=== PATIENT | male | born 1960 | race Caucasian/White ===

== ENCOUNTER 2016-09-02 17:34 | Inpatient (IN) | payer OTHER ==
[~2016-09-02] VITALS: Ht 177.8 cm; Wt 111.1 kg
[~2016-09-02 17:34] MED LIST: LEVO75TA5 PO; OLME20TA PO
[2016-09-02] MEDS ORDERED: DEXTROSE 50% 25 GM / 50ML DISP.SYRIN. IV PRN (19:45)
[2016-09-02] MEDS ORDERED: TRAM50TA PO (19:59)
[2016-09-02] MEDS ORDERED: LEVO75TA5 PO (19:59)
[2016-09-02] MEDS ORDERED: METH-37 PO (19:59)
[2016-09-02] MEDS ORDERED: LOSA100T6 PO (19:59)
[2016-09-02] MEDS ORDERED: ONDANSETRON PF 4 MG/2 ML VIAL. IV PRN (20:00)
[2016-09-02] MEDS ORDERED: KETOROLAC TROMETHAMINE 30 MG/ML SYRINGE. IV PRN (20:00)
[2016-09-02] MEDS ORDERED: MORPHINE SULFATE 4 MG/ML DISP.SYRIN. IV PRN (20:00)
[2016-09-02] MEDS ORDERED: METHOCARBAMOL 500 MG TABLET PO PRN (20:15)
[2016-09-02] MEDS ORDERED: TRAMADOL 50 MG TABLET. PO PRN (20:15)
[2016-09-02 20:24] VITALS: BP 124/79
[2016-09-02] MEDS ORDERED: INSULIN DETEMIR 300 UNITS/3 ML INSULN.PEN. SQ SCH (21:00)
[2016-09-02] MEDS: IV NORMAL SALINE 1000ML BAG 1,000 ML IV SCH (21:47)
[2016-09-02] MEDS ORDERED: NAPR500T8 PO (22:02)
[2016-09-02] MEDS ORDERED: ACET500T68 PO (22:02)
[2016-09-02 22:41] VITALS: BP 120/80
[2016-09-03 02:36] VITALS: BP 128/79
[2016-09-03 06:52] VITALS: BP 112/67
[2016-09-03] MEDS ORDERED: LEVOTHYROXINE 75 MCG TABLET PO SCH (07:00)
[2016-09-03] MEDS: IV NORMAL SALINE 1000ML BAG 1,000 ML IV SCH (07:43)
--- NOTE | 2016-09-03 08:34 | PDOC ---
Infectious Disease Note ROS ROS Vital Sign Vital Signs Vital Signs Date Time Temp Pulse Resp B/P Pulse Ox O2 Delivery O2 Flow Rate FiO2 09/03/16 06:52 97.5 64 18 112/67 97 Room Air 97.5 Labs Lab Laboratory Tests Test 09/02/16 19:51 09/03/16 06:52 Glucose (Fingerstick) 482mg/dL (70-99) 408mg/dL (70-99) Objective Assessment Polyarthritis ? gout despite nml Uric acid vs ID. RF roughly normal Leukocytosis - splenectomy/Steroids/reactive/? infection H/o Splenectomy Diabetes HTN Plan Plan of Care Continue IV Rocephin f/u cults Await Rheum eval Thank you # [id number] SUPRIYA LUJAN MD Sep 03, 2016 08:34
[2016-09-03] MEDS: INSULIN ASPART 300 UNITS/3 ML INSULN.PEN SQ SCH ×2 (08:43→12:21)
[2016-09-03] MEDS ORDERED: CEFTRIAXONE SODIUM 2 GM in IV NORMAL SALINE 100ML 100 ML IV SCH (09:00)
[2016-09-03] MEDS ORDERED: LOSARTAN POTASSIUM 50 MG TABLET. PO SCH (09:00)
[2016-09-03] MEDS ORDERED: methylPREDNISolone SOD SUCC PF 125 MG/2 ML VIAL. IV SCH (09:00)
[2016-09-03 11:00] VITALS: BP 121/76
[2016-09-03] MEDS ORDERED: INSULIN ASPART 300 UNITS/3 ML INSULN.PEN SQ ONE (12:00)
[2016-09-03] MEDS ORDERED: DEXTROSE 50% 25 GM / 50ML DISP.SYRIN. IV PRN (13:15)
--- NOTE | 2016-09-03 14:00 | HP ---
ADMIT DATE: 09/02/2016 HISTORY OF PRESENT ILLNESS: The patient is a 56-year-old male patient who was admitted to [facility] Emergency Room complaining of not feeling generally well, has had fever up to 101.6 on last Wednesday, developed severe pain in his right hand and his left ankle joint with difficulty using them. The patient has never had any similar complaints before. Denied any recent travel or ill contact. He never had any previous inflammatory rheumatological problems. He denied any recent trauma to the right wrist or left ankle, has had a history of splenectomy and apparently has had before surgery of [place] spotted fever. He was evaluated in the Emergency Room, was found to have marked leukocytosis, mild hyponatremia, probably dilutional. His inflammatory markers were extremely high with C-reactive protein of 272 mg and sedimentation rate was 83 mm per hour. He was continued on his home medications, was started on methyl prednisolone, IV antibiotic as well as Toradol and tramadol and given that he continued to have swelling this seemed to be some form of rheumatological disorder. I opted to transfer him to [facility] to consult Infectious Disease given that he had splenectomy and also the land inspector, Dr. Ambriz. He has already been started on methyl prednisolone. He received 125 mg in the Emergency Room day before yesterday and yesterday he received 60 mg and again today. PAST MEDICAL HISTORY: Significant for hypertension, hypothyroidism, hyperlipidemia, right frozen shoulder, and bilateral meniscal tear. PAST SURGICAL HISTORY: Significant for bilateral arthroscopic knee surgery, splenectomy at age 14 and appendectomy in 1981. He has nasal septal deviation repair surgery, surgery of his right frozen shoulder. He underwent liposuction, abdominal wound dehiscence repair about 10 years ago. He underwent also colonoscopy, has a strong family history of colon cancer. ALLERGIES: He is allergic to DHRUV INHIBITORS, STATIN and DEMEROL. MEDICATIONS: His home medications consist of levothyroxine sodium 75 mcg once a day, methocarbamol 500 twice a day, Benicar 20 mg once a day, and tramadol 50 mg every 6 hours. FAMILY HISTORY: He has 3 younger brothers, who are healthy. His father is alive at the age of 85 and has had 2 CVAs and diabetes. His mother is alive at the age of 80 and is known to have COPD and hypertension. SOCIAL HISTORY: He is , has no children of his own. He never smoked. He drinks 1-3 drinks per week. He does not use any drugs. Acute MD. He is currently semi-retired. REVIEW OF SYSTEMS: The patient denied any blurring of vision, but has bilateral cataract, did not require any surgery. He has hearing loss. He has also weight loss, intentional. He denied any nausea, vomiting, diarrhea, or constipation. Denied any hematemesis, melena or hematochezia. Denied any dysuria, frequency or hematuria. Did complain of postvoid dribbling. Denied any chest pain, shortness of breath, orthopnea, paroxysmal nocturnal dyspnea. Denied any cough, phlegm, or hemoptysis. Did complain of shaking chills and fever up to 101.6 about 5 days ago. PHYSICAL EXAMINATION: GENERAL: When I examined him today, he looked well and was clearly in no apparent respiratory distress, somewhat pale, but no jaundice, cyanosis, or thyromegaly. No jugular distention. No limb edema. VITAL SIGNS: His heart rate was 82, blood pressure was 121/76, temperature was 98.1, respiratory rate was 18 and oxygen saturation was 94% on room air. EXAMINATION OF THE HEAD, EYES, EARS, NOSE AND THROAT: Normocephalic, atraumatic. NECK: Supple. HEART: Showed normal first and second sounds. No gallop, rub or murmur. CHEST: Clear to auscultation. No crepitation or rhonchi. ABDOMEN: Distended, soft, nontender. No guarding or rigidity. No organomegaly. All hernial orifices intact. Bowel sounds normal. NEUROLOGIC: He was awake, alert, and responding appropriately. Cranial nerves intact. EXTREMITIES: She moves extremities without difficulty except his right wrist and right hand as well as his ankle joint, is swollen and painful. PLAN: My plan is to continue with all his current medications and consult the infectious disease specialist and the land inspector and will decide further management accordingly. COOPER RENEE MD DR: CONSTANTINO/emily JOB#: [id number] / [id number]
[2016-09-03 14:59] VITALS: BP 115/70
[2016-09-03] MEDS ORDERED: METF500T9 PO (16:09)
[2016-09-03] MEDS ORDERED: INSULIN ASPART 300 UNITS/3 ML INSULN.PEN SQ SCH (16:30)
[2016-09-03] MEDS ORDERED: INSULIN DETEMIR 300 UNITS/3 ML INSULN.PEN. SQ SCH (21:00)
--- NOTE | 2016-09-04 05:44 | CONS ---
DATE OF CONSULTATION: 09/03/2016 PATIENT'S ROOM: 562 REQUESTING PHYSICIAN: Dr. Degroot. REASON FOR CONSULTATION: Fevers and joint swelling. 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 Also, has a history of a splenectomy at age 14 secondary to a baseball injury. This past Wednesday, he was at home, about 11:00 in the morning, states he did not feel quite right, had some chills and took some Tylenol and about 2 hours later was found to have a temp of 101.6. Additionally, he developed some right hand pain and left foot pain. The foot pain progressed to the point where he had difficulty walking. He took some tramadol, Tylenol and some Naprosyn. On Wednesday, Wednesday, Wednesday, the swelling, fevers and pain continued. He then presented to [facility] on 09/01/2016. He had a white blood cell count of 16.3 on arrival, sed rate was 83, uric acid was 4.2, creatinine was normal. Urinalysis was not consistent with urinary tract infection. He underwent x-rays of the ankle that showed some soft tissue swelling. Blood cultures obtained. He was placed on Rocephin, started steroids and was transferred to [facility]. Currently, he is sitting upright on the side of the bed. He had just finished breakfast, states he is feeling much better. He is actually able to ambulate a little bit and has a little bit more range of motion in his right wrist. He appears to have improved. He has no gross headaches, sinus issues, sore throat or cough or chest pain, no nausea, vomiting, diarrhea, dysuria, frequency or urgency. PAST MEDICAL HISTORY: Positive for [place] spotted fever, diabetes, hypertension, gastroesophageal reflux disease, cataracts and history of jungle fever. He has had multiple surgeries including the nose reconstruction, splenectomy, appendectomy, liposuction, multiple joint surgeries including knees and shoulder. REVIEW OF SYSTEMS: Otherwise negative except as mentioned above. ALLERGIES: LISTED MEPERIDINE, DHRUV INHIBITORS ALSO. SOCIAL HISTORY: He is . 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 FAMILY HISTORY: Negative for any arthritis or gouty history. CURRENT MEDICATIONS: Include Rocephin, insulin, levothyroxine, Cozaar, Robaxin, Solu-Medrol 60 daily, Ultram. Other meds are available and have been reviewed in the chart. PHYSICAL EXAMINATION: VITAL SIGNS: He is afebrile, temperature 97.5, pulse 64, respirations 18, blood pressure 112/67, satting 97% on room air. CONSTITUTIONAL: He is very pleasant. He is cooperative. He is in no acute distress. He is sitting upright on the side of the bed. HEENT: Pupils are with some cataracts, with normal conjunctivae. Oral cavity, oropharynx is clear. NECK: Supple with good range of motion. No JVD. LUNGS: Clear to auscultation bilaterally. HEART: S1, S2, without murmur. ABDOMEN: Mildly obese, soft, nontender, positive bowel sounds. Well-healed scars. EXTREMITIES: No clubbing or cyanosis. His right hand has trace to 1+ edema. There is some limited range of motion. There is no gross warmth associated with his left ankle. He has 1-2+ edema. There is no gross warmth with it either. It is mildly tender. SKIN: Otherwise, warm to touch without signs of rash. NEUROLOGIC: He is nonfocal and appropriate. His affect is pleasant. LABORATORY DATA: Most recent fingerstick here is 408. Laboratory values from [facility] from 09/02/2016 show a creatinine of 1. He had normal liver function study tests. Glucose at that time was 444. INR was 1.1. Rheumatoid factor of 14.2. IVETH is pending. White blood cell count was 17, hemoglobin 13.5, platelets 169 with 88% neutrophils. Sedimentation rate reviewed in history of present illness. X-rays reviewed in history of present illness. IMPRESSION: 1. Polyarthritis, questionable gout despite normal uric acid versus infection. His rheumatoid factors are roughly normal. 2. Leukocytosis secondary to splenectomy, steroids, questionable reactive, questionable infection. 3. History of splenectomy. 4. Diabetes. 5. Hypertension. RECOMMENDATIONS: For now, we will continue Rocephin. We will follow up on cultures that have been obtained. Await Rheumatology evaluation. Thank you for allowing me to participate in this patient's care. Should you have any further questions, please do not hesitate to contact me. SUPRIYA LUJAN MD DR: Domingo JOB#: [id number] / [id number]
== END 2016-09-03 16:44 | disposition home or self-care (01) | DRG 554 ==
LOC: 5 SOUTH 19:39
PROVIDERS: ADMIT Internal Medicine; ATTEND Internal Medicine
DX: M13.0 Polyarthritis, unspecified (principal); E87.1 Hypo-osmolality and hyponatremia; I10 Essential (primary) hypertension; E78.5 Hyperlipidemia, unspecified; E03.9 Hypothyroidism, unspecified; M75.01 Adhesive capsulitis of right shoulder; E11.9 Type 2 diabetes mellitus without complications; H26.9 Unspecified cataract; D72.829 Elevated white blood cell count, unspecified; K21.9 Gastro-esophageal reflux disease without esophagitis; M10.9 Gout, unspecified; Z80.0 Family history of malignant neoplasm of digestive organs; Z82.5 Family history of asthma and other chronic lower respiratory diseases; Z82.49 Family history of ischemic heart disease and other diseases of the circulatory system; Z83.3 Family history of diabetes mellitus; Z82.3 Family history of stroke; Z90.81 Acquired absence of spleen; Z90.49 Acquired absence of other specified parts of digestive tract; Z88.8 Allergy status to other drugs, medicaments and biological substances; Z79.899 Other long term (current) drug therapy; Z79.82 Long term (current) use of aspirin
CPT/HCPCS: 36415; 82947; 87040; J0696; J1815; J1885; J2270; J2930; J7030

== ENCOUNTER → 2019-02-27 | Outpatient (CLI) | payer OTHER ==
[2018-12-08 12:56] VITALS: BP 112/77
[~2019-02-27] MED LIST changes: +ACET500T68 PO; +ASPI-612 PO; +CLOP75TA PO; +FISH1CAP PO; +FURO40TA4 PO; +INSU100I13 SQ; +INSU100I30 SQ; +LOSA100T14 PO; +METF10007 PO; +METF500T11 PO; +METH-37 PO; +METO25TA4 PO; +MILR1VIA PO; +NAPR500T8 PO; +NITR0.4T SL; -OLME20TA PO; +OLME20TA17 PO; +SACU1TAB PO; +SOTA80TA20 PO; +SPIR50TA4 PO; +TRAM50TA PO
--- NOTE | 2019-02-27 12:55 | CARD ---
MR#: [id number] Date of Study: 02/27/2019 Ordering Physician: TETE THOMAS, Referring Physician: TETE THOMAS, Tech: Bethany Vega APPROVED REPORT EXAM: Two-dimensional and M-mode echocardiogram with Doppler and color Doppler. Other Information Quality : AverageHR: 71bpm INDICATION Cardiomyopathy RISK FACTORS Hypertension Hyperlipidemia Diabetes PA April 2018 2D DIMENSIONS RVDd3.2 (2.9-3.5cm)Left Atrium(2D)4.6 (1.6-4.0cm) IVSd1.0 (0.7-1.1cm)Aortic Root(2D)3.0 (2.0-3.7cm) LVDd6.0 (3.9-5.9cm)LVOT Diameter2.1 (1.8-2.4cm) PWd1.2 (0.7-1.1cm)LVDs4.1 (2.5-4.0cm) FS (%) 31.5 %SV105.5 ml Aortic Valve AoV Peak Herminio.112.1cm/sAoV VTI20.8cm AO Peak GR.5.0mmHgLVOT Peak Herminio.83.3cm/s LVOT VTI 15.21cmAO Mean GR.3mmHg WYATT (VMAX)1.47nt2QDT (VTI)2.46cm2 Mitral Valve MV E Nhqwcqpo524.3cm/sMV E Peak Gr.64mmHg MV DECEL [id number] E Mean Gr.3mmHg MV FJQ41jnKPV (PHT)5.06cm2 TDI E/Lateral E'15.2E/Medial E'17.2 Pulmonary Valve PV Peak Eubbrawr60.8cm/sPV Peak Grad.2mmHg Tricuspid Valve TR P. Mimtvvup273hk/sRAP PXYMDKXZ1baAo TR Peak Gr.62csOgPGMN22ueGc Pulmonary Vein S1 Oezmxomh38.5cm/sD2 Ysfjwbdl26.1cm/s PVa vpmjtshq248iyhc LEFT VENTRICLE The Left Ventricle is mildly dilated. There is mild concentric left ventricular hypertrophy. The syst olic function is moderately decreased. The Ejection Fraction is 35-40%. There is global hypokinesis o f the left ventricle. The left ventricular diastolic function and filling is normal for age. RIGHT VENTRICLE The right ventricle is borderline dilated. There is normal right ventricular wall thickness. The righ t ventricular systolic function is normal. ATRIA The left atrium is moderately dilated. The right atrium is mildly dilated. The interatrial septum is intact with no evidence for an atrial septal defect or patent foramen ovale as noted on 2-D or Dopple r imaging. AORTIC VALVE The aortic valve is normal in structure and function. Doppler and Color Flow revealed no significant aortic regurgitation. There is no significant aortic valvular stenosis. MITRAL VALVE The mitral valve is thickened but opens well. There is no evidence of mitral valve prolapse. There is no mitral valve stenosis. Doppler and Color-flow revealed moderately severe mitral regurgitation. TRICUSPID VALVE The tricuspid valve is normal in structure and function. Doppler and Color Flow revealed trace tricus pid regurgitation with an estimated 44 mmHg. There is no tricuspid valve stenosis. PULMONIC VALVE The pulmonary valve is normal in structure and function. Doppler and Color Flow revealed trace pulmon ic valvular regurgitation. GREAT VESSELS The aortic root is normal in size. The IVC is normal in size and collapses >50% with inspiration. PERICARDIAL EFFUSION There is no evidence of significant pericardial effusion. Critical Notification Critical Value: No <Conclusion> The Left Ventricle is mildly dilated. The systolic function is moderately decreased. The Ejection Fraction is 35-40%. There is global hypokinesis of the left ventricle. There is mild concentric left ventricular hypertrophy. There is no significant aortic valvular stenosis. Doppler and Color Flow revealed no significant aortic regurgitation. Doppler and Color-flow revealed moderately severe mitral regurgitation. Doppler and Color Flow revealed trace tricuspid regurgitation with an estimated 44 mmHg. Signed by : Haim Carias MD Electronically Approved : 02/27/2019 12:54:56
== END | disposition home or self-care (01) ==
LOC: ECHO 08:02
PROVIDERS: ATTEND Internal Medicine Cardiovascular Disease
DX: I25.5 Ischemic cardiomyopathy (principal); I34.0 Nonrheumatic mitral (valve) insufficiency
CPT/HCPCS: 93306

== ENCOUNTER 2019-05-26 12:06 | Observation (INO) | payer OTHER ==
[~2019-05-26] VITALS: Ht 179.1 cm; Wt 117.9 kg
[~2019-05-26 12:06] MED LIST changes: +HYDROmorphone 2 MG/ML VIAL IV PRN; +IV RINGERS,LACTATED 1000ML 1,000 ML IV SCH; +LIDOCAINE 1% PF 2 ML VIAL. ID PRN; +MORPHINE SULFATE 2 MG/ML VIAL. IV PRN; -NITR0.4T SL; +NITR0.4T24 SL; +ONDANSETRON PF 4 MG/2 ML VIAL. IV PRN; +PROCHLORPERAZINE 10 MG/2 ML VIAL. IV PRN
--- NOTE | 2019-05-26 12:33 | EKG ---
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
[2019-05-26 12:41] LABS: HEMATOCRIT 39.7 % (39.0-53.0); HEMOGLOBIN 13.6 g/dL (13.0-17.5); RED BLOOD COUNT 3.95 x10^6/uL (4.30-5.70); RED CELL DISTRIBUTION WIDTH 14.1 % (11.5-14.5); WHITE BLOOD COUNT 5.7 x10^3/uL (4.0-11.0)
[2019-05-26] MEDS ORDERED: MULT-735 PO (12:47)
[2019-05-26] MEDS ORDERED: EZET10TA20 PO (12:47)
[2019-05-26] MEDS ORDERED: METO-239 PO (12:47)
[2019-05-26] MEDS ORDERED: APIX5TAB PO (12:47)
[2019-05-26] MEDS ORDERED: DOFE250C PO (12:47)
[2019-05-26 12:48] LABS: CALCIUM 8.6 mg/dL (8.5-10.1); CREATININE 0.9 mg/dL (0.7-1.3); GFR 86.1; POTASSIUM 4.1 mmol/L (3.5-5.1)
[2019-05-26 12:50] LABS: PROTHROMBIN TIME PATIENT 13.2 SEC (11.7-14.0)
[2019-05-26 12:51] VITALS: BP 97/65
[2019-05-26] MEDS ORDERED: BACITRACIN 50,000 UNIT in IV NORMAL SALINE 250ML 250 ML IRR ONE (13:00)
[2019-05-26] MEDS ORDERED: fentaNYL PF VIAL 250 MCG/5 ML VIAL ONE (14:15)
[2019-05-26] MEDS ORDERED: MIDAZOLAM HCL/PF 5 MG/5 ML VIAL. ONE (14:15)
[2019-05-26] MEDS ORDERED: LIDOCAINE 2%/EPI 1:100,000 20 ML VIAL. ONE (14:16)
--- NOTE | 2019-05-26 14:37 | PDOC ---
MODERATE SEDATION ASSESSMENT RISKS/ALTERNATIVES Risks/Alternatives Risks and alternatives of this type of sedation and procedure discussed with: RISK/ALTERNATIVES: Patient H & P ON CHART H & P H & P on chart and reviewed for co-morbid conditions and appropriate labs. H&P ON CHART: Yes STATUS PREG STATUS ASSESSED: N/A MEDS/ALLERGIES REVIEWED Meds/Allergies Reviewed Medications and Allergies including time and route of recently administered narcotics and sedatives. MEDS/ALLERGIES REVIEWED: Yes ASA RATING ASA RATING: III AIRWAY ASSESSMENT Airway Assessment Airway patency, oral function limitations, presence of caps, crowns, dentures, partials, and ability to extend neck assessed. AIRWAY ASSESSMENT: Yes MALLAMPATI SCORE MALLAMPATI SCORE: II PRE-SEDATION ASSESSMENT PRE-SEDATION ASSESSMENT: Yes ADELINE ELLSWORTH MD May 26, 2019 14:37
[2019-05-26] MEDS ORDERED: LIDOCAINE 2%/EPI 1:100,000 20 ML VIAL. IJ ONE (15:00)
[2019-05-26] MEDS ORDERED: IV NORMAL SALINE 500ML BAG 500 ML IV ONE (15:00)
[2019-05-26] MEDS ORDERED: fentaNYL PF VIAL 250 MCG/5 ML VIAL IV ONE (15:00)
[2019-05-26] MEDS ORDERED: MIDAZOLAM HCL/PF 5 MG/5 ML VIAL. IV ONE (15:00)
[2019-05-26 15:54] VITALS: BP 98/65
[2019-05-26] MEDS ORDERED: NO ANTICOAGULANT THERAPY. MC PRN (16:00)
[2019-05-26 16:18] VITALS: BP 105/61
--- NOTE | 2019-05-26 16:27 | CARD ---
MR#: [id number] Date of Study: 05/26/2019 Ordering Physician: ADELINE ELLSWORTH, Referring Physician: ADELINE ELLSWORTH, Tech: APPROVED REPORT EXAM fl time: 6.1 mins dose: 12 gy/cm2 moderate sedation: 80 mins HISTORY The Patient is a 59 year-old male with a history of ischemic CMP and afib with RVR and tachy-farzana syndrome INDICATIONS 35 mL of 2% lidocaine was infiltrated into the skin and subcutaneous tissues for local anesthesia. A n incision was made over the left infraclavicular fossa and using blunt dissection and cautery a pock et was created. Venous access was obtained in the left subclavian vein and 8 and 6Fr sheaths were in serted. Subsequently, a Biotronik bipolar active fixation right ventricular lead model [place], [id number] was advanced under fluoroscopic guidance and the tip was positioned in the right ventricular api mynor septum. Following this, a Biotronik bipolar active fixation right atrial lead model Solia S 53 S [id number] was placed in the right atrial appendage under fluoroscopy guidance. The leads were secur ed into place and were attached to a Biotronik dual-chamber ICD, model Ilivia 7 DR-T, SN [id number]. T his was placed in the pocket that was subsequently closed in 3 layers. Hemostasis was secured. At the end of procedure, the right ventricular lead showed sensing amplitude of 20 mV, impedance of 7 40 ohms and a threshold of 0.6 volts at 0.4 ms. The right atrial lead showed a sensing amplitude of 3.2 millivolts, impedance of 560 ohms and a threshold of 0.8 volts at 0.4 ms. Patient tolerated the p rocedure well. There were no immediate complications. Settings: DDD-CLS 50-130, Mode switch 180 DFT testing was not performed as the patient has a history of atrial fibrillation and anticoagulation was held for the ICD placement. Consider on an outpt basis versus when patient has possible AFIB abl ation. CONCLUSION Successful insertion of a Biotronik Dual Chamber ICD for primary prevention of SCD in the setting of ischemic cardiomyopathy with an EF of less than 35%. Signed by : Adeline Ellsworth, Electronically Approved : 05/26/2019 16:27:06
[2019-05-26] MEDS ORDERED: NITROGLYCERIN SUBLINGUAL 0.4 MG BOTTLE OF 25. SL PRN (17:00)
--- NOTE | 2019-05-26 17:14 | RAD ---
PORTABLE CHEST 1V Clinical indications: Post pacemaker placement COMPARISON: May 13, 2018. Findings: Since the previous study, a bipolar atrioventricular pacemaker has been placed via a left subclavian approach. No pneumothorax or pleural effusion is seen. The right IJ central line seen previously has been removed. No new lung infiltrate or pulmonary edema is seen. The heart size and mediastinum and pulmonary vasculature are unremarkable. Impression: Placement of pacemaker without pneumothorax or pleural effusion. Electronically signed by: Edmar Hardy MD (05/26/2019 5:11 PM) [facility]
[2019-05-26] MEDS: APIXABAN 5 MG TABLET. PO SCH (17:49)
[2019-05-26] MEDS: oxyCODONE/APAP 5/325 1 TAB TABLET PO PRN ×2 (18:27→22:32)
[2019-05-26 19:20] VITALS: BP 93/56
[2019-05-26] MEDS ORDERED: INSULIN GLARGINE SYRINGE. SQ SCH (21:00)
[2019-05-26] MEDS: SACUBITRIL/VALSARTAN 24/26MG TABLET. PO SCH (21:20)
[2019-05-26] MEDS: DOFETILIDE 125 MCG CAPSULE PO SCH (21:21)
[2019-05-26] MEDS ORDERED: METOPROLOL SUCC 24HR ER 25 MG TAB.ER.24H. PO SCH (22:00)
[2019-05-26 23:10] VITALS: BP 100/57
[2019-05-27] MEDS: oxyCODONE/APAP 5/325 1 TAB TABLET PO PRN ×2 (05:55→15:23)
[2019-05-27] MEDS ORDERED: LEVOTHYROXINE 150 MCG TABLET PO SCH (06:00)
[2019-05-27 07:00] VITALS: BP 154/67
[2019-05-27] MEDS ORDERED: metFORMIN 500 MG TABLET PO SCH (08:00)
[2019-05-27] MEDS ORDERED: INSULIN GLARGINE SYRINGE. SQ SCH (08:00)
--- NOTE | 2019-05-27 08:34 | RAD ---
Chest PA and lateral: Reason for examination: One day post pacemaker implantation. Comparison is made to previous study dated 05/26/2019. Pacemaker is present over the left hemithorax with leads to the right atrium and right ventricle. The heart size is normal. Mediastinum is unremarkable. Lung hernandez are clear. There is no pneumothorax. No acute bony abnormalities are seen. Impression: No acute cardiopulmonary disease. Electronically signed by: Rosalba Kolb MD (05/27/2019 8:31 AM) [facility]
[2019-05-27] MEDS: DOFETILIDE 125 MCG CAPSULE PO SCH (08:50)
[2019-05-27] MEDS: SACUBITRIL/VALSARTAN 24/26MG TABLET. PO SCH (08:51)
[2019-05-27] MEDS ORDERED: EZETIMIBE 10 MG TABLET. PO SCH (09:00)
[2019-05-27] MEDS ORDERED: SPIRONOLACTONE 25 MG TABLET PO SCH (09:00)
[2019-05-27] MEDS ORDERED: ANTI-COAG MONITOR BY PHARMACY. MC PRN (09:00)
[2019-05-27] MEDS ORDERED: OMEGA-3 FATTY ACIDS/FISH OIL 1,000 MG CAPSULE. PO SCH (09:00)
[2019-05-27] MEDS ORDERED: METOPROLOL SUCC 24HR ER 25 MG TAB.ER.24H. PO SCH (09:00)
[2019-05-27] MEDS ORDERED: CLOPIDOGREL BISULFATE 75 MG TABLET PO SCH (09:00)
[2019-05-27] MEDS ORDERED: FUROSEMIDE 20 MG TABLET PO SCH (09:00)
[2019-05-27] MEDS ORDERED: MULTIVITAMIN with MINERAL TABLET. PO SCH (09:00)
[2019-05-27 11:56] VITALS: BP 101/64
--- NOTE | 2019-05-27 13:47 | PDOC3 ---
Discharge Summary Visit Information Date of Admission: May 26, 2019 Date of Discharge: May 27, 2019 Admitting Diagnosis: ischemic cardiomyopathy Final Diagnosis Ischemic cardiomyopathy Chronic systolic heart failure Atrial fibrillation Hypertension Coronary artery disease Diabetes mellitus type 2 Mitral regurgitation Brief Hospital Course Allergies Allergies Coded Allergies Type Severity Reaction Last Updated Verified amiodarone Allergy Severe Shortness of Air 12/06/18 Yes meperidine Allergy Severe Shortness of Air 12/06/18 Yes Oeczrtw-Uck-Lqh Reductase Inhibitor Adverse Reaction Intermediate 12/06/18 Yes lisinopril Adverse Reaction Mild 12/06/18 Yes Vital Signs Vital Signs Date Time Temp Pulse Resp B/P (MAP) Pulse Ox O2 Delivery O2 Flow Rate FiO2 05/27/19 11:56 98.6 69 18 101/64 (76) 97 Room Air 98.6 05/26/19 16:30 2.0 Lab Results Laboratory Tests Test 05/26/19 12:30 05/26/19 16:20 05/26/19 20:51 05/27/19 07:25 White Blood Count 5.7 x10^3/uL (4.0-11.0) Red Blood Count 3.95 x10^6/uL (4.30-5.70) Hemoglobin 13.6 g/dL (13.0-17.5) Hematocrit 39.7 % (39.0-53.0) Mean Corpuscular Volume 101 fL (79-100) Mean Corpuscular Hemoglobin 34 pg (25-35) Mean Corpuscular Hemoglobin Concent 34 g/dL (31-37) Red Cell Distribution Width 14.1 % (11.5-14.5) Platelet Count 227 x10^3/uL (140-400) Prothrombin Time 13.2 SEC (11.7-14.0) Prothromb Time International Ratio 1.0 (0.8-1.1) Sodium Level 138 mmol/L (136-145) Potassium Level 4.1 mmol/L (3.5-5.1) Chloride Level 105 mmol/L (98-107) Carbon Dioxide Level 24 mmol/L (21-32) Anion Gap 9 (6-14) Blood Urea Nitrogen 25 mg/dL (8-26) Creatinine 0.9 mg/dL (0.7-1.3) Estimated GFR (Cockcroft-Gault) 86.1 Glucose Level 91 mg/dL (70-99) Calcium Level 8.6 mg/dL (8.5-10.1) Glucose (Fingerstick) 76 mg/dL (70-99) 146 mg/dL (70-99) Magnesium Level 1.9 mg/dL (1.8-2.4) Test 05/27/19 07:28 Glucose (Fingerstick) 100 mg/dL (70-99) Laboratory Tests Test 05/26/19 16:20 05/26/19 20:51 05/27/19 07:25 05/27/19 07:28 Glucose (Fingerstick) 76 mg/dL (70-99) 146 mg/dL (70-99) 100 mg/dL (70-99) Magnesium Level 1.9 mg/dL (1.8-2.4) Brief Hospital Course Mr. Garduno is a 59-year-old pleasant male with history of ischemic cardiomyo marquez/chronic systolic heart failure with LVEF 25% underwent successful Biotronik AICD implantation. He remained hemodynamically stable and well compensated during his hospital stay. His incision looked good, chest x-ray did not show any pneumothorax and device interrogation prior to discharge showed normal function. He will follow-up with our office for wound check next week. Discharge Information Condition at Discharge: Stable Follow Up: Weeks (1) Disposition/Orders: D/C to Home Scheduled Apixaban (Eliquis) 5 Mg Tablet, 5 MG PO BID for afib, (Reported) Entered as Reported by: EMMY ALEXIS on 05/26/191246 Last Taken: Unknown Dose on 05/24/19 0800 Last Action: Continued on 05/26/191703 by Blaise Winn Clopidogrel Bisulfate (Clopidogrel) 75 Mg Tablet, 1 TAB PO DAILY for stent, #90 Ref 3 Prescribed by: ELVIA ROBERTSON MD on 05/15/18 1219 Last Taken: Unknown Dose on 05/26/19 Last Action: Continued on 05/26/191703 by Blaise Winn Dofetilide (Tikosyn) 250 Mcg Capsule, 250 MCG PO BID for , (Reported) Entered as Reported by: EMMY ALEXIS on 05/26/19 1247 Last Taken: Unknown Dose on 05/26/19 Last Action: Continued on 05/26/191703 by Blaise Pa Ezetimibe (Zetia) 10 Mg Tablet, 10 MG PO DAILY for chol, (Reported) Entered as Reported by: EMMY ALEXIS on 05/26/191246 Last Action: [facility] on 05/26/191703 [facility] Fish Oil/Dha/Epa (Fish Oil 1,200 Mg Fish Oil) 1 Each Capsule, 1 EACH PO DAILY for SUPPLENMENT, (Reported) Entered as Reported by: BEHZAD HOLMAN on 12/05/181613 Last Action: Converted on 05/26/191703 by Blaise Pa Furosemide (Furosemide) 40 Mg Tablet, 1.5 TAB PO DAILY for DIURETIC, #30 Ref 5 (Reported) Entered as Reported by: BEHZAD HOLMAN on 12/05/181611 Last Action: Continued on 05/26/191703 by Blaise Pa Insulin Glargine,Hum.rec.anlog (Lantus Solostar) 100 Unit/1 Ml Insuln.pen, 48 UNIT SQ HS for DIABETES, #15 Ref 3 (Reported) Entered as Reported by: BEHZAD HOLMAN on 12/05/181614 Last Action: Edited on 05/26/191751 by Blaise Pa Levothyroxine Sodium (Levothyroxine Sodium) 75 Mcg Tablet, 150 MCG PO DAILY for HYPOTHYROID, (Reported) Entered as Reported by: CORNEL HALL on 10/05/131600 Last Action: Continued on 05/26/191703 [facility] Metformin Hcl (Metformin Hcl) 1,000 Mg Tablet, 1,000 MG PO BIDWMEALS for DIABETES, (Reported) Entered as Reported by: BEHZAD HOLMAN on 12/05/181600 Last Action: Converted on 05/26/191703 [facility] Metoprolol Succinate (Metoprolol Succinate ( Xl )) 25 Mg Tab.er.24h, 12.5 MG PO DAILY for FOR HYPERTENSION, #30 Ref 0 (Reported) Entered as Reported by: EMMY ALEXIS on 05/26/191246 Last Action: Continued on 05/26/191703 [facility] Multivitamin (One-Daily Multi-Vitamin) 1 Each Tablet, 1 TAB PO DAILY for for 30 Days, #30 Ref 0 (Reported) Entered as Reported by: EMMY ALEXIS on 12/6/19 1247 Last Action: Converted on 05/26/191703 by Blaise Winn Sacubitril/Valsartan (Entresto 24 mg-26 mg Tablet) 1 Each Tablet, 1 EACH PO BID for HYPERTENSION, (Reported) Entered as Reported by: BEHZAD HOLMAN on 12/05/18 160 Last Taken: Unknown Dose on 05/26/19 Last Action: Edited on 05/26/191712 by [place] [facility] Spironolactone (Spironolactone) 50 Mg Tablet, 0.5 TAB PO DAILY for DIURETIC, #30 Ref 5 (Reported) Entered as Reported by: BEHZAD HOLMAN on 12/05/18 161 Last Action: Converted on 05/26/191703 by Blaise Winn Scheduled PRN Nitroglycerin (Nitrostat) 0.4 Mg Tab.subl, 0.4 MG SL PRN Q5MIN PRN for CHEST PAIN for 30 Days, Ref 4 Prescribed by: ELVIA ROBERTSON MD on 05/15/18 1222 Last Action: Continued on 05/26/191703 by DEREK Hardin MD May 27, 2019 13:47
--- NOTE | 2019-05-27 18:11 | NUR ---
Discharge Note: REBECCA MONROE Discharge instructions and discharge home medications reviewed with Patient and a copy given. All questions have been answered and understanding verbalized. The following instructions and handouts were given: MEDICATION LIST, S/P AICD INSTRUCTIONS, POST SURGICAL EDUCATION, WRITTEN PRESCRIPTION Discontinued lines and drains: IV DISCONTINUED, DRESSING CLEAN, DRY AND intact. Patient discharged to HOME with SPOUSE via WHEELCHAIR
== END 2019-05-27 18:17 | disposition home or self-care (01) ==
LOC: SURG 12:06 → 2 NORTH 15:31
PROVIDERS: ADMIT Internal Medicine Cardiovascular Disease; ATTEND Internal Medicine Cardiovascular Disease
DX: I25.5 Ischemic cardiomyopathy (principal); I48.91 Unspecified atrial fibrillation; I49.5 Sick sinus syndrome
CPT/HCPCS: 33249; 36415; 71045; 71046; 80048; 82962; 83735; 85027; 85610; 93005; 96365; 96372; 96375; C1721; C1895; C1898; G0378; G0379; J1815; J2250; J3010; J3490; J7050; 99152; 99153; J7030

== ENCOUNTER → 2020-04-05 | Outpatient (CLI) | payer OTHER ==
[~2020-04-05] MED LIST changes: +APIX5TAB PO; -ASPI-612 PO; +ASPI-886 PO; +DOFE250C PO; +EZET10TA20 PO; -HYDROmorphone 2 MG/ML VIAL IV PRN; -IV RINGERS,LACTATED 1000ML 1,000 ML IV SCH; -LIDOCAINE 1% PF 2 ML VIAL. ID PRN; +METF-658 PO; -METF500T11 PO; +METO-239 PO; -MORPHINE SULFATE 2 MG/ML VIAL. IV PRN; +MULT-735 PO; -ONDANSETRON PF 4 MG/2 ML VIAL. IV PRN; -PROCHLORPERAZINE 10 MG/2 ML VIAL. IV PRN
--- NOTE | 2020-04-05 14:00 | NUR ---
Pt here for MRI lumbar spine. Pacemaker rep here to adjust settings. Pt monitored throughout, VSS. Pt tolerated procedure without c/o. YARITZA WEBSTER
--- NOTE | 2020-04-05 15:24 | RAD ---
MRI Lumbar Spine without contrast History: Back pain, leg weakness Technique: Multiplanar, multi sequential noncontrast MR imaging was performed of the lumbar spine. Comparison: None Findings: There are multifocal edematous marrow lesions throughout the visualized lumbar spine, also of visualized inferior thoracic levels and the sacrum and iliac bones. Largest lumbar lesion is of the L2 vertebral body. There is central compression deformity of L2, also superiorly of L4 with associated marrow edema although also underlying marrow replacing lesions. There is no significant osseous retropulsion, AP alignment within normal limits. There is mild L4-5 degenerative disc disease, also of visualized inferior thoracic levels. There is posterior annular tear L4-5. Conus terminates at L1. L1-L2: Spinal canal and neural foramina are adequate. L2-L3: There is mild to moderate facet degenerative change. There is prominence of posterior epidural fat centrally and mild buckling of the ligamentum flavum. There is mild narrowing of the right neural foramen, left neural foramen adequate. Spinal canal is adequate. L3-L4: There is mild buckling of the ligamentum flavum. There is mild facet degenerative change, some fluid in the right facet articulation. Neural foramina and spinal canal are adequate. L4-L5: There is mild buckling of the ligamentum flavum and facet degenerative change. Spinal canal is adequate. There is mild bilateral neural foramina compromise greater on the right. L5-S1: Spinal canal is adequate. There is mild to moderate left and mild right facet degenerative change. There is very mild posterior narrowing of the left neural foramen, right neural foramen adequate. Impression: 1. There are multiple edematous marrow lesions, evidence of metastatic disease or multiple myeloma. There is degree of pathologic compression deformity of L2 and to lesser degree of L4 which may be more recent as there is associated marrow edema, no osseous retropulsion. 2. There is no significant lumbar spinal stenosis. There is mild neural foramina compromise as stated. Findings discussed with Leydi Ng at 04/05/2020 3:21 PM. Electronically signed by: Simone Vilchis MD (04/05/2020 3:22 PM) [facility]
== END ==
LOC: MRI 13:11
PROVIDERS: ATTEND Family Medicine
DX: M47.817 Spondylosis without myelopathy or radiculopathy, lumbosacral region (principal); M48.07 Spinal stenosis, lumbosacral region; M51.36 Other intervertebral disc degeneration, lumbar region
CPT/HCPCS: 72148

== ENCOUNTER 2020-04-08 12:34 | Inpatient (IN) | payer OTHER ==
[~2020-04-08] VITALS: Ht 180.3 cm; Wt 116.0 kg
[2020-04-08] MEDS ORDERED: ONDANSETRON PF 4 MG/2 ML VIAL. IVP ONE (13:15)
[2020-04-08] MEDS ORDERED: diazePAM 5 MG TABLET PO ONE (13:15)
[2020-04-08] MEDS ORDERED: HYDROmorphone 2 MG/ML VIAL IVP ONE (13:15)
[2020-04-08] MEDS ORDERED: IV NORMAL SALINE 1000ML BAG 1,000 ML IV ONE (13:15)
[2020-04-08 13:54] LABS: BASO # 0.1 x10^3/uL (0.0-0.2); BASO % 1 % (0-3); EOS # 0.1 x10^3/uL (0.0-0.7); EOS % 2 % (0-3); HEMATOCRIT 33.4 % (39.0-53.0); HEMOGLOBIN 11.6 g/dL (13.0-17.5); LYMPH # 1.9 x10^3/uL (1.0-4.8); LYMPH % 26 % (24-48); MEAN CORPUSCULAR HEMOGLOBIN 34 pg (25-35); MEAN CORPUSCULAR HGB CONC 35 g/dL (31-37); MEAN CORPUSCULAR VOLUME 99 fL (79-100); MONO # 0.4 x10^3/uL (0.0-1.1); MONO % 6 % (0-9); NEUT # 4.7 x10^3/uL (1.8-7.7); NEUT % 65 % (31-73); PLATELET COUNT 185 x10^3/uL (140-400); RED BLOOD COUNT 3.37 x10^6/uL (4.30-5.70); RED CELL DISTRIBUTION WIDTH 13.4 % (11.5-14.5); WHITE BLOOD COUNT 7.2 x10^3/uL (4.0-11.0)
[2020-04-08 14:01] LABS: CALCIUM 8.5 mg/dL (8.5-10.1); CREATININE 1.3 mg/dL (0.7-1.3); GFR 56.1; POTASSIUM 4.9 mmol/L (3.5-5.1)
[2020-04-08 14:07] LABS: ALBUMIN 3.1 g/dL (3.4-5.0); ALBUMIN/GLOBULIN RATIO 0.4 (1.0-1.7); TOTAL BILIRUBIN 0.2 mg/dL (0.2-1.0)
--- NOTE | 2020-04-08 14:12 | PHYS DOC ---
Past Medical History Past Medical History: A-Fib, CAD, Diabetes-Type II, Hypertension Additional Past Medical Histor: annamarie mountain spotted fever Past Surgical History: Appendectomy, Pacemaker Additional Past Surgical Histo: spleenectomy, knee surgery Smoking Status: Never Smoker Alcohol Use: Occasionally Drug Use: None General Adult EDM: Chief Complaint: BACK PAIN - NO INJURY HPI: HPI: Patient is a 60 year old male with history of diabetes type 2, hypertension, A. fib, who presents the ED today to be evaluated for moderate low back pain that he states has been going on since January but has gotten worse in the last couple days with back spasms today, he reports the last time he had back spasms was 15 years ago. Patient states he did follow-up with his PCP as well as a chiropractor for the back pain. He had an MRI done at [place] [facility] 3 days ago but he does not know the results. Patient denies any loss of bowel/bladder function. Denies any injury. Denies any pain radiating to bilateral lower extremities. He states his pain is worse on movement. He states he tried taking his hydrocodone and Flexeril with no relief. Review of Systems: Review of Systems: Constitutional: Denies fever or chills. [] Eyes: Denies change in visual acuity. [] HENT: Denies nasal congestion or sore throat. [] Respiratory: Denies cough or shortness of breath. [] Cardiovascular: Denies chest pain or edema. [] GI: Denies abdominal pain, nausea, vomiting, bloody stools or diarrhea. [] : Denies dysuria. [] Musculoskeletal: Reports low back pain Integument: Denies rash. [] Neurologic: Denies headache, focal weakness or sensory changes. [] Psychiatric: Denies depression or anxiety. [] Heart Score: Risk Factors: Risk Factors: DM, Current or recent (<one month) smoker, HTN, HLP, family history of CAD, obesity. Risk Scores: Score 0 - 3: 2.5% MACE over next 6 weeks - Discharge Home Score 4 - 6: 20.3% MACE over next 6 weeks - Admit for Clinical Observation Score 7 - 10: 72.7% MACE over next 6 weeks - Early Invasive Strategies Current Medications: Current Medications Medications (Trade) Dose Ordered Sig/Elva Start Time Stop Time Status Last Admin Dose Admin Diazepam (Valium) 5 mg 1X ONCE 04/08/20 13:15 04/08/20 13:16 DC 04/08/20 13:44 5 MG Hydromorphone HCl (Dilaudid) 1 mg PRN Q3HRS PRN 04/08/20 14:15 Ondansetron HCl (Zofran) 4 mg PRN Q8HRS PRN 04/08/20 14:15 04/09/20 14:14 Sodium Chloride 1,000 ml @ 1,000 mls/hr 1X ONCE 04/08/20 13:15 04/08/20 14:14 04/08/20 13:39 1,000 MLS/HR Allergies: Allergies: Allergies Coded Allergies Type Severity Reaction Last Updated Verified amiodarone Allergy Severe Shortness of Air 12/06/18 Yes meperidine Allergy Severe Shortness of Air 12/06/18 Yes Mhijito-Gqj-Ryc Reductase Inhibitor Adverse Reaction Intermediate 12/06/18 Yes lisinopril Adverse Reaction Mild 12/06/18 Yes Physical Exam: PE: Constitutional: Well developed, well nourished, no acute distress, non-toxic appearance. [] HENT: Normocephalic, atraumatic, bilateral external ears normal, oropharynx moist, no oral exudates, nose normal. [] Eyes: PERRLA, EOMI, conjunctiva normal, no discharge. [] Neck: Normal range of motion, no tenderness, supple, no stridor. [] Cardiovascular:Heart rate regular rhythm, no murmur [] Lungs & Thorax: Bilateral breath sounds clear to auscultation [] Abdomen: Bowel sounds normal, soft, no tenderness, no masses, no pulsatile masses. [] Skin: Warm, dry, no erythema, no rash. [] Back: Tenderness on palpation of the left lumbar spine, slight midline lumbar spine tenderness, no CVA tenderness. [] Extremities: No tenderness, no cyanosis, no clubbing, ROM intact, no edema. [] Neurologic: Alert and oriented X 3, normal motor function, normal sensory function, no focal deficits noted. [] Psychologic: Patient appears to be in pain. Current Patient Data: Labs: Laboratory Tests Test 04/08/20 13:45 White Blood Count 7.2 x10^3/uL (4.0-11.0) Red Blood Count 3.37 x10^6/uL (4.30-5.70) L Hemoglobin 11.6 g/dL (13.0-17.5) L Hematocrit 33.4 % (39.0-53.0) L Mean Corpuscular Volume 99 fL (79-100) Mean Corpuscular Hemoglobin 34 pg (25-35) Mean Corpuscular Hemoglobin Concent 35 g/dL (31-37) Red Cell Distribution Width 13.4 % (11.5-14.5) Platelet Count 185 x10^3/uL (140-400) Neutrophils (%) (Auto) 65 % (31-73) Lymphocytes (%) (Auto) 26 % (24-48) Monocytes (%) (Auto) 6 % (0-9) Eosinophils (%) (Auto) 2 % (0-3) Basophils (%) (Auto) 1 % (0-3) Neutrophils # (Auto) 4.7 x10^3/uL (1.8-7.7) Lymphocytes # (Auto) 1.9 x10^3/uL (1.0-4.8) Monocytes # (Auto) 0.4 x10^3/uL (0.0-1.1) Eosinophils # (Auto) 0.1 x10^3/uL (0.0-0.7) Basophils # (Auto) 0.1 x10^3/uL (0.0-0.2) Sodium Level 133 mmol/L (136-145) L Potassium Level 4.9 mmol/L (3.5-5.1) Chloride Level 102 mmol/L (98-107) Carbon Dioxide Level 23 mmol/L (21-32) Anion Gap 8 (6-14) Blood Urea Nitrogen 24 mg/dL (8-26) Creatinine 1.3 mg/dL (0.7-1.3) Estimated GFR (Cockcroft-Gault) 56.1 BUN/Creatinine Ratio 18 (6-20) Glucose Level 174 mg/dL (70-99) H Calcium Level 8.5 mg/dL (8.5-10.1) Total Bilirubin 0.2 mg/dL (0.2-1.0) Aspartate Amino Transferase (AST) 19 U/L (15-37) Alanine Aminotransferase (ALT) 18 U/L (16-63) Alkaline Phosphatase 65 U/L (46-116) Total Protein 10.0 g/dL (6.4-8.2) H Albumin 3.1 g/dL (3.4-5.0) L Albumin/Globulin Ratio 0.4 (1.0-1.7) L Laboratory Tests 04/08/20 13:45 Laboratory Tests 04/08/20 13:45 Vital Signs: Vital Signs Date Time Temp Pulse Resp B/P (MAP) Pulse Ox O2 Delivery O2 Flow Rate FiO2 04/08/20 13:41 100 Room Air 04/08/20 13:01 97.8 87 20 125/78 (94) 97.8 EKG: EKG: [] Radiology/Procedures: Radiology/Procedures: []PROCEDURE: LUMBAR SPINE WO CONTRAST MRI Lumbar Spine without contrast History: Back pain, leg weakness Technique: Multiplanar, multi sequential noncontrast MR imaging was performed of the lumbar spine. Comparison: None Findings: There are multifocal edematous marrow lesions throughout the visualized lumbar spine, also of visualized inferior thoracic levels and the sacrum and iliac bones. Largest lumbar lesion is of the L2 vertebral body. There is central compression deformity of L2, also superiorly of L4 with associated marrow edema although also underlying marrow replacing lesions. There is no significant osseous retropulsion, AP alignment within normal limits. There is mild L4-5 degenerative disc disease, also of visualized inferior thoracic levels. There is posterior annular tear L4-5. Conus terminates at L1. L1-L2: Spinal canal and neural foramina are adequate. L2-L3: There is mild to moderate facet degenerative change. There is prominence of posterior epidural fat centrally and mild buckling of the ligamentum flavum. There is mild narrowing of the right neural foramen, left neural foramen adequate. Spinal canal is adequate. L3-L4: There is mild buckling of the ligamentum flavum. There is mild facet degenerative change, some fluid in the right facet articulation. Neural foramina and spinal canal are adequate. L4-L5: There is mild buckling of the ligamentum flavum and facet degenerative change. Spinal canal is adequate. There is mild bilateral neural foramina compromise greater on the right. L5-S1: Spinal canal is adequate. There is mild to moderate left and mild right facet degenerative change. There is very mild posterior narrowing of the left neural foramen, right neural foramen adequate. Impression: 1. There are multiple edematous marrow lesions, evidence of metastatic disease or multiple myeloma. There is degree of pathologic compression deformity of L2 and to lesser degree of L4 which may be more recent as there is associated marrow edema, no osseous retropulsion. 2. There is no significant lumbar spinal stenosis. There is mild neural foramina compromise as stated. Findings discussed with Leydi Ng at 04/05/2020 3:21 PM. Electronically signed by: Chandra Agosto MD (04/05/2020 3:22 PM) [facility] DICTATED and SIGNED BY: CHANDRA AGOSTO MD DATE: 04/05/20 1522 Course & Med Decision Making: Course & Med Decision Making Pertinent Labs and Imaging studies reviewed. (See chart for details) This is a 60-year-old male patient presenting to the ED today with low back pain that has been going on since January but has gotten worse in the last couple days. Patient did an MRI outpatient on Wednesday and the results shows he has multiple erythematous matter lesions evidence of metastatic disease or multiple myeloma. See MRI results for further information. He has no neurological deficits. I spoke to Columba PEREZ for neurosurgery, she requested we admit patient and consult oncology. Spoke with Dr. Aguirre who accepted patient for admission Routine consult placed for oncology Dragon Disclaimer: Madelin Disclaimer: This electronic medical record was generated, in whole or in part, using a voice recognition dictation system. Departure Departure Impression: Primary Impression: Intractable low back pain Additional Impressions: Lumbar disc lesion Multiple myeloma Qualified Codes: C90.00 - Multiple myeloma not having achieved remission Disposition: ADMITTED INPT THIS HOSP Condition: STABLE Referrals: YUAN GARCIA MD (PCP) LEXA COOK APRN Apr 08, 2020 14:12
[2020-04-08] MEDS ORDERED: ONDANSETRON PF 4 MG/2 ML VIAL. IV PRN (14:15)
--- NOTE | 2020-04-08 14:27 | PDOC1 ---
History and Physical Date of Service: DOS: DATE: 04/08/20 TIME: 14:21 Chief Complaint: Chief Complain: Back Pain History of Present Illness: HPI: 60 year old male with history of diabetes type 2, hypertension, A. fib, who presents the ED today to be evaluated for moderate low back pain that he states has been going on since January but has gotten worse in the last couple days with back spasms today, he reports the last time he had back spasms was 15 years ago. Patient states he did follow-up with his PCP as well as a chiropractor for the back pain towards the end of February. He had an MRI done at [facility] 3 days ago but he does not know the results. Patient denies any loss of bowel/bladder function. Denies any injury. Denies any pain radiating to bilateral lower extremities. He states his pain is worse on movement. He states he tried taking his hydrocodone and Flexeril with no relief. Of note, patient did experience 1 episode of fall which she fell to his right side and had a rib pain. Patient has had routine colonoscopy screening starting at age 44 and had it every 5 years without any positive findings. Patient is up-to-date with his Pneumovax Past Medical/Surgical History: PMH/PSH: Past Medical History: A-Fib, CAD, Diabetes-Type II, Hypertension, annamarie mountain spotted fever Past Surgical History: Appendectomy, Pacemaker, splenectomy, knee surgery Allergies: Allergies: Coded Allergies: amiodarone (Verified Allergy, Severe, Shortness of Air, 12/06/18) meperidine (Verified Allergy, Severe, Shortness of Air, 12/06/18) Iahtico-Epp-Oki Reductase Inhibitor (Verified Adverse Reaction, Intermediate, 12/06/18) pt states he has a severe liver reaction lisinopril (Verified Adverse Reaction, Mild, 12/06/18) Cough-pt refuses to take medication due to rxn Family History: Family History: Father with hairy cell leukemia Social History: Social History: Smoking Status: Never Smoker Alcohol Use: Occasionally Drug Use: None Current Medications: Current Medications Current Medications Hydromorphone HCl (Dilaudid) 1 mg 1X ONCE IVP Last administered on 04/08/20at 13:41; Start 04/08/20 at 13:15; Stop 04/08/20 at 13:16; Status DC Sodium Chloride 1,000 ml @ 1,000 mls/hr 1X ONCE IV Last administered on 04/08/20at 13:39; Start 04/08/20 at 13:15; Stop 04/08/20 at 14:14; Status DC Ondansetron HCl (Zofran) 4 mg 1X ONCE IVP Last administered on 04/08/20at 13:42; Start 04/08/20 at 13:15; Stop 04/08/20 at 13:16; Status DC Diazepam (Valium) 5 mg 1X ONCE PO Last administered on 04/08/20at 13:44; Start 04/08/20 at 13:15; Stop 04/08/20 at 13:16; Status DC Ondansetron HCl (Zofran) 4 mg PRN Q8HRS PRN IV NAUSEA/VOMITING; Start 04/08/20 at 14:15; Stop 04/09/20 at 14:14 Hydromorphone HCl (Dilaudid) 1 mg PRN Q3HRS PRN IVP PAIN; Start 04/08/20 at 14:15 Active Scripts Active Nitrostat (Nitroglycerin) 0.4 Mg Tab.subl 0.4 Mg SL PRN Q5MIN PRN 30 Days Clopidogrel (Clopidogrel Bisulfate) 75 Mg Tablet 1 Tab PO DAILY Reported Tikosyn (Dofetilide) 250 Mcg Capsule 250 Mcg PO BID Eliquis (Apixaban) 5 Mg Tablet 5 Mg PO BID Zetia (Ezetimibe) 10 Mg Tablet 10 Mg PO DAILY Metoprolol Succinate ( Xl ) (Metoprolol Succinate) 25 Mg Tab.er.24h 12.5 Mg PO DAILY One-Daily Multi-Vitamin (Multivitamin) 1 Each Tablet 1 Tab PO DAILY 30 Days Lantus Solostar (Insulin Glargine,Hum.rec.anlog) 100 Unit/1 Ml Insuln.pen 48 Unit SQ HS Fish Oil 1,200 Mg Fish Oil (Fish Oil/Dha/Epa) 1 Each Capsule 1 Each PO DAILY Spironolactone 50 Mg Tablet 0.5 Tab PO DAILY Furosemide 40 Mg Tablet 1.5 Tab PO DAILY Entresto 24 mg-26 mg Tablet (Sacubitril/Valsartan) 1 Each Tablet 1 Each PO BID Metformin Hcl 1,000 Mg Tablet 1,000 Mg PO BIDWMEALS Levothyroxine Sodium 75 Mcg Tablet 150 Mcg PO DAILY ROS: Review of Systems Review of System REVIEW OF SYSTEMS: GENERAL: Denies weakness SKIN: No bruising, hair changes or rashes. EYES: No blurred, double or loss of vision. NOSE AND THROAT: No history of nosebleeds, hoarseness or sore throat. HEART: No history of palpitations, chest pain or shortness of breath on exertion. LUNGS: Denies cough, hemoptysis, wheezing or shortness of breath. GASTROINTESTINAL: Denies changes in appetite, nausea, vomiting, diarrhea or constipation. GENITOURINARY: No history of frequency, urgency, hesitancy or nocturia. NEUROLOGIC: Denies history of numbness, tingling, or tremor. PSYCHIATRIC: No history of panic, anxiety or depression. ENDOCRINE: No history of heat or cold intolerance, polyuria or polydipsia. EXTREMITIES: Denies joint pain, pain on walking or stiffness. Physical Exam: Vital Signs: Vital Signs Date Time Temp Pulse Resp B/P (MAP) Pulse Ox O2 Delivery O2 Flow Rate FiO2 04/08/20 13:41 100 Room Air 04/08/20 13:01 97.8 87 20 125/78 (94) 97.8 Physcial Exam: GEN: No apparent distress. Alert and oriented HEENT: Normal cephalic, atraumatic, external auditory canals are patent EYES: Extraocular muscles are intact, pupil are equally round and reactive to light and accommodation MUSCULOSKELETAL: Well developed , well nourished, good range of motion ENDOCRINE: No thyromegaly was palpated LYMPHATICS: No cervical chain or axillary nodes were noted HEMATOPOIETIC: No bruising NECK: Supple, no JVD, no thyromegaly was noted LUNGS: Clear to auscultation in all lung hernandez without rhonchi or wheezing HEART: RRR, S!, S2 present. Peripheral pulses intact, no obvious murmurs noted ABDOMEN: Soft, nontender. Positive bowel sounds, no organomegaly, normal bowel sounds EXTREMITIES: Without clubbing, cyanosis, or edema. Pedal pulses intact. N egative Homans sign NEUROLOGIC: Normal speech and tone. A&O x 3, moves all extremities, no obvious focal deficits PSYCHIATRIC: Normal affect, normal mood. Stable SKIN: No ulcerations or rashes, good skin turgor, no jaundice VASCULAR: Good capillary refill, neurovascular bundle appears to be intact Labs: Labs: Laboratory Tests Test 04/08/20 13:45 White Blood Count 7.2 x10^3/uL (4.0-11.0) Red Blood Count 3.37 x10^6/uL (4.30-5.70) Hemoglobin 11.6 g/dL (13.0-17.5) Hematocrit 33.4 % (39.0-53.0) Mean Corpuscular Volume 99 fL (79-100) Mean Corpuscular Hemoglobin 34 pg (25-35) Mean Corpuscular Hemoglobin Concent 35 g/dL (31-37) Red Cell Distribution Width 13.4 % (11.5-14.5) Platelet Count 185 x10^3/uL (140-400) Neutrophils (%) (Auto) 65 % (31-73) Lymphocytes (%) (Auto) 26 % (24-48) Monocytes (%) (Auto) 6 % (0-9) Eosinophils (%) (Auto) 2 % (0-3) Basophils (%) (Auto) 1 % (0-3) Neutrophils # (Auto) 4.7 x10^3/uL (1.8-7.7) Lymphocytes # (Auto) 1.9 x10^3/uL (1.0-4.8) Monocytes # (Auto) 0.4 x10^3/uL (0.0-1.1) Eosinophils # (Auto) 0.1 x10^3/uL (0.0-0.7) Basophils # (Auto) 0.1 x10^3/uL (0.0-0.2) Sodium Level 133 mmol/L (136-145) Potassium Level 4.9 mmol/L (3.5-5.1) Chloride Level 102 mmol/L (98-107) Carbon Dioxide Level 23 mmol/L (21-32) Anion Gap 8 (6-14) Blood Urea Nitrogen 24 mg/dL (8-26) Creatinine 1.3 mg/dL (0.7-1.3) Estimated GFR (Cockcroft-Gault) 56.1 BUN/Creatinine Ratio 18 (6-20) Glucose Level 174 mg/dL (70-99) Calcium Level 8.5 mg/dL (8.5-10.1) Total Bilirubin 0.2 mg/dL (0.2-1.0) Aspartate Amino Transf (AST/SGOT) 19 U/L (15-37) Alanine Aminotransferase (ALT/SGPT) 18 U/L (16-63) Alkaline Phosphatase 65 U/L (46-116) Total Protein 10.0 g/dL (6.4-8.2) Albumin 3.1 g/dL (3.4-5.0) Albumin/Globulin Ratio 0.4 (1.0-1.7) Laboratory Tests Test 04/08/20 13:45 White Blood Count 7.2 x10^3/uL (4.0-11.0) Red Blood Count 3.37 x10^6/uL (4.30-5.70) Hemoglobin 11.6 g/dL (13.0-17.5) Hematocrit 33.4 % (39.0-53.0) Mean Corpuscular Volume 99 fL (79-100) Mean Corpuscular Hemoglobin 34 pg (25-35) Mean Corpuscular Hemoglobin Concent 35 g/dL (31-37) Red Cell Distribution Width 13.4 % (11.5-14.5) Platelet Count 185 x10^3/uL (140-400) Neutrophils (%) (Auto) 65 % (31-73) Lymphocytes (%) (Auto) 26 % (24-48) Monocytes (%) (Auto) 6 % (0-9) Eosinophils (%) (Auto) 2 % (0-3) Basophils (%) (Auto) 1 % (0-3) Neutrophils # (Auto) 4.7 x10^3/uL (1.8-7.7) Lymphocytes # (Auto) 1.9 x10^3/uL (1.0-4.8) Monocytes # (Auto) 0.4 x10^3/uL (0.0-1.1) Eosinophils # (Auto) 0.1 x10^3/uL (0.0-0.7) Basophils # (Auto) 0.1 x10^3/uL (0.0-0.2) Sodium Level 133 mmol/L (136-145) Potassium Level 4.9 mmol/L (3.5-5.1) Chloride Level 102 mmol/L (98-107) Carbon Dioxide Level 23 mmol/L (21-32) Anion Gap 8 (6-14) Blood Urea Nitrogen 24 mg/dL (8-26) Creatinine 1.3 mg/dL (0.7-1.3) Estimated GFR (Cockcroft-Gault) 56.1 BUN/Creatinine Ratio 18 (6-20) Glucose Level 174 mg/dL (70-99) Calcium Level 8.5 mg/dL (8.5-10.1) Total Bilirubin 0.2 mg/dL (0.2-1.0) Aspartate Amino Transf (AST/SGOT) 19 U/L (15-37) Alanine Aminotransferase (ALT/SGPT) 18 U/L (16-63) Alkaline Phosphatase 65 U/L (46-116) Total Protein 10.0 g/dL (6.4-8.2) Albumin 3.1 g/dL (3.4-5.0) Albumin/Globulin Ratio 0.4 (1.0-1.7) Images: Images Spine MRI Impression: 1. There are multiple edematous marrow lesions, evidence of metastatic disease or multiple myeloma. There is degree of pathologic compression deformity of L2 and to lesser degree of L4 which may be more recent as there is associated marrow edema, no osseous retropulsion. 2. There is no significant lumbar spinal stenosis. There is mild neural foramina compromise as stated. Assessment/Plan Assessment/Plan Intractable back pain due to multiple edematous marrow lesions, evidence of metastatic disease or multiple myeloma Pathologic compression fracture of L2 and L4 Anemia of unclear etiology Elevated gamma gap Hyponatremia Admit to medicine for further management Neurology consult Oncology consult IV pain control as needed Serial neuro checks Lovenox for DVT prophylaxis ADA diet Full code Discussed with RN and SW Disposition inpatient care as above Surrogate decision maker is the Justifications for Admission Other Justification HELENA CABALLERO MD Apr 08, 2020 14:27
[2020-04-08 15:06] LABS: BILIRUBIN,URINE NEGATIVE (NEG); CLARITY,URINE CLEAR; COLOR,URINE YELLOW; NITRITE,URINE NEGATIVE (NEG); PROTEIN,URINE NEGATIVE (NEG-TRACE); UROBILINOGEN,URINE 0.2 mg/dL (0.2 mg/dL)
[2020-04-08 15:24] LABS: BACTERIA,URINE FEW /HPF (0-FEW); GRANULAR CASTS,URINE FEW /HPF; HYALINE CASTS, URINE MANY /HPF
[2020-04-08] MEDS: HYDROmorphone 2 MG/ML VIAL IVP PRN ×3 (15:35→21:39)
[2020-04-08] MEDS ORDERED: POTASSIUM CHLORIDE 20 MEQ TABLET.ER. PO PRN (17:15)
[2020-04-08] MEDS ORDERED: SENNOSIDES 8.6 MG TABLET PO PRN (17:15)
[2020-04-08] MEDS ORDERED: POTASSIUM CHLORIDE 10MEQ 100 ML IV PRN (17:15)
[2020-04-08] MEDS ORDERED: DEXTROSE 50% 25 GM / 50ML DISP.SYRIN. IV PRN (17:15)
[2020-04-08] MEDS ORDERED: ONDANSETRON PF 4 MG/2 ML VIAL. IVP PRN (17:15)
[2020-04-08] MEDS ORDERED: DOCUSATE SODIUM 100 MG CAPSULE. PO PRN (17:15)
[2020-04-08] MEDS ORDERED: MAGNESIUM SULFATE 2GM 50 ML IV SCH (17:15)
[2020-04-08] MEDS ORDERED: ACETAMINOPHEN 325 MG TABLET. PO PRN (17:15)
[2020-04-08] MEDS ORDERED: POTASSIUM CHLORIDE 10MEQ 100 ML IV SCH (17:15)
[2020-04-08] MEDS ORDERED: ELECTROLYTE (NON-ICU) PROTOCOL. MC PRN (17:30)
[2020-04-08 17:45] VITALS: BP 96/53
[2020-04-08] MEDS: ENOXAPARIN 40 MG/0.4 ML SYRINGE. SQ SCH (18:31)
[2020-04-08 18:45] LABS: URIC ACID 8.6 mg/dL (3.5-7.2)
[2020-04-08 19:00] VITALS: BP 97/62
[2020-04-08] MEDS ORDERED: FLU VACC QS 2020-21(6MOS+)/PF 0.5 ML SYRINGE. VAX IM ONE (20:00)
[2020-04-08] MEDS ORDERED: MAGNESIUM OXIDE 400 MG TABLET PO SCH (21:00)
[2020-04-08 23:00] VITALS: BP 128/80
[2020-04-09] MEDS: HYDROmorphone 2 MG/ML VIAL IVP PRN ×5 (00:43→20:58)
[2020-04-09 03:00] VITALS: BP 97/61
[2020-04-09 05:39] LABS: BASO % 0 % (0-3); EOS # 0.2 x10^3/uL (0.0-0.7); EOS % 4 % (0-3); HEMATOCRIT 31.5 % (39.0-53.0); HEMOGLOBIN 10.9 g/dL (13.0-17.5); LYMPH # 2.2 x10^3/uL (1.0-4.8); LYMPH % 36 % (24-48); MEAN CORPUSCULAR HEMOGLOBIN 35 pg (25-35); MEAN CORPUSCULAR HGB CONC 35 g/dL (31-37); MEAN CORPUSCULAR VOLUME 100 fL (79-100); MONO # 0.4 x10^3/uL (0.0-1.1); MONO % 7 % (0-9); NEUT # 3.2 x10^3/uL (1.8-7.7); NEUT % 53 % (31-73); PLATELET COUNT 183 x10^3/uL (140-400); RED BLOOD COUNT 3.14 x10^6/uL (4.30-5.70); RED CELL DISTRIBUTION WIDTH 13.9 % (11.5-14.5)
[2020-04-09 06:06] LABS: ALBUMIN 2.7 g/dL (3.4-5.0); ALBUMIN/GLOBULIN RATIO 0.4 (1.0-1.7); CALCIUM 8.5 mg/dL (8.5-10.1); MAGNESIUM 1.9 mg/dL (1.8-2.4); PHOSPHORUS 4.8 mg/dL (2.6-4.7); POTASSIUM 3.8 mmol/L (3.5-5.1); TOTAL BILIRUBIN 0.3 mg/dL (0.2-1.0)
[2020-04-09 07:00] VITALS: BP 92/47
[2020-04-09] MEDS: INSULIN LISPRO 300 UNITS/3 ML VIAL. SQ SCH ×2 (08:00→12:00)
[2020-04-09] MEDS ORDERED: FURO40TA4 PO (09:24)
[2020-04-09] MEDS ORDERED: ANTI-COAG MONITOR BY PHARMACY. MC PRN (09:30)
[2020-04-09] MEDS ORDERED: APIXABAN 5 MG TABLET. PO SCH (09:30)
[2020-04-09] MEDS ORDERED: DOFETILIDE 250 MCG CAPSULE PO SCH (09:30)
[2020-04-09] MEDS ORDERED: FUROSEMIDE 40 MG TABLET. PO SCH (10:00)
[2020-04-09] MEDS ORDERED: metFORMIN 500 MG TABLET PO SCH (10:00)
[2020-04-09] MEDS ORDERED: METOPROLOL SUCC 24HR ER 25 MG TAB.ER.24H. PO SCH (10:00)
[2020-04-09] MEDS ORDERED: SPIRONOLACTONE 25 MG TABLET PO SCH (10:00)
[2020-04-09] MEDS: EZETIMIBE 10 MG TABLET. PO SCH (10:04)
[2020-04-09] MEDS: DOFETILIDE 125 MCG CAPSULE PO SCH ×2 (10:05→20:59)
[2020-04-09] MEDS: SACUBITRIL/VALSARTAN 24/26MG TABLET. PO SCH ×2 (10:07→20:59)
[2020-04-09] MEDS: MULTIVITAMIN with MINERAL TABLET. PO SCH (10:08)
[2020-04-09] MEDS: LEVOTHYROXINE 75 MCG TABLET PO SCH (10:23)
--- NOTE | 2020-04-09 10:42 | PDOC ---
PROGRESS NOTES Date of Service: DATE: 04/09/20 TIME: 10:42 Chief Complaint Chief Complaint Images: Images Spine MRI Impression: 1. There are multiple edematous marrow lesions, evidence of metastatic disease or multiple myeloma. There is degree of pathologic compression deformity of L2 and to lesser degree of L4 which may be more recent as there is associated marrow edema, no osseous retropulsion. 2. There is no significant lumbar spinal stenosis. There is mild neural foramina compromise as stated. Assessment/Plan Assessment/Plan Intractable back pain due to multiple edematous marrow lesions, evidence of metastatic disease or multiple myeloma Pathologic compression fracture of L2 and L4 pathologic compression deformity of L2 and to lesser degree of L4 which may be more recent as there is associated marrow edema, no osseous retropulsion. Anemia of unclear etiology Elevated gamma gap Hyponatremia hx Ischemic cardiomyopathy 2018 echo Ejection Fraction is 35-40%.global hypokinesis of the left ve ntricle.moderately severe mitral regurgitation. Ischemic CMP with EF of 20-25% 12/07 cardiac cath Chronic systolic heart failure Atrial fibrillation Hypertension Coronary artery disease Diabetes mellitus type 2 plan Admit to medicine for further management Neurology consult Oncology consult cardiology consult IV pain control as needed Serial neuro checks Lovenox for DVT prophylaxis ADA diet Full code Discussed with RN and SW Disposition inpatient care as above Surrogate decision maker is the inc dilaudid to 2 mg iv q 3 hrs prn severe pain, consult cardiology, to tele bed 38 min pt exam, chart review, > 50% of time spent with exam, chart review, pt care coordination Justifications for Admission Justifications for Admission Other Justification History of Present Illness History of Present Illness Chief Complaint: Chief Complain: Back Pain History of Present Illness: HPI: 60 year old male with history of diabetes type 2, hypertension, A. fib, who presents the ED today to be evaluated for moderate low back pain that he states has been going on since January but has gotten worse in the last couple days with back spasms today, he reports the last time he had back spasms was 15 years ago. Patient states he did follow-up with his PCP as well as a chiropractor for the back pain towards the end of February. He had an MRI done at [facility] 3 days ago but he does not know the results. Patient denies any loss of bowel/bladder function. Denies any injury. Denies any pain radiating to bilateral lower extremities. He states his pain is worse on movement. He states he tried taking his hydrocodone and Flexeril with no relief. Of note, patient did experience 1 episode of fall which she fell to his right s davion and had a rib pain. Patient has had routine colonoscopy screening starting at age 44 and had it every 5 years without any positive findings. Patient is up-to-date with his Pneumovax Past Medical/Surgical History: PMH/PSH: Past Medical History: A-Fib, CAD, Diabetes-Type II, Hypertension, annamarie mountain spotted fever Past Surgical History: Appendectomy, Pacemaker, splenectomy, knee surgery Allergies: Allergies: Coded Allergies: amiodarone (Verified Allergy, Severe, Shortness of Air, 12/06/18) meperidine (Verified Allergy, Severe, Shortness of Air, 12/06/18) Invzwne-Xij-Hfs Reductase Inhibitor (Verified Adverse Reaction, Interm ediate, 12/06/18) pt states he has a severe liver reaction lisinopril (Verified Adverse Reaction, Mild, 12/06/18) Cough-pt refuses to take medication due to rxn Family History: Family History: Father with hairy cell leukemia Social History: Social History: Smoking Status: Never Smoker Alcohol Use: Occasionally Drug Use: None Current Medications: Vitals Vitals Vital Signs Date Time Temp Pulse Resp B/P (MAP) Pulse Ox O2 Delivery O2 Flow Rate FiO2 04/09/20 10:07 76 92/47 04/09/20 10:03 Room Air 04/09/20 07:00 98.1 16 96 98.1 Physical Exam Physical Exam Physcial Exam: GEN: mod-severe apparent distress. Alert and oriented HEENT: Normal cephalic, atraumatic, external auditory canals are patent EYES: Extraocular muscles are intact, pupil are equally round and reactive to light and accommodation MUSCULOSKELETAL: Well developed , well nourished, good range of motion ENDOCRINE: No thyromegaly was palpated LYMPHATICS: No cervical chain or axillary nodes were noted HEMATOPOIETIC: No bruising NECK: Supple, no JVD, no thyromegaly was noted LUNGS: Clear to auscultation in all lung hernandez without rhonchi or wheezing HEART: RRR, S!, S2 present. Peripheral pulses intact, no obvious murmurs noted ABDOMEN: Soft, nontender. Positive bowel sounds, no organomegaly, normal bowel sounds EXTREMITIES: Without clubbing, cyanosis, or edema. Pedal pulses intact. Negative Homans sign NEUROLOGIC: Normal speech and tone. A&O x 3, moves all extremities, no obvious focal deficits any movement causes severe pain PSYCHIATRIC: Normal affect, normal mood. Stable SKIN: No ulcerations or rashes, good skin turgor, no jaundice VASCULAR: Good capillary refill, neurovascular bundle appears to be intact General: Alert, Oriented X3, Cooperative, moderate distress, severe distress Heart: Regular rate Lungs: Clear Abdomen: Soft Extremities: No cyanosis Labs LABS EXAM fl time: 6.1 mins dose: 12 gy/cm2 moderate sedation: 80 mins HISTORY The Patient is a 59 year-old male with a history of ischemic CMP and afib with RVR and tachy-farzana syndrome INDICATIONS 35 mL of 2% lidocaine was infiltrated into the skin and subcutaneous tissues for local anesthesia. An incision was made over the left infraclavicular fossa and using blunt dissection and cautery a pocket was created. Venous access was obtained in the left subclavian vein and 8 and 6Fr sheaths were inserted. Subsequently, a Biotronik bipolar active fixation right ventricular lead model Plexa Pro MRI, SN [id number] was advanced under fluoroscopic guidance and the tip was positioned in the right ventricular apical septum. Following this, a Biotronik bipolar active fixation right atrial lead model Solia S 53 SN [id number] was placed in the right atrial appendage under fluoroscopy guidance. The leads were secured into place and were attached to a Biotronik dual-chamber ICD, model Ilivia 7 DR-T, SN [id number]. This was placed in the pocket that was subsequently closed in 3 layers. Hemostasis was secured. At the end of procedure, the right ventricular lead showed sensing amplitude of 20 mV, impedance of 740 ohms and a threshold of 0.6 volts at 0.4 ms. The right atrial lead showed a sensing amplitude of 3.2 millivolts, impedance of 560 ohms and a threshold of 0.8 volts at 0.4 ms. Patient tolerated the procedure well. There were no immediate complications. Settings: DDD-CLS 50-130, Mode switch 180 DFT testing was not performed as the patient has a history of atrial fibrillation and anticoagulation was held for the ICD placement. Consider on an outpt basis versus when patient has possible AFIB ablation. CONCLUSION Successful insertion of a Biotronik Dual Chamber ICD for primary prevention of SCD in the setting of ischemic cardiomyopathy with an EF of less than 35%. Signed by : Adeline Acevedo, Electronically Approved : 05/26/2019 16:27:06 DICTATED and SIGNED BY: ADELINE ACEVEDO MD DATE: 05/26/19 1558 HISTORY The patient is a 58 year-old male with a history of : coronary artery disease. INDICATION The indication(s) include : dyspnea, JASWINDER. 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 He is had heart failure since then and was admitted to [facility] several weeks ago with decompensated heart failure. He was adeq uately diuresed and started on appropriate goal-directed medical therapy but unfortunately has had progressive dyspnea and presented for a outpatient planned KIRT for further evaluation of his severe mitral regurgitation. Upon presentation, he was hypotensive and hypokalemic. Due to this he was admitted to the hospital for further evaluation and treatment. He had a history of paroxy smal atrial fibrillation around the time of his initial STEMI but this recurred when he was admitted to the hospital. PROCEDURE DETAILS: After appropriate informed consent the patient was brought to the catheterization laboratory. The right neck was prepped and draped in usual sterile fashion. Under ultrasound guidance and 2% lidocaine local anesthesia a 8 [place] introducer sheath was placed in the right internal jugular vein without any difficulty. Subsequently, a 7.5 [place] PA catheter was advanced through the right heart chambers and pressures and saturations were obtained. Once the pressures and saturations and outputs were determined to be appropriate (transducer re-zeroed) the PA catheter was removed and the sheath was subsequently removed and hemostasis was obtained with manual compression. Findings: RA: 21 mm Hg RV: 61/10/23 PA: 63/37/45 PCWP: 29 mm Hg. PA Sat: 45% TD CO: 1.7 L/min [place] CO: 2.1 L/min Conclusion 1. Severe biventricular failure 2. Cardiogenic shock 3. Afib with RVR 4. Severe mitral regurgitation 5. 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 Recommendations Case discussed with Dr. Espinosa at [facility] for advanced heart failure management. Patient has not been able to tolerate diuressis due to hypotension and has had arrhythmias with initiation of Milrinone. Will plan for transfer to [facility] for advanced heart failure therapy evaluation. Start heparin gtt for afib with RVR May need evaluation after optimization for CARDIO MEMS and possible Inge-Clip. Signed by : Adeline Acevedo, Electronically Approved : 12/08/2018 11:25:45 Mitral Valve MV E Velocity 137.3cm/s MV E Peak Gr. 64mmHg MV DECEL TIME 150ms MV E Mean Gr. 3mmHg MV PHT 43ms MVA (PHT) 5.06cm2 TDI E/Lateral E' 15.2 E/Medial E' 17.2 Pulmonary Valve PV Peak Velocity 75.8cm/s PV Peak Grad. 2mmHg Tricuspid Valve TR P. Velocity 284cm/s RAP ESTIMATE 3mmHg TR Peak Gr. 41mmHg RVSP 44mmHg Pulmonary Vein S1 Velocity 34.5cm/s D2 Velocity 68.1cm/s PVa duration 116msec LEFT VENTRICLE The Left Ventricle is mildly dilated. There is mild concentric left ventricular hypertrophy. The systolic function is moderately decreased. The Ejection Fraction is 35-40%. There is global hypokinesis of the left ventricle. The left ventricular diastolic function and filling is normal for age. RIGHT VENTRICLE The right ventricle is borderline dilated. There is normal right ventricular wall thickness. The right ventricular systolic function is normal. ATRIA The left atrium is moderately dilated. The right atrium is mildly dilated. The interatrial septum is intact with no evidence for an atrial septal defect or patent foramen ovale as noted on 2-D or Doppler imaging. AORTIC VALVE The aortic valve is normal in structure and function. Doppler and Color Flow revealed no significant aortic regurgitation. There is no significant aortic valvular stenosis. MITRAL VALVE The mitral valve is thickened but opens well. There is no evidence of mitral valve prolapse. There is no mitral valve stenosis. Doppler and Color-flow revealed moderately severe mitral regurgitation. TRICUSPID VALVE The tricuspid valve is normal in structure and function. Doppler and Color Flow revealed trace tricuspid regurgitation with an estimated 44 mmHg. There is no tricuspid valve stenosis. PULMONIC VALVE The pulmonary valve is normal in structure and function. Doppler and Color Flow revealed trace pulmonic valvular regurgitation. GREAT VESSELS The aortic root is normal in size. The IVC is normal in size and collapses >50% with inspiration. PERICARDIAL EFFUSION There is no evidence of significant pericardial effusion. Critical Notification Critical Value: No <Conclusion> The Left Ventricle is mildly dilated. The systolic function is moderately decreased. The Ejection Fraction is 35-40%. There is global hypokinesis of the left ventricle. There is mild concentric left ventricular hypertrophy. There is no significant aortic valvular stenosis. Doppler and Color Flow revealed no significant aortic regurgitation. Doppler and Color-flow revealed moderately severe mitral regurgitation. Doppler and Color Flow revealed trace tricuspid regurgitation with an estimated 44 mmHg. Signed by : Chrissy Carias MD Electronically Approved : 02/27/2019 12:54:56 DICTATED and SIGNED BY: CHRISSY CARIAS MD DATE: 02/27/19 1036 MRI Lumbar Spine without contrast History: Back pain, leg weakness Technique: Multiplanar, multi sequential noncontrast MR imaging was performed of the lumbar spine. Comparison: None Findings: There are multifocal edematous marrow lesions throughout the visualized lumbar spine, also of visualized inferior thoracic levels and the sacrum and iliac bones. Largest lumbar lesion is of the L2 vertebral body. There is central compression deformity of L2, also superiorly of L4 with associated marrow edema although also underlying marrow replacing lesions. There is no significant osseous retropulsion, AP alignment within normal limits. There is mild L4-5 degenerative disc disease, also of visualized inferior thoracic levels. There is posterior annular tear L4-5. Conus terminates at L1. L1-L2: Spinal canal and neural foramina are adequate. L2-L3: There is mild to moderate facet degenerative change. There is prominence of posterior epidural fat centrally and mild buckling of the ligamentum flavum. There is mild narrowing of the right neural foramen, left neural foramen adequate. Spinal canal is adequate. L3-L4: There is mild buckling of the ligamentum flavum. There is mild facet degenerative change, some fluid in the right facet articulation. Neural foramina and spinal canal are adequate. L4-L5: There is mild buckling of the ligamentum flavum and facet degenerative change. Spinal canal is adequate. There is mild bilateral neural foramina compromise greater on the right. L5-S1: Spinal canal is adequate. There is mild to moderate left and mild right facet degenerative change. There is very mild posterior narrowing of the left neural foramen, right neural foramen adequate. Impression: 1. There are multiple edematous marrow lesions, evidence of metastatic disease or multiple myeloma. There is degree of pathologic compression deformity of L2 and to lesser degree of L4 which may be more recent as there is associated marrow edema, no osseous retropulsion. 2. There is no significant lumbar spinal stenosis. There is mild neural foramina compromise as stated. Findings discussed with Leydi Ng at 04/05/2020 3:21 PM. Electronically signed by: Simone Vilchis MD (04/05/2020 3:22 PM) [facility] Laboratory Tests Test 04/08/20 13:04 04/08/20 13:45 04/08/20 17:34 04/09/20 05:11 Urine Collection Type Unknown Urine Color Yellow Urine Clarity Clear Urine pH 5.0 (<5.0-8.0) Urine Specific [place] 1.010 (1.000-1.030) Urine Protein Negative mg/dL (NEG-TRACE) Urine Glucose (UA) Negative mg/dL (NEG) Urine Ketones (Stick) Negative mg/dL (NEG) Urine Blood Negative (NEG) Urine Nitrite Negative (NEG) Urine Bilirubin Negative (NEG) Urine Urobilinogen Dipstick 0.2 mg/dL (0.2 mg/dL) Urine Leukocyte Esterase Negative (NEG) Urine RBC 1-2 /HPF (0-2) Urine WBC 1-4 /HPF (0-4) Urine Squamous Epithelial Cells Few /LPF Urine Bacteria Few /HPF (0-FEW) Urine Hyaline Casts Many /HPF Urine Granular Casts Few /HPF Urine Mucus Marked /LPF White Blood Count 7.2 x10^3/uL (4.0-11.0) 6.0 x10^3/uL (4.0-11.0) Red Blood Count 3.37 x10^6/uL (4.30-5.70) 3.14 x10^6/uL (4.30-5.70) Hemoglobin 11.6 g/dL (13.0-17.5) 10.9 g/dL (13.0-17.5) Hematocrit 33.4 % (39.0-53.0) 31.5 % (39.0-53.0) Mean Corpuscular Volume 99 fL (79-100) 100 fL (79-100) Mean Corpuscular Hemoglobin 34 pg (25-35) 35 pg (25-35) Mean Corpuscular Hemoglobin Concent 35 g/dL (31-37) 35 g/dL (31-37) Red Cell Distribution Width 13.4 % (11.5-14.5) 13.9 % (11.5-14.5) Platelet Count 185 x10^3/uL (140-400) 183 x10^3/uL (140-400) Neutrophils (%) (Auto) 65 % (31-73) 53 % (31-73) Lymphocytes (%) (Auto) 26 % (24-48) 36 % (24-48) Monocytes (%) (Auto) 6 % (0-9) 7 % (0-9) Eosinophils (%) (Auto) 2 % (0-3) 4 % (0-3) Basophils (%) (Auto) 1 % (0-3) 0 % (0-3) Neutrophils # (Auto) 4.7 x10^3/uL (1.8-7.7) 3.2 x10^3/uL (1.8-7.7) Lymphocytes # (Auto) 1.9 x10^3/uL (1.0-4.8) 2.2 x10^3/uL (1.0-4.8) Monocytes # (Auto) 0.4 x10^3/uL (0.0-1.1) 0.4 x10^3/uL (0.0-1.1) Eosinophils # (Auto) 0.1 x10^3/uL (0.0-0.7) 0.2 x10^3/uL (0.0-0.7) Basophils # (Auto) 0.1 x10^3/uL (0.0-0.2) 0.0 x10^3/uL (0.0-0.2) Absolute Reticulocyte Count 0.037 x10^6/uL (0.020-0.120) Percent Reticulocyte Count 1.1 % (0.5-2.3) Immature Reticulocyte Fraction 0.43 (0.20-0.60) Sodium Level 133 mmol/L (136-145) 138 mmol/L (136-145) Potassium Level 4.9 mmol/L (3.5-5.1) 3.8 mmol/L (3.5-5.1) Chloride Level 102 mmol/L (98-107) 105 mmol/L (98-107) Carbon Dioxide Level 23 mmol/L (21-32) 27 mmol/L (21-32) Anion Gap 8 (6-14) 6 (6-14) Blood Urea Nitrogen 24 mg/dL (8-26) 22 mg/dL (8-26) Creatinine 1.3 mg/dL (0.7-1.3) 1.0 mg/dL (0.7-1.3) Estimated GFR (Cockcroft-Gault) 56.1 76.0 BUN/Creatinine Ratio 18 (6-20) 22 (6-20) Glucose Level 174 mg/dL (70-99) 78 mg/dL (70-99) Uric Acid 8.6 mg/dL (3.5-7.2) Calcium Level 8.5 mg/dL (8.5-10.1) 8.5 mg/dL (8.5-10.1) Ferritin 297 ng/mL (26-388) Total Bilirubin 0.2 mg/dL (0.2-1.0) 0.3 mg/dL (0.2-1.0) Aspartate Amino Transf (AST/SGOT) 19 U/L (15-37) 19 U/L (15-37) Alanine Aminotransferase (ALT/SGPT) 18 U/L (16-63) 17 U/L (16-63) Alkaline Phosphatase 65 U/L (46-116) 62 U/L (46-116) Lactate Dehydrogenase 320 U/L (85-227) Total Protein 10.0 g/dL (6.4-8.2) 9.0 g/dL (6.4-8.2) Albumin 3.1 g/dL (3.4-5.0) 2.7 g/dL (3.4-5.0) Albumin/Globulin Ratio 0.4 (1.0-1.7) 0.4 (1.0-1.7) Glucose (Fingerstick) 75 mg/dL (70-99) Phosphorus Level 4.8 mg/dL (2.6-4.7) Magnesium Level 1.9 mg/dL (1.8-2.4) Iron Level 107 ug/dL (65-175) Total Iron Binding Capacity 199 ug/dL (250-450) Iron Saturation 54 % (15-34) Vitamin B12 Level 301 pg/mL (247-911) Test 04/09/20 07:40 Glucose (Fingerstick) 88 mg/dL (70-99) Assessment and Plan Assessmemt and Plan Problems Medical Problems: (1) Intractable low back pain Status: Acute (2) Lumbar disc lesion Status: Acute (3) Multiple myeloma Status: Acute Comment Review of Relevant I have reviewed the following items caity (where applicable) has been applied. Labs Laboratory Tests Test 04/08/20 13:04 04/08/20 13:45 04/08/20 17:34 04/09/20 05:11 Urine Collection Type Unknown Urine Color Yellow Urine Clarity Clear Urine pH 5.0 (<5.0-8.0) Urine Specific [place] 1.010 (1.000-1.030) Urine Protein Negative mg/dL (NEG-TRACE) Urine Glucose (UA) Negative mg/dL (NEG) Urine Ketones (Stick) Negative mg/dL (NEG) Urine Blood Negative (NEG) Urine Nitrite Negative (NEG) Urine Bilirubin Negative (NEG) Urine Urobilinogen Dipstick 0.2 mg/dL (0.2 mg/dL) Urine Leukocyte Esterase Negative (NEG) Urine RBC 1-2 /HPF (0-2) Urine WBC 1-4 /HPF (0-4) Urine Squamous Epithelial Cells Few /LPF Urine Bacteria Few /HPF (0-FEW) Urine Hyaline Casts Many /HPF Urine Granular Casts Few /HPF Urine Mucus Marked /LPF White Blood Count 7.2 x10^3/uL (4.0-11.0) 6.0 x10^3/uL (4.0-11.0) Red Blood Count 3.37 x10^6/uL (4.30-5.70) 3.14 x10^6/uL (4.30-5.70) Hemoglobin 11.6 g/dL (13.0-17.5) 10.9 g/dL (13.0-17.5) Hematocrit 33.4 % (39.0-53.0) 31.5 % (39.0-53.0) Mean Corpuscular Volume 99 fL (79-100) 100 fL (79-100) Mean Corpuscular Hemoglobin 34 pg (25-35) 35 pg (25-35) Mean Corpuscular Hemoglobin Concent 35 g/dL (31-37) 35 g/dL (31-37) Red Cell Distribution Width 13.4 % (11.5-14.5) 13.9 % (11.5-14.5) Platelet Count 185 x10^3/uL (140-400) 183 x10^3/uL (140-400) Neutrophils (%) (Auto) 65 % (31-73) 53 % (31-73) Lymphocytes (%) (Auto) 26 % (24-48) 36 % (24-48) Monocytes (%) (Auto) 6 % (0-9) 7 % (0-9) Eosinophils (%) (Auto) 2 % (0-3) 4 % (0-3) Basophils (%) (Auto) 1 % (0-3) 0 % (0-3) Neutrophils # (Auto) 4.7 x10^3/uL (1.8-7.7) 3.2 x10^3/uL (1.8-7.7) Lymphocytes # (Auto) 1.9 x10^3/uL (1.0-4.8) 2.2 x10^3/uL (1.0-4.8) Monocytes # (Auto) 0.4 x10^3/uL (0.0-1.1) 0.4 x10^3/uL (0.0-1.1) Eosinophils # (Auto) 0.1 x10^3/uL (0.0-0.7) 0.2 x10^3/uL (0.0-0.7) Basophils # (Auto) 0.1 x10^3/uL (0.0-0.2) 0.0 x10^3/uL (0.0-0.2) Absolute Reticulocyte Count 0.037 x10^6/uL (0.020-0.120) Percent Reticulocyte Count 1.1 % (0.5-2.3) Immature Reticulocyte Fraction 0.43 (0.20-0.60) Sodium Level 133 mmol/L (136-145) 138 mmol/L (136-145) Potassium Level 4.9 mmol/L (3.5-5.1) 3.8 mmol/L (3.5-5.1) Chloride Level 102 mmol/L (98-107) 105 mmol/L (98-107) Carbon Dioxide Level 23 mmol/L (21-32) 27 mmol/L (21-32) Anion Gap 8 (6-14) 6 (6-14) Blood Urea Nitrogen 24 mg/dL (8-26) 22 mg/dL (8-26) Creatinine 1.3 mg/dL (0.7-1.3) 1.0 mg/dL (0.7-1.3) Estimated GFR (Cockcroft-Gault) 56.1 76.0 BUN/Creatinine Ratio 18 (6-20) 22 (6-20) Glucose Level 174 mg/dL (70-99) 78 mg/dL (70-99) Uric Acid 8.6 mg/dL (3.5-7.2) Calcium Level 8.5 mg/dL (8.5-10.1) 8.5 mg/dL (8.5-10.1) Ferritin 297 ng/mL (26-388) Total Bilirubin 0.2 mg/dL (0.2-1.0) 0.3 mg/dL (0.2-1.0) Aspartate Amino Transf (AST/SGOT) 19 U/L (15-37) 19 U/L (15-37) Alanine Aminotransferase (ALT/SGPT) 18 U/L (16-63) 17 U/L (16-63) Alkaline Phosphatase 65 U/L (46-116) 62 U/L (46-116) Lactate Dehydrogenase 320 U/L (85-227) Total Protein 10.0 g/dL (6.4-8.2) 9.0 g/dL (6.4-8.2) Albumin 3.1 g/dL (3.4-5.0) 2.7 g/dL (3.4-5.0) Albumin/Globulin Ratio 0.4 (1.0-1.7) 0.4 (1.0-1.7) Glucose (Fingerstick) 75 mg/dL (70-99) Phosphorus Level 4.8 mg/dL (2.6-4.7) Magnesium Level 1.9 mg/dL (1.8-2.4) Iron Level 107 ug/dL (65-175) Total Iron Binding Capacity 199 ug/dL (250-450) Iron Saturation 54 % (15-34) Vitamin B12 Level 301 pg/mL (247-911) Test 04/09/20 07:40 Glucose (Fingerstick) 88 mg/dL (70-99) Laboratory Tests Test 04/08/20 13:04 04/08/20 13:45 04/08/20 17:34 04/09/20 05:11 Urine Collection Type Unknown Urine Color Yellow Urine Clarity Clear Urine pH 5.0 (<5.0-8.0) Urine Specific [place] 1.010 (1.000-1.030) Urine Protein Negative mg/dL (NEG-TRACE) Urine Glucose (UA) Negative mg/dL (NEG) Urine Ketones (Stick) Negative mg/dL (NEG) Urine Blood Negative (NEG) Urine Nitrite Negative (NEG) Urine Bilirubin Negative (NEG) Urine Urobilinogen Dipstick 0.2 mg/dL (0.2 mg/dL) Urine Leukocyte Esterase Negative (NEG) Urine RBC 1-2 /HPF (0-2) Urine WBC 1-4 /HPF (0-4) Urine Squamous Epithelial Cells Few /LPF Urine Bacteria Few /HPF (0-FEW) Urine Hyaline Casts Many /HPF Urine Granular Casts Few /HPF Urine Mucus Marked /LPF White Blood Count 7.2 x10^3/uL (4.0-11.0) 6.0 x10^3/uL (4.0-11.0) Red Blood Count 3.37 x10^6/uL (4.30-5.70) 3.14 x10^6/uL (4.30-5.70) Hemoglobin 11.6 g/dL (13.0-17.5) 10.9 g/dL (13.0-17.5) Hematocrit 33.4 % (39.0-53.0) 31.5 % (39.0-53.0) Mean Corpuscular Volume 99 fL (79-100) 100 fL (79-100) Mean Corpuscular Hemoglobin 34 pg (25-35) 35 pg (25-35) Mean Corpuscular Hemoglobin Concent 35 g/dL (31-37) 35 g/dL (31-37) Red Cell Distribution Width 13.4 % (11.5-14.5) 13.9 % (11.5-14.5) Platelet Count 185 x10^3/uL (140-400) 183 x10^3/uL (140-400) Neutrophils (%) (Auto) 65 % (31-73) 53 % (31-73) Lymphocytes (%) (Auto) 26 % (24-48) 36 % (24-48) Monocytes (%) (Auto) 6 % (0-9) 7 % (0-9) Eosinophils (%) (Auto) 2 % (0-3) 4 % (0-3) Basophils (%) (Auto) 1 % (0-3) 0 % (0-3) Neutrophils # (Auto) 4.7 x10^3/uL (1.8-7.7) 3.2 x10^3/uL (1.8-7.7) Lymphocytes # (Auto) 1.9 x10^3/uL (1.0-4.8) 2.2 x10^3/uL (1.0-4.8) Monocytes # (Auto) 0.4 x10^3/uL (0.0-1.1) 0.4 x10^3/uL (0.0-1.1) Eosinophils # (Auto) 0.1 x10^3/uL (0.0-0.7) 0.2 x10^3/uL (0.0-0.7) Basophils # (Auto) 0.1 x10^3/uL (0.0-0.2) 0.0 x10^3/uL (0.0-0.2) Absolute Reticulocyte Count 0.037 x10^6/uL (0.020-0.120) Percent Reticulocyte Count 1.1 % (0.5-2.3) Immature Reticulocyte Fraction 0.43 (0.20-0.60) Sodium Level 133 mmol/L (136-145) 138 mmol/L (136-145) Potassium Level 4.9 mmol/L (3.5-5.1) 3.8 mmol/L (3.5-5.1) Chloride Level 102 mmol/L (98-107) 105 mmol/L (98-107) Carbon Dioxide Level 23 mmol/L (21-32) 27 mmol/L (21-32) Anion Gap 8 (6-14) 6 (6-14) Blood Urea Nitrogen 24 mg/dL (8-26) 22 mg/dL (8-26) Creatinine 1.3 mg/dL (0.7-1.3) 1.0 mg/dL (0.7-1.3) Estimated GFR (Cockcroft-Gault) 56.1 76.0 BUN/Creatinine Ratio 18 (6-20) 22 (6-20) Glucose Level 174 mg/dL (70-99) 78 mg/dL (70-99) Uric Acid 8.6 mg/dL (3.5-7.2) Calcium Level 8.5 mg/dL (8.5-10.1) 8.5 mg/dL (8.5-10.1) Ferritin 297 ng/mL (26-388) Total Bilirubin 0.2 mg/dL (0.2-1.0) 0.3 mg/dL (0.2-1.0) Aspartate Amino Transf (AST/SGOT) 19 U/L (15-37) 19 U/L (15-37) Alanine Aminotransferase (ALT/SGPT) 18 U/L (16-63) 17 U/L (16-63) Alkaline Phosphatase 65 U/L (46-116) 62 U/L (46-116) Lactate Dehydrogenase 320 U/L (85-227) Total Protein 10.0 g/dL (6.4-8.2) 9.0 g/dL (6.4-8.2) Albumin 3.1 g/dL (3.4-5.0) 2.7 g/dL (3.4-5.0) Albumin/Globulin Ratio 0.4 (1.0-1.7) 0.4 (1.0-1.7) Glucose (Fingerstick) 75 mg/dL (70-99) Phosphorus Level 4.8 mg/dL (2.6-4.7) Magnesium Level 1.9 mg/dL (1.8-2.4) Iron Level 107 ug/dL (65-175) Total Iron Binding Capacity 199 ug/dL (250-450) Iron Saturation 54 % (15-34) Vitamin B12 Level 301 pg/mL (247-911) Test 04/09/20 07:40 Glucose (Fingerstick) 88 mg/dL (70-99) Medications Current Medications Hydromorphone HCl (Dilaudid) 1 mg 1X ONCE IVP Last administered on 04/08/20at 13:41; Start 04/08/20 at 13:15; Stop 04/08/20 at 13:16; Status DC Sodium Chloride 1,000 ml @ 1,000 mls/hr 1X ONCE IV Last administered on 04/08at 13:39; Start 04/08/20 at 13:15; Stop 04/08/20 at 14:14; Status DC Ondansetron HCl (Zofran) 4 mg 1X ONCE IVP Last administered on 04/08/20at 13:42; Start 04/08/20 at 13:15; Stop 04/08/20 at 13:16; Status DC Diazepam (Valium) 5 mg 1X ONCE PO Last administered on 04/08/20at 13:44; Start 04/08/20 at 13:15; Stop 04/08/20 at 13:16; Status DC Ondansetron HCl (Zofran) 4 mg PRN Q8HRS PRN IV NAUSEA/VOMITING Last administered on 04/08/20at 15:35; Start 04/08/20 at 14:15; Stop 04/09/20 at 14:14 Hydromorphone HCl (Dilaudid) 1 mg PRN Q3HRS PRN IVP PAIN Last administered on 04/09/20at 10:03; Start 04/08/20 at 14:15 Sennosides (Senna) 17.2 mg PRN BID PRN PO CONSTIPATION; Start 04/08/20 at 17:15 Docusate Sodium (Colace) 100 mg PRN DAILY PRN PO HARD STOOLS; Start 04/08/20 at 17:15 Ondansetron HCl (Zofran) 4 mg PRN Q6HRS PRN IVP NAUSEA/VOMITING; Start 04/08/20 at 17:15 Potassium Chloride (Klor-Con) 40 meq 1X PRN PO PER PROTOCOL; Start 04/08/20 at 17:15; Stop 04/08/20 at 17:25; Status DC Magnesium Oxide (Magnesium Oxide) 400 mg BID PO ; Start 04/08/20 at 21:00; Stop 04/08/20 at 17:24; Status DC Potassium Chloride/Water 100 ml @ 100 mls/hr Q1H IV ; Start 04/08/20 at 17:15; Stop 04/08/20 at 17:25; Status DC Magnesium Sulfate 50 ml @ 25 mls/hr Q24H IV ; Start 04/08/20 at 17:15; Stop 04/08/20 at 17:24; Status DC Potassium Chloride/Water 100 ml @ 100 mls/hr Q1H PRN IV low k; Start 04/08/20 at 17:15; Stop 04/08/20 at 17:25; Status DC Insulin Human Lispro (HumaLOG) 0-7 UNITS TIDWMEALS SQ ; Start 04/09/20 at 08:00 Dextrose (Dextrose 50%-Water Syringe) 12.5 gm PRN Q15MIN PRN IV SEE COMMENTS; Start 04/08/20 at 17:15 Acetaminophen (Tylenol) 650 mg PRN Q4HRS PRN PO TEMP OVER 100.4F OR MILD PAIN; Start 04/08/20 at 17:15 Enoxaparin Sodium (Lovenox 40mg Syringe) 40 mg Q24H SQ Last administered on 04/08/20at 18:31; Start 04/08/20 at 18:00 Info (Non-Icu Electrolyte Protocol) 1 ea CONT PRN PRN MC SEE COMMENTS; Start 04/08/20 at 17:30 Influenza Virus Vaccine Quadrival (Fluzone Quad Syringe) 0.5 ml ONCE ONCE VAX IM Last administered on 04/08/20at 20:19; Start 04/08/20 at 20:00; Stop 04/08/20 at 20:01; Status DC Apixaban (Eliquis) 5 mg BID PO ; Start 04/09/20 at 09:30 Dofetilide (Tikosyn) 250 mcg BID PO ; Start 04/09/20 at 09:30; Stop 04/09/20 at 09:37; Status DC EZETIMIBE (Zetia) 10 mg DAILY PO Last administered on 04/09/20at 10:04; Start 04/09/20 at 09:30 Furosemide (Lasix) 40 mg DAILY PO Last administered on 04/09/20at 10:05; Start 04/09/20 at 10:00 Levothyroxine Sodium (Synthroid) 150 mcg DAILY06 PO Last administered on 04/09/20at 10:23; Start 04/09/20 at 10:30 Metoprolol Succinate (Toprol Xl) 12.5 mg DAILY PO ; Start 04/09/20 at 10:00; Stop 04/09/20 at 09:55; Status DC Sacubitril/ Valsartan (Entresto 24 Mg-26 Mg) 1 tab BID PO Last administered on 04/09/20at 10:07; Start 04/09/20 at 10:00 Insulin Glargine (Lantus Syringe) 48 unit QHS SQ ; Start 04/09/20 at 21:00 Metformin HCl (Glucophage) 1,000 mg BIDWMEALS PO Last administered on 04/09/20 10:09; Start 04/09/20 at 10:00 Multivitamins (Thera M Plus) 1 tab DAILY PO Last administered on 04/09/20at 10:08; Start 04/09/20 at 10:00 Spironolactone (Aldactone) 25 mg DAILY PO Last administered on 04/09/20at 10:09; Start 04/09/20 at 10:00 Info (Anti-Coagulation Monitoring By Pharmacy) 1 each PRN DAILY PRN MC SEE COMMENTS; Start 04/09/20 at 09:30 Dofetilide (Tikosyn) 250 mcg BID PO Last administered on 04/09/20at 10:05; Start 04/09/20 at 10:00 Metoprolol Succinate (Toprol Xl) 12.5 mg QHS PO ; Start 04/09/20 at 21:00 Active Scripts Active Reported Furosemide 40 Mg Tablet 1 Tab PO DAILY Tikosyn (Dofetilide) 250 Mcg Capsule 250 Mcg PO BID Eliquis (Apixaban) 5 Mg Tablet 5 Mg PO BID Zetia (Ezetimibe) 10 Mg Tablet 10 Mg PO DAILY Metoprolol Succinate ( Xl ) (Metoprolol Succinate) 25 Mg Tab.er.24h 12.5 Mg PO DAILY One-Daily Multi-Vitamin (Multivitamin) 1 Each Tablet 1 Tab PO DAILY 30 Days Lantus Solostar (Insulin Glargine,Hum.rec.anlog) 100 Unit/1 Ml Insuln.pen 48 Unit SQ HS Spironolactone 50 Mg Tablet 0.5 Tab PO DAILY Entresto 24 mg-26 mg Tablet (Sacubitril/Valsartan) 1 Each Tablet 1 Each PO BID Metformin Hcl 1,000 Mg Tablet 1,000 Mg PO BIDWMEALS Levothyroxine Sodium 75 Mcg Tablet 150 Mcg PO DAILY Vitals/I & O Vital Sign - Last 24 Hours 04/08/20 04/08/20 04/08/20 04/08/20 13:01 13:41 15:35 16:55 Temp 97.8 97.8 Pulse 87 80 Resp 20 16 B/P (MAP) 125/78 (94) 87/54 (65) Pulse Ox 97 100 95 97 O2 Delivery Room Air Room Air Room Air Room Air 04/08/20 04/08/20 04/08/20 04/08/20 17:45 18:12 18:30 19:00 Temp 97.5 97.9 97.5 97.9 Pulse 81 77 Resp 16 18 B/P (MAP) 96/53 (67) 97/62 (74) Pulse Ox 98 96 O2 Delivery Room Air Room Air Room Air Room Air 04/08/20 04/08/20 04/08/20 04/08/20 19:00 20:00 21:39 22:12 Resp 14 16 14 O2 Delivery Room Air Room Air Room Air Room Air 04/08/20 04/09/20 04/09/20 04/09/20 23:00 00:43 01:15 03:00 Temp 97.7 97.5 97.7 97.5 Pulse 85 77 Resp 18 16 14 18 B/P (MAP) 128/80 (96) 97/61 (73) Pulse Ox 95 93 O2 Delivery Room Air Room Air Room Air Room Air 04/09/20 04/09/20 04/09/20 07:00 10:03 10:07 Temp 98.1 98.1 Pulse 76 76 Resp 16 B/P (MAP) 92/47 (62) 92/47 Pulse Ox 96 O2 Delivery Room Air Room Air Intake and Output 04/08/20 04/08/20 04/09/20 15:00 23:00 07:00 Intake Total 1000 ml 400 ml Output Total 600 ml Balance 1000 ml -200 ml Justicifation of Admission Dx: Justifications for Admission: Justification of Admission Dx: Yes Chronic Renal Failure: Intravenous Infusions Fracture: Fracture Comments: intractable pain, pathologic fx GRACIA CASTANEDA MD Apr 09, 2020 10:42
[2020-04-09 11:00] VITALS: BP 99/52
[2020-04-09 15:00] VITALS: BP 102/54
--- NOTE | 2020-04-09 15:06 | RAD ---
Single view of the chest. 04/09/2020 2:17 PM Indication: Reason: cardiomyopathy / Spl. Instructions: / History: Comparison: One view chest May 26, 2019 Findings: Dual-lead pacemaking device from a left subclavian approach is unchanged. No pneumothorax. No definitive effusion. No overt central vascular congestion is seen. Heart size is normal given portable technique. IMPRESSION: No evidence of acute cardiopulmonary process or acute change from prior study. Electronically signed by: Carmelo Calderon MD (04/09/2020 3:03 PM) [id number]
--- NOTE | 2020-04-09 16:24 | PDOC2 ---
ANGEL MICHELLE SINGLE FOLD MACHINE OPERATOR 04/09/20 1624: CARDIAC CONSULT DATE OF CONSULT Date of Consult DATE: 04/09/20 TIME: 16:09 SOURCE Source: Chart review, Patient HISTORY OF PRESENT ILLNESS HISTORY OF PRESENT ILLNESS This is a 60 yo male admitted for complains of back pain which started Aug and just kept on getting worse. No chest pain or SOA. Complaint with his cardiac meds but not with his appointments. Cardiac cornejo he is stable. His device has not been set up for remote monitoring due to failed follow ups. I discussed his MRI with [facility] and they are aware of him and at this time the lesions he has and fracture is nonsurgical. He is clinically compensated cardiac cornejo and clinically stable. PAST MEDICAL HISTORY Cardiovascular: AFIB, CAD, CHF, HTN, Hyperlipidemia, Valve insufficiency (MR), Other (ICM) Pulmonary: Other (MARGARET noncompliant CPAP) CENTRAL NERVOUS SYSTEM: Other (No pertinent history) GI: GERD Heme/Onc: Anemia NOS Musculoskeletal: Osteoarthritis Renal/: Chronic renal insuff, UTI Endocrine: Diabetes (2), Hypothyroidism PAST SURGICAL HISTORY Past Surgical History: Pacemaker (AICD), Arthroscopy (shoulder), Other (PCI) FAMILY HISTORY Family History noncontributory SOCIAL HISTORY Smoke: No ALCOHOL: occassional Drugs: None CURRENT MEDICATIONS CURRENT MEDICATIONS Current Medications Medications (Trade) Dose Ordered Sig/Elva Route PRN Reason Start Time Stop Time Status Last Admin Dose Admin Enoxaparin Sodium (Lovenox 40mg Syringe) 40 mg Q24H SQ 04/08/20 18:00 04/08/20 18:31 Influenza Virus Vaccine Quadrival (Fluzone Quad Syringe) 0.5 ml ONCE ONCE VAX IM 04/08/20 20:00 04/08/20 20:01 DC 04/08/20 20:19 Apixaban (Eliquis) 5 mg BID PO 04/09/20 09:30 04/09/20 09:30 EZETIMIBE (Zetia) 10 mg DAILY PO 04/09/20 09:30 04/09/20 10:04 Furosemide (Lasix) 40 mg DAILY PO 04/09/20 10:00 04/09/20 10:05 Levothyroxine Sodium (Synthroid) 150 mcg DAILY06 PO 04/09/20 10:30 04/09/20 10:23 Sacubitril/ Valsartan (Entresto 24 Mg-26 Mg) 1 tab BID PO 04/09/20 10:00 04/09/20 10:07 Metformin HCl (Glucophage) 1,000 mg BIDWMEALS PO 04/09/20 10:00 04/09/20 10:09 Multivitamins (Thera M Plus) 1 tab DAILY PO 04/09/20 10:00 04/09/20 10:08 Spironolactone (Aldactone) 25 mg DAILY PO 04/09/20 10:00 04/09/20 10:09 Dofetilide (Tikosyn) 250 mcg BID PO 04/09/20 10:00 04/09/20 10:05 Hydromorphone HCl (Dilaudid) 2 mg PRN Q3HRS PRN IVP PAIN 04/09/20 13:45 04/09/20 13:52 ALLERGIES ALLERGIES: Coded Allergies: amiodarone (Verified Allergy, Severe, Shortness of Air, 12/06/18) meperidine (Verified Allergy, Severe, Shortness of Air, 12/06/18) Gwdlwwi-Wus-Tee Reductase Inhibitor (Verified Adverse Reaction, Intermediate, 12/06/18) pt states he has a severe liver reaction lisinopril (Verified Adverse Reaction, Mild, 12/06/18) Cough-pt refuses to take medication due to rxn ROS Review of System 10 point ROs evaluated with pertinent positives noted per HPI PHYSICAL EXAM General: Alert, Oriented X3, Cooperative, No acute distress HEENT: Atraumatic, Mucous membr. moist/pink Lungs: Clear to auscultation Heart: Regular rate Abdomen: Soft Extremities: No cyanosis Skin: No breakdown Neuro: Normal speech, Sensation intact Psych/Mental Status: Mental status NL, Mood NL MUSCULOSKELETAL: Osteoarthritic changes both hands VITALS/I&O VITALS/I&O: Vital Signs Date Time Temp Pulse Resp B/P (MAP) Pulse Ox O2 Delivery O2 Flow Rate FiO2 04/09/20 15:00 98.3 74 16 102/54 (70) 98 Room Air 98.3 I & O 04/08/20 04/08/20 04/09/20 15:00 23:00 07:00 Intake Total 1000 ml 400 ml Output Total 600 ml Balance 1000 ml -200 ml LABS Lab: Laboratory Tests Test 04/08/20 17:34 04/09/20 05:11 04/09/20 07:40 04/09/20 11:10 Glucose (Fingerstick) 75 mg/dL (70-99) 88 mg/dL (70-99) 99 mg/dL (70-99) White Blood Count 6.0 x10^3/uL (4.0-11.0) Red Blood Count 3.14 x10^6/uL (4.30-5.70) L Hemoglobin 10.9 g/dL (13.0-17.5) L Hematocrit 31.5 % (39.0-53.0) L Mean Corpuscular Volume 100 fL (79-100) Mean Corpuscular Hemoglobin 35 pg (25-35) Mean Corpuscular Hemoglobin Concent 35 g/dL (31-37) Red Cell Distribution Width 13.9 % (11.5-14.5) Platelet Count 183 x10^3/uL (140-400) Neutrophils (%) (Auto) 53 % (31-73) Lymphocytes (%) (Auto) 36 % (24-48) Monocytes (%) (Auto) 7 % (0-9) Eosinophils (%) (Auto) 4 % (0-3) H Basophils (%) (Auto) 0 % (0-3) Neutrophils # (Auto) 3.2 x10^3/uL (1.8-7.7) Lymphocytes # (Auto) 2.2 x10^3/uL (1.0-4.8) Monocytes # (Auto) 0.4 x10^3/uL (0.0-1.1) Eosinophils # (Auto) 0.2 x10^3/uL (0.0-0.7) Basophils # (Auto) 0.0 x10^3/uL (0.0-0.2) Sodium Level 138 mmol/L (136-145) Potassium Level 3.8 mmol/L (3.5-5.1) # Chloride Level 105 mmol/L (98-107) Carbon Dioxide Level 27 mmol/L (21-32) Anion Gap 6 (6-14) Blood Urea Nitrogen 22 mg/dL (8-26) Creatinine 1.0 mg/dL (0.7-1.3) Estimated GFR (Cockcroft-Gault) 76.0 BUN/Creatinine Ratio 22 (6-20) H Glucose Level 78 mg/dL (70-99) Calcium Level 8.5 mg/dL (8.5-10.1) Phosphorus Level 4.8 mg/dL (2.6-4.7) H Magnesium Level 1.9 mg/dL (1.8-2.4) Iron Level 107 ug/dL (65-175) Total Iron Binding Capacity 199 ug/dL (250-450) L Iron Saturation 54 % (15-34) H Total Bilirubin 0.3 mg/dL (0.2-1.0) Aspartate Amino Transferase (AST) 19 U/L (15-37) Alanine Aminotransferase (ALT) 17 U/L (16-63) Alkaline Phosphatase 62 U/L (46-116) C-Reactive Protein, Quantitative 5.0 mg/L (0-3.3) H Total Protein 9.0 g/dL (6.4-8.2) H Albumin 2.7 g/dL (3.4-5.0) L Albumin/Globulin Ratio 0.4 (1.0-1.7) L Vitamin B12 Level 301 pg/mL (247-911) Laboratory Tests 04/09/20 05:11 Laboratory Tests 04/09/20 05:11 ECHOCARDIOGRAM ECHOCARDIOGRAM <Conclusion> The Left Ventricle is mildly dilated. The systolic function is moderately decreased. The Ejection Fraction is 35-40%. There is global hypokinesis of the left ventricle. There is mild concentric left ventricular hypertrophy. There is no significant aortic valvular stenosis. Doppler and Color Flow revealed no significant aortic regurgitation. Doppler and Color-flow revealed moderately severe mitral regurgitation. Doppler and Color Flow revealed trace tricuspid regurgitation with an estimated 44 mmHg. DATE: 02/27/19 1036 HEART CATH HEART CATH Conclusion 1. Severe biventricular failure 2. Cardiogenic shock 3. Afib with RVR 4. Severe mitral regurgitation 5. 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 Recommendations Case discussed with Dr. Espinosa at [facility] for advanced heart failure management. Patient has not been able to tolerate diuressis due to hypotension and has had arrhythmias with initiation of Milrinone. Will plan for transfer to [facility] for advanced heart failure therapy evaluation. Start heparin gtt for afib with RVR May need evaluation after optimization for CARDIO MEMS and possible Inge-Clip. DATE: 12/08/18 1125 ASSESSMENT/PLAN ASSESSMENT/PLAN 1. Back pain with possible metastasis/MM: notable for lumbar compression fractures 2. PAFIB 3. ICM: last known EF at 25% compensated 4. AICD in situ: biotronik has not been interrogated in a while due to noncompliance for appointment 5. CAD: stent in the past 6. Severe MR 7. DM2 8. HLP 9. Hypothyroidism 10. HTN: marginal Recommendations 1. Dr. Larsen has been consulted. Neurosurgery has been contacted and at this time his lumbar fracture and lesions arre nonsurgical 2. Will hold eliquis for now for any possible biopsy or plasties Consult hemonc 3. Continue low dose toprol and lasix. Hold aldactone for now given his marginal BP but will continue entresto 4. TTE tomorrow and will obtain EKG and note QTc given his tikosyn therapy. 5. Secondary prevention measures. 2L FR 6. Interrogate device ADELINE ELLSWORTH MD 04/09/20 1750: CARDIAC CONSULT ASSESSMENT/PLAN ASSESSMENT/PLAN Pt. seen and examined. 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 Hold lasix rather than spironolactone. Await onc eval. Thanks ANGEL MICHELLE APRN Apr 09, 2020 16:24 ADELINE ELLSWORTH MD Apr 09, 2020 17:50
[2020-04-09] MEDS: ENOXAPARIN 40 MG/0.4 ML SYRINGE. SQ SCH (17:27)
[2020-04-09] MEDS ORDERED: INSULIN GLARGINE SQ SCH (17:30)
[2020-04-09] MEDS: INSULIN GLARGINE SQ SCH (17:34)
--- NOTE | 2020-04-09 18:25 | NUR ---
Pt states he does not wish to transfer to a tele unit. He states he spoke to Dr. Acevedo and he was ok with pt staying on 4.
--- NOTE | 2020-04-09 18:58 | EKG ---
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
[2020-04-09 19:32] VITALS: BP 104/67
[2020-04-09] MEDS: metFORMIN 500 MG TABLET PO SCH (21:00)
[2020-04-09] MEDS: METOPROLOL SUCC 24HR ER 25 MG TAB.ER.24H. PO SCH (21:00)
[2020-04-09 23:22] VITALS: BP 111/69
[2020-04-10] MEDS: HYDROmorphone 2 MG/ML VIAL IVP PRN ×7 (00:05→20:13)
[2020-04-10 00:11] LABS: HEMOGLOBIN A1C 6.2 % (4.8-5.6)
[2020-04-10 03:18] VITALS: BP 97/63
--- NOTE | 2020-04-10 05:54 | PDOC ---
PROGRESS NOTES Date of Service: DATE: 04/10/20 TIME: 05:54 Chief Complaint Chief Complaint Images: Images Spine MRI Impression: 1. There are multiple edematous marrow lesions, evidence of metastatic disease or multiple myeloma. There is degree of pathologic compression deformity of L2 and to lesser degree of L4 which may be more recent as there is associated marrow edema, no osseous retropulsion. 2. There is no significant lumbar spinal stenosis. There is mild neural foramina compromise as stated. Assessment/Plan Assessment/Plan Intractable back pain due to multiple edematous marrow lesions, evidence of metastatic disease or multiple myeloma Pathologic compression fracture of L2 and L4 pathologic compression deformity of L2 and to lesser degree of L4 which may be more recent as there is associated marrow edema, no osseous retropulsion. Anemia of unclear etiology Elevated gamma gap Hyponatremia hx Ischemic cardiomyopathy 2018 echo Ejection Fraction is 35-40%.global hypokinesis of the left ve ntricle.moderately severe mitral regurgitation. Ischemic CMP with EF of 20-25% 12/07 cardiac cath Chronic systolic heart failure Atrial fibrillation Hypertension Coronary artery disease Diabetes mellitus type 2 plan Admit to medicine for further management Neurology consult Oncology consult cardiology consult IV pain control as needed Serial neuro checks Lovenox for DVT prophylaxis ADA diet Full code Discussed with RN and SW Disposition inpatient care as above Surrogate decision maker is the inc dilaudid to 2 mg iv q 3 hrs prn severe pain, consult cardiology, to tele bed 39 min pt exam, chart review, > 50% of time spent with exam, chart review, pt care coordination Justifications for Admission Justifications for Admission Other Justification INTRACTABLE PAIN History of Present Illness History of Present Illness Chief Complaint: Chief Complain: Back Pain History of Present Illness: HPI: 60 year old male with history of diabetes type 2, hypertension, A. fib, who p resents the ED today to be evaluated for moderate low back pain that he states has been going on since January but has gotten worse in the last couple days with back spasms today, he reports the last time he had back spasms was 15 years ago. Patient states he did follow-up with his PCP as well as a chiropractor for the back pain towards the end of February. He had an MRI done at [place] [facility] 3 days ago but he does not know the results. Patient denies any loss of bowel/bladder function. Denies any injury. Denies any pain radiating to bilateral lower extremities. He states his pain is worse on movement. He states he tried taking his hydrocodone and Flexeril with no relief. Of note, patient did experience 1 episode of fall which she fell to his right side and had a rib pain. Patient has had routine colonoscopy screening starting at age 44 and had it every 5 years without any positive findings. Patient is up-to-date with his Pneumovax Past Medical/Surgical History: PMH/PSH: Past Medical History: A-Fib, CAD, Diabetes-Type II, Hypertension, annamarie mountain spotted fever Past Surgical History: Appendectomy, Pacemaker, splenectomy, knee surgery Allergies: Allergies: Coded Allergies: amiodarone (Verified Allergy, Severe, Shortness of Air, 12/06/18) meperidine (Verified Allergy, Severe, Shortness of Air, 12/06/18) [id number]-Gnu Reductase Inhibitor (Verified Adverse Reaction, Intermediate, 12/06/18) pt states he has a severe liver reaction lisinopril (Verified Adverse Reaction, Mild, 12/06/18) Cough-pt refuses to take medication due to rxn Family History: Family History: Father with hairy cell leukemia Social History: Social History: Smoking Status: Never Smoker Alcohol Use: Occasionally Drug Use: None Current Medications: Vitals Vitals Vital Signs Date Time Temp Pulse Resp B/P (MAP) Pulse Ox O2 Delivery O2 Flow Rate FiO2 04/10/20 03:48 14 Room Air 04/10/20 03:18 97.3 89 97/63 (74) 95 97.3 Physical Exam Physical Exam Physcial Exam: GEN: NO apparent distress. Alert and oriented HEENT: Normal cephalic, atraumatic, external auditory canals are patent EYES: Extraocular muscles are intact, pupil are equally round and reactive to light and accommodation MUSCULOSKELETAL: Well developed , well nourished, good range of motion ENDOCRINE: No thyromegaly was palpated LYMPHATICS: No cervical chain or axillary nodes were noted HEMATOPOIETIC: No bruising NECK: Supple, no JVD, no thyromegaly was noted LUNGS: Clear to auscultation in all lung hernandez without rhonchi or wheezing HEART: RRR, S!, S2 present. Peripheral pulses intact, no obvious murmurs noted ABDOMEN: Soft, nontender. Positive bowel sounds, no organomegaly, normal bowel sounds EXTREMITIES: Without clubbing, cyanosis, or edema. Pedal pulses intact. Negative Homans sign NEUROLOGIC: Normal speech and tone. A&O x 3, moves all extremities, no obvious focal deficits any movement causes severe pain PSYCHIATRIC: Normal affect, normal mood. Stable SKIN: No ulcerations or rashes, good skin turgor, no jaundice VASCULAR: Good capillary refill, neurovascular bundle appears to be intact General: Alert, Oriented X3, Cooperative, No acute distress, mild distress Heart: Regular rate, Normal S1 Lungs: Clear Abdomen: Normal bowel sounds, Soft, No tenderness Extremities: No clubbing, No cyanosis, No edema Skin: No breakdown Labs LABS Laboratory Tests Test 04/09/20 07:40 04/09/20 11:10 04/09/20 16:59 04/09/20 20:43 Glucose (Fingerstick) 88 mg/dL (70-99) 99 mg/dL (70-99) 148 mg/dL (70-99) 126 mg/dL (70-99) Assessment and Plan Assessmemt and Plan Problems Medical Problems: (1) Intractable low back pain Status: Acute (2) Lumbar disc lesion Status: Acute (3) Multiple myeloma Status: Acute Comment Review of Relevant I have reviewed the following items caity (where applicable) has been applied. Labs Laboratory Tests Test 04/08/20 13:04 04/08/20 13:45 04/08/20 17:34 04/09/20 05:11 Urine Collection Type Unknown Urine Color Yellow Urine Clarity Clear Urine pH 5.0 (<5.0-8.0) Urine Specific Rotan 1.010 (1.000-1.030) Urine Protein Negative mg/dL (NEG-TRACE) Urine Glucose (UA) Negative mg/dL (NEG) Urine Ketones (Stick) Negative mg/dL (NEG) Urine Blood Negative (NEG) Urine Nitrite Negative (NEG) Urine Bilirubin Negative (NEG) Urine Urobilinogen Dipstick 0.2 mg/dL (0.2 mg/dL) Urine Leukocyte Esterase Negative (NEG) Urine RBC 1-2 /HPF (0-2) Urine WBC 1-4 /HPF (0-4) Urine Squamous Epithelial Cells Few /LPF Urine Bacteria Few /HPF (0-FEW) Urine Hyaline Casts Many /HPF Urine Granular Casts Few /HPF Urine Mucus Marked /LPF White Blood Count 7.2 x10^3/uL (4.0-11.0) 6.0 x10^3/uL (4.0-11.0) Red Blood Count 3.37 x10^6/uL (4.30-5.70) 3.14 x10^6/uL (4.30-5.70) Hemoglobin 11.6 g/dL (13.0-17.5) 10.9 g/dL (13.0-17.5) Hematocrit 33.4 % (39.0-53.0) 31.5 % (39.0-53.0) Mean Corpuscular Volume 99 fL (79-100) 100 fL (79-100) Mean Corpuscular Hemoglobin 34 pg (25-35) 35 pg (25-35) Mean Corpuscular Hemoglobin Concent 35 g/dL (31-37) 35 g/dL (31-37) Red Cell Distribution Width 13.4 % (11.5-14.5) 13.9 % (11.5-14.5) Platelet Count 185 x10^3/uL (140-400) 183 x10^3/uL (140-400) Neutrophils (%) (Auto) 65 % (31-73) 53 % (31-73) Lymphocytes (%) (Auto) 26 % (24-48) 36 % (24-48) Monocytes (%) (Auto) 6 % (0-9) 7 % (0-9) Eosinophils (%) (Auto) 2 % (0-3) 4 % (0-3) Basophils (%) (Auto) 1 % (0-3) 0 % (0-3) Neutrophils # (Auto) 4.7 x10^3/uL (1.8-7.7) 3.2 x10^3/uL (1.8-7.7) Lymphocytes # (Auto) 1.9 x10^3/uL (1.0-4.8) 2.2 x10^3/uL (1.0-4.8) Monocytes # (Auto) 0.4 x10^3/uL (0.0-1.1) 0.4 x10^3/uL (0.0-1.1) Eosinophils # (Auto) 0.1 x10^3/uL (0.0-0.7) 0.2 x10^3/uL (0.0-0.7) Basophils # (Auto) 0.1 x10^3/uL (0.0-0.2) 0.0 x10^3/uL (0.0-0.2) Absolute Reticulocyte Count 0.037 x10^6/uL (0.020-0.120) Percent Reticulocyte Count 1.1 % (0.5-2.3) Immature Reticulocyte Fraction 0.43 (0.20-0.60) Sodium Level 133 mmol/L (136-145) 138 mmol/L (136-145) Potassium Level 4.9 mmol/L (3.5-5.1) 3.8 mmol/L (3.5-5.1) Chloride Level 102 mmol/L (98-107) 105 mmol/L (98-107) Carbon Dioxide Level 23 mmol/L (21-32) 27 mmol/L (21-32) Anion Gap 8 (6-14) 6 (6-14) Blood Urea Nitrogen 24 mg/dL (8-26) 22 mg/dL (8-26) Creatinine 1.3 mg/dL (0.7-1.3) 1.0 mg/dL (0.7-1.3) Estimated GFR (Cockcroft-Gault) 56.1 76.0 BUN/Creatinine Ratio 18 (6-20) 22 (6-20) Glucose Level 174 mg/dL (70-99) 78 mg/dL (70-99) Uric Acid 8.6 mg/dL (3.5-7.2) Calcium Level 8.5 mg/dL (8.5-10.1) 8.5 mg/dL (8.5-10.1) Ferritin 297 ng/mL (26-388) Total Bilirubin 0.2 mg/dL (0.2-1.0) 0.3 mg/dL (0.2-1.0) Aspartate Amino Transf (AST/SGOT) 19 U/L (15-37) 19 U/L (15-37) Alanine Aminotransferase (ALT/SGPT) 18 U/L (16-63) 17 U/L (16-63) Alkaline Phosphatase 65 U/L (46-116) 62 U/L (46-116) Lactate Dehydrogenase 320 U/L (85-227) Total Protein 10.0 g/dL (6.4-8.2) 9.0 g/dL (6.4-8.2) Albumin 3.1 g/dL (3.4-5.0) 2.7 g/dL (3.4-5.0) Albumin/Globulin Ratio 0.4 (1.0-1.7) 0.4 (1.0-1.7) Glucose (Fingerstick) 75 mg/dL (70-99) Hemoglobin A1c 6.2 % (4.8-5.6) Phosphorus Level 4.8 mg/dL (2.6-4.7) Magnesium Level 1.9 mg/dL (1.8-2.4) Iron Level 107 ug/dL (65-175) Total Iron Binding Capacity 199 ug/dL (250-450) Iron Saturation 54 % (15-34) C-Reactive Protein, Quantitative 5.0 mg/L (0-3.3) Vitamin B12 Level 301 pg/mL (247-911) Test 04/09/20 07:40 04/09/20 11:10 04/09/20 16:59 04/09/20 20:43 Glucose (Fingerstick) 88 mg/dL (70-99) 99 mg/dL (70-99) 148 mg/dL (70-99) 126 mg/dL (70-99) Laboratory Tests Test 04/09/20 07:40 04/09/20 11:10 04/09/20 16:59 04/09/20 20:43 Glucose (Fingerstick) 88 mg/dL (70-99) 99 mg/dL (70-99) 148 mg/dL (70-99) 126 mg/dL (70-99) Medications Current Medications Hydromorphone HCl (Dilaudid) 1 mg 1X ONCE IVP Last administered on 04/08/20at 13:41; Start 04/08/20 at 13:15; Stop 04/08/20 at 13:16; Status DC Sodium Chloride 1,000 ml @ 1,000 mls/hr 1X ONCE IV Last administered on 04/08/20at 13:39; Start 04/08/20 at 13:15; Stop 04/08/20 at 14:14; Status DC Ondansetron HCl (Zofran) 4 mg 1X ONCE IVP Last administered on 04/08/20at 13:42; Start 04/08/20 at 13:15; Stop 04/08/20 at 13:16; Status DC Diazepam (Valium) 5 mg 1X ONCE PO Last administered on 04/08/20at 13:44; Start 04/08/20 at 13:15; Stop 04/08/20 at 13:16; Status DC Ondansetron HCl (Zofran) 4 mg PRN Q8HRS PRN IV NAUSEA/VOMITING Last administered on 04/08/20at 15:35; Start 04/08/20 at 14:15; Stop 04/09/20 at 14:14; Status DC Hydromorphone HCl (Dilaudid) 1 mg PRN Q3HRS PRN IVP PAIN Last administered on 04/09/20at 10:03; Start 04/08/20 at 14:15; Stop 04/09/20 at 13:42; Status DC Sennosides (Senna) 17.2 mg PRN BID PRN PO CONSTIPATION; Start 04/08/20 at 17:15 Docusate Sodium (Colace) 100 mg PRN DAILY PRN PO HARD STOOLS; Start 04/08/20 at 17:15 Ondansetron HCl (Zofran) 4 mg PRN Q6HRS PRN IVP NAUSEA/VOMITING; Start 04/08/20 at 17:15 Potassium Chloride (Klor-Con) 40 meq 1X PRN PO PER PROTOCOL; Start 04/08/20 at 17:15; Stop 04/08/20 at 17:25; Status DC Magnesium Oxide (Magnesium Oxide) 400 mg BID PO ; Start 04/08/20 at 21:00; Stop 04/08/20 at 17:24; Status DC Potassium Chloride/Water 100 ml @ 100 mls/hr Q1H IV ; Start 04/08/20 at 17:15; Stop 04/08/20 at 17:25; Status DC Magnesium Sulfate 50 ml @ 25 mls/hr Q24H IV ; Start 04/08/20 at 17:15; Stop 04/08/20 at 17:24; Status DC Potassium Chloride/Water 100 ml @ 100 mls/hr Q1H PRN IV low k; Start 04/08/20 at 17:15; Stop 04/08/20 at 17:25; Status DC Insulin Human Lispro (HumaLOG) 0-7 UNITS TIDWMEALS SQ ; Start 04/09/20 at 08:00; Stop 04/09/20 at 12:05; Status DC Dextrose (Dextrose 50%-Water Syringe) 12.5 gm PRN Q15MIN PRN IV SEE COMMENTS; Start 04/08/20 at 17:15 Acetaminophen (Tylenol) 650 mg PRN Q4HRS PRN PO TEMP OVER 100.4F OR MILD PAIN; Start 04/08/20 at 17:15 Enoxaparin Sodium (Lovenox 40mg Syringe) 40 mg Q24H SQ Last administered on 04/08/20at 18:31; Start 04/08/20 at 18:00 Info (Non-Icu Electrolyte Protocol) 1 ea CONT PRN PRN MC SEE COMMENTS; Start 04/08/20 at 17:30 Influenza Virus Vaccine Quadrival (Fluzone Quad Syringe) 0.5 ml ONCE ONCE VAX IM Last administered on 04/08/20at 20:19; Start 04/08/20 at 20:00; Stop 04/08/20 at 20:01; Status DC Apixaban (Eliquis) 5 mg BID PO Last administered on 04/09/20at 09:30; Start 04/09/20 at 09:30; Stop 04/09/20 at 16:41; Status DC Dofetilide (Tikosyn) 250 mcg BID PO ; Start 04/09/20 at 09:30; Stop 04/09/20 at 09:37; Status DC EZETIMIBE (Zetia) 10 mg DAILY PO Last administered on 04/09/20at 10:04; Start 04/09/20 at 09:30 Furosemide (Lasix) 40 mg DAILY PO Last administered on 04/09/20at 10:05; Start 04/09/20 at 10:00; Stop 04/09/20 at 17:50; Status DC Levothyroxine Sodium (Synthroid) 150 mcg DAILY06 PO Last administered on 04/09/20at 10:23; Start 04/09/20 at 10:30 Metoprolol Succinate (Toprol Xl) 12.5 mg DAILY PO ; Start 04/09/20 at 10:00; Stop 04/09/20 at 09:55; Status DC Sacubitril/ Valsartan (Entresto 24 Mg-26 Mg) 1 tab BID PO Last administered on 04/09/20at 20:59; Start 04/09/20 at 10:00 Non-Formulary Medication 48 ea DAILY SQ ; Start 04/09/20 at 17:30; Stop 04/09/20 at 17:18; Status DC Metformin HCl (Glucophage) 1,000 mg BIDWMEALS PO Last administered on 04/09/20at 10:09; Start 04/09/20 at 10:00; Stop 04/09/20 at 18:25; Status DC Multivitamins (Thera M Plus) 1 tab DAILY PO Last administered on 04/09/20at 10:08; Start 04/09/20 at 10:00 Spironolactone (Aldactone) 25 mg DAILY PO Last administered on 04/09/20at 10:09; Start 04/09/20 at 10:00; Stop 04/09/20 at 16:41; Status DC Info (Anti-Coagulation Monitoring By Pharmacy) 1 each PRN DAILY PRN MC SEE COMMENTS; Start 04/09/20 at 09:30 Dofetilide (Tikosyn) 250 mcg BID PO Last administered on 04/09/20at 20:59; Start 04/09/20 at 10:00 Metoprolol Succinate (Toprol Xl) 12.5 mg QHS PO Last administered on 04/09/20at 21:00; Start 04/09/20 at 21:00 Hydromorphone HCl (Dilaudid) 2 mg PRN Q3HRS PRN IVP PAIN Last administered on 04/10/20at 03:08; Start 04/09/20 at 13:45 Non-Formulary Medication 48 ea DAILY SQ Last administered on 04/09/20at 17:34; Start 04/09/20 at 17:30 Spironolactone (Aldactone) 25 mg DAILY PO ; Start 04/10/20 at 09:00 Metformin HCl (Glucophage) 1,000 mg BID PO Last administered on 04/09/20at 21:00; Start 04/09/20 at 21:00 Active Scripts Active Reported Furosemide 40 Mg Tablet 1 Tab PO DAILY Tikosyn (Dofetilide) 250 Mcg Capsule 250 Mcg PO BID Eliquis (Apixaban) 5 Mg Tablet 5 Mg PO BID Zetia (Ezetimibe) 10 Mg Tablet 10 Mg PO DAILY Metoprolol Succinate ( Xl ) (Metoprolol Succinate) 25 Mg Tab.er.24h 12.5 Mg PO DAILY One-Daily Multi-Vitamin (Multivitamin) 1 Each Tablet 1 Tab PO DAILY 30 Days Lantus Solostar (Insulin Glargine,Hum.rec.anlog) 100 Unit/1 Ml Insuln.pen 48 Unit SQ HS Spironolactone 50 Mg Tablet 0.5 Tab PO DAILY Entresto 24 mg-26 mg Tablet (Sacubitril/Valsartan) 1 Each Tablet 1 Each PO BID Metformin Hcl 1,000 Mg Tablet 1,000 Mg PO BIDWMEALS Levothyroxine Sodium 75 Mcg Tablet 150 Mcg PO DAILY Vitals/I & O Vital Sign - Last 24 Hours 04/09/20 04/09/20 04/09/20 04/09/20 07:00 10:03 10:07 10:33 Temp 98.1 98.1 Pulse 76 76 Resp 16 B/P (MAP) 92/47 (62) 92/47 Pulse Ox 96 O2 Delivery Room Air Room Air Room Air 04/09/20 04/09/20 04/09/20 04/09/20 11:00 13:52 14:22 15:00 Temp 97.8 98.3 97.8 98.3 Pulse 80 74 Resp 16 16 B/P (MAP) 99/52 (68) 102/54 (70) Pulse Ox 95 98 O2 Delivery Room Air Room Air Room Air Room Air 04/09/20 04/09/20 04/09/20 04/09/20 17:39 18:09 19:32 20:00 Temp 97.4 97.4 Pulse 80 Resp 18 B/P (MAP) 104/67 (79) Pulse Ox 92 O2 Delivery Room Air Room Air Room Air Room Air 04/09/20 04/09/20 04/09/20 04/09/20 20:58 20:59 21:00 21:28 Resp 16 14 B/P (MAP) 104/67 104/67 O2 Delivery Room Air Room Air 04/09/20 04/10/20 04/10/20 04/10/20 23:22 00:05 00:35 03:08 Temp 97.3 97.3 Pulse 79 Resp 16 16 16 16 B/P (MAP) 111/69 (83) Pulse Ox 93 O2 Delivery Room Air Room Air Room Air Room Air 04/10/20 04/10/20 03:18 03:48 Temp 97.3 97.3 Pulse 89 Resp 18 14 B/P (MAP) 97/63 (74) Pulse Ox 95 O2 Delivery Room Air Room Air Intake and Output 04/09/20 04/09/20 04/10/20 15:00 23:00 07:00 Intake Total 550 ml 200 ml Output Total 650 ml Balance -100 ml 200 ml Justicifation of Admission Dx: Justifications for Admission: Justification of Admission Dx: Yes Chronic Renal Failure: Intravenous Infusions Fracture: Fracture GRACIA CASTANEDA MD Apr 10, 2020 05:54
[2020-04-10] MEDS: LEVOTHYROXINE 75 MCG TABLET PO SCH (06:12)
[2020-04-10 07:00] VITALS: BP 111/80
[2020-04-10] MEDS: INSULIN GLARGINE SQ SCH (07:51)
[2020-04-10] MEDS: metFORMIN 500 MG TABLET PO SCH ×2 (07:51→20:14)
[2020-04-10] MEDS: DOFETILIDE 125 MCG CAPSULE PO SCH ×2 (07:52→20:14)
[2020-04-10] MEDS: MULTIVITAMIN with MINERAL TABLET. PO SCH (07:52)
[2020-04-10] MEDS: SACUBITRIL/VALSARTAN 24/26MG TABLET. PO SCH ×2 (07:52→20:14)
[2020-04-10] MEDS: EZETIMIBE 10 MG TABLET. PO SCH (07:52)
[2020-04-10] MEDS: SPIRONOLACTONE 25 MG TABLET PO SCH (07:52)
[2020-04-10 09:39] LABS: BASO % 1 % (0-3); EOS # 0.2 x10^3/uL (0.0-0.7); EOS % 3 % (0-3); HEMATOCRIT 33.9 % (39.0-53.0); HEMOGLOBIN 11.6 g/dL (13.0-17.5); LYMPH # 1.8 x10^3/uL (1.0-4.8); LYMPH % 24 % (24-48); MEAN CORPUSCULAR HEMOGLOBIN 34 pg (25-35); MEAN CORPUSCULAR HGB CONC 34 g/dL (31-37); MEAN CORPUSCULAR VOLUME 101 fL (79-100); MONO # 0.6 x10^3/uL (0.0-1.1); MONO % 7 % (0-9); NEUT # 5.1 x10^3/uL (1.8-7.7); NEUT % 66 % (31-73); PLATELET COUNT 209 x10^3/uL (140-400); RED BLOOD COUNT 3.38 x10^6/uL (4.30-5.70); RED CELL DISTRIBUTION WIDTH 14.1 % (11.5-14.5); WHITE BLOOD COUNT 7.7 x10^3/uL (4.0-11.0)
[2020-04-10 10:01] LABS: ALBUMIN/GLOBULIN RATIO 0.4 (1.0-1.7); CALCIUM 9.1 mg/dL (8.5-10.1); CREATININE 1.2 mg/dL (0.7-1.3); GFR 61.6; POTASSIUM 3.8 mmol/L (3.5-5.1); TOTAL BILIRUBIN 0.4 mg/dL (0.2-1.0)
[2020-04-10 11:00] VITALS: BP 119/76
--- NOTE | 2020-04-10 13:05 | CONS ---
DATE OF CONSULTATION: 04/10/2020 ATTENDING PHYSICIAN: Kishor Gao MD. REASON FOR CONSULTATION: The patient was seen at the request of Dr. Gao for rehab evaluation. 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 He feels like it similar to the incident he had 15 years ago, got better with physical modalities and medications. He had been taking hydrocodone for pain, but not much help. He had seen his family physician and a chiropractor for his back pain towards the end of February, had an MRI scan done at [facility] 3 days ago which revealed multiple edematous marrow lesions, evidence of metastatic disease or multiple myeloma with pathological compression deformity of L2 and to a lesser degree of L4, which may be more recent as there is associated marrow edema without any osseous retropulsion and spinal stenosis, mild neural foraminal compromise is noted. The patient denies any radiation of pain to the extremities or any numbness, tingling sensation in the extremities or any trouble with his bowel or bladder control. The patient admits pain mainly while rolling from side to side. PHYSICAL EXAMINATION: Today revealed a middle-aged male. He is alert and oriented to time, place, person and circumstance and follows commands appropriately, moves all 4 extremities voluntarily where he had 4+/5 grade muscle strength and deep tendon reflexes are decreased overall. He had equal perception of touch and pinprick sensation bilaterally. He had tenderness to palpation over lumbar spine area. Straight leg raising test is negative bilaterally. His skin is intact. He is having significant pain with trying to roll from side to side. I have not tested his transfers or ambulation skills at this time. 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 The patient with known diabetes mellitus, hypertension, atrial fibrillation, coronary artery disease, anemia, history of ischemic cardiomyopathy with ejection fraction of 35%-40% with global hypokinesis of the left ventricle, moderately severe mitral regurgitation. RECOMMENDATION: To ask Interventional Radiology to think about biopsy and kyphoplasty of the compression fractures and to try him with a lumbar corset, to ask radiation-oncologist and neurosurgical consultation. Dr. Gao, I appreciate asking me to participate in the care of this interesting patient. I will be glad to follow him with you as needed by the rehabilitation. JOSE RAFAEL NORTON MD DR: ARYAN/emily JOB#: [id number] / [id number] VERO
[2020-04-10 13:19] LABS: PROTHROMBIN TIME PATIENT 14.3 SEC (11.7-14.0)
--- NOTE | 2020-04-10 13:19 | PDOC ---
JAMA YATES JOSE 04/10/20 1319: CARDIO Progress Notes Date and Time Date of Service 04/10/20 Time of Evaluation 1300 Subjective Subjective: No Chest Pain, No shortness of breath, Other (c/o low back pain "back locks up") Vitals Vitals Vital Signs Date Time Temp Pulse Resp B/P (MAP) Pulse Ox O2 Delivery O2 Flow Rate FiO2 04/10/20 11:00 98.1 84 18 119/76 (90) 97 Room Air 98.1 Weight Weight [ ] Input and Output Intake and Output Intake and Output 04/10/20 07:00 Intake Total 750 ml Output Total 650 ml Balance 100 ml Intake Oral 750 ml Output Urine Total 650 ml # Voids 4 Laboratory Labs Laboratory Tests Test 04/09/20 16:59 04/09/20 20:43 04/10/20 07:32 04/10/20 09:05 Glucose (Fingerstick) 148 mg/dL (70-99) 126 mg/dL (70-99) 77 mg/dL (70-99) White Blood Count 7.7 x10^3/uL (4.0-11.0) Red Blood Count 3.38 x10^6/uL (4.30-5.70) Hemoglobin 11.6 g/dL (13.0-17.5) Hematocrit 33.9 % (39.0-53.0) Mean Corpuscular Volume 101 fL (79-100) Mean Corpuscular Hemoglobin 34 pg (25-35) Mean Corpuscular Hemoglobin Concent 34 g/dL (31-37) Red Cell Distribution Width 14.1 % (11.5-14.5) Platelet Count 209 x10^3/uL (140-400) Neutrophils (%) (Auto) 66 % (31-73) Lymphocytes (%) (Auto) 24 % (24-48) Monocytes (%) (Auto) 7 % (0-9) Eosinophils (%) (Auto) 3 % (0-3) Basophils (%) (Auto) 1 % (0-3) Neutrophils # (Auto) 5.1 x10^3/uL (1.8-7.7) Lymphocytes # (Auto) 1.8 x10^3/uL (1.0-4.8) Monocytes # (Auto) 0.6 x10^3/uL (0.0-1.1) Eosinophils # (Auto) 0.2 x10^3/uL (0.0-0.7) Basophils # (Auto) 0.0 x10^3/uL (0.0-0.2) Sodium Level 136 mmol/L (136-145) Potassium Level 3.8 mmol/L (3.5-5.1) Chloride Level 101 mmol/L (98-107) Carbon Dioxide Level 30 mmol/L (21-32) Anion Gap 5 (6-14) Blood Urea Nitrogen 24 mg/dL (8-26) Creatinine 1.2 mg/dL (0.7-1.3) Estimated GFR (Cockcroft-Gault) 61.6 BUN/Creatinine Ratio 20 (6-20) Glucose Level 84 mg/dL (70-99) Calcium Level 9.1 mg/dL (8.5-10.1) Total Bilirubin 0.4 mg/dL (0.2-1.0) Aspartate Amino Transf (AST/SGOT) 21 U/L (15-37) Alanine Aminotransferase (ALT/SGPT) 24 U/L (16-63) Alkaline Phosphatase 67 U/L (46-116) Total Protein 10.0 g/dL (6.4-8.2) Albumin 3.0 g/dL (3.4-5.0) Albumin/Globulin Ratio 0.4 (1.0-1.7) Test 04/10/20 11:22 Glucose (Fingerstick) 87 mg/dL (70-99) Physical Exam HEENT: Neck Supple W Full Motion Chest: Symmetric LUNGS: Clear to Auscultation Heart: RRR Abdomen: Soft N/T Extremities: No Edema Neurology: alert, oriented, follow commands Assessment Assessment 1. Back pain with lumbar compression fractures. MRI with concerns for multiple myeloma or metastatic lesion. Bone marrow biopsy planned 2. PAFIB; QTc 435. Maintaining SR. Recent device check without AFIB. 3. ICM s/p AICD (Biotronik). Echo with LVEF 25%. Device check 04/05/20 with normal function 4. CAD; s/p PCI/stent placement. clinically stable 5. Severe MR 6. Diabetes, II 7. Hypertension; low end 8. Hypothyroidism Recommendations Continue Tikosyn for rhythm maintenance Will hold Eliquis for bone marrow biopsy Continue low dose Toprol and spironolactone. Low-dose Entresto as BP allows. Secondary prevention measures. Encouraged followup Justicifation of Admission Dx: Justifications for Admission: Justification of Admission Dx: Yes Chronic Renal Failure: Intravenous Infusions Fracture: Fracture ADELINE ELLSWORTH MD 04/11/20 1755: CARDIO Progress Notes Plan Plan Late entry for 04/10/20 Pt. seen and examined. Agree with above WINDOWS DESKTOP SUPPORT note. JAMA YATES APRN Apr 10, 2020 13:19 ADELINE ELLSWORTH MD Apr 11, 2020 17:55
--- NOTE | 2020-04-10 14:02 | PDOC2 ---
CONSULT Date of Consult Date of Consult DATE: 04/10/20 TIME: 13:29 Reason for Consult Reason for Consult: Low back pain. History of Present Illness Reason for Visit: 60-year-old man presented to the ED 04/08/20 to be evaluated for low back pain that he states has been going on since January but has gotten worse in the last couple days with back spasms that migrate first on the right and then left side. Patient states he did follow-up with his PCP as well as a chiropractor for the back pain towards the end of February. He had an MRI L-spine at [facility] 04/05/20 that showed multiple edematous marrow lesions throughout the visualized lumbar spine, inferior thoracic levels, sacrum and iliac bones, with pathologic compression fracture of L2 and to lesser degree of L4. Spinal canal was adequate. No tingling or numbness. No bowel or bladder incontinence. No leg weakness, although he has difficulty walking due to pain. He is scheduled for vertebroplasty and biopsy on 04/11/2020. Past Medical History Cardiovascular: AFIB, CAD, CHF, HTN, Hyperlipidemia, Valve insufficiency (MR), Other (ICM) Pulmonary: Other (MARGARET noncompliant CPAP) CENTRAL NERVOUS SYSTEM: Other (No pertinent history) GI: GERD Heme/Onc: Anemia NOS Musculoskeletal: Osteoarthritis Renal/: Chronic renal insuff, UTI Endocrine: Diabetes (2), Hypothyroidism Past Surgical History Past Surgical History Splenectomy from baseball accident. Ventral hernia repair. Past Surgical History: Pacemaker (AICD), Appendectomy, Arthroscopy (shoulder), Other (splenectomy from baseball accident) Family History Family History Father with hairy cell leukemia. Family History: High Cholestrol, Hypertension Social History Social History He lives in [place]. No (smoking) ALCOHOL: occassional Drugs: None Lives: with Family Current Problem List Problem List Problems Medical Problems: (1) Intractable low back pain Status: Acute (2) Lumbar disc lesion Status: Acute (3) Multiple myeloma Status: Acute Current Medications Current Medications Current Medications Hydromorphone HCl (Dilaudid) 1 mg 1X ONCE IVP Last administered on 04/08/20at 13:41; Start 04/08/20 at 13:15; Stop 04/08/20 at 13:16; Status DC Sodium Chloride 1,000 ml @ 1,000 mls/hr 1X ONCE IV Last administered on 04/08/20at 13:39; Start 04/08/20 at 13:15; Stop 04/08/20 at 14:14; Status DC Ondansetron HCl (Zofran) 4 mg 1X ONCE IVP Last administered on 04/08/20at 13:42; Start 04/08/20 at 13:15; Stop 04/08/20 at 13:16; Status DC Diazepam (Valium) 5 mg 1X ONCE PO Last administered on 04/08/20at 13:44; Start 04/08/20 at 13:15; Stop 04/08/20 at 13:16; Status DC Ondansetron HCl (Zofran) 4 mg PRN Q8HRS PRN IV NAUSEA/VOMITING Last administered on 04/08/20at 15:35; Start 04/08/20 at 14:15; Stop 04/09/20 at 14:14; Status DC Hydromorphone HCl (Dilaudid) 1 mg PRN Q3HRS PRN IVP PAIN Last administered on 04/09/20at 10:03; Start 04/08/20 at 14:15; Stop 04/09/20 at 13:42; Status DC Sennosides (Senna) 17.2 mg PRN BID PRN PO CONSTIPATION; Start 04/08/20 at 17:15 Docusate Sodium (Colace) 100 mg PRN DAILY PRN PO HARD STOOLS; Start 04/08/20 at 17:15 Ondansetron HCl (Zofran) 4 mg PRN Q6HRS PRN IVP NAUSEA/VOMITING; Start 04/08/20 at 17:15 Potassium Chloride (Klor-Con) 40 meq 1X PRN PO PER PROTOCOL; Start 04/08/20 at 17:15; Stop 04/08/20 at 17:25; Status DC Magnesium Oxide (Magnesium Oxide) 400 mg BID PO ; Start 04/08/20 at 21:00; Stop 04/08/20 at 17:24; Status DC Potassium Chloride/Water 100 ml @ 100 mls/hr Q1H IV ; Start 04/08/20 at 17:15; Stop 04/08/20 at 17:25; Status DC Magnesium Sulfate 50 ml @ 25 mls/hr Q24H IV ; Start 04/08/20 at 17:15; Stop 04/08/20 at 17:24; Status DC Potassium Chloride/Water 100 ml @ 100 mls/hr Q1H PRN IV low k; Start 04/08/20 at 17:15; Stop 04/08/20 at 17:25; Status DC Insulin Human Lispro (HumaLOG) 0-7 UNITS TIDWMEALS SQ ; Start 04/09/20 at 08:00; Stop 04/09/20 at 12:05; Status DC Dextrose (Dextrose 50%-Water Syringe) 12.5 gm PRN Q15MIN PRN IV SEE COMMENTS; Start 04/08/20 at 17:15 Acetaminophen (Tylenol) 650 mg PRN Q4HRS PRN PO TEMP OVER 100.4F OR MILD PAIN; Start 04/08/20 at 17:15 Enoxaparin Sodium (Lovenox 40mg Syringe) 40 mg Q24H SQ Last administered on 04/08/20at 18:31; Start 04/08/20 at 18:00 Info (Non-Icu Electrolyte Protocol) 1 ea CONT PRN PRN MC SEE COMMENTS; Start 04/08/20 at 17:30 Influenza Virus Vaccine Quadrival (Fluzone Quad Syringe) 0.5 ml ONCE ONCE VAX IM Last administered on 04/08/20at 20:19; Start 04/08/20 at 20:00; Stop 04/08/20 at 20:01; Status DC Apixaban (Eliquis) 5 mg BID PO Last administered on 04/09/20at 09:30; Start 04/09/20 at 09:30; Stop 04/09/20 at 16:41; Status DC Dofetilide (Tikosyn) 250 mcg BID PO ; Start 04/09/20 at 09:30; Stop 04/09/20 at 09:37; Status DC EZETIMIBE (Zetia) 10 mg DAILY PO Last administered on 04/10/20at 07:52; Start 04/09/20 at 09:30 Furosemide (Lasix) 40 mg DAILY PO Last administered on 04/09/20at 10:05; Start 04/09/20 at 10:00; Stop 04/09/20 at 17:50; Status DC Levothyroxine Sodium (Synthroid) 150 mcg DAILY06 PO Last administered on 04/10/20at 06:12; Start 10/20/20 at 10:30 Metoprolol Succinate (Toprol Xl) 12.5 mg DAILY PO ; Start 04/09/20 at 10:00; Stop 04/09/20 at 09:55; Status DC Sacubitril/ Valsartan (Entresto 24 Mg-26 Mg) 1 tab BID PO Last administered on 04/10/20at 07:52; Start 04/09/20 at 10:00 Non-Formulary Medication 48 ea DAILY SQ ; Start 04/09/20 at 17:30; Stop 04/09/20 at 17:18; Status DC Metformin HCl (Glucophage) 1,000 mg BIDWMEALS PO Last administered on 04/09/20at 10:09; Start 04/09/20 at 10:00; Stop 04/09/20 at 18:25; Status DC Multivitamins (Thera M Plus) 1 tab DAILY PO Last administered on 04/10/20at 07:52; Start 04/09/20 at 10:00 Spironolactone (Aldactone) 25 mg DAILY PO Last administered on 04/09/20at 10:09; Start 04/09/20 at 10:00; Stop 04/09/20 at 16:41; Status DC Info (Anti-Coagulation Monitoring By Pharmacy) 1 each PRN DAILY PRN MC SEE COMMENTS; Start 04/09/20 at 09:30 Dofetilide (Tikosyn) 250 mcg BID PO Last administered on 04/10/20at 07:52; Start 04/09/20 at 10:00 Metoprolol Succinate (Toprol Xl) 12.5 mg QHS PO Last administered on 04/09/20at 21:00; Start 04/09/20 at 21:00 Hydromorphone HCl (Dilaudid) 2 mg PRN Q3HRS PRN IVP PAIN Last administered on 04/10/20at 13:15; Start 04/09/20 at 13:45 Non-Formulary Medication 48 ea DAILY SQ Last administered on 04/10/20at 07:51; Start 04/09/20 at 17:30 Spironolactone (Aldactone) 25 mg DAILY PO Last administered on 04/10/20at 07:52; Start 04/10/20 at 09:00 Metformin HCl (Glucophage) 1,000 mg BID PO Last administered on 04/10/20at 07:51; Start 04/09/20 at 21:00 Active Scripts Active Reported Furosemide 40 Mg Tablet 1 Tab PO DAILY Tikosyn (Dofetilide) 250 Mcg Capsule 250 Mcg PO BID Eliquis (Apixaban) 5 Mg Tablet 5 Mg PO BID Zetia (Ezetimibe) 10 Mg Tablet 10 Mg PO DAILY Metoprolol Succinate ( Xl ) (Metoprolol Succinate) 25 Mg Tab.er.24h 12.5 Mg PO DAILY One-Daily Multi-Vitamin (Multivitamin) 1 Each Tablet 1 Tab PO DAILY 30 Days Lantus Solostar (Insulin Glargine,Hum.rec.anlog) 100 Unit/1 Ml Insuln.pen 48 Unit SQ HS Spironolactone 50 Mg Tablet 0.5 Tab PO DAILY Entresto 24 mg-26 mg Tablet (Sacubitril/Valsartan) 1 Each Tablet 1 Each PO BID Metformin Hcl 1,000 Mg Tablet 1,000 Mg PO BIDWMEALS Levothyroxine Sodium 75 Mcg Tablet 150 Mcg PO DAILY Allergies Allergies: Coded Allergies: amiodarone (Verified Allergy, Severe, Shortness of Air, 12/06/18) meperidine (Verified Allergy, Severe, Shortness of Air, 12/06/18) Kjztvzp-Cgc-Emu Reductase Inhibitor (Verified Adverse Reaction, Intermediate, 12/06/18) pt states he has a severe liver reaction lisinopril (Verified Adverse Reaction, Mild, 12/06/18) Cough-pt refuses to take medication due to rxn Physical Exam General: Alert, Oriented X3, Cooperative, No acute distress HEENT: Atraumatic, PERRLA, EOMI, Mucous membr. moist/pink, Other (No palpable neck lymphadenopathy) Lungs: Clear to auscultation Heart: Regular rate, Normal S1, Normal S2, Other (Pacemaker on left chest) Abdomen: Normal bowel sounds, No tenderness, No hepatosplenomegaly, Other (Midline surgical scar) Extremities: No edema, No tenderness/swelling Skin: No rashes, No significant lesion Neuro: Normal speech, Strength at 5/5 X4 ext, Normal tone, Cranial nerves 3-12 NL Psych/Mental Status: Mental status NL, Mood NL MUSCULOSKELETAL: Other (Point tenderness in sacroiliac area to the left of midline) Vitals VITALS Vital Signs Date Time Temp Pulse Resp B/P (MAP) Pulse Ox O2 Delivery O2 Flow Rate FiO2 04/10/20 13:15 Room Air 04/10/20 11:00 98.1 84 18 119/76 (90) 97 98.1 Labs Labs Laboratory Tests Test 04/08/20 13:45 04/08/20 17:34 04/09/20 05:11 04/09/20 07:40 White Blood Count 7.2 x10^3/uL (4.0-11.0) 6.0 x10^3/uL (4.0-11.0) Red Blood Count 3.37 x10^6/uL (4.30-5.70) 3.14 x10^6/uL (4.30-5.70) Hemoglobin 11.6 g/dL (13.0-17.5) 10.9 g/dL (13.0-17.5) Hematocrit 33.4 % (39.0-53.0) 31.5 % (39.0-53.0) Mean Corpuscular Volume 99 fL (79-100) 100 fL (79-100) Mean Corpuscular Hemoglobin 34 pg (25-35) 35 pg (25-35) Mean Corpuscular Hemoglobin Concent 35 g/dL (31-37) 35 g/dL (31-37) Red Cell Distribution Width 13.4 % (11.5-14.5) 13.9 % (11.5-14.5) Platelet Count 185 x10^3/uL (140-400) 183 x10^3/uL (140-400) Neutrophils (%) (Auto) 65 % (31-73) 53 % (31-73) Lymphocytes (%) (Auto) 26 % (24-48) 36 % (24-48) Monocytes (%) (Auto) 6 % (0-9) 7 % (0-9) Eosinophils (%) (Auto) 2 % (0-3) 4 % (0-3) Basophils (%) (Auto) 1 % (0-3) 0 % (0-3) Neutrophils # (Auto) 4.7 x10^3/uL (1.8-7.7) 3.2 x10^3/uL (1.8-7.7) Lymphocytes # (Auto) 1.9 x10^3/uL (1.0-4.8) 2.2 x10^3/uL (1.0-4.8) Monocytes # (Auto) 0.4 x10^3/uL (0.0-1.1) 0.4 x10^3/uL (0.0-1.1) Eosinophils # (Auto) 0.1 x10^3/uL (0.0-0.7) 0.2 x10^3/uL (0.0-0.7) Basophils # (Auto) 0.1 x10^3/uL (0.0-0.2) 0.0 x10^3/uL (0.0-0.2) Absolute Reticulocyte Count 0.037 x10^6/uL (0.020-0.120) Percent Reticulocyte Count 1.1 % (0.5-2.3) Immature Reticulocyte Fraction 0.43 (0.20-0.60) Sodium Level 133 mmol/L (136-145) 138 mmol/L (136-145) Potassium Level 4.9 mmol/L (3.5-5.1) 3.8 mmol/L (3.5-5.1) Chloride Level 102 mmol/L (98-107) 105 mmol/L (98-107) Carbon Dioxide Level 23 mmol/L (21-32) 27 mmol/L (21-32) Anion Gap 8 (6-14) 6 (6-14) Blood Urea Nitrogen 24 mg/dL (8-26) 22 mg/dL (8-26) Creatinine 1.3 mg/dL (0.7-1.3) 1.0 mg/dL (0.7-1.3) Estimated GFR (Cockcroft-Gault) 56.1 76.0 BUN/Creatinine Ratio 18 (6-20) 22 (6-20) Glucose Level 174 mg/dL (70-99) 78 mg/dL (70-99) Uric Acid 8.6 mg/dL (3.5-7.2) Calcium Level 8.5 mg/dL (8.5-10.1) 8.5 mg/dL (8.5-10.1) Ferritin 297 ng/mL (26-388) Total Bilirubin 0.2 mg/dL (0.2-1.0) 0.3 mg/dL (0.2-1.0) Aspartate Amino Transf (AST/SGOT) 19 U/L (15-37) 19 U/L (15-37) Alanine Aminotransferase (ALT/SGPT) 18 U/L (16-63) 17 U/L (16-63) Alkaline Phosphatase 65 U/L (46-116) 62 U/L (46-116) Lactate Dehydrogenase 320 U/L (85-227) Total Protein 10.0 g/dL (6.4-8.2) 9.0 g/dL (6.4-8.2) Albumin 3.1 g/dL (3.4-5.0) 2.7 g/dL (3.4-5.0) Albumin/Globulin Ratio 0.4 (1.0-1.7) 0.4 (1.0-1.7) Glucose (Fingerstick) 75 mg/dL (70-99) 88 mg/dL (70-99) Hemoglobin A1c 6.2 % (4.8-5.6) Phosphorus Level 4.8 mg/dL (2.6-4.7) Magnesium Level 1.9 mg/dL (1.8-2.4) Iron Level 107 ug/dL (65-175) Total Iron Binding Capacity 199 ug/dL (250-450) Iron Saturation 54 % (15-34) Erythropoietin 58.0 mIU/mL (2.6-18.5) C-Reactive Protein, Quantitative 5.0 mg/L (0-3.3) Vitamin B12 Level 301 pg/mL (247-911) Test 04/09/20 11:10 04/09/20 16:59 04/09/20 20:43 04/10/20 07:32 Glucose (Fingerstick) 99 mg/dL (70-99) 148 mg/dL (70-99) 126 mg/dL (70-99) 77 mg/dL (70-99) Test 04/10/20 09:05 04/10/20 11:22 White Blood Count 7.7 x10^3/uL (4.0-11.0) Red Blood Count 3.38 x10^6/uL (4.30-5.70) Hemoglobin 11.6 g/dL (13.0-17.5) Hematocrit 33.9 % (39.0-53.0) Mean Corpuscular Volume 101 fL (79-100) Mean Corpuscular Hemoglobin 34 pg (25-35) Mean Corpuscular Hemoglobin Concent 34 g/dL (31-37) Red Cell Distribution Width 14.1 % (11.5-14.5) Platelet Count 209 x10^3/uL (140-400) Neutrophils (%) (Auto) 66 % (31-73) Lymphocytes (%) (Auto) 24 % (24-48) Monocytes (%) (Auto) 7 % (0-9) Eosinophils (%) (Auto) 3 % (0-3) Basophils (%) (Auto) 1 % (0-3) Neutrophils # (Auto) 5.1 x10^3/uL (1.8-7.7) Lymphocytes # (Auto) 1.8 x10^3/uL (1.0-4.8) Monocytes # (Auto) 0.6 x10^3/uL (0.0-1.1) Eosinophils # (Auto) 0.2 x10^3/uL (0.0-0.7) Basophils # (Auto) 0.0 x10^3/uL (0.0-0.2) Sodium Level 136 mmol/L (136-145) Potassium Level 3.8 mmol/L (3.5-5.1) Chloride Level 101 mmol/L (98-107) Carbon Dioxide Level 30 mmol/L (21-32) Anion Gap 5 (6-14) Blood Urea Nitrogen 24 mg/dL (8-26) Creatinine 1.2 mg/dL (0.7-1.3) Estimated GFR (Cockcroft-Gault) 61.6 BUN/Creatinine Ratio 20 (6-20) Glucose Level 84 mg/dL (70-99) Calcium Level 9.1 mg/dL (8.5-10.1) Total Bilirubin 0.4 mg/dL (0.2-1.0) Aspartate Amino Transf (AST/SGOT) 21 U/L (15-37) Alanine Aminotransferase (ALT/SGPT) 24 U/L (16-63) Alkaline Phosphatase 67 U/L (46-116) Total Protein 10.0 g/dL (6.4-8.2) Albumin 3.0 g/dL (3.4-5.0) Albumin/Globulin Ratio 0.4 (1.0-1.7) Glucose (Fingerstick) 87 mg/dL (70-99) Laboratory Tests Test 04/09/20 16:59 04/09/20 20:43 04/10/20 07:32 04/10/20 09:05 Glucose (Fingerstick) 148 mg/dL (70-99) 126 mg/dL (70-99) 77 mg/dL (70-99) White Blood Count 7.7 x10^3/uL (4.0-11.0) Red Blood Count 3.38 x10^6/uL (4.30-5.70) Hemoglobin 11.6 g/dL (13.0-17.5) Hematocrit 33.9 % (39.0-53.0) Mean Corpuscular Volume 101 fL (79-100) Mean Corpuscular Hemoglobin 34 pg (25-35) Mean Corpuscular Hemoglobin Concent 34 g/dL (31-37) Red Cell Distribution Width 14.1 % (11.5-14.5) Platelet Count 209 x10^3/uL (140-400) Neutrophils (%) (Auto) 66 % (31-73) Lymphocytes (%) (Auto) 24 % (24-48) Monocytes (%) (Auto) 7 % (0-9) Eosinophils (%) (Auto) 3 % (0-3) Basophils (%) (Auto) 1 % (0-3) Neutrophils # (Auto) 5.1 x10^3/uL (1.8-7.7) Lymphocytes # (Auto) 1.8 x10^3/uL (1.0-4.8) Monocytes # (Auto) 0.6 x10^3/uL (0.0-1.1) Eosinophils # (Auto) 0.2 x10^3/uL (0.0-0.7) Basophils # (Auto) 0.0 x10^3/uL (0.0-0.2) Sodium Level 136 mmol/L (136-145) Potassium Level 3.8 mmol/L (3.5-5.1) Chloride Level 101 mmol/L (98-107) Carbon Dioxide Level 30 mmol/L (21-32) Anion Gap 5 (6-14) Blood Urea Nitrogen 24 mg/dL (8-26) Creatinine 1.2 mg/dL (0.7-1.3) Estimated GFR (Cockcroft-Gault) 61.6 BUN/Creatinine Ratio 20 (6-20) Glucose Level 84 mg/dL (70-99) Calcium Level 9.1 mg/dL (8.5-10.1) Total Bilirubin 0.4 mg/dL (0.2-1.0) Aspartate Amino Transf (AST/SGOT) 21 U/L (15-37) Alanine Aminotransferase (ALT/SGPT) 24 U/L (16-63) Alkaline Phosphatase 67 U/L (46-116) Total Protein 10.0 g/dL (6.4-8.2) Albumin 3.0 g/dL (3.4-5.0) Albumin/Globulin Ratio 0.4 (1.0-1.7) Test 04/10/20 11:22 Glucose (Fingerstick) 87 mg/dL (70-99) Assessment/Plan Assessment/Plan 60-year-old male with new onset low back pain and multiple abnormal bony lesions on MRI L-spine concerning for a malignant process such as multiple myeloma, metastatic prostate cancer, among others. Plan: Agree with pain management and plan to obtain tissue diagnosis at the time of vertebroplasty. Consider blood work to include serum and urine protein electrophoresis, LDH, and PSA. We will see him as outpatient after biopsy for results. Thank you for allowing us to participate in his care. DAVONTE CHAVES MD Apr 10, 2020 14:02
[2020-04-10 15:00] VITALS: BP 133/72
[2020-04-10 15:15] LABS: KAPPA FREE 1010.2 mg/L (3.3-19.4); KAPPA LAMBDA RATIO 180.39 (0.26-1.65); LAMBDA FREE 5.6 mg/L (5.7-26.3)
--- NOTE | 2020-04-10 16:11 | PDOC2 ---
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 He feels like it similar to the incident he had 15 years ago, got better with physical modalities and medications. He had been taking hydrocodone for pain, but not much help. He had seen his family physician and a chiropractor for his back pain towards the end of February, had an MRI scan done at [facility] 3 days ago which revealed multiple edematous marrow lesions, evidence of metastatic disease or multiple myeloma with pathological compression deformity of L2 and to a lesser degree of L4, which may be more recent as there is associated marrow edema without any osseous retropulsion and spinal stenosis, mild neural foraminal compromise is noted. The patient denies any radiation of pain to the extremities or any numbness, tingling sensation in the extremities or any trouble with his bowel or bladder control. The patient admits pain mainly while rolling from side to side. Globulins were elevated on admission lab. Past Medical History Cardiovascular: AFIB, CAD, CHF, HTN, Hyperlipidemia, Valve insufficiency (MR), Other (ICM) Pulmonary: Other (MARGARET noncompliant CPAP) CENTRAL NERVOUS SYSTEM: Other (No pertinent history) GI: GERD Heme/Onc: Anemia NOS Musculoskeletal: Osteoarthritis Renal/: Chronic renal insuff, UTI Endocrine: Diabetes (2), Hypothyroidism Past Surgical History Past Surgical History: Pacemaker (AICD), Appendectomy, Arthroscopy (shoulder), Other (splenectomy from baseball accident at age 14. Up to date on immunization s) Family History Family History: High Cholestrol, Hypertension Social History No (smoking) ALCOHOL: occassional Drugs: None Lives: with Family Current Problem List Problem List Problems Medical Problems: (1) Intractable low back pain Status: Acute (2) Lumbar disc lesion Status: Acute (3) Multiple myeloma Status: Acute Current Medications Current Medications Current Medications Hydromorphone HCl (Dilaudid) 1 mg 1X ONCE IVP Last administered on 04/08/20at 13:41; Start 04/08/20 at 13:15; Stop 04/08/20 at 13:16; Status DC Sodium Chloride 1,000 ml @ 1,000 mls/hr 1X ONCE IV Last administered on 04/08/20at 13:39; Start 04/08/20 at 13:15; Stop 04/08/20 at 14:14; Status DC Ondansetron HCl (Zofran) 4 mg 1X ONCE IVP Last administered on 04/08/20at 13:42; Start 04/08/20 at 13:15; Stop 04/08/20 at 13:16; Status DC Diazepam (Valium) 5 mg 1X ONCE PO Last administered on 04/08/20at 13:44; Start 04/08/20 at 13:15; Stop 04/08/20 at 13:16; Status DC Ondansetron HCl (Zofran) 4 mg PRN Q8HRS PRN IV NAUSEA/VOMITING Last administered on 04/08/20at 15:35; Start 04/08/20 at 14:15; Stop 04/09/20 at 14:14; Status DC Hydromorphone HCl (Dilaudid) 1 mg PRN Q3HRS PRN IVP PAIN Last administered on 04/09/20at 10:03; Start 04/08/20 at 14:15; Stop 04/09/20 at 13:42; Status DC Sennosides (Senna) 17.2 mg PRN BID PRN PO CONSTIPATION; Start 04/08/20 at 17:15 Docusate Sodium (Colace) 100 mg PRN DAILY PRN PO HARD STOOLS; Start 04/08/20 at 17:15 Ondansetron HCl (Zofran) 4 mg PRN Q6HRS PRN IVP NAUSEA/VOMITING; Start 04/08/20 at 17:15 Potassium Chloride (Klor-Con) 40 meq 1X PRN PO PER PROTOCOL; Start 04/08/20 at 17:15; Stop 04/08/20 at 17:25; Status DC Magnesium Oxide (Magnesium Oxide) 400 mg BID PO ; Start 04/08/20 at 21:00; Stop 04/08/20 at 17:24; Status DC Potassium Chloride/Water 100 ml @ 100 mls/hr Q1H IV ; Start 04/08/20 at 17:15; Stop 04/08/20 at 17:25; Status DC Magnesium Sulfate 50 ml @ 25 mls/hr Q24H IV ; Start 04/08/20 at 17:15; Stop 04/08/20 at 17:24; Status DC Potassium Chloride/Water 100 ml @ 100 mls/hr Q1H PRN IV low k; Start 04/08/20 at 17:15; Stop 04/08/20 at 17:25; Status DC Insulin Human Lispro (HumaLOG) 0-7 UNITS TIDWMEALS SQ ; Start 04/09/20 at 08:00; Stop 04/09/20 at 12:05; Status DC Dextrose (Dextrose 50%-Water Syringe) 12.5 gm PRN Q15MIN PRN IV SEE COMMENTS; Start 04/08/20 at 17:15 Acetaminophen (Tylenol) 650 mg PRN Q4HRS PRN PO TEMP OVER 100.4F OR MILD PAIN; Start 04/08/20 at 17:15 Enoxaparin Sodium (Lovenox 40mg Syringe) 40 mg Q24H SQ Last administered on 04/08/20at 18:31; Start 04/08/20 at 18:00 Info (Non-Icu Electrolyte Protocol) 1 ea CONT PRN PRN MC SEE COMMENTS; Start 04/08/20 at 17:30 Influenza Virus Vaccine Quadrival (Fluzone Quad Syringe) 0.5 ml ONCE ONCE VAX IM Last administered on 04/08/20at 20:19; Start 04/08/20 at 20:00; Stop 04/08/20 at 20:01; Status DC Apixaban (Eliquis) 5 mg BID PO Last administered on 04/09/20at 09:30; Start 04/09/20 at 09:30; Stop 04/09/20 at 16:41; Status DC Dofetilide (Tikosyn) 250 mcg BID PO ; Start 04/09/20 at 09:30; Stop 04/09/20 at 09:37; Status DC EZETIMIBE (Zetia) 10 mg DAILY PO Last administered on 04/10/20at 07:52; Start 04/09/20 at 09:30 Furosemide (Lasix) 40 mg DAILY PO Last administered on 04/09/20at 10:05; Start 04/09/20 at 10:00; Stop 04/09/20 at 17:50; Status DC Levothyroxine Sodium (Synthroid) 150 mcg DAILY06 PO Last administered on 04/10/20at 06:12; Start 04/09/20 at 10:30 Metoprolol Succinate (Toprol Xl) 12.5 mg DAILY PO ; Start 04/09/20 at 10:00; Stop 04/09/20 at 09:55; Status DC Sacubitril/ Valsartan (Entresto 24 Mg-26 Mg) 1 tab BID PO Last administered on 04/10/20at 07:52; Start 04/09/20 at 10:00 Non-Formulary Medication 48 ea DAILY SQ ; Start 04/09/20 at 17:30; Stop 04/09/20 at 17:18; Status DC Metformin HCl (Glucophage) 1,000 mg BIDWMEALS PO Last administered on 04/09/20at 10:09; Start 04/09/20 at 10:00; Stop 04/09/20 at 18:25; Status DC Multivitamins (Thera M Plus) 1 tab DAILY PO Last administered on 04/10/20at 07:52; Start 04/09/20 at 10:00 Spironolactone (Aldactone) 25 mg DAILY PO Last administered on 04/09/20at 10:09; Start 04/09/20 at 10:00; Stop 04/09/20 at 16:41; Status DC Info (Anti-Coagulation Monitoring By Pharmacy) 1 each PRN DAILY PRN MC SEE COMMENTS; Start 04/09/20 at 09:30 Dofetilide (Tikosyn) 250 mcg BID PO Last administered on 04/10/20at 07:52; Start 04/09/20 at 10:00 Metoprolol Succinate (Toprol Xl) 12.5 mg QHS PO Last administered on 04/09/20at 21:00; Start 04/09/20 at 21:00 Hydromorphone HCl (Dilaudid) 2 mg PRN Q3HRS PRN IVP PAIN Last administered on 04/10/20at 13:15; Start 04/09/20 at 13:45 Non-Formulary Medication 48 ea DAILY SQ Last administered on 04/10/20at 07:51; Start 04/09/20 at 17:30 Spironolactone (Aldactone) 25 mg DAILY PO Last administered on 04/10/20at 07:52; Start 04/10/20 at 09:00 Metformin HCl (Glucophage) 1,000 mg BID PO Last administered on 04/10/20at 07:51; Start 04/09/20 at 21:00 Ringer's Solution 1,000 ml @ 50 mls/hr Q20H IV ; Start 04/11/20 at 07:00; Stop 04/11/20 at 18:59; Status UNV Active Scripts Active Reported Furosemide 40 Mg Tablet 1 Tab PO DAILY Tikosyn (Dofetilide) 250 Mcg Capsule 250 Mcg PO BID Eliquis (Apixaban) 5 Mg Tablet 5 Mg PO BID Zetia (Ezetimibe) 10 Mg Tablet 10 Mg PO DAILY Metoprolol Succinate ( Xl ) (Metoprolol Succinate) 25 Mg Tab.er.24h 12.5 Mg PO DAILY One-Daily Multi-Vitamin (Multivitamin) 1 Each Tablet 1 Tab PO DAILY 30 Days Lantus Solostar (Insulin Glargine,Hum.rec.anlog) 100 Unit/1 Ml Insuln.pen 48 Unit SQ HS Spironolactone 50 Mg Tablet 0.5 Tab PO DAILY Entresto 24 mg-26 mg Tablet (Sacubitril/Valsartan) 1 Each Tablet 1 Each PO BID Metformin Hcl 1,000 Mg Tablet 1,000 Mg PO BIDWMEALS Levothyroxine Sodium 75 Mcg Tablet 150 Mcg PO DAILY Allergies Allergies: Coded Allergies: amiodarone (Verified Allergy, Severe, Shortness of Air, 12/06/18) meperidine (Verified Allergy, Severe, Shortness of Air, 12/06/18) Vrgtted-Mgt-Tfy Reductase Inhibitor (Verified Adverse Reaction, Intermediate, 12/06/18) pt states he has a severe liver reaction lisinopril (Verified Adverse Reaction, Mild, 12/06/18) Cough-pt refuses to take medication due to rxn ROS Eyes: Yes Other (Early cataracts) HEENT: YES: Other (dry mouth); No: Oral lesions, Sinus pain Respiratory: No: Cough, Hemoptysis Cardiovascular: No Chest Pain, No Palpitations, No Edema Gastrointestinal: Yes Constipation; No Nausea, No Vomiting Genitourinary: YES Other (nocturia one per night) Musculoskeletal: Yes Pain In: (Back) Neurological: No Bowel/Bladder ControlChng, No Confusion, No Weakness Skin: No Dry Skin, No Eczema Physical Exam General: Alert, Cooperative HEENT: PERRLA, EOMI, Mucous membr. moist/pink Lungs: Clear to auscultation, Normal air movement Heart: Regular rate, Normal S1, Normal S2, Other (AIDC left upper chest) Abdomen: Soft, No tenderness, No hepatosplenomegaly Extremities: No cyanosis, No edema Skin: No significant lesion Neuro: Cranial nerves 3-12 NL, Other (Strength 4 to 5 + in ankles and leg lifts. ) Psych/Mental Status: Mental status NL, Mood NL Vitals VITALS Vital Signs Date Time Temp Pulse Resp B/P (MAP) Pulse Ox O2 Delivery O2 Flow Rate FiO2 04/10/20 15:00 97.9 80 18 133/72 (92) 95 Room Air 97.9 Labs Labs Laboratory Tests Test 04/08/20 17:34 04/09/20 05:11 04/09/20 07:40 04/09/20 11:10 Glucose (Fingerstick) 75 mg/dL (70-99) 88 mg/dL (70-99) 99 mg/dL (70-99) White Blood Count 6.0 x10^3/uL (4.0-11.0) Red Blood Count 3.14 x10^6/uL (4.30-5.70) Hemoglobin 10.9 g/dL (13.0-17.5) Hematocrit 31.5 % (39.0-53.0) Mean Corpuscular Volume 100 fL (79-100) Mean Corpuscular Hemoglobin 35 pg (25-35) Mean Corpuscular Hemoglobin Concent 35 g/dL (31-37) Red Cell Distribution Width 13.9 % (11.5-14.5) Platelet Count 183 x10^3/uL (140-400) Neutrophils (%) (Auto) 53 % (31-73) Lymphocytes (%) (Auto) 36 % (24-48) Monocytes (%) (Auto) 7 % (0-9) Eosinophils (%) (Auto) 4 % (0-3) Basophils (%) (Auto) 0 % (0-3) Neutrophils # (Auto) 3.2 x10^3/uL (1.8-7.7) Lymphocytes # (Auto) 2.2 x10^3/uL (1.0-4.8) Monocytes # (Auto) 0.4 x10^3/uL (0.0-1.1) Eosinophils # (Auto) 0.2 x10^3/uL (0.0-0.7) Basophils # (Auto) 0.0 x10^3/uL (0.0-0.2) Sodium Level 138 mmol/L (136-145) Potassium Level 3.8 mmol/L (3.5-5.1) Chloride Level 105 mmol/L (98-107) Carbon Dioxide Level 27 mmol/L (21-32) Anion Gap 6 (6-14) Blood Urea Nitrogen 22 mg/dL (8-26) Creatinine 1.0 mg/dL (0.7-1.3) Estimated GFR (Cockcroft-Gault) 76.0 BUN/Creatinine Ratio 22 (6-20) Glucose Level 78 mg/dL (70-99) Hemoglobin A1c 6.2 % (4.8-5.6) Calcium Level 8.5 mg/dL (8.5-10.1) Phosphorus Level 4.8 mg/dL (2.6-4.7) Magnesium Level 1.9 mg/dL (1.8-2.4) Iron Level 107 ug/dL (65-175) Total Iron Binding Capacity 199 ug/dL (250-450) Iron Saturation 54 % (15-34) Erythropoietin 58.0 mIU/mL (2.6-18.5) Total Bilirubin 0.3 mg/dL (0.2-1.0) Aspartate Amino Transf (AST/SGOT) 19 U/L (15-37) Alanine Aminotransferase (ALT/SGPT) 17 U/L (16-63) Alkaline Phosphatase 62 U/L (46-116) C-Reactive Protein, Quantitative 5.0 mg/L (0-3.3) Total Protein 9.0 g/dL (6.4-8.2) Albumin 2.7 g/dL (3.4-5.0) Albumin/Globulin Ratio 0.4 (1.0-1.7) Vitamin B12 Level 301 pg/mL (247-911) Immunoglobulin [place]/Lambda Ratio 180.39 (0.26-1.65) Free [place] Light Chains 1010.2 mg/L (3.3-19.4) Free Lambda Light Chains 5.6 mg/L (5.7-26.3) Test 04/09/20 16:59 04/09/20 20:43 04/10/20 07:32 04/10/20 09:05 Glucose (Fingerstick) 148 mg/dL (70-99) 126 mg/dL (70-99) 77 mg/dL (70-99) White Blood Count 7.7 x10^3/uL (4.0-11.0) Red Blood Count 3.38 x10^6/uL (4.30-5.70) Hemoglobin 11.6 g/dL (13.0-17.5) Hematocrit 33.9 % (39.0-53.0) Mean Corpuscular Volume 101 fL (79-100) Mean Corpuscular Hemoglobin 34 pg (25-35) Mean Corpuscular Hemoglobin Concent 34 g/dL (31-37) Red Cell Distribution Width 14.1 % (11.5-14.5) Platelet Count 209 x10^3/uL (140-400) Neutrophils (%) (Auto) 66 % (31-73) Lymphocytes (%) (Auto) 24 % (24-48) Monocytes (%) (Auto) 7 % (0-9) Eosinophils (%) (Auto) 3 % (0-3) Basophils (%) (Auto) 1 % (0-3) Neutrophils # (Auto) 5.1 x10^3/uL (1.8-7.7) Lymphocytes # (Auto) 1.8 x10^3/uL (1.0-4.8) Monocytes # (Auto) 0.6 x10^3/uL (0.0-1.1) Eosinophils # (Auto) 0.2 x10^3/uL (0.0-0.7) Basophils # (Auto) 0.0 x10^3/uL (0.0-0.2) Prothrombin Time 14.3 SEC (11.7-14.0) Prothromb Time International Ratio 1.2 (0.8-1.1) Sodium Level 136 mmol/L (136-145) Potassium Level 3.8 mmol/L (3.5-5.1) Chloride Level 101 mmol/L (98-107) Carbon Dioxide Level 30 mmol/L (21-32) Anion Gap 5 (6-14) Blood Urea Nitrogen 24 mg/dL (8-26) Creatinine 1.2 mg/dL (0.7-1.3) Estimated GFR (Cockcroft-Gault) 61.6 BUN/Creatinine Ratio 20 (6-20) Glucose Level 84 mg/dL (70-99) Calcium Level 9.1 mg/dL (8.5-10.1) Total Bilirubin 0.4 mg/dL (0.2-1.0) Aspartate Amino Transf (AST/SGOT) 21 U/L (15-37) Alanine Aminotransferase (ALT/SGPT) 24 U/L (16-63) Alkaline Phosphatase 67 U/L (46-116) Total Protein 10.0 g/dL (6.4-8.2) Albumin 3.0 g/dL (3.4-5.0) Albumin/Globulin Ratio 0.4 (1.0-1.7) Test 04/10/20 11:22 Glucose (Fingerstick) 87 mg/dL (70-99) Laboratory Tests Test 04/09/20 16:59 04/09/20 20:43 04/10/20 07:32 04/10/20 09:05 Glucose (Fingerstick) 148 mg/dL (70-99) 126 mg/dL (70-99) 77 mg/dL (70-99) White Blood Count 7.7 x10^3/uL (4.0-11.0) Red Blood Count 3.38 x10^6/uL (4.30-5.70) Hemoglobin 11.6 g/dL (13.0-17.5) Hematocrit 33.9 % (39.0-53.0) Mean Corpuscular Volume 101 fL (79-100) Mean Corpuscular Hemoglobin 34 pg (25-35) Mean Corpuscular Hemoglobin Concent 34 g/dL (31-37) Red Cell Distribution Width 14.1 % (11.5-14.5) Platelet Count 209 x10^3/uL (140-400) Neutrophils (%) (Auto) 66 % (31-73) Lymphocytes (%) (Auto) 24 % (24-48) Monocytes (%) (Auto) 7 % (0-9) Eosinophils (%) (Auto) 3 % (0-3) Basophils (%) (Auto) 1 % (0-3) Neutrophils # (Auto) 5.1 x10^3/uL (1.8-7.7) Lymphocytes # (Auto) 1.8 x10^3/uL (1.0-4.8) Monocytes # (Auto) 0.6 x10^3/uL (0.0-1.1) Eosinophils # (Auto) 0.2 x10^3/uL (0.0-0.7) Basophils # (Auto) 0.0 x10^3/uL (0.0-0.2) Prothrombin Time 14.3 SEC (11.7-14.0) Prothromb Time International Ratio 1.2 (0.8-1.1) Sodium Level 136 mmol/L (136-145) Potassium Level 3.8 mmol/L (3.5-5.1) Chloride Level 101 mmol/L (98-107) Carbon Dioxide Level 30 mmol/L (21-32) Anion Gap 5 (6-14) Blood Urea Nitrogen 24 mg/dL (8-26) Creatinine 1.2 mg/dL (0.7-1.3) Estimated GFR (Cockcroft-Gault) 61.6 BUN/Creatinine Ratio 20 (6-20) Glucose Level 84 mg/dL (70-99) Calcium Level 9.1 mg/dL (8.5-10.1) Total Bilirubin 0.4 mg/dL (0.2-1.0) Aspartate Amino Transf (AST/SGOT) 21 U/L (15-37) Alanine Aminotransferase (ALT/SGPT) 24 U/L (16-63) Alkaline Phosphatase 67 U/L (46-116) Total Protein 10.0 g/dL (6.4-8.2) Albumin 3.0 g/dL (3.4-5.0) Albumin/Globulin Ratio 0.4 (1.0-1.7) Test 04/10/20 11:22 Glucose (Fingerstick) 87 mg/dL (70-99) Images Images 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 He feels like it similar to the incident he had 15 years ago, got better with physical modalities and medications. He had been taking hydrocodone for pain, but not much help. He had seen his family physician and a chiropractor for his back pain towards the end of February, had an MRI scan done at [facility] 3 days ago which revealed multiple edematous marrow lesions, evidence of metastatic disease or multiple myeloma with pathological compression deformity of L2 and to a lesser degree of L4, which may be more recent as there is associated marrow edema without any osseous retropulsion and spinal stenosis, mild neural foraminal compromise is noted. The patient denies any radiation of pain to the extremities or any numbness, tingling sensation in the extremities or any trouble with his bowel or bladder control. The patient admits pain mainly while rolling from side to side. Assessment/Plan Assessment/Plan Bone lesions with compression fracture L spine with marked elevated globulins. This is most compatible with multiple myeloma but need tissue and bone marrow to confirm diagnosis. Serum studies ordered will order 24 hour urine and skelatal survey. Will contact radiology for bone marrow biopsy at time of Vertebraplasty tomorrow. Further recommendations pending results. 2. Type 2 diabetes 3. Status post IN with decreased ejection fraction of 35%. 4. Status post AIDC 5. Atrial Fib Plan Bone marrow biopsy 24 hour urine for TV, Protein, Creatinine, Protein electrophoresis, Protein immunoelectrophoresis, [place] and Lambda light chains. Skelatal survey. HYUN BRADFORD MD Apr 10, 2020 16:11
[2020-04-10] MEDS: ENOXAPARIN 40 MG/0.4 ML SYRINGE. SQ SCH (16:29)
--- NOTE | 2020-04-10 17:23 | CARD ---
MR#: [id number] Date of Study: 04/10/2020 Ordering Physician: ANGEL MICHELLE, Referring Physician: ANGEL MICHELLE, Tech: Bethany Vega APPROVED REPORT EXAM: Two-dimensional and M-mode echocardiogram with Doppler and color Doppler. Other Information Quality : AverageHR: 83bpm Technically limited study due to body habitus. INDICATION Cardiac Disease: CAD Cardiomyopathy Surgery/Intervention ICD/Pacemaker: Date: 2018 RISK FACTORS Hypertension Hyperlipidemia Diabetes 2D DIMENSIONS Left Atrium(2D)3.6 (1.6-4.0cm)IVSd0.9 (0.7-1.1cm) Aortic Root(2D)3.5 (2.0-3.7cm)LVDd6.5 (3.9-5.9cm) LVOT Diameter2.0 (1.8-2.4cm)PWd1.0 (0.7-1.1cm) LVDs4.7 (2.5-4.0cm)FS (%) 28.5 % SV116.4 mlLVEF(%)53.8 (>50%) Aortic Valve AoV Peak Herminio.137.3cm/sAoV VTI25.5cm AO Peak GR.7.5mmHgLVOT VTI 15.01cm AO Mean GR.5mmHg Mitral Valve MV E Civozxim20.4cm/sMV E Peak Gr.6mmHg MV DECEL [id number] A Ecskveul51.0cm/s MV E Mean Gr.3mmHgE/A Ratio0.5 TDI Lateral E' P. V6.31cm/sMedial E' P. V5.86cm/s E/Lateral E'7.8E/Medial E'8.4 Tricuspid Valve TR P. [id number]/sRAP [id number] TR Peak Gr.[id number] Pulmonary Vein S1 Ntqrtlxj56.1cm/sS2 Srlbysdr61.17cm/s D2 Exahlsoo94.2cm/sPVa [id number] LEFT VENTRICLE The Left Ventricle is mildly dilated. There is normal left ventricular wall thickness. The left ventr icular systolic function is severely decreased. EF 25% There is global hypokinesis of the left ventri jesse with severe anterior wall hypokinesis. Tissue Doppler imaging reveals severe left ventricular devin stolic dysfunction. RIGHT VENTRICLE The right ventricle is not well visualized. The right ventricular systolic function is normal. There is a pacemaker lead in the right ventricle. ATRIA The left atrium is mildly dilated. The right atrium size is normal. The interatrial septum is intact with no evidence for an atrial septal defect or patent foramen ovale as noted on 2-D or Doppler imagi ng. AORTIC VALVE The aortic valve is thickened but opens well. Doppler and Color Flow revealed trace aortic regurgitat ion. There is no significant aortic valvular stenosis. Calculated aortic valve area is 1.94 cm2 with maximum pressure gradient of 8 mmHg and mean pressure gradient of 5 mmHg. MITRAL VALVE The mitral valve is thickened but opens well. There is no evidence of mitral valve prolapse. There is no mitral valve stenosis. Doppler and Color-flow revealed trace mitral regurgitation. TRICUSPID VALVE The tricuspid valve is not well visualized. Doppler and Color Flow revealed trace tricuspid regurgita tion with an estimated PAP of 37 mmHg. There is no tricuspid valve stenosis. PULMONIC VALVE The pulmonic valve is not well visualized. Doppler and Color Flow revealed no pulmonic valvular regur gitation. There is no pulmonic valvular stenosis. GREAT VESSELS The aortic root is normal in size. The IVC is normal in size and collapses >50% with inspiration. PERICARDIAL EFFUSION There is no evidence of significant pericardial effusion. Critical Notification Critical Value: No <Conclusion> The left ventricular systolic function is severely decreased. EF 25% There is global hypokinesis of the left ventricle with severe anterior wall hypokinesis. There is a pacemaker lead in the right ventricle. Technically difficult study Signed by : Alli Acevedo, Electronically Approved : 04/10/2020 17:22:59
[2020-04-10 19:00] VITALS: BP 130/80
[2020-04-10] MEDS: METOPROLOL SUCC 24HR ER 25 MG TAB.ER.24H. PO SCH (20:15)
[2020-04-10 23:00] VITALS: BP 100/58
[2020-04-11] VITALS (15 sets, daily range): BP systolic 93–144; BP diastolic 49–80
[2020-04-11] MEDS: HYDROmorphone 2 MG/ML VIAL IVP PRN ×6 (00:04→22:31)
[2020-04-11] MEDS: LEVOTHYROXINE 75 MCG TABLET PO SCH (06:00)
[2020-04-11] MEDS ORDERED: IV RINGERS,LACTATED 1000ML 1,000 ML IV SCH (07:00)
--- NOTE | 2020-04-11 08:49 | PDOC ---
PROGRESS NOTES Date of Service: DATE: 04/11/20 TIME: 08:49 Chief Complaint Chief Complaint Images: Images Spine MRI Impression: 1. There are multiple edematous marrow lesions, evidence of metastatic disease or multiple myeloma. There is degree of pathologic compression deformity of L2 and to lesser degree of L4 which may be more recent as there is associated marrow edema, no osseous retropulsion. 2. There is no significant lumbar spinal stenosis. There is mild neural foramina compromise as stated. Assessment/Plan Assessment/Plan Intractable back pain due to multiple edematous marrow lesions, evidence of metastatic disease or multiple myeloma Pathologic compression fracture of L2 and L4 pathologic compression deformity of L2 and to lesser degree of L4 which may be more recent as there is associated marrow edema, no osseous retropulsion. Anemia of unclear etiology Elevated gamma gap Hyponatremia hx Ischemic cardiomyopathy 2018 echo Ejection Fraction is 35-40%.global hypokinesis of the left ve ntricle.moderately severe mitral regurgitation. Ischemic CMP with EF of 20-25% 12/07 cardiac cath Chronic systolic heart failure Atrial fibrillation Hypertension Coronary artery disease Diabetes mellitus type 2 plan Admit to medicine for further management Neurology consult Oncology consult cardiology consult , pt refusing tele monitor ama IV pain control as needed Serial neuro checks Lovenox for DVT prophylaxis ADA diet Full code Bone marrow biopsy 24 hour urine for TV, Protein, Creatinine, Protein electrophoresis, Protein immunoelectrophoresis, [place] and Lambda light chains. Skeletal survey. Discussed with RN and SW Disposition inpatient care Surrogate decision maker is the inc dilaudid to 2 mg iv q 3 hrs prn severe pain, consult cardiology, to tele bed 37 min pt exam, chart review, > 50% of time spent with exam, chart review, pt care coordination Justifications for Admission Justifications for Admission Other Justification INTRACTABLE PAIN History of Present Illness History of Present Illness Chief Complaint: Chief Complain: Back Pain History of Present Illness: HPI: 60 year old male with history of diabetes type 2, hypertension, A. fib, who presents the ED today to be evaluated for moderate low back pain that he states has been going on since January but has gotten worse in the last couple days with back spasms today, he reports the last time he had back spasms was 15 years ago. Patient states he did follow-up with his PCP as well as a chiropractor for the back pain towards the end of February. He had an MRI done at [place] [facility] 3 days ago but he does not know the results. Patient denies any loss of bowel/bladder function. Denies any injury. Denies any pain radiating to bilateral lower extremities. He states his pain is worse on movement. He states he tried taking his hydrocodone and Flexeril with no relief. Of note, patient did experience 1 episode of fall which she fell to his right side and had a rib pain. Patient has had routine colonoscopy screening starting at age 44 and had it every 5 years without any positive findings. Patient is up-to-date with his Pneumovax Past Medical/Surgical History: PMH/PSH: Past Medical History: A-Fib, CAD, Diabetes-Type II, Hypertension, annamarie mountain spotted fever Past Surgical History: Appendectomy, Pacemaker, splenectomy, knee surgery Allergies: Allergies: Coded Allergies: amiodarone (Verified Allergy, Severe, Shortness of Air, 12/06/18) meperidine (Verified Allergy, Severe, Shortness of Air, 12/06/18) Etmatps-Xzk-Qkf Reductase Inhibitor (Verified Adverse Reaction, Intermediate, 12/06/18) pt states he has a severe liver reaction lisinopril (Verified Adverse Reaction, Mild, 12/06/18) Cough-pt refuses to take medication due to rxn Family History: Family History: Father with hairy cell leukemia Social History: Social History: Smoking Status: Never Smoker Alcohol Use: Occasionally Drug Use: None Current Medications: Vitals Vitals Vital Signs Date Time Temp Pulse Resp B/P (MAP) Pulse Ox O2 Delivery O2 Flow Rate FiO2 04/11/20 06:35 14 Room Air 04/11/20 03:00 97.9 84 93/56 (68) 93 97.9 Physical Exam Physical Exam Physcial Exam: GEN: NO apparent distress. Alert and oriented HEENT: Normal cephalic, atraumatic, external auditory canals are patent EYES: Extraocular muscles are intact, pupil are equally round and reactive to light and accommodation MUSCULOSKELETAL: Well developed , well nourished, good range of motion ENDOCRINE: No thyromegaly was palpated LYMPHATICS: No cervical chain or axillary nodes were noted HEMATOPOIETIC: No bruising NECK: Supple, no JVD, no thyromegaly was noted LUNGS: Clear to auscultation in all lung hernandez without rhonchi or wheezing HEART: RRR, S!, S2 present. Peripheral pulses intact, no obvious murmurs noted ABDOMEN: Soft, nontender. Positive bowel sounds, no organomegaly, normal bowel sounds EXTREMITIES: Without clubbing, cyanosis, or edema. Pedal pulses intact. Negative Homans sign NEUROLOGIC: Normal speech and tone. A&O x 3, moves all extremities, no obvious focal deficits any movement causes severe pain PSYCHIATRIC: Normal affect, normal mood. Stable SKIN: No ulcerations or rashes, good skin turgor, no jaundice VASCULAR: Good capillary refill, neurovascular bundle appears to be intact General: Alert, Oriented X3, Cooperative, mild distress Heart: Regular rate, Normal S1, Normal S2, Other (AIDC left upper chest) Lungs: Clear Abdomen: Normal bowel sounds, Soft, No tenderness, No hepatosplenomegaly Extremities: No clubbing, No cyanosis, No edema Skin: No significant lesion Labs LABS Laboratory Tests Test 04/10/20 09:05 04/10/20 11:22 04/10/20 15:55 04/10/20 16:27 White Blood Count 7.7 x10^3/uL (4.0-11.0) Red Blood Count 3.38 x10^6/uL (4.30-5.70) Hemoglobin 11.6 g/dL (13.0-17.5) Hematocrit 33.9 % (39.0-53.0) Mean Corpuscular Volume 101 fL (79-100) Mean Corpuscular Hemoglobin 34 pg (25-35) Mean Corpuscular Hemoglobin Concent 34 g/dL (31-37) Red Cell Distribution Width 14.1 % (11.5-14.5) Platelet Count 209 x10^3/uL (140-400) Neutrophils (%) (Auto) 66 % (31-73) Lymphocytes (%) (Auto) 24 % (24-48) Monocytes (%) (Auto) 7 % (0-9) Eosinophils (%) (Auto) 3 % (0-3) Basophils (%) (Auto) 1 % (0-3) Neutrophils # (Auto) 5.1 x10^3/uL (1.8-7.7) Lymphocytes # (Auto) 1.8 x10^3/uL (1.0-4.8) Monocytes # (Auto) 0.6 x10^3/uL (0.0-1.1) Eosinophils # (Auto) 0.2 x10^3/uL (0.0-0.7) Basophils # (Auto) 0.0 x10^3/uL (0.0-0.2) Prothrombin Time 14.3 SEC (11.7-14.0) Prothromb Time International Ratio 1.2 (0.8-1.1) Sodium Level 136 mmol/L (136-145) Potassium Level 3.8 mmol/L (3.5-5.1) Chloride Level 101 mmol/L (98-107) Carbon Dioxide Level 30 mmol/L (21-32) Anion Gap 5 (6-14) Blood Urea Nitrogen 24 mg/dL (8-26) Creatinine 1.2 mg/dL (0.7-1.3) Estimated GFR (Cockcroft-Gault) 61.6 BUN/Creatinine Ratio 20 (6-20) Glucose Level 84 mg/dL (70-99) Calcium Level 9.1 mg/dL (8.5-10.1) Total Bilirubin 0.4 mg/dL (0.2-1.0) Aspartate Amino Transf (AST/SGOT) 21 U/L (15-37) Alanine Aminotransferase (ALT/SGPT) 24 U/L (16-63) Alkaline Phosphatase 67 U/L (46-116) Total Protein 10.0 g/dL (6.4-8.2) Albumin 3.0 g/dL (3.4-5.0) Albumin/Globulin Ratio 0.4 (1.0-1.7) Glucose (Fingerstick) 87 mg/dL (70-99) 136 mg/dL (70-99) SARS-CoV-2 Antigen (Rapid) Negative (NEGATIVE) Test 04/11/20 08:23 Glucose (Fingerstick) 92 mg/dL (70-99) Assessment and Plan Assessmemt and Plan Problems Medical Problems: (1) Intractable low back pain Status: Acute (2) Lumbar disc lesion Status: Acute (3) Multiple myeloma Status: Acute Comment Review of Relevant I have reviewed the following items caity (where applicable) has been applied. Labs Laboratory Tests Test 04/09/20 11:10 04/09/20 16:59 04/09/20 20:43 04/10/20 07:32 Glucose (Fingerstick) 99 mg/dL (70-99) 148 mg/dL (70-99) 126 mg/dL (70-99) 77 mg/dL (70-99) Test 04/10/20 09:05 04/10/20 11:22 04/10/20 15:55 04/10/20 16:27 White Blood Count 7.7 x10^3/uL (4.0-11.0) Red Blood Count 3.38 x10^6/uL (4.30-5.70) Hemoglobin 11.6 g/dL (13.0-17.5) Hematocrit 33.9 % (39.0-53.0) Mean Corpuscular Volume 101 fL (79-100) Mean Corpuscular Hemoglobin 34 pg (25-35) Mean Corpuscular Hemoglobin Concent 34 g/dL (31-37) Red Cell Distribution Width 14.1 % (11.5-14.5) Platelet Count 209 x10^3/uL (140-400) Neutrophils (%) (Auto) 66 % (31-73) Lymphocytes (%) (Auto) 24 % (24-48) Monocytes (%) (Auto) 7 % (0-9) Eosinophils (%) (Auto) 3 % (0-3) Basophils (%) (Auto) 1 % (0-3) Neutrophils # (Auto) 5.1 x10^3/uL (1.8-7.7) Lymphocytes # (Auto) 1.8 x10^3/uL (1.0-4.8) Monocytes # (Auto) 0.6 x10^3/uL (0.0-1.1) Eosinophils # (Auto) 0.2 x10^3/uL (0.0-0.7) Basophils # (Auto) 0.0 x10^3/uL (0.0-0.2) Prothrombin Time 14.3 SEC (11.7-14.0) Prothromb Time International Ratio 1.2 (0.8-1.1) Sodium Level 136 mmol/L (136-145) Potassium Level 3.8 mmol/L (3.5-5.1) Chloride Level 101 mmol/L (98-107) Carbon Dioxide Level 30 mmol/L (21-32) Anion Gap 5 (6-14) Blood Urea Nitrogen 24 mg/dL (8-26) Creatinine 1.2 mg/dL (0.7-1.3) Estimated GFR (Cockcroft-Gault) 61.6 BUN/Creatinine Ratio 20 (6-20) Glucose Level 84 mg/dL (70-99) Calcium Level 9.1 mg/dL (8.5-10.1) Total Bilirubin 0.4 mg/dL (0.2-1.0) Aspartate Amino Transf (AST/SGOT) 21 U/L (15-37) Alanine Aminotransferase (ALT/SGPT) 24 U/L (16-63) Alkaline Phosphatase 67 U/L (46-116) Total Protein 10.0 g/dL (6.4-8.2) Albumin 3.0 g/dL (3.4-5.0) Albumin/Globulin Ratio 0.4 (1.0-1.7) Glucose (Fingerstick) 87 mg/dL (70-99) 136 mg/dL (70-99) SARS-CoV-2 Antigen (Rapid) Negative (NEGATIVE) Test 04/11/20 08:23 Glucose (Fingerstick) 92 mg/dL (70-99) Laboratory Tests Test 04/10/20 09:05 04/10/20 11:22 04/10/20 15:55 04/10/20 16:27 White Blood Count 7.7 x10^3/uL (4.0-11.0) Red Blood Count 3.38 x10^6/uL (4.30-5.70) Hemoglobin 11.6 g/dL (13.0-17.5) Hematocrit 33.9 % (39.0-53.0) Mean Corpuscular Volume 101 fL (79-100) Mean Corpuscular Hemoglobin 34 pg (25-35) Mean Corpuscular Hemoglobin Concent 34 g/dL (31-37) Red Cell Distribution Width 14.1 % (11.5-14.5) Platelet Count 209 x10^3/uL (140-400) Neutrophils (%) (Auto) 66 % (31-73) Lymphocytes (%) (Auto) 24 % (24-48) Monocytes (%) (Auto) 7 % (0-9) Eosinophils (%) (Auto) 3 % (0-3) Basophils (%) (Auto) 1 % (0-3) Neutrophils # (Auto) 5.1 x10^3/uL (1.8-7.7) Lymphocytes # (Auto) 1.8 x10^3/uL (1.0-4.8) Monocytes # (Auto) 0.6 x10^3/uL (0.0-1.1) Eosinophils # (Auto) 0.2 x10^3/uL (0.0-0.7) Basophils # (Auto) 0.0 x10^3/uL (0.0-0.2) Prothrombin Time 14.3 SEC (11.7-14.0) Prothromb Time International Ratio 1.2 (0.8-1.1) Sodium Level 136 mmol/L (136-145) Potassium Level 3.8 mmol/L (3.5-5.1) Chloride Level 101 mmol/L (98-107) Carbon Dioxide Level 30 mmol/L (21-32) Anion Gap 5 (6-14) Blood Urea Nitrogen 24 mg/dL (8-26) Creatinine 1.2 mg/dL (0.7-1.3) Estimated GFR (Cockcroft-Gault) 61.6 BUN/Creatinine Ratio 20 (6-20) Glucose Level 84 mg/dL (70-99) Calcium Level 9.1 mg/dL (8.5-10.1) Total Bilirubin 0.4 mg/dL (0.2-1.0) Aspartate Amino Transf (AST/SGOT) 21 U/L (15-37) Alanine Aminotransferase (ALT/SGPT) 24 U/L (16-63) Alkaline Phosphatase 67 U/L (46-116) Total Protein 10.0 g/dL (6.4-8.2) Albumin 3.0 g/dL (3.4-5.0) Albumin/Globulin Ratio 0.4 (1.0-1.7) Glucose (Fingerstick) 87 mg/dL (70-99) 136 mg/dL (70-99) SARS-CoV-2 Antigen (Rapid) Negative (NEGATIVE) Test 04/11/20 08:23 Glucose (Fingerstick) 92 mg/dL (70-99) Medications Current Medications Hydromorphone HCl (Dilaudid) 1 mg 1X ONCE IVP Last administered on 04/08/20at 13:41; Start 04/08/20 at 13:15; Stop 04/08/20 at 13:16; Status DC Sodium Chloride 1,000 ml @ 1,000 mls/hr 1X ONCE IV Last administered on 04/08/20at 13:39; Start 04/08/20 at 13:15; Stop 04/08/20 at 14:14; Status DC Ondansetron HCl (Zofran) 4 mg 1X ONCE IVP Last administered on 04/08/20at 13:42; Start 04/08/20 at 13:15; Stop 04/08/20 at 13:16; Status DC Diazepam (Valium) 5 mg 1X ONCE PO Last administered on 04/08/20at 13:44; Start 04/08/20 at 13:15; Stop 04/08/20 at 13:16; Status DC Ondansetron HCl (Zofran) 4 mg PRN Q8HRS PRN IV NAUSEA/VOMITING Last administered on 04/08/20at 15:35; Start 04/08/20 at 14:15; Stop 04/09/20 at 14:14; Status DC Hydromorphone HCl (Dilaudid) 1 mg PRN Q3HRS PRN IVP PAIN Last administered on 04/09/20at 10:03; Start 04/08/20 at 14:15; Stop 04/09/20 at 13:42; Status DC Sennosides (Senna) 17.2 mg PRN BID PRN PO CONSTIPATION; Start 04/08/20 at 17:15 Docusate Sodium (Colace) 100 mg PRN DAILY PRN PO HARD STOOLS; Start 04/08/20 at 17:15 Ondansetron HCl (Zofran) 4 mg PRN Q6HRS PRN IVP NAUSEA/VOMITING; Start 04/08/20 at 17:15 Potassium Chloride (Klor-Con) 40 meq 1X PRN PO PER PROTOCOL; Start 04/08/20 at 17:15; Stop 04/08/20 at 17:25; Status DC Magnesium Oxide (Magnesium Oxide) 400 mg BID PO ; Start 04/08/20 at 21:00; Stop 04/08/20 at 17:24; Status DC Potassium Chloride/Water 100 ml @ 100 mls/hr Q1H IV ; Start 04/08/20 at 17:15; Stop 04/08/20 at 17:25; Status DC Magnesium Sulfate 50 ml @ 25 mls/hr Q24H IV ; Start 04/08/20 at 17:15; Stop 04/08/20 at 17:24; Status DC Potassium Chloride/Water 100 ml @ 100 mls/hr Q1H PRN IV low k; Start 04/08/20 at 17:15; Stop 04/08/20 at 17:25; Status DC Insulin Human Lispro (HumaLOG) 0-7 UNITS TIDWMEALS SQ ; Start 04/09/20 at 08:00; Stop 04/09/20 at 12:05; Status DC Dextrose (Dextrose 50%-Water Syringe) 12.5 gm PRN Q15MIN PRN IV SEE COMMENTS; Start 04/08/20 at 17:15 Acetaminophen (Tylenol) 650 mg PRN Q4HRS PRN PO TEMP OVER 100.4F OR MILD PAIN; Start 04/08/20 at 17:15 Enoxaparin Sodium (Lovenox 40mg Syringe) 40 mg Q24H SQ Last administered on 04/08/20at 18:31; Start 04/08/20 at 18:00 Info (Non-Icu Electrolyte Protocol) 1 ea CONT PRN PRN MC SEE COMMENTS; Start 04/08/20 at 17:30 Influenza Virus Vaccine Quadrival (Fluzone Quad Syringe) 0.5 ml ONCE ONCE VAX IM Last administered on 04/08/20at 20:19; Start 04/08/20 at 20:00; Stop 04/08/20 at 20:01; Status DC Apixaban (Eliquis) 5 mg BID PO Last administered on 04/09/20at 09:30; Start 04/09/20 at 09:30; Stop 04/09/20 at 16:41; Status DC Dofetilide (Tikosyn) 250 mcg BID PO ; Start 04/09/20 at 09:30; Stop 04/09/20 at 09:37; Status DC EZETIMIBE (Zetia) 10 mg DAILY PO Last administered on 04/10/20at 07:52; Start 04/09/20 at 09:30 Furosemide (Lasix) 40 mg DAILY PO Last administered on 04/09/20at 10:05; Start 04/09/20 at 10:00; Stop 04/09/20 at 17:50; Status DC Levothyroxine Sodium (Synthroid) 150 mcg DAILY06 PO Last administered on 04/10/20at 06:12; Start 04/09/20 at 10:30 Metoprolol Succinate (Toprol Xl) 12.5 mg DAILY PO ; Start 04/09/20 at 10:00; Stop 04/09/20 at 09:55; Status DC Sacubitril/ Valsartan (Entresto 24 Mg-26 Mg) 1 tab BID PO Last administered on 04/10/20at 20:14; Start 04/09/20 at 10:00 Non-Formulary Medication 48 ea DAILY SQ ; Start 04/09/20 at 17:30; Stop 04/09/20 at 17:18; Status DC Metformin HCl (Glucophage) 1,000 mg BIDWMEALS PO Last administered on 04/09/20at 10:09; Start 04/09/20 at 10:00; Stop 04/09/20 at 18:25; Status DC Multivitamins (Thera M Plus) 1 tab DAILY PO Last administered on 04/10/20at 07:52; Start 04/09/20 at 10:00 Spironolactone (Aldactone) 25 mg DAILY PO Last administered on 04/09/20at 10:09; Start 04/09/20 at 10:00; Stop 04/09/20 at 16:41; Status DC Info (Anti-Coagulation Monitoring By Pharmacy) 1 each PRN DAILY PRN MC SEE COMMENTS; Start 04/09/20 at 09:30 Dofetilide (Tikosyn) 250 mcg BID PO Last administered on 04/10/20at 20:14; Start 04/09/20 at 10:00 Metoprolol Succinate (Toprol Xl) 12.5 mg QHS PO Last administered on 04/10/20at 20:15; Start 04/09/20 at 21:00 Hydromorphone HCl (Dilaudid) 2 mg PRN Q3HRS PRN IVP PAIN Last administered on 04/11/20at 06:05; Start 04/09/20 at 13:45 Non-Formulary Medication 48 ea DAILY SQ Last administered on 04/10/20at 07:51; Start 04/09/20 at 17:30 Spironolactone (Aldactone) 25 mg DAILY PO Last administered on 04/10/20at 07:52; Start 04/10/20 at 09:00 Metformin HCl (Glucophage) 1,000 mg BID PO Last administered on 04/10/20at 20:14; Start 04/09/20 at 21:00 Ringer's Solution 1,000 ml @ 50 mls/hr Q20H IV ; Start 04/11/20 at 07:00; Stop 04/11/20 at 18:59 Active Scripts Active Reported Furosemide 40 Mg Tablet 1 Tab PO DAILY Tikosyn (Dofetilide) 250 Mcg Capsule 250 Mcg PO BID Eliquis (Apixaban) 5 Mg Tablet 5 Mg PO BID Zetia (Ezetimibe) 10 Mg Tablet 10 Mg PO DAILY Metoprolol Succinate ( Xl ) (Metoprolol Succinate) 25 Mg Tab.er.24h 12.5 Mg PO DAILY One-Daily Multi-Vitamin (Multivitamin) 1 Each Tablet 1 Tab PO DAILY 30 Days Lantus Solostar (Insulin Glargine,Hum.rec.anlog) 100 Unit/1 Ml Insuln.pen 48 Unit SQ HS Spironolactone 50 Mg Tablet 0.5 Tab PO DAILY Entresto 24 mg-26 mg Tablet (Sacubitril/Valsartan) 1 Each Tablet 1 Each PO BID Metformin Hcl 1,000 Mg Tablet 1,000 Mg PO BIDWMEALS Levothyroxine Sodium 75 Mcg Tablet 150 Mcg PO DAILY Vitals/I & O Vital Sign - Last 24 Hours 04/10/20 04/10/20 04/10/20 04/10/20 09:59 10:33 11:00 13:15 Temp 98.1 98.1 Pulse 84 Resp 18 B/P (MAP) 119/76 (90) Pulse Ox 97 O2 Delivery Room Air Room Air Room Air Room Air 04/10/20 04/10/20 04/10/20 04/10/20 13:45 15:00 16:36 17:05 Temp 97.9 97.9 Pulse 80 Resp 18 B/P (MAP) 133/72 (92) Pulse Ox 95 O2 Delivery Room Air Room Air Room Air Room Air 04/10/20 04/10/20 04/10/20 04/10/20 19:00 20:00 20:13 20:14 Temp 98.0 98.0 Pulse 92 86 Resp 18 16 B/P (MAP) 130/80 (97) 116/76 Pulse Ox 96 O2 Delivery Room Air Room Air Room Air 04/10/20 04/10/20 04/10/20 04/11/20 20:15 20:43 23:00 00:04 Temp 97.9 97.9 Pulse 86 91 Resp 16 18 16 B/P (MAP) 116/76 100/58 (72) Pulse Ox 96 96 O2 Delivery Room Air Room Air Room Air 04/11/20 04/11/20 04/11/20 04/11/20 00:34 03:00 03:05 03:35 Temp 97.9 97.9 Pulse 84 Resp 14 18 16 14 B/P (MAP) 93/56 (68) Pulse Ox 93 O2 Delivery Room Air Room Air Room Air Room Air 04/11/20 04/11/20 06:05 06:35 Resp 16 14 O2 Delivery Room Air Room Air Intake and Output 04/10/20 04/10/20 04/11/20 15:00 23:00 07:00 Intake Total 300 ml 100 ml Balance 300 ml 100 ml Justicifation of Admission Dx: Justifications for Admission: Justification of Admission Dx: Yes Chronic Renal Failure: Intravenous Infusions Fracture: Fracture GRACIA CASTANEDA MD Apr 11, 2020 08:49
[2020-04-11] MEDS: EZETIMIBE 10 MG TABLET. PO SCH (09:00)
[2020-04-11] MEDS: metFORMIN 500 MG TABLET PO SCH ×2 (09:00→20:21)
[2020-04-11] MEDS: SACUBITRIL/VALSARTAN 24/26MG TABLET. PO SCH ×2 (09:00→20:22)
[2020-04-11] MEDS: SPIRONOLACTONE 25 MG TABLET PO SCH (09:00)
[2020-04-11] MEDS: MULTIVITAMIN with MINERAL TABLET. PO SCH (09:00)
[2020-04-11] MEDS: DOFETILIDE 125 MCG CAPSULE PO SCH ×2 (09:00→20:23)
--- NOTE | 2020-04-11 09:28 | PDOC ---
MILAN,EMILY JOSE 04/11/20 0928: CARDIO Progress Notes Date and Time Date of Service 04/11/20 Time of Evaluation 1315 Subjective Subjective: Other (patinet off unit for kyphoplasty ) Vitals Vitals Vital Signs Date Time Temp Pulse Resp B/P (MAP) Pulse Ox O2 Delivery O2 Flow Rate FiO2 04/11/20 07:00 98.0 78 18 118/59 (78) 97 Room Air 98.0 Weight Weight [ ] Input and Output Intake and Output Intake and Output 04/11/20 07:00 Intake Total 400 ml Balance 400 ml Intake Oral 400 ml # Voids 3 Laboratory Labs Laboratory Tests Test 04/10/20 11:22 04/10/20 15:55 04/10/20 16:27 04/11/20 08:23 Glucose (Fingerstick) 87 mg/dL (70-99) 136 mg/dL (70-99) 92 mg/dL (70-99) SARS-CoV-2 Antigen (Rapid) Negative (NEGATIVE) Assessment Assessment 1. Back pain with lumbar compression fractures. MRI with concerns for multiple myeloma or metastatic lesion. Bone marrow biopsy, kyphoplasty today 2. PAFIB; QTc 435. Maintaining SR. Recent device check without AFIB. 3. ICM s/p AICD (Biotronik). Echo with LVEF 25%. Device check 04/05/20 with normal function 4. CAD; s/p PCI/stent placement. clinically stable. CP free 5. Severe MR 6. Diabetes, II 7. Hypertension; low end 8. Hypothyroidism Recommendations Off unit for surgery Continue Tikosyn for rhythm maintenance Eliquis on hold for bone marrow biopsy Continue low dose Toprol, Entresto, and spironolactone as BP allows. Secondary prevention measures. Justicifation of Admission Dx: Justifications for Admission: Justification of Admission Dx: Yes Chronic Renal Failure: Intravenous Infusions Fracture: Fracture ADELINE ELLSWORTH MD 04/11/20 1820: CARDIO Progress Notes Plan Plan Pt. seen. Not examined as he was sleep post-procedure. Discussed with at bedside. Prognosis depends on biopsy results. He previously expressed wishes to not pursue advanced therapies at [facility] for his HF, so therefore, focus on possible malignancy and chemo therapy needed for it. Supportive care. MILANCHRISTOPHERJAMA JOSE Apr 11, 2020 09:28 ADELINE ELLSWORTH MD Apr 11, 2020 18:20
--- NOTE | 2020-04-11 09:51 | NUR ---
SW following. Discussed with RN, pt from home with , room air, ada diet, COVID-19 negative. Pt possibly having a bone marrow biopsy today, as well as a possible kyphoplasty. PT/OT ordered. SW will continue to follow.
--- NOTE | 2020-04-11 10:21 | PDOC ---
PROGRESS NOTES Date of Service DATE: 04/11/20 TIME: 10:18 Subjective Subjective He admits continued left flank area pain. Objective Objective Vital Signs Date Time Temp Pulse Resp B/P (MAP) Pulse Ox O2 Delivery O2 Flow Rate FiO2 04/11/20 10:01 16 Room Air 04/11/20 07:00 98.0 78 118/59 (78) 97 98.0 Intake and Output 04/11/20 06:59 Intake Total 400 ml Balance 400 ml Intake Oral 400 ml # Voids 3 Physical Exam Physical Exam He is lying on his right side and he had tenderness to palpation over left lumbar paraspinal muscles. He continues with painfully limited lumbar spine ROM. Assessment Assessment Problems Medical Problems: (1) Intractable low back pain Status: Acute (2) Lumbar disc lesion Status: Acute (3) Multiple myeloma Status: Acute Plan Plan of Care Waiting for biopsy. Comment Review of Relevant I have reviewed the following items caity (where applicable) has been applied. Labs Laboratory Tests Test 04/09/20 11:10 04/09/20 16:59 04/09/20 20:43 04/10/20 07:32 Glucose (Fingerstick) 99 mg/dL (70-99) 148 mg/dL (70-99) 126 mg/dL (70-99) 77 mg/dL (70-99) Test 04/10/20 09:05 04/10/20 11:22 04/10/20 15:55 04/10/20 16:27 White Blood Count 7.7 x10^3/uL (4.0-11.0) Red Blood Count 3.38 x10^6/uL (4.30-5.70) Hemoglobin 11.6 g/dL (13.0-17.5) Hematocrit 33.9 % (39.0-53.0) Mean Corpuscular Volume 101 fL (79-100) Mean Corpuscular Hemoglobin 34 pg (25-35) Mean Corpuscular Hemoglobin Concent 34 g/dL (31-37) Red Cell Distribution Width 14.1 % (11.5-14.5) Platelet Count 209 x10^3/uL (140-400) Neutrophils (%) (Auto) 66 % (31-73) Lymphocytes (%) (Auto) 24 % (24-48) Monocytes (%) (Auto) 7 % (0-9) Eosinophils (%) (Auto) 3 % (0-3) Basophils (%) (Auto) 1 % (0-3) Neutrophils # (Auto) 5.1 x10^3/uL (1.8-7.7) Lymphocytes # (Auto) 1.8 x10^3/uL (1.0-4.8) Monocytes # (Auto) 0.6 x10^3/uL (0.0-1.1) Eosinophils # (Auto) 0.2 x10^3/uL (0.0-0.7) Basophils # (Auto) 0.0 x10^3/uL (0.0-0.2) Prothrombin Time 14.3 SEC (11.7-14.0) Prothromb Time International Ratio 1.2 (0.8-1.1) Sodium Level 136 mmol/L (136-145) Potassium Level 3.8 mmol/L (3.5-5.1) Chloride Level 101 mmol/L (98-107) Carbon Dioxide Level 30 mmol/L (21-32) Anion Gap 5 (6-14) Blood Urea Nitrogen 24 mg/dL (8-26) Creatinine 1.2 mg/dL (0.7-1.3) Estimated GFR (Cockcroft-Gault) 61.6 BUN/Creatinine Ratio 20 (6-20) Glucose Level 84 mg/dL (70-99) Calcium Level 9.1 mg/dL (8.5-10.1) Total Bilirubin 0.4 mg/dL (0.2-1.0) Aspartate Amino Transf (AST/SGOT) 21 U/L (15-37) Alanine Aminotransferase (ALT/SGPT) 24 U/L (16-63) Alkaline Phosphatase 67 U/L (46-116) Total Protein 10.0 g/dL (6.4-8.2) Albumin 3.0 g/dL (3.4-5.0) Albumin/Globulin Ratio 0.4 (1.0-1.7) Glucose (Fingerstick) 87 mg/dL (70-99) 136 mg/dL (70-99) SARS-CoV-2 Antigen (Rapid) Negative (NEGATIVE) Test 04/11/20 08:23 Glucose (Fingerstick) 92 mg/dL (70-99) Laboratory Tests Test 04/10/20 11:22 04/10/20 15:55 04/10/20 16:27 04/11/20 08:23 Glucose (Fingerstick) 87 mg/dL (70-99) 136 mg/dL (70-99) 92 mg/dL (70-99) SARS-CoV-2 Antigen (Rapid) Negative (NEGATIVE) Medications Current Medications Hydromorphone HCl (Dilaudid) 1 mg 1X ONCE IVP Last administered on 04/08/20at 13:41; Start 04/08/20 at 13:15; Stop 04/08/20 at 13:16; Status DC Sodium Chloride 1,000 ml @ 1,000 mls/hr 1X ONCE IV Last administered on 04/08/20at 13:39; Start 04/08/20 at 13:15; Stop 04/08/20 at 14:14; Status DC Ondansetron HCl (Zofran) 4 mg 1X ONCE IVP Last administered on 04/08/20at 13:42; Start 04/08/20 at 13:15; Stop 04/08/20 at 13:16; Status DC Diazepam (Valium) 5 mg 1X ONCE PO Last administered on 04/08/20at 13:44; Start 04/08/20 at 13:15; Stop 04/08/20 at 13:16; Status DC Ondansetron HCl (Zofran) 4 mg PRN Q8HRS PRN IV NAUSEA/VOMITING Last adm inistered on 04/08/20at 15:35; Start 04/08/20 at 14:15; Stop 04/09/20 at 14:14; Status DC Hydromorphone HCl (Dilaudid) 1 mg PRN Q3HRS PRN IVP PAIN Last administered on 04/09/20at 10:03; Start 04/08/20 at 14:15; Stop 04/09/20 at 13:42; Status DC Sennosides (Senna) 17.2 mg PRN BID PRN PO CONSTIPATION; Start 04/08/20 at 17:15 Docusate Sodium (Colace) 100 mg PRN DAILY PRN PO HARD STOOLS; Start 04/08/20 at 17:15 Ondansetron HCl (Zofran) 4 mg PRN Q6HRS PRN IVP NAUSEA/VOMITING; Start 04/08/20 at 17:15 Potassium Chloride (Klor-Con) 40 meq 1X PRN PO PER PROTOCOL; Start 04/08/20 at 17:15; Stop 04/08/20 at 17:25; Status DC Magnesium Oxide (Magnesium Oxide) 400 mg BID PO ; Start 04/08/20 at 21:00; Stop 04/08/20 at 17:24; Status DC Potassium Chloride/Water 100 ml @ 100 mls/hr Q1H IV ; Start 04/08/20 at 17:15; Stop 04/08/20 at 17:25; Status DC Magnesium Sulfate 50 ml @ 25 mls/hr Q24H IV ; Start 04/08/20 at 17:15; Stop 04/08/20 at 17:24; Status DC Potassium Chloride/Water 100 ml @ 100 mls/hr Q1H PRN IV low k; Start 04/08/20 at 17:15; Stop 04/08/20 at 17:25; Status DC Insulin Human Lispro (HumaLOG) 0-7 UNITS TIDWMEALS SQ ; Start 04/09/20 at 08:00; Stop 04/09/20 at 12:05; Status DC Dextrose (Dextrose 50%-Water Syringe) 12.5 gm PRN Q15MIN PRN IV SEE COMMENTS; Start 04/08/20 at 17:15 Acetaminophen (Tylenol) 650 mg PRN Q4HRS PRN PO TEMP OVER 100.4F OR MILD PAIN; Start 04/08/20 at 17:15 Enoxaparin Sodium (Lovenox 40mg Syringe) 40 mg Q24H SQ Last administered on 04/08/20at 18:31; Start 04/08/20 at 18:00 Info (Non-Icu Electrolyte Protocol) 1 ea CONT PRN PRN MC SEE COMMENTS; Start 04/08/20 at 17:30 Influenza Virus Vaccine Quadrival (Fluzone Quad Syringe) 0.5 ml ONCE ONCE VAX IM Last administered on 04/08/20at 20:19; Start 04/08/20 at 20:00; Stop 04/08/20 at 20:01; Status DC Apixaban (Eliquis) 5 mg BID PO Last administered on 04/09/20at 09:30; Start 04/09/20 at 09:30; Stop 04/09/20 at 16:41; Status DC Dofetilide (Tikosyn) 250 mcg BID PO ; Start 04/09/20 at 09:30; Stop 04/09/20 at 09:37; Status DC EZETIMIBE (Zetia) 10 mg DAILY PO Last administered on 04/10/20at 07:52; Start 04/09/20 at 09:30 Furosemide (Lasix) 40 mg DAILY PO Last administered on 04/09/20at 10:05; Start 04/09/20 at 10:00; Stop 04/09/20 at 17:50; Status DC Levothyroxine Sodium (Synthroid) 150 mcg DAILY06 PO Last administered on 04/10/20at 06:12; Start 04/09/20 at 10:30 Metoprolol Succinate (Toprol Xl) 12.5 mg DAILY PO ; Start 04/09/20 at 10:00; Stop 04/09/20 at 09:55; Status DC Sacubitril/ Valsartan (Entresto 24 Mg-26 Mg) 1 tab BID PO Last administered on 04/10/20at 20:14; Start 04/09/20 at 10:00 Non-Formulary Medication 48 ea DAILY SQ ; Start 04/09/20 at 17:30; Stop 04/09/20 at 17:18; Status DC Metformin HCl (Glucophage) 1,000 mg BIDWMEALS PO Last administered on 04/09/20at 10:09; Start 04/09/20 at 10:00; Stop 04/09/20 at 18:25; Status DC Multivitamins (Thera M Plus) 1 tab DAILY PO Last administered on 04/10/20at 07:52; Start 04/09/20 at 10:00 Spironolactone (Aldactone) 25 mg DAILY PO Last administered on 04/09/20at 10:09; Start 04/09/20 at 10:00; Stop 04/09/20 at 16:41; Status DC Info (Anti-Coagulation Monitoring By Pharmacy) 1 each PRN DAILY PRN MC SEE COMMENTS; Start 04/09/20 at 09:30 Dofetilide (Tikosyn) 250 mcg BID PO Last administered on 04/10/20at 20:14; Start 04/09/20 at 10:00 Metoprolol Succinate (Toprol Xl) 12.5 mg QHS PO Last administered on 04/10/20at 20:15; Start 04/09/20 at 21:00 Hydromorphone HCl (Dilaudid) 2 mg PRN Q3HRS PRN IVP PAIN Last administered on 04/11/20at 10:01; Start 04/09/20 at 13:45 Non-Formulary Medication 48 ea DAILY SQ Last administered on 04/10/20at 07:51; Start 04/09/20 at 17:30 Spironolactone (Aldactone) 25 mg DAILY PO Last administered on 04/10/20at 07:52; Start 04/10/20 at 09:00 Metformin HCl (Glucophage) 1,000 mg BID PO Last administered on 04/10/20at 20:14; Start 04/09/20 at 21:00 Ringer's Solution 1,000 ml @ 50 mls/hr Q20H IV ; Start 04/11/20 at 07:00; Stop 04/11/20 at 18:59 Active Scripts Active Reported Furosemide 40 Mg Tablet 1 Tab PO DAILY Tikosyn (Dofetilide) 250 Mcg Capsule 250 Mcg PO BID Eliquis (Apixaban) 5 Mg Tablet 5 Mg PO BID Zetia (Ezetimibe) 10 Mg Tablet 10 Mg PO DAILY Metoprolol Succinate ( Xl ) (Metoprolol Succinate) 25 Mg Tab.er.24h 12.5 Mg PO DAILY One-Daily Multi-Vitamin (Multivitamin) 1 Each Tablet 1 Tab PO DAILY 30 Days Lantus Solostar (Insulin Glargine,Hum.rec.anlog) 100 Unit/1 Ml Insuln.pen 48 Unit SQ HS Spironolactone 50 Mg Tablet 0.5 Tab PO DAILY Entresto 24 mg-26 mg Tablet (Sacubitril/Valsartan) 1 Each Tablet 1 Each PO BID Metformin Hcl 1,000 Mg Tablet 1,000 Mg PO BIDWMEALS Levothyroxine Sodium 75 Mcg Tablet 150 Mcg PO DAILY Vitals/I & O Vital Sign - Last 24 Hours 04/10/20 04/10/20 04/10/20 04/10/20 10:33 11:00 13:15 13:45 Temp 98.1 98.1 Pulse 84 Resp 18 B/P (MAP) 119/76 (90) Pulse Ox 97 O2 Delivery Room Air Room Air Room Air Room Air 04/10/20 04/10/20 04/10/20 10/21/20 15:00 16:36 17:05 19:00 Temp 97.9 98.0 97.9 98.0 Pulse 80 92 Resp 18 18 B/P (MAP) 133/72 (92) 130/80 (97) Pulse Ox 95 96 O2 Delivery Room Air Room Air Room Air Room Air 04/10/20 04/10/20 04/10/20 04/10/20 20:00 20:13 20:14 20:15 Pulse 86 86 Resp 16 B/P (MAP) 116/76 116/76 O2 Delivery Room Air Room Air 04/10/20 04/10/20 04/11/20 04/11/20 20:43 23:00 00:04 00:34 Temp 97.9 97.9 Pulse 91 Resp 16 18 16 14 B/P (MAP) 100/58 (72) Pulse Ox 96 96 O2 Delivery Room Air Room Air Room Air Room Air 04/11/20 04/11/20 04/11/20 04/11/20 03:00 03:05 03:35 06:05 Temp 97.9 97.9 Pulse 84 Resp 18 16 14 16 B/P (MAP) 93/56 (68) Pulse Ox 93 O2 Delivery Room Air Room Air Room Air Room Air 04/11/20 04/11/20 04/11/20 06:35 07:00 10:01 Temp 98.0 98.0 Pulse 78 Resp 14 18 16 B/P (MAP) 118/59 (78) Pulse Ox 97 O2 Delivery Room Air Room Air Room Air Intake and Output 04/10/20 04/10/20 04/11/20 14:59 22:59 06:59 Intake Total 300 ml 100 ml Balance 300 ml 100 ml Justifications for Admission Other Justification intractable back pain JOSE RAFAEL NORTON MD Apr 11, 2020 10:21
[2020-04-11] MEDS ORDERED: LIDOCAINE WITH 8.4% SOD BICARB 3 ML DISP.SYRIN. ONE ×2 (12:58→13:13)
[2020-04-11] MEDS ORDERED: IOHEXOL 240 MG/ML 50ML VIAL. ONE (13:14)
[2020-04-11 13:18] LABS: ALBUM 3.5 g/dL (2.9-4.4); ALPHA 1 0.2 g/dL (0.0-0.4); ALPHA 2 0.8 g/dL (0.4-1.0); BETA 0.8 g/dL (0.7-1.3); COMMENT IMMUNOFIX SERUM Note: (.); GAMMA 3.3 g/dL (0.4-1.8); IMMUNOGLOBULIN A 30 mg/dL (61-437); IMMUNOGLOBULIN G 4142 mg/dL (603-1613); IMMUNOGLOBULIN M 13 mg/dL (20-172); PROTEIN TOTAL 8.6 g/dL (6.0-8.5); SPEP AG RATIO 0.7 (0.7-1.7)
[2020-04-11] MEDS ORDERED: MIDAZOLAM HCL/PF 2 MG/2 ML VIAL. ONE ×2 (13:26→13:32)
[2020-04-11] MEDS ORDERED: fentaNYL PF VIAL 250 MCG/5 ML VIAL ONE (13:26)
[2020-04-11] MEDS ORDERED: PROPOFOL 10 MG/ML (20ML) VIAL. IV ONE (13:31)
[2020-04-11] MEDS ORDERED: PROPOFOL 50 ML IV ONE (13:31)
[2020-04-11] MEDS ORDERED: fentaNYL PF VIAL 250 MCG/5 ML VIAL IV ONE (13:45)
[2020-04-11] MEDS ORDERED: MIDAZOLAM HCL/PF 2 MG/2 ML VIAL. IV ONE (13:45)
[2020-04-11] MEDS ORDERED: KETAMINE HCL IN NACL, ISO-OSM 50 MG/5 ML SYRINGE ONE (13:48)
[2020-04-11 14:01] LABS: BASO % 1 % (0-3); EOS # 0.2 x10^3/uL (0.0-0.7); EOS % 3 % (0-3); HEMATOCRIT 33.5 % (39.0-53.0); HEMOGLOBIN 11.4 g/dL (13.0-17.5); LYMPH # 2.1 x10^3/uL (1.0-4.8); LYMPH % 30 % (24-48); MEAN CORPUSCULAR HEMOGLOBIN 34 pg (25-35); MEAN CORPUSCULAR HGB CONC 34 g/dL (31-37); MEAN CORPUSCULAR VOLUME 101 fL (79-100); MONO # 0.5 x10^3/uL (0.0-1.1); MONO % 7 % (0-9); NEUT # 4.1 x10^3/uL (1.8-7.7); NEUT % 60 % (31-73); PLATELET COUNT 209 x10^3/uL (140-400); RED BLOOD COUNT 3.31 x10^6/uL (4.30-5.70); RED CELL DISTRIBUTION WIDTH 13.9 % (11.5-14.5); WHITE BLOOD COUNT 6.9 x10^3/uL (4.0-11.0)
[2020-04-11] MEDS ORDERED: LIDOCAINE WITH 8.4% SOD BICARB 3 ML DISP.SYRIN. IJ ONE (14:15)
[2020-04-11] MEDS ORDERED: IOHEXOL 240 MG/ML 50ML VIAL. IJ ONE (14:15)
--- NOTE | 2020-04-11 15:03 | NUR ---
Pt to IR for bone marrow biopsy and L2-3 kyphoplasty, moderate sedation for bone marrow administered by this RN and then anesthesia staff sedated for kyphoplasty. Pt to PACU to complete recovery then will return to inpt room. Pt tolerated well, NIGEL. YARITZA RN
--- NOTE | 2020-04-11 15:13 | RAD ---
CT-guided bone marrow biopsy. 04/11/2020 1:09 PM Indication: Suspect multiple myeloma Discussion: The risks and benefits of the procedure, including but not limited to, bleeding and infection were discussed patient. Informed consent was obtained. The patient was brought to the CT scanner and placed in the prone position. A timeout procedure was performed. CT imaging of the pelvis demonstrates a left ilium amenable to bone marrow biopsy. Lytic lesions are also seen in the pelvis consistent with working diagnosis of multiple myeloma. The overlying soft tissues were prepped and draped using maximum sterile barrier technique. 1% lidocaine without epinephrine was administered for local anesthesia. Under intermittent CT guidance, an OncControl needle was advanced into the bone marrow of the left iliac crest. 2 Aspirates and 1 core biopsy samples were obtained. Samples were delivered to pathology was present at the time of procedure. The needle was removed and manual pressure held to achieve hemostasis. No immediate complications were identified. The procedure was performed under conscious sedation including continuous cardiopulmonary monitoring via dedicated sedation nurse. Sedation time: 16 minutes Impression: 1.Successful CT-guided bone marrow biopsy of the left iliac crest . 2. Lytic lesions noted in the pelvis consistent with presumed diagnosis of multiple myeloma PQRS Compliance Statement: One or more of the following individualized dose reduction techniques were utilized for this examination: 1. Automated exposure control 2. Adjustment of the mA and/or kV according to patient size 3. Use of iterative reconstruction technique
--- NOTE | 2020-04-11 15:28 | RAD ---
04/11/2020 1.Vertebral body biopsy, L2, and L4, fluoroscopically guided 2.Fluoroscopically guided kyphoplasty L2 and L4 Indication: Pathologic compression fractures most likely secondary to multiple myeloma with severe pain which is refractory to conservative treatment measures, and limit activities of daily living Total fluoroscopy time: 10.2 minutes Dose area product: 201.74 Gycm2 Sedation was provided via the anesthesia department Consent: The risks and benefits of the procedure were discussed with the patient. Informed consent was obtained. The patient was brought to the fluoroscopy suite and placed in the prone position. A timeout procedure was performed. Preprocedural antibiotics were administered. Procedure: The overlying skin was prepped and draped in the usual sterile fashion. All elements of maximal sterile barrier technique including the use of a cap, mask, sterile gown, sterile gloves, large sterile sheet, appropriate hand hygiene, and 2% chlorhexidine for cutaneous antisepsis (or acceptable alternative antiseptic per current guidelines) were followed for this procedure. Using a left transpedicular approach, and direct fluoroscopic guidance, a trocar needle was advanced to the posterior third of the targeted L2 and L4 vertebral bodies. Biopsy samples were obtained from each vertebral body separately. Vertebral augmentation balloon was then coaxially introduced through the needles into each of the central vertebral bodies and were deployed. A curved cement delivery needle was advanced into the contralateral vertebral bodies. Contrast opacified polymethylmethacrylate was then very slowly and carefully introduced through the vertebral augmentation needles, using strict fluoroscopic control. Once adequate filling had been achieved the needles were removed and manual pressure was held. No significant extravasation or complication was identified. Sterile dressing was applied. Patient tolerated the procedure well, without apparent complication. Impression: 1. Fluoroscopically guided biopsy, L2 and L4 vertebral bodies 2. Fluoroscopically guided balloon kyphoplasty, L2 and L4
--- NOTE | 2020-04-11 16:03 | RAD ---
EXAM: BONE SURVEY METASTATIC COMPL 04/11/2020 1:00 PM CLINICAL INDICATION:Suspected multiple myeloma COMPARISON:Chest radiograph 04/17/2020 and MRI chest 04/05/2020 TECHNIQUE:Complete bone survey. FINDINGS: Skull: No definite lytic lesion Chest: No lytic lesions. The heart is mildly enlarged. There is a pacemaker/AICD. Lungs are clear. Cervical spine: No definite lytic lesion. Mild degenerative disc disease. Thoracic spine: No definite lytic lesion. Moderate degenerative disc disease in the midthoracic spine. Lumbar spine: There is a compression fracture of L2 with mild/moderate height loss and a compression fracture of L4 with mild height loss. These are unchanged from prior MRI. No definite lytic lesions seen by radiograph to correlate with T2 hyperintense lesions on MRI. Mild degenerative disc disease. Pelvis: No definite lytic lesion. Mild degenerative joint disease of the hips. Right femur, tibia and fibula: No definite lytic lesion. Left femur, tibia and fibula: No definite lytic lesion. Right humerus, radius and ulna: No definite lytic lesion. Degenerative joint disease of the glenohumeral and acromioclavicular joints. Left humerus, radius and ulna: No definite lytic lesion. Mild degenerative joint disease of glenohumeral acromioclavicular joints. IMPRESSION: 1. No lytic lesions identified by radiograph. 2. Unchanged L2 and L4 compression fractures. Lesions in the lumbar spine on prior MRI are not well visualized by radiograph. Electronically signed by: Celena Bee MD (04/11/2020 4:00 PM) [id number]
--- NOTE | 2020-04-11 17:21 | PDOC ---
PROGRESS NOTES Date of Service DATE: 04/11/20 TIME: 17:17 Subjective Subjective Sleeping after procedure Objective Objective Vital Signs Date Time Temp Pulse Resp B/P (MAP) Pulse Ox O2 Delivery O2 Flow Rate FiO2 04/11/20 16:15 100 125/77 (93) 94 Room Air 04/11/20 15:45 98.6 18 98.6 04/11/20 15:43 2.0 Intake and Output 04/11/20 07:00 Intake Total 400 ml Balance 400 ml Intake Oral 400 ml # Voids 3 Physical Exam Physical Exam Resting comfortably in bed after procedure Assessment Assessment Problems Medical Problems: (1) Intractable low back pain Status: Acute (2) Lumbar disc lesion Status: Acute (3) Multiple myeloma Status: Acute Item Value Date Time White Blood Count 7.7 x10^3/uL 04/10/20 0905 Hemoglobin 11.6 g/dL L 04/10/20 0905 Hemoglobin 10.9 g/dL L 04/09/20 0511 Creatinine 1.2 mg/dL 04/10/20 0905 Estimated GFR (Cockcroft-Gault) 61.6 04/10/20 0905 Calcium Level 9.1 mg/dL 04/10/20 0905 Total Protein 10.0 g/dL H 04/10/20 0905 Albumin 3.0 g/dL L 04/10/20 0905 Immunoglobulin G 4142 mg/dL H 04/09/20 0511 Immunoglobulin A 30 mg/dL L 04/09/20 0511 Immunoglobulin M 13 mg/dL L 04/09/20 0511 Immunoglobulin [place]/Lambda Ratio 180.39 H 04/09/20 0511 Free [place] Light Chains 1010.2 mg/L H 04/09/20 0511 Free Lambda Light Chains 5.6 mg/L L 04/09/20 0511 Gamma Globulins 3.3 g/dL H 04/09/20 0511 IgG kappa Multiple myeloma with 3.2 gm M spike and Marked elevated Free K light chains and K/L ratio. Await bone marrow biopsy. S/P Kyphoplasty. Skelatal survey did not reveal other lesions. Will follow up tomorrow and discuss with patient. Discussed with olu. Comment Review of Relevant I have reviewed the following items caity (where applicable) has been applied. Labs Laboratory Tests Test 04/09/20 20:43 04/10/20 07:32 04/10/20 09:05 04/10/20 11:22 Glucose (Fingerstick) 126 mg/dL (70-99) 77 mg/dL (70-99) 87 mg/dL (70-99) White Blood Count 7.7 x10^3/uL (4.0-11.0) Red Blood Count 3.38 x10^6/uL (4.30-5.70) Hemoglobin 11.6 g/dL (13.0-17.5) Hematocrit 33.9 % (39.0-53.0) Mean Corpuscular Volume 101 fL (79-100) Mean Corpuscular Hemoglobin 34 pg (25-35) Mean Corpuscular Hemoglobin Concent 34 g/dL (31-37) Red Cell Distribution Width 14.1 % (11.5-14.5) Platelet Count 209 x10^3/uL (140-400) Neutrophils (%) (Auto) 66 % (31-73) Lymphocytes (%) (Auto) 24 % (24-48) Monocytes (%) (Auto) 7 % (0-9) Eosinophils (%) (Auto) 3 % (0-3) Basophils (%) (Auto) 1 % (0-3) Neutrophils # (Auto) 5.1 x10^3/uL (1.8-7.7) Lymphocytes # (Auto) 1.8 x10^3/uL (1.0-4.8) Monocytes # (Auto) 0.6 x10^3/uL (0.0-1.1) Eosinophils # (Auto) 0.2 x10^3/uL (0.0-0.7) Basophils # (Auto) 0.0 x10^3/uL (0.0-0.2) Prothrombin Time 14.3 SEC (11.7-14.0) Prothromb Time International Ratio 1.2 (0.8-1.1) Sodium Level 136 mmol/L (136-145) Potassium Level 3.8 mmol/L (3.5-5.1) Chloride Level 101 mmol/L (98-107) Carbon Dioxide Level 30 mmol/L (21-32) Anion Gap 5 (6-14) Blood Urea Nitrogen 24 mg/dL (8-26) Creatinine 1.2 mg/dL (0.7-1.3) Estimated GFR (Cockcroft-Gault) 61.6 BUN/Creatinine Ratio 20 (6-20) Glucose Level 84 mg/dL (70-99) Calcium Level 9.1 mg/dL (8.5-10.1) Total Bilirubin 0.4 mg/dL (0.2-1.0) Aspartate Amino Transf (AST/SGOT) 21 U/L (15-37) Alanine Aminotransferase (ALT/SGPT) 24 U/L (16-63) Alkaline Phosphatase 67 U/L (46-116) Total Protein 10.0 g/dL (6.4-8.2) Albumin 3.0 g/dL (3.4-5.0) Albumin/Globulin Ratio 0.4 (1.0-1.7) Test 04/10/20 15:55 04/10/20 16:27 04/11/20 08:23 04/11/20 10:56 Coronavirus (PCR) Not detected (Not Detected) SARS-CoV-2 Antigen (Rapid) Negative (NEGATIVE) Glucose (Fingerstick) 136 mg/dL (70-99) 92 mg/dL (70-99) White Blood Count 6.9 x10^3/uL (4.0-11.0) Red Blood Count 3.31 x10^6/uL (4.30-5.70) Hemoglobin 11.4 g/dL (13.0-17.5) Hematocrit 33.5 % (39.0-53.0) Mean Corpuscular Volume 101 fL (79-100) Mean Corpuscular Hemoglobin 34 pg (25-35) Mean Corpuscular Hemoglobin Concent 34 g/dL (31-37) Red Cell Distribution Width 13.9 % (11.5-14.5) Platelet Count 209 x10^3/uL (140-400) Neutrophils (%) (Auto) 60 % (31-73) Lymphocytes (%) (Auto) 30 % (24-48) Monocytes (%) (Auto) 7 % (0-9) Eosinophils (%) (Auto) 3 % (0-3) Basophils (%) (Auto) 1 % (0-3) Neutrophils # (Auto) 4.1 x10^3/uL (1.8-7.7) Lymphocytes # (Auto) 2.1 x10^3/uL (1.0-4.8) Monocytes # (Auto) 0.5 x10^3/uL (0.0-1.1) Eosinophils # (Auto) 0.2 x10^3/uL (0.0-0.7) Basophils # (Auto) 0.0 x10^3/uL (0.0-0.2) Lactate Dehydrogenase 249 U/L (85-227) Prostate Specific Antigen 0.24 ng/mL (0.00-4.00) Thyroid Stimulating Hormone (TSH) 4.306 uIU/mL (0.358-3.74) Test 04/11/20 15:06 04/11/20 16:45 Glucose (Fingerstick) 87 mg/dL (70-99) 76 mg/dL (70-99) Laboratory Tests Test 04/11/20 08:23 04/11/20 10:56 04/11/20 15:06 04/11/20 16:45 Glucose (Fingerstick) 92 mg/dL (70-99) 87 mg/dL (70-99) 76 mg/dL (70-99) White Blood Count 6.9 x10^3/uL (4.0-11.0) Red Blood Count 3.31 x10^6/uL (4.30-5.70) Hemoglobin 11.4 g/dL (13.0-17.5) Hematocrit 33.5 % (39.0-53.0) Mean Corpuscular Volume 101 fL (79-100) Mean Corpuscular Hemoglobin 34 pg (25-35) Mean Corpuscular Hemoglobin Concent 34 g/dL (31-37) Red Cell Distribution Width 13.9 % (11.5-14.5) Platelet Count 209 x10^3/uL (140-400) Neutrophils (%) (Auto) 60 % (31-73) Lymphocytes (%) (Auto) 30 % (24-48) Monocytes (%) (Auto) 7 % (0-9) Eosinophils (%) (Auto) 3 % (0-3) Basophils (%) (Auto) 1 % (0-3) Neutrophils # (Auto) 4.1 x10^3/uL (1.8-7.7) Lymphocytes # (Auto) 2.1 x10^3/uL (1.0-4.8) Monocytes # (Auto) 0.5 x10^3/uL (0.0-1.1) Eosinophils # (Auto) 0.2 x10^3/uL (0.0-0.7) Basophils # (Auto) 0.0 x10^3/uL (0.0-0.2) Lactate Dehydrogenase 249 U/L (85-227) Prostate Specific Antigen 0.24 ng/mL (0.00-4.00) Thyroid Stimulating Hormone (TSH) 4.306 uIU/mL (0.358-3.74) Medications Current Medications Hydromorphone HCl (Dilaudid) 1 mg 1X ONCE IVP Last administered on 04/08/20at 13:41; Start 04/08/20 at 13:15; Stop 04/08/20 at 13:16; Status DC Sodium Chloride 1,000 ml @ 1,000 mls/hr 1X ONCE IV Last administered on 04/08/20at 13:39; Start 04/08/20 at 13:15; Stop 04/08/20 at 14:14; Status DC Ondansetron HCl (Zofran) 4 mg 1X ONCE IVP Last administered on 04/08/20at 13:42; Start 04/08/20 at 13:15; Stop 04/08/20 at 13:16; Status DC Diazepam (Valium) 5 mg 1X ONCE PO Last administered on 04/08/20at 13:44; Start 04/08/20 at 13:15; Stop 04/08/20 at 13:16; Status DC Ondansetron HCl (Zofran) 4 mg PRN Q8HRS PRN IV NAUSEA/VOMITING Last administered on 04/08/20at 15:35; Start 04/08/20 at 14:15; Stop 04/09/20 at 14:14; Status DC Hydromorphone HCl (Dilaudid) 1 mg PRN Q3HRS PRN IVP PAIN Last administered on 04/09/20at 10:03; Start 04/08/20 at 14:15; Stop 04/09/20 at 13:42; Status DC Sennosides (Senna) 17.2 mg PRN BID PRN PO CONSTIPATION; Start 04/08/20 at 17:15 Docusate Sodium (Colace) 100 mg PRN DAILY PRN PO HARD STOOLS; Start 04/08/20 at 17:15 Ondansetron HCl (Zofran) 4 mg PRN Q6HRS PRN IVP NAUSEA/VOMITING; Start 04/08 at 17:15 Potassium Chloride (Klor-Con) 40 meq 1X PRN PO PER PROTOCOL; Start 04/08/20 at 17:15; Stop 04/08/20 at 17:25; Status DC Magnesium Oxide (Magnesium Oxide) 400 mg BID PO ; Start 04/08/20 at 21:00; Stop 04/08/20 at 17:24; Status DC Potassium Chloride/Water 100 ml @ 100 mls/hr Q1H IV ; Start 04/08/20 at 17:15; Stop 04/08/20 at 17:25; Status DC Magnesium Sulfate 50 ml @ 25 mls/hr Q24H IV ; Start 04/08/20 at 17:15; Stop 04/08/20 at 17:24; Status DC Potassium Chloride/Water 100 ml @ 100 mls/hr Q1H PRN IV low k; Start 04/08/20 at 17:15; Stop 04/08/20 at 17:25; Status DC Insulin Human Lispro (HumaLOG) 0-7 UNITS TIDWMEALS SQ ; Start 04/09/20 at 08:00; Stop 04/09/20 at 12:05; Status DC Dextrose (Dextrose 50%-Water Syringe) 12.5 gm PRN Q15MIN PRN IV SEE COMMENTS; Start 04/08/20 at 17:15 Acetaminophen (Tylenol) 650 mg PRN Q4HRS PRN PO TEMP OVER 100.4F OR MILD PAIN; Start 04/08/20 at 17:15 Enoxaparin Sodium (Lovenox 40mg Syringe) 40 mg Q24H SQ Last administered on 04/08/20at 18:31; Start 04/08/20 at 18:00 Info (Non-Icu Electrolyte Protocol) 1 ea CONT PRN PRN MC SEE COMMENTS; Start 04/08/20 at 17:30 Influenza Virus Vaccine Quadrival (Fluzone Quad Syringe) 0.5 ml ONCE ONCE VAX IM Last administered on 04/08/20at 20:19; Start 04/08/20 at 20:00; Stop 04/08/20 at 20:01; Status DC Apixaban (Eliquis) 5 mg BID PO Last administered on 04/09/20at 09:30; Start 04/09/20 at 09:30; Stop 04/09/20 at 16:41; Status DC Dofetilide (Tikosyn) 250 mcg BID PO ; Start 04/09/20 at 09:30; Stop 04/09/20 at 09:37; Status DC EZETIMIBE (Zetia) 10 mg DAILY PO Last administered on 04/10/20at 07:52; Start 04/09/20 at 09:30 Furosemide (Lasix) 40 mg DAILY PO Last administered on 04/09/20at 10:05; Start 04/09/20 at 10:00; Stop 04/09/20 at 17:50; Status DC Levothyroxine Sodium (Synthroid) 150 mcg DAILY06 PO Last administered on 04/10/20at 06:12; Start 04/09/20 at 10:30 Metoprolol Succinate (Toprol Xl) 12.5 mg DAILY PO ; Start 04/09/20 at 10:00; Stop 04/09/20 at 09:55; Status DC Sacubitril/ Valsartan (Entresto 24 Mg-26 Mg) 1 tab BID PO Last administered on 04/10/20at 20:14; Start 04/09/20 at 10:00 Non-Formulary Medication 48 ea DAILY SQ ; Start 04/09/20 at 17:30; Stop 04/09/20 at 17:18; Status DC Metformin HCl (Glucophage) 1,000 mg BIDWMEALS PO Last administered on 04/09/20at 10:09; Start 04/09/20 at 10:00; Stop 04/09/20 at 18:25; Status DC Multivitamins (Thera M Plus) 1 tab DAILY PO Last administered on 04/10/20at 07:52; Start 04/09/20 at 10:00 Spironolactone (Aldactone) 25 mg DAILY PO Last administered on 04/09/20at 10:09; Start 04/09/20 at 10:00; Stop 04/09/20 at 16:41; Status DC Info (Anti-Coagulation Monitoring By Pharmacy) 1 each PRN DAILY PRN MC SEE COMMENTS; Start 04/09/20 at 09:30 Dofetilide (Tikosyn) 250 mcg BID PO Last administered on 04/10/20at 20:14; Start 04/09/20 at 10:00 Metoprolol Succinate (Toprol Xl) 12.5 mg QHS PO Last administered on 04/10/20at 20:15; Start 04/09/20 at 21:00 Hydromorphone HCl (Dilaudid) 2 mg PRN Q3HRS PRN IVP PAIN Last administered on 1 at 10:01; Start 04/09/20 at 13:45 Non-Formulary Medication 48 ea DAILY SQ Last administered on 04/10/20at 07:51; Start 04/09/20 at 17:30 Spironolactone (Aldactone) 25 mg DAILY PO Last administered on 04/10/20at 07:52; Start 04/10/20 at 09:00 Metformin HCl (Glucophage) 1,000 mg BID PO Last administered on 04/10/20at 20:14; Start 04/09/20 at 21:00 Ringer's Solution 1,000 ml @ 50 mls/hr Q20H IV ; Start 04/11/20 at 07:00; Stop 04/11/20 at 18:59 Lidocaine HCl (Buffered Lidocaine 1%) 3 ml STK-MED ONCE .ROUTE ; Start 04/11/20 at 12:58; Stop 04/11/20 at 12:58; Status DC Lidocaine HCl (Buffered Lidocaine 1%) 3 ml STK-MED ONCE .ROUTE ; Start 04/11/20 at 13:13; Stop 04/11/20 at 13:14; Status DC Iohexol (Omnipaque 240 Mg/ml) 50 ml STK-MED ONCE .ROUTE ; Start 04/11/20 at 13:14; Stop 04/11/20 at 13:14; Status DC Midazolam HCl (Versed) 2 mg STK-MED ONCE .ROUTE ; Start 04/11/20 at 13:26; Stop 04/11/20 at 13:27; Status DC Fentanyl Citrate (Fentanyl 5ml Vial) 250 mcg STK-MED ONCE .ROUTE ; Start at 13:26; Stop 04/11/20 at 13:27; Status DC Propofol (Diprivan) 200 mg STK-MED ONCE IV ; Start 04/11/20 at 13:31; Stop 04/11/20 at 13:32; Status DC Propofol 50 ml @ As Directed STK-MED ONCE IV ; Start 04/11/20 at 13:31; Stop 04/11/20 at 13:32; Status DC Midazolam HCl (Versed) 2 mg STK-MED ONCE .ROUTE ; Start 04/11/20 at 13:32; Stop 04/11/20 at 13:32; Status DC Midazolam HCl (Versed) 2 mg 1X ONCE IV Last administered on 04/11/20at 13:33; Start 04/11/20 at 13:45; Stop 04/11/20 at 13:50; Status DC Fentanyl Citrate (Fentanyl 5ml Vial) 100 mcg 1X ONCE IV Last administered on 04/11/20at 13:33; Start 04/11/20 at 13:45; Stop 04/11/20 at 13:50; Status DC Ketamine HCl (Ketamine) 50 mg STK-MED ONCE .ROUTE ; Start 04/11/20 at 13:48; Stop 04/11/20 at 13:48; Status DC Cefazolin Sodium/ Dextrose 50 ml @ As Directed STK-MED ONCE IV ; Start 04/11/20 at 14:03; Stop 04/11/20 at 14:04; Status DC Lidocaine HCl (Buffered Lidocaine 1%) 3 ml 1X ONCE IJ Last administered on 04/11/20at 13:40; Start 04/11/20 at 14:15; Stop 04/11/20 at 14:19; Status DC Iohexol (Omnipaque 240 Mg/ml) 50 ml 1X ONCE IJ Last administered on 04/11/20at 14:15; Start 04/11/20 at 14:15; Stop 04/11/20 at 14:19; Status DC Cefazolin Sodium/ Dextrose 50 ml @ 100 mls/hr 1X ONCE IV Last administered on 04/11/20at 14:12; Start 04/11/20 at 14:15; Stop 04/11/20 at 14:44; Status DC Active Scripts Active Reported Furosemide 40 Mg Tablet 1 Tab PO DAILY Tikosyn (Dofetilide) 250 Mcg Capsule 250 Mcg PO BID Eliquis (Apixaban) 5 Mg Tablet 5 Mg PO BID Zetia (Ezetimibe) 10 Mg Tablet 10 Mg PO DAILY Metoprolol Succinate ( Xl ) (Metoprolol Succinate) 25 Mg Tab.er.24h 12.5 Mg PO DAILY One-Daily Multi-Vitamin (Multivitamin) 1 Each Tablet 1 Tab PO DAILY 30 Days Lantus Solostar (Insulin Glargine,Hum.rec.anlog) 100 Unit/1 Ml Insuln.pen 48 Unit SQ HS Spironolactone 50 Mg Tablet 0.5 Tab PO DAILY Entresto 24 mg-26 mg Tablet (Sacubitril/Valsartan) 1 Each Tablet 1 Each PO BID Metformin Hcl 1,000 Mg Tablet 1,000 Mg PO BIDWMEALS Levothyroxine Sodium 75 Mcg Tablet 150 Mcg PO DAILY Vitals/I & O Vital Sign - Last 24 Hours 04/10/20 04/10/20 04/10/20 04/10/20 19:00 20:00 20:13 20:14 Temp 98.0 98.0 Pulse 92 86 Resp 18 16 B/P (MAP) 130/80 (97) 116/76 Pulse Ox 96 O2 Delivery Room Air Room Air Room Air 04/10/20 04/10/20 04/10/20 04/11/20 20:15 20:43 23:00 00:04 Temp 97.9 97.9 Pulse 86 91 Resp 16 18 16 B/P (MAP) 116/76 100/58 (72) Pulse Ox 96 96 O2 Delivery Room Air Room Air Room Air 04/11/20 04/11/20 04/11/20 04/11/20 00:34 03:00 03:05 03:35 Temp 97.9 97.9 Pulse 84 Resp 14 18 16 14 B/P (MAP) 93/56 (68) Pulse Ox 93 O2 Delivery Room Air Room Air Room Air Room Air 04/11/20 04/11/20 04/11/20 04/11/20 06:05 06:35 07:00 07:55 Temp 98.0 98.0 Pulse 78 Resp 16 14 18 B/P (MAP) 118/59 (78) Pulse Ox 97 O2 Delivery Room Air Room Air Room Air Room Air 04/11/20 04/11/20 04/11/20 04/11/20 10:01 11:00 13:33 13:41 Temp 98.0 98.0 Pulse 72 88 Resp 16 18 23 11 B/P (MAP) 122/60 (80) Pulse Ox 99 94 98 O2 Delivery Room Air Room Air Nasal Cannula Nasal Cannula O2 Flow Rate 2.0 2.0 04/11/20 04/11/20 04/11/20 04/11/20 13:47 14:55 14:55 15:10 Temp 98.0 98.0 Pulse 97 99 97 Resp 10 18 18 B/P (MAP) 110/72 108/73 Pulse Ox 98 98 97 O2 Delivery Nasal Cannula Nasal Cannula Room Air Nasal Cannula O2 Flow Rate 2.0 2.0 2.0 2.0 04/11/20 04/11/20 04/11/20 04/11/20 15:25 15:40 15:43 15:45 Temp 98 98.6 98.0 98.6 Pulse 95 91 77 Resp 18 18 18 B/P (MAP) 109/67 119/76 124/76 (92) Pulse Ox 95 94 96 O2 Delivery Nasal Cannula Nasal Cannula Nasal Cannula Room Air O2 Flow Rate 2.0 2.0 2.0 04/11/20 04/11/20 16:00 16:15 Pulse 99 100 B/P (MAP) 105/72 (83) 125/77 (93) Pulse Ox 93 94 O2 Delivery Room Air l Intake and Output 04/10/20 04/10/20 04/11/20 15:00 23:00 07:00 Intake Total 300 ml 100 ml Balance 300 ml 100 ml Justifications for Admission Other Justification intractable back pain HYUN BRADFORD MD Apr 11, 2020 17:21
[2020-04-11] MEDS: ENOXAPARIN 40 MG/0.4 ML SYRINGE. SQ SCH (18:00)
[2020-04-11] MEDS: SODIUM CHLORIDE 0.65% NASAL SPRAY 45ML BOTTLE. NS PRN (19:24)
[2020-04-11] MEDS: INSULIN GLARGINE SQ SCH (19:25)
[2020-04-11] MEDS: METOPROLOL SUCC 24HR ER 25 MG TAB.ER.24H. PO SCH (20:22)
[2020-04-12] MEDS: HYDROmorphone 2 MG/ML VIAL IVP PRN ×5 (02:02→16:24)
[2020-04-12 03:12] VITALS: BP 93/50
[2020-04-12] MEDS: LEVOTHYROXINE 75 MCG TABLET PO SCH (06:36)
[2020-04-12 07:00] VITALS: BP 110/64
[2020-04-12] MEDS: EZETIMIBE 10 MG TABLET. PO SCH (08:53)
[2020-04-12] MEDS: metFORMIN 500 MG TABLET PO SCH ×2 (08:54→20:26)
[2020-04-12] MEDS: MULTIVITAMIN with MINERAL TABLET. PO SCH (08:54)
[2020-04-12] MEDS: SACUBITRIL/VALSARTAN 24/26MG TABLET. PO SCH ×2 (08:54→20:27)
[2020-04-12] MEDS: SPIRONOLACTONE 25 MG TABLET PO SCH (08:54)
[2020-04-12] MEDS: DOFETILIDE 125 MCG CAPSULE PO SCH ×2 (08:55→20:26)
[2020-04-12] MEDS: INSULIN GLARGINE SQ SCH (09:07)
[2020-04-12] MEDS ORDERED: MAGNESIUM CITRATE 296 ML SOLUTION. PO ONE (10:00)
[2020-04-12] MEDS ORDERED: BISACODYL 5 MG TABLET.DR. PO PRN (10:00)
--- NOTE | 2020-04-12 10:03 | PDOC ---
PROGRESS NOTES Date of Service DATE: 04/12/20 TIME: 09:56 Subjective Subjective He admits constipation and continues with back pain after kyphoplasty. Objective Objective Vital Signs Date Time Temp Pulse Resp B/P (MAP) Pulse Ox O2 Delivery O2 Flow Rate FiO2 04/12/20 08:55 22 Room Air 04/12/20 08:54 90 110/64 04/12/20 07:00 97.3 98 97.3 04/11/20 15:43 2.0 Intake and Output 04/12/20 07:00 Intake Total 1030 ml Output Total 550 ml Balance 480 ml Intake Oral 780 ml IV Total 250 ml Output Urine Total 550 ml # Voids 1 Physical Exam Physical Exam He is up walking in his room without assistance and feels like going home and follow up with oncology on out patient basis. He has not received his lumbar corset yet. His serum PSA is 0.24,elevated immunoglobulin leve. Assessment Assessment Problems Medical Problems: (1) Intractable low back pain Status: Acute (2) Lumbar disc lesion Status: Acute (3) Multiple myeloma Status: Acute Plan Plan of [facility] when medically stable with out patient follow up. Comment Review of Relevant I have reviewed the following items caity (where applicable) has been applied. Labs Laboratory Tests Test 04/10/20 11:22 04/10/20 15:55 04/10/20 16:27 04/11/20 08:23 Glucose (Fingerstick) 87 mg/dL (70-99) 136 mg/dL (70-99) 92 mg/dL (70-99) Coronavirus (PCR) Not detected (Not Detected) SARS-CoV-2 Antigen (Rapid) Negative (NEGATIVE) Test 04/11/20 10:56 04/11/20 15:06 04/11/20 16:45 04/11/20 20:56 White Blood Count 6.9 x10^3/uL (4.0-11.0) Red Blood Count 3.31 x10^6/uL (4.30-5.70) Hemoglobin 11.4 g/dL (13.0-17.5) Hematocrit 33.5 % (39.0-53.0) Mean Corpuscular Volume 101 fL (79-100) Mean Corpuscular Hemoglobin 34 pg (25-35) Mean Corpuscular Hemoglobin Concent 34 g/dL (31-37) Red Cell Distribution Width 13.9 % (11.5-14.5) Platelet Count 209 x10^3/uL (140-400) Neutrophils (%) (Auto) 60 % (31-73) Lymphocytes (%) (Auto) 30 % (24-48) Monocytes (%) (Auto) 7 % (0-9) Eosinophils (%) (Auto) 3 % (0-3) Basophils (%) (Auto) 1 % (0-3) Neutrophils # (Auto) 4.1 x10^3/uL (1.8-7.7) Lymphocytes # (Auto) 2.1 x10^3/uL (1.0-4.8) Monocytes # (Auto) 0.5 x10^3/uL (0.0-1.1) Eosinophils # (Auto) 0.2 x10^3/uL (0.0-0.7) Basophils # (Auto) 0.0 x10^3/uL (0.0-0.2) Lactate Dehydrogenase 249 U/L (85-227) Prostate Specific Antigen 0.24 ng/mL (0.00-4.00) Thyroid Stimulating Hormone (TSH) 4.306 uIU/mL (0.358-3.74) Glucose (Fingerstick) 87 mg/dL (70-99) 76 mg/dL (70-99) 112 mg/dL (70-99) Test 04/12/20 07:44 04/12/20 08:10 Glucose (Fingerstick) 63 mg/dL (70-99) 75 mg/dL (70-99) Laboratory Tests Test 04/11/20 10:56 04/11/20 15:06 04/11/20 16:45 04/11/20 20:56 White Blood Count 6.9 x10^3/uL (4.0-11.0) Red Blood Count 3.31 x10^6/uL (4.30-5.70) Hemoglobin 11.4 g/dL (13.0-17.5) Hematocrit 33.5 % (39.0-53.0) Mean Corpuscular Volume 101 fL (79-100) Mean Corpuscular Hemoglobin 34 pg (25-35) Mean Corpuscular Hemoglobin Concent 34 g/dL (31-37) Red Cell Distribution Width 13.9 % (11.5-14.5) Platelet Count 209 x10^3/uL (140-400) Neutrophils (%) (Auto) 60 % (31-73) Lymphocytes (%) (Auto) 30 % (24-48) Monocytes (%) (Auto) 7 % (0-9) Eosinophils (%) (Auto) 3 % (0-3) Basophils (%) (Auto) 1 % (0-3) Neutrophils # (Auto) 4.1 x10^3/uL (1.8-7.7) Lymphocytes # (Auto) 2.1 x10^3/uL (1.0-4.8) Monocytes # (Auto) 0.5 x10^3/uL (0.0-1.1) Eosinophils # (Auto) 0.2 x10^3/uL (0.0-0.7) Basophils # (Auto) 0.0 x10^3/uL (0.0-0.2) Lactate Dehydrogenase 249 U/L (85-227) Prostate Specific Antigen 0.24 ng/mL (0.00-4.00) Thyroid Stimulating Hormone (TSH) 4.306 uIU/mL (0.358-3.74) Glucose (Fingerstick) 87 mg/dL (70-99) 76 mg/dL (70-99) 112 mg/dL (70-99) Test 04/12/20 07:44 04/12/20 08:10 Glucose (Fingerstick) 63 mg/dL (70-99) 75 mg/dL (70-99) Medications Current Medications Hydromorphone HCl (Dilaudid) 1 mg 1X ONCE IVP Last administered on 04/08/20at 13:41; Start 04/08/20 at 13:15; Stop 04/08/20 at 13:16; Status DC Sodium Chloride 1,000 ml @ 1,000 mls/hr 1X ONCE IV Last administered on 04/08/20at 13:39; Start 04/08/20 at 13:15; Stop 04/08/20 at 14:14; Status DC Ondansetron HCl (Zofran) 4 mg 1X ONCE IVP Last administered on 04/08/20at 13:42; Start 04/08/20 at 13:15; Stop 04/08/20 at 13:16; Status DC Diazepam (Valium) 5 mg 1X ONCE PO Last administered on 04/08/20at 13:44; Start 04/08/20 at 13:15; Stop 04/08/20 at 13:16; Status DC Ondansetron HCl (Zofran) 4 mg PRN Q8HRS PRN IV NAUSEA/VOMITING Last administered on 04/08/20at 15:35; Start 04/08/20 at 14:15; Stop 04/09/20 at 14:14; Status DC Hydromorphone HCl (Dilaudid) 1 mg PRN Q3HRS PRN IVP PAIN Last administered on 04/09/20at 10:03; Start 04/08/20 at 14:15; Stop 04/09/20 at 13:42; Status DC Sennosides (Senna) 17.2 mg PRN BID PRN PO CONSTIPATION; Start 04/08/20 at 17:15 Docusate Sodium (Colace) 100 mg PRN DAILY PRN PO HARD STOOLS; Start 04/08/20 at 17:15 Ondansetron HCl (Zofran) 4 mg PRN Q6HRS PRN IVP NAUSEA/VOMITING; Start 04/08/20 at 17:15 Potassium Chloride (Klor-Con) 40 meq 1X PRN PO PER PROTOCOL; Start 04/08/20 at 17:15; Stop 04/08/20 at 17:25; Status DC Magnesium Oxide (Magnesium Oxide) 400 mg BID PO ; Start 04/08/20 at 21:00; Stop 04/08/20 at 17:24; Status DC Potassium Chloride/Water 100 ml @ 100 mls/hr Q1H IV ; Start 04/08/20 at 17:15; Stop 04/08/20 at 17:25; Status DC Magnesium Sulfate 50 ml @ 25 mls/hr Q24H IV ; Start 04/08/20 at 17:15; Stop 04/08/20 at 17:24; Status DC Potassium Chloride/Water 100 ml @ 100 mls/hr Q1H PRN IV low k; Start 04/08/20 at 17:15; Stop 04/08/20 at 17:25; Status DC Insulin Human Lispro (HumaLOG) 0-7 UNITS TIDWMEALS SQ ; Start 04/09/20 at 08:00; Stop 04/09/20 at 12:05; Status DC Dextrose (Dextrose 50%-Water Syringe) 12.5 gm PRN Q15MIN PRN IV SEE COMMENTS; Start 04/08/20 at 17:15 Acetaminophen (Tylenol) 650 mg PRN Q4HRS PRN PO TEMP OVER 100.4F OR MILD PAIN; Start 04/08/20 at 17:15 Enoxaparin Sodium (Lovenox 40mg Syringe) 40 mg Q24H SQ Last administered on 04/08/20at 18:31; Start 04/08/20 at 18:00 Info (Non-Icu Electrolyte Protocol) 1 ea CONT PRN PRN MC SEE COMMENTS; Start 04/08/20 at 17:30 Influenza Virus Vaccine Quadrival (Fluzone Quad Syringe) 0.5 ml ONCE ONCE VAX IM Last administered on 04/08/20at 20:19; Start 04/08/20 at 20:00; Stop 04/08/20 at 20:01; Status DC Apixaban (Eliquis) 5 mg BID PO Last administered on 04/09/20at 09:30; Start 04/09/20 at 09:30; Stop 04/09/20 at 16:41; Status DC Dofetilide (Tikosyn) 250 mcg BID PO ; Start 04/09/20 at 09:30; Stop 04/09/20 at 09:37; Status DC EZETIMIBE (Zetia) 10 mg DAILY PO Last administered on 04/12/20at 08:53; Start 04/09/20 at 09:30 Furosemide (Lasix) 40 mg DAILY PO Last administered on 04/09/20at 10:05; Start 04/09/20 at 10:00; Stop 04/09/20 at 17:50; Status DC Levothyroxine Sodium (Synthroid) 150 mcg DAILY06 PO Last administered on 04/12/20at 06:36; Start 04/09/20 at 10:30 Metoprolol Succinate (Toprol Xl) 12.5 mg DAILY PO ; Start 04/09/20 at 10:00; Stop 04/09/20 at 09:55; Status DC Sacubitril/ Valsartan (Entresto 24 Mg-26 Mg) 1 tab BID PO Last administered on 04/12/20at 08:54; Start 04/09/20 at 10:00 Non-Formulary Medication 48 ea DAILY SQ ; Start 04/09/20 at 17:30; Stop 04/09/20 at 17:18; Status DC Metformin HCl (Glucophage) 1,000 mg BIDWMEALS PO Last administered on 04/09/20at 10:09; Start 04/09/20 at 10:00; Stop 04/09/20 at 18:25; Status DC Multivitamins (Thera M Plus) 1 tab DAILY PO Last administered on 04/12/20at 08:54; Start 04/09/20 at 10:00 Spironolactone (Aldactone) 25 mg DAILY PO Last administered on 04/09/20at 10:09; Start 04/09/20 at 10:00; Stop 04/09/20 at 16:41; Status DC Info (Anti-Coagulation Monitoring By Pharmacy) 1 each PRN DAILY PRN MC SEE COMMENTS; Start 04/09/20 at 09:30 Dofetilide (Tikosyn) 250 mcg BID PO Last administered on 04/12/20at 08:55; Start 04/09/20 at 10:00 Metoprolol Succinate (Toprol Xl) 12.5 mg QHS PO Last administered on 04/11/20at 20:22; Start 04/09/20 at 21:00 Hydromorphone HCl (Dilaudid) 2 mg PRN Q3HRS PRN IVP PAIN Last administered on 04/12/20at 08:55; Start 04/09/20 at 13:45 Non-Formulary Medication 48 ea DAILY SQ Last administered on 04/12/20at 09:07; Start 04/09/20 at 17:30 Spironolactone (Aldactone) 25 mg DAILY PO Last administered on 04/12/20at 08:54; Start 04/10/20 at 09:00 Metformin HCl (Glucophage) 1,000 mg BID PO Last administered on 04/12/20at 08:54; Start 04/09/20 at 21:00 Ringer's Solution 1,000 ml @ 50 mls/hr Q20H IV ; Start 04/11/20 at 07:00; Stop 04/11/20 at 18:59; Status DC Lidocaine HCl (Buffered Lidocaine 1%) 3 ml STK-MED ONCE .ROUTE ; Start 04/11/20 at 12:58; Stop 04/11/20 at 12:58; Status DC Lidocaine HCl (Buffered Lidocaine 1%) 3 ml STK-MED ONCE .ROUTE ; Start 04/11/20 at 13:13; Stop 04/11/20 at 13:14; Status DC Iohexol (Omnipaque 240 Mg/ml) 50 ml STK-MED ONCE .ROUTE ; Start 04/11/20 at 13:14; Stop 04/11/20 at 13:14; Status DC Midazolam HCl (Versed) 2 mg STK-MED ONCE .ROUTE ; Start 04/11/20 at 13:26; Stop 04/11/20 at 13:27; Status DC Fentanyl Citrate (Fentanyl 5ml Vial) 250 mcg STK-MED ONCE .ROUTE ; Start 04/11/20 at 13:26; Stop 04/11/20 at 13:27; Status DC Propofol (Diprivan) 200 mg STK-MED ONCE IV ; Start 04/11/20 at 13:31; Stop 04/11/20 at 13:32; Status DC Propofol 50 ml @ As Directed STK-MED ONCE IV ; Start 04/11/20 at 13:31; Stop 04/11/20 at 13:32; Status DC Midazolam HCl (Versed) 2 mg STK-MED ONCE .ROUTE ; Start 04/11/20 at 13:32; Stop 04/11/20 at 13:32; Status DC Midazolam HCl (Versed) 2 mg 1X ONCE IV Last administered on 04/11/20at 13:33; Start 04/11/20 at 13:45; Stop 04/11/20 at 13:50; Status DC Fentanyl Citrate (Fentanyl 5ml Vial) 100 mcg 1X ONCE IV Last administered on 04/11/20at 13:33; Start 04/11/20 at 13:45; Stop 04/11/20 at 13:50; Status DC Ketamine HCl (Ketamine) 50 mg STK-MED ONCE .ROUTE ; Start 04/11/20 at 13:48; Stop 04/11/20 at 13:48; Status DC Cefazolin Sodium/ Dextrose 50 ml @ As Directed STK-MED ONCE IV ; Start 04/11/20 at 14:03; Stop 04/11/20 at 14:04; Status DC Lidocaine HCl (Buffered Lidocaine 1%) 3 ml 1X ONCE IJ Last administered on 04/11/20at 13:40; Start 04/11/20 at 14:15; Stop 04/11/20 at 14:19; Status DC Iohexol (Omnipaque 240 Mg/ml) 50 ml 1X ONCE IJ Last administered on 04/11/20at 14:15; Start 04/11/20 at 14:15; Stop 04/11/20 at 14:19; Status DC Cefazolin Sodium/ Dextrose 50 ml @ 100 mls/hr 1X ONCE IV Last administered on 04/11/20at 14:12; Start 04/11/20 at 14:15; Stop 04/11/20 at 14:44; Status DC Sodium Chloride (Saline Mist Nasal) 1 celestina PRN Q1HR PRN NS NASAL CONGESTION Last administered on 04/11/20at 19:24; Start 04/11/20 at 19:15 Active Scripts Active Reported Furosemide 40 Mg Tablet 1 Tab PO DAILY Tikosyn (Dofetilide) 250 Mcg Capsule 250 Mcg PO BID Eliquis (Apixaban) 5 Mg Tablet 5 Mg PO BID Zetia (Ezetimibe) 10 Mg Tablet 10 Mg PO DAILY Metoprolol Succinate ( Xl ) (Metoprolol Succinate) 25 Mg Tab.er.24h 12.5 Mg PO DAILY One-Daily Multi-Vitamin (Multivitamin) 1 Each Tablet 1 Tab PO DAILY 30 Days Lantus Solostar (Insulin Glargine,Hum.rec.anlog) 100 Unit/1 Ml Insuln.pen 48 Unit SQ HS Spironolactone 50 Mg Tablet 0.5 Tab PO DAILY Entresto 24 mg-26 mg Tablet (Sacubitril/Valsartan) 1 Each Tablet 1 Each PO BID Metformin Hcl 1,000 Mg Tablet 1,000 Mg PO BIDWMEALS Levothyroxine Sodium 75 Mcg Tablet 150 Mcg PO DAILY Vitals/I & O Vital Sign - Last 24 Hours 04/11/20 04/11/20 04/11/20 04/11/20 10:01 11:00 13:33 13:41 Temp 98.0 98.0 Pulse 72 88 Resp 16 18 23 11 B/P (MAP) 122/60 (80) Pulse Ox 99 94 98 O2 Delivery Room Air Room Air Nasal Cannula Nasal Cannula O2 Flow Rate 2.0 2.0 04/11/20 04/11/20 04/11/20 04/11/20 13:47 14:55 14:55 15:10 Temp 98.0 98.0 Pulse 97 99 97 Resp 10 18 18 B/P (MAP) 110/72 108/73 Pulse Ox 98 98 97 O2 Delivery Nasal Cannula Nasal Cannula Room Air Nasal Cannula O2 Flow Rate 2.0 2.0 2.0 2.0 04/11/20 04/11/20 04/11/20 04/11/20 15:25 15:40 15:43 15:45 Temp 98 98.6 98.0 98.6 Pulse 95 91 77 Resp 18 18 18 B/P (MAP) 109/67 119/76 124/76 (92) Pulse Ox 95 94 96 O2 Delivery Nasal Cannula Nasal Cannula Nasal Cannula Room Air O2 Flow Rate 2.0 2.0 2.0 04/11/20 04/11/20 04/11/20 04/11/20 16:00 16:15 16:30 16:45 Pulse 99 100 97 102 B/P (MAP) 105/72 (83) 125/77 (93) 127/79 (95) 125/72 (89) Pulse Ox 93 94 93 94 O2 Delivery Room Air Room Air Room Air 04/11/20 04/11/20 04/11/20 04/11/20 17:00 17:30 19:24 19:25 Temp 98.1 98.1 Pulse 81 96 100 Resp 18 B/P (MAP) 120/80 (93) 102/66 (78) 144/75 (98) Pulse Ox 91 95 97 O2 Delivery Room Air Nasal Cannula Room Air Room Air 04/11/20 04/11/20 04/11/20 04/11/20 19:30 20:22 20:22 20:23 Pulse 100 100 B/P (MAP) 144/75 144/75 O2 Delivery Room Air Room Air 04/11/20 04/11/20 04/11/20 04/12/20 22:31 23:00 23:20 02:02 Temp 97.6 97.6 Pulse 93 Resp 18 B/P (MAP) 99/49 (66) Pulse Ox 94 O2 Delivery Room Air Room Air Room Air Room Air 04/12/20 04/12/20 04/12/20 04/12/20 02:34 03:12 05:58 06:36 Temp 97.8 97.8 Pulse 80 Resp 18 B/P (MAP) 93/50 (64) Pulse Ox 96 O2 Delivery Room Air Room Air Room Air Room Air 04/12/20 04/12/20 04/12/20 07:00 08:54 08:55 Temp 97.3 97.3 Pulse 90 90 Resp 18 22 B/P (MAP) 110/64 (79) 110/64 Pulse Ox 98 O2 Delivery Room Air Room Air Intake and Output 04/11/20 04/11/20 04/12/20 15:00 23:00 07:00 Intake Total 550 ml 480 ml Output Total 550 ml Balance 550 ml -70 ml Justifications for Admission Other Justification intractable back pain JOSE RAFAEL NORTON MD Apr 12, 2020 10:03
--- NOTE | 2020-04-12 10:09 | NUR ---
SW following. Discussed with RN, pt from home with , room air ada diet. Pt had bone marrow biopsy and kyphoplasty 04/11/2020. Pt wanting to discharge home to[place]. RN advised pt is independent, no SW needs at discharge. Anticipate possible discharge home today. SW will continue to follow.
[2020-04-12 11:00] VITALS: BP 114/70
--- NOTE | 2020-04-12 12:38 | PDOC ---
PROGRESS NOTES Date of Service: DATE: 04/12/20 TIME: 12:38 Chief Complaint Chief Complaint Images: Images Spine MRI Impression: 1. There are multiple edematous marrow lesions, evidence of metastatic disease or multiple myeloma. There is degree of pathologic compression deformity of L2 and to lesser degree of L4 which may be more recent as there is associated marrow edema, no osseous retropulsion. 2. There is no significant lumbar spinal stenosis. There is mild neural foramina compromise as stated. Assessment/Plan Assessment/Plan Intractable back pain due to multiple edematous marrow lesions, evidence of metastatic disease or multiple myeloma Pathologic compression fracture of L2 and L4 pathologic compression deformity of L2 and to lesser degree of L4 which may be more recent as there is associated marrow edema, no osseous retropulsion. Anemia of unclear etiology Elevated gamma gap Hyponatremia hx Ischemic cardiomyopathy 2018 echo Ejection Fraction is 35-40%.global hypokinesis of the left ve ntricle.moderately severe mitral regurgitation. Ischemic CMP with EF of 20-25% 12/07 cardiac cath Chronic systolic heart failure Atrial fibrillation Hypertension Coronary artery disease Diabetes mellitus type 2 plan Admit to medicine for further management Neurology consult Oncology consult cardiology consult , pt refusing tele monitor ama IV pain control as needed Serial neuro checks Lovenox for DVT prophylaxis ADA diet Full code Bone marrow biopsy 24 hour urine for TV, Protein, Creatinine, Protein electrophoresis, Protein immunoelectrophoresis, [place] and Lambda light chains. Skeletal survey. Discussed with RN and SW Disposition inpatient care Surrogate decision maker is the inc dilaudid to 2 mg iv q 3 hrs prn severe pain, consult cardiology, to tele bed 37 min pt exam, chart review, > 50% of time spent with exam, chart review, pt care coordination Justifications for Admission Justifications for Admission Other Justification INTRACTABLE PAIN History of Present Illness History of Present Illness Chief Complaint: Chief Complain: Back Pain History of Present Illness: HPI: 60 year old male with history of diabetes type 2, hypertension, A. fib, who presents the ED today to be evaluated for moderate low back pain that he states has been going on since January but has gotten worse in the last couple days with back spasms today, he reports the last time he had back spasms was 15 years ago. Patient states he did follow-up with his PCP as well as a chiropractor for the back pain towards the end of February. He had an MRI done at [facility] 3 days ago but he does not know the results. Patient denies any loss of bowel/bladder function. Denies any injury. Denies any pain radiating to bilateral lower extremities. He states his pain is worse on movement. He states he tried taking his hydrocodone and Flexeril with no relief. Of note, patient did experience 1 episode of fall which she fell to his right side and had a rib pain. Patient has had routine colonoscopy screening starting at age 44 and had it every 5 years without any positive findings. Patient is up-to-date with his Pneumovax Past Medical/Surgical History: PMH/PSH: Past Medical History: A-Fib, CAD, Diabetes-Type II, Hypertension, annamarie mountain spotted fever Past Surgical History: Appendectomy, Pacemaker, splenectomy, knee surgery Allergies: Allergies: Coded Allergies: amiodarone (Verified Allergy, Severe, Shortness of Air, 12/06/18) meperidine (Verified Allergy, Severe, Shortness of Air, 12/06/18) Nvcaaya-Etw-Ihz Reductase Inhibitor (Verified Adverse Reaction, Intermediate, 12/06/18) pt states he has a severe liver reaction lisinopril (Verified Adverse Reaction, Mild, 12/06/18) Cough-pt refuses to take medication due to rxn Family History: Family History: Father with hairy cell leukemia Social History: Social History: Smoking Status: Never Smoker Alcohol Use: Occasionally Drug Use: None Current Medications: Vitals Vitals Vital Signs Date Time Temp Pulse Resp B/P (MAP) Pulse Ox O2 Delivery O2 Flow Rate FiO2 04/12/20 11:00 97.3 86 18 114/70 (85) 98 Room Air 97.3 04/11/20 15:43 2.0 Physical Exam Physical Exam Physcial Exam: GEN: NO apparent distress. Alert and oriented HEENT: Normal cephalic, atraumatic, external auditory canals are patent EYES: Extraocular muscles are intact, pupil are equally round and reactive to light and accommodation MUSCULOSKELETAL: Well developed , well nourished, good range of motion ENDOCRINE: No thyromegaly was palpated LYMPHATICS: No cervical chain or axillary nodes were noted HEMATOPOIETIC: No bruising NECK: Supple, no JVD, no thyromegaly was noted LUNGS: Clear to auscultation in all lung hernandez without rhonchi or wheezing HEART: RRR, S!, S2 present. Peripheral pulses intact, no obvious murmurs noted ABDOMEN: Soft, nontender. Positive bowel sounds, no organomegaly, normal bowel sounds EXTREMITIES: Without clubbing, cyanosis, or edema. Pedal pulses intact. Negative Homans sign NEUROLOGIC: Normal speech and tone. A&O x 3, moves all extremities, no obvious focal deficits any movement causes severe pain PSYCHIATRIC: Normal affect, normal mood. Stable SKIN: No ulcerations or rashes, good skin turgor, no jaundice VASCULAR: Good capillary refill, neurovascular bundle appears to be intact General: Alert, Oriented X3, Cooperative, mild distress Heart: Regular rate, Normal S1, Normal S2, Other (AIDC left upper chest) Lungs: Clear Abdomen: Normal bowel sounds, Soft, No tenderness, No hepatosplenomegaly Extremities: No clubbing, No cyanosis, No edema Skin: No significant lesion Labs LABS Laboratory Tests Test 04/11/20 15:06 04/11/20 16:45 04/11/20 20:56 04/12/20 07:44 Glucose (Fingerstick) 87 mg/dL (70-99) 76 mg/dL (70-99) 112 mg/dL (70-99) 63 mg/dL (70-99) Test 04/12/20 08:10 04/12/20 11:47 Glucose (Fingerstick) 75 mg/dL (70-99) 95 mg/dL (70-99) Assessment and Plan Assessmemt and Plan Problems Medical Problems: (1) Intractable low back pain Status: Acute (2) Lumbar disc lesion Status: Acute (3) Multiple myeloma Status: Acute Comment Review of Relevant I have reviewed the following items caity (where applicable) has been applied. Labs Laboratory Tests Test 04/10/20 15:55 04/10/20 16:27 04/11/20 08:23 04/11/20 10:56 Coronavirus (PCR) Not detected (Not Detected) SARS-CoV-2 Antigen (Rapid) Negative (NEGATIVE) Glucose (Fingerstick) 136 mg/dL (70-99) 92 mg/dL (70-99) White Blood Count 6.9 x10^3/uL (4.0-11.0) Red Blood Count 3.31 x10^6/uL (4.30-5.70) Hemoglobin 11.4 g/dL (13.0-17.5) Hematocrit 33.5 % (39.0-53.0) Mean Corpuscular Volume 101 fL (79-100) Mean Corpuscular Hemoglobin 34 pg (25-35) Mean Corpuscular Hemoglobin Concent 34 g/dL (31-37) Red Cell Distribution Width 13.9 % (11.5-14.5) Platelet Count 209 x10^3/uL (140-400) Neutrophils (%) (Auto) 60 % (31-73) Lymphocytes (%) (Auto) 30 % (24-48) Monocytes (%) (Auto) 7 % (0-9) Eosinophils (%) (Auto) 3 % (0-3) Basophils (%) (Auto) 1 % (0-3) Neutrophils # (Auto) 4.1 x10^3/uL (1.8-7.7) Lymphocytes # (Auto) 2.1 x10^3/uL (1.0-4.8) Monocytes # (Auto) 0.5 x10^3/uL (0.0-1.1) Eosinophils # (Auto) 0.2 x10^3/uL (0.0-0.7) Basophils # (Auto) 0.0 x10^3/uL (0.0-0.2) Lactate Dehydrogenase 249 U/L (85-227) Prostate Specific Antigen 0.24 ng/mL (0.00-4.00) Thyroid Stimulating Hormone (TSH) 4.306 uIU/mL (0.358-3.74) Test 04/11/20 15:06 04/11/20 16:45 04/11/20 20:56 04/12/20 07:44 Glucose (Fingerstick) 87 mg/dL (70-99) 76 mg/dL (70-99) 112 mg/dL (70-99) 63 mg/dL (70-99) Test 04/12/20 08:10 04/12/20 11:47 Glucose (Fingerstick) 75 mg/dL (70-99) 95 mg/dL (70-99) Laboratory Tests Test 04/11/20 15:06 04/11/20 16:45 04/11/20 20:56 04/12/20 07:44 Glucose (Fingerstick) 87 mg/dL (70-99) 76 mg/dL (70-99) 112 mg/dL (70-99) 63 mg/dL (70-99) Test 04/12/20 08:10 04/12/20 11:47 Glucose (Fingerstick) 75 mg/dL (70-99) 95 mg/dL (70-99) Medications Current Medications Hydromorphone HCl (Dilaudid) 1 mg 1X ONCE IVP Last administered on 04/08/20at 13:41; Start 04/08/20 at 13:15; Stop 04/08/20 at 13:16; Status DC Sodium Chloride 1,000 ml @ 1,000 mls/hr 1X ONCE IV Last administered on 04/08/20at 13:39; Start 04/08/20 at 13:15; Stop 04/08/20 at 14:14; Status DC Ondansetron HCl (Zofran) 4 mg 1X ONCE IVP Last administered on 04/08/20at 13:42; Start 04/08/20 at 13:15; Stop 04/08/20 at 13:16; Status DC Diazepam (Valium) 5 mg 1X ONCE PO Last administered on 04/08/20at 13:44; Start 04/08/20 at 13:15; Stop 04/08/20 at 13:16; Status DC Ondansetron HCl (Zofran) 4 mg PRN Q8HRS PRN IV NAUSEA/VOMITING Last administered on 04/08/20at 15:35; Start 04/08/20 at 14:15; Stop 04/09/20 at 1 4:14; Status DC Hydromorphone HCl (Dilaudid) 1 mg PRN Q3HRS PRN IVP PAIN Last administered on 04/09/20at 10:03; Start 04/08/20 at 14:15; Stop 04/09/20 at 13:42; Status DC Sennosides (Senna) 17.2 mg PRN BID PRN PO CONSTIPATION; Start 04/08/20 at 17:1 5 Docusate Sodium (Colace) 100 mg PRN DAILY PRN PO HARD STOOLS; Start 04/08/20 at 17:15 Ondansetron HCl (Zofran) 4 mg PRN Q6HRS PRN IVP NAUSEA/VOMITING; Start 04/08/20 at 17:15 Potassium Chloride (Klor-Con) 40 meq 1X PRN PO PER PROTOCOL; Start 04/08/20 at 17:15; Stop 04/08/20 at 17:25; Status DC Magnesium Oxide (Magnesium Oxide) 400 mg BID PO ; Start 04/08/20 at 21:00; St op 04/08/20 at 17:24; Status DC Potassium Chloride/Water 100 ml @ 100 mls/hr Q1H IV ; Start 04/08/20 at 17:15; Stop 04/08/20 at 17:25; Status DC Magnesium Sulfate 50 ml @ 25 mls/hr Q24H IV ; Start 04/08/20 at 17:15; Stop 04/08/20 at 17:24; Status DC Potassium Chloride/Water 100 ml @ 100 mls/hr Q1H PRN IV low k; Start 04/08/20 at 17:15; Stop 04/08/20 at 17:25; Status DC Insulin Human Lispro (HumaLOG) 0-7 UNITS TIDWMEALS SQ ; Start 04/09/20 at 08:00; Stop 04/09/20 at 12:05; Status DC Dextrose (Dextrose 50%-Water Syringe) 12.5 gm PRN Q15MIN PRN IV SEE COMMENTS; Start 04/08/20 at 17:15 Acetaminophen (Tylenol) 650 mg PRN Q4HRS PRN PO TEMP OVER 100.4F OR MILD PAIN; Start 04/08/20 at 17:15 Enoxaparin Sodium (Lovenox 40mg Syringe) 40 mg Q24H SQ Last administered on 04/08/20at 18:31; Start 04/08/20 at 18:00 Info (Non-Icu Electrolyte Protocol) 1 ea CONT PRN PRN MC SEE COMMENTS; Start 04/08/20 at 17:30 Influenza Virus Vaccine Quadrival (Fluzone Quad Syringe) 0.5 ml ONCE ONCE VAX IM Last administered on 04/08/20at 20:19; Start 04/08/20 at 20:00; Stop 04/08/20 at 20:01; Status DC Apixaban (Eliquis) 5 mg BID PO Last administered on 04/09/20at 09:30; Start 04/09/20 at 09:30; Stop 04/09/20 at 16:41; Status DC Dofetilide (Tikosyn) 250 mcg BID PO ; Start 04/09/20 at 09:30; Stop 04/09/20 at 09:37; Status DC EZETIMIBE (Zetia) 10 mg DAILY PO Last administered on 04/12/20 08:53; Start 04/09/20 at 09:30 Furosemide (Lasix) 40 mg DAILY PO Last administered on 04/09/20at 10:05; Start 04/09/20 at 10:00; Stop 04/09/20 at 17:50; Status DC Levothyroxine Sodium (Synthroid) 150 mcg DAILY06 PO Last administered on at 06:36; Start 04/09/20 at 10:30 Metoprolol Succinate (Toprol Xl) 12.5 mg DAILY PO ; Start 04/09/20 at 10:00; Stop 04/09/20 at 09:55; Status DC Sacubitril/ Valsartan (Entresto 24 Mg-26 Mg) 1 tab BID PO Last administered on 04/12/20at 08:54; Start 04/09/20 at 10:00 Non-Formulary Medication 48 ea DAILY SQ ; Start 04/09/20 at 17:30; Stop 04/09/20 at 17:18; Status DC Metformin HCl (Glucophage) 1,000 mg BIDWMEALS PO Last administered on 04/09/20 10:09; Start 04/09/20 at 10:00; Stop 04/09/20 at 18:25; Status DC Multivitamins (Thera M Plus) 1 tab DAILY PO Last administered on 04/12/20at 08:54; Start 04/09/20 at 10:00 Spironolactone (Aldactone) 25 mg DAILY PO Last administered on 04/09/20 10:09; Start 04/09/20 at 10:00; Stop 04/09/20 at 16:41; Status DC Info (Anti-Coagulation Monitoring By Pharmacy) 1 each PRN DAILY PRN MC SEE COMMENTS; Start 04/09/20 at 09:30 Dofetilide (Tikosyn) 250 mcg BID PO Last administered on 04/12/20at 08:55; Start 04/09/20 at 10:00 Metoprolol Succinate (Toprol Xl) 12.5 mg QHS PO Last administered on 04/11/20at 20:22; Start 04/09/20 at 21:00 Hydromorphone HCl (Dilaudid) 2 mg PRN Q3HRS PRN IVP PAIN Last administered on 04/12/20at 08:55; Start 04/09/20 at 13:45 Non-Formulary Medication 48 ea DAILY SQ Last administered on 04/12/20at 09:07; Start 04/09/20 at 17:30 Spironolactone (Aldactone) 25 mg DAILY PO Last administered on 04/12/20at 08:54; Start 04/10/20 at 09:00 Metformin HCl (Glucophage) 1,000 mg BID PO Last administered on 04/12/20at 08:54; Start 04/09/20 at 21:00 Ringer's Solution 1,000 ml @ 50 mls/hr Q20H IV ; Start 04/11/20 at 07:00; Stop 04/11/20 at 18:59; Status DC Lidocaine HCl (Buffered Lidocaine 1%) 3 ml STK-MED ONCE .ROUTE ; Start 04/11/20 at 12:58; Stop 04/11/20 at 12:58; Status DC Lidocaine HCl (Buffered Lidocaine 1%) 3 ml STK-MED ONCE .ROUTE ; Start 04/11/20 at 13:13; Stop 04/11/20 at 13:14; Status DC Iohexol (Omnipaque 240 Mg/ml) 50 ml STK-MED ONCE .ROUTE ; Start 04/11/20 at 13:14; Stop 04/11/20 at 13:14; Status DC Midazolam HCl (Versed) 2 mg STK-MED ONCE .ROUTE ; Start 04/11/20 at 13:26; Stop 04/11/20 at 13:27; Status DC Fentanyl Citrate (Fentanyl 5ml Vial) 250 mcg STK-MED ONCE .ROUTE ; Start 04/11/20 at 13:26; Stop 04/11/20 at 13:27; Status DC Propofol (Diprivan) 200 mg STK-MED ONCE IV ; Start 04/11/20 at 13:31; Stop 04/11/20 at 13:32; Status DC Propofol 50 ml @ As Directed STK-MED ONCE IV ; Start 04/11/20 at 13:31; Stop 04/11/20 at 13:32; Status DC Midazolam HCl (Versed) 2 mg STK-MED ONCE .ROUTE ; Start 04/11/20 at 13:32; Stop 04/11/20 at 13:32; Status DC Midazolam HCl (Versed) 2 mg 1X ONCE IV Last administered on 04/11/20at 13:33; Start 04/11/20 at 13:45; Stop 04/11/20 at 13:50; Status DC Fentanyl Citrate (Fentanyl 5ml Vial) 100 mcg 1X ONCE IV Last administered on 04/11/20at 13:33; Start 04/11/20 at 13:45; Stop 04/11/20 at 13:50; Status DC Ketamine HCl (Ketamine) 50 mg STK-MED ONCE .ROUTE ; Start 04/11/20 at 13:48; Stop 04/11/20 at 13:48; Status DC Cefazolin Sodium/ Dextrose 50 ml @ As Directed STK-MED ONCE IV ; Start 04/11/20 at 14:03; Stop 04/11/20 at 14:04; Status DC Lidocaine HCl (Buffered Lidocaine 1%) 3 ml 1X ONCE IJ Last administered on 04/11/20at 13:40; Start 04/11/20 at 14:15; Stop 04/11/20 at 14:19; Status DC Iohexol (Omnipaque 240 Mg/ml) 50 ml 1X ONCE IJ Last administered on 04/11/20at 14:15; Start 04/11/20 at 14:15; Stop 04/11/20 at 14:19; Status DC Cefazolin Sodium/ Dextrose 50 ml @ 100 mls/hr 1X ONCE IV Last administered on 04/11/20at 14:12; Start 04/11/20 at 14:15; Stop 04/11/20 at 14:44; Status DC Sodium Chloride (Saline Mist Nasal) 1 celestina PRN Q1HR PRN NS NASAL CONGESTION Last administered on 04/11/20at 19:24; Start 04/11/20 at 19:15 Bisacodyl (Dulcolax Tab) 10 mg PRN DAILY PRN PO CONSTIPATION Last administered on 04/12/20at 10:10; Start 04/12/20 at 10:00; Stop 04/12/20 at 10:30; Status DC Magnesium Citrate (Citroma) 296 ml 1X ONCE PO Last administered on 04/12/20at 10:00; Start 04/12/20 at 10:00; Stop 04/12/20 at 10:01; Status DC Diphenhydramine HCl (Benadryl) 25 mg PRN Q6HRS PRN PO ITCHING; Start 04/12/20 at 11:15 Active Scripts Active Reported Furosemide 40 Mg Tablet 1 Tab PO DAILY Tikosyn (Dofetilide) 250 Mcg Capsule 250 Mcg PO BID Eliquis (Apixaban) 5 Mg Tablet 5 Mg PO BID Zetia (Ezetimibe) 10 Mg Tablet 10 Mg PO DAILY Metoprolol Succinate ( Xl ) (Metoprolol Succinate) 25 Mg Tab.er.24h 12.5 Mg PO DAILY One-Daily Multi-Vitamin (Multivitamin) 1 Each Tablet 1 Tab PO DAILY 30 Days Lantus Solostar (Insulin Glargine,Hum.rec.anlog) 100 Unit/1 Ml Insuln.pen 48 Unit SQ HS Spironolactone 50 Mg Tablet 0.5 Tab PO DAILY Entresto 24 mg-26 mg Tablet (Sacubitril/Valsartan) 1 Each Tablet 1 Each PO BID Metformin Hcl 1,000 Mg Tablet 1,000 Mg PO BIDWMEALS Levothyroxine Sodium 75 Mcg Tablet 150 Mcg PO DAILY Vitals/I & O Vital Sign - Last 24 Hours 04/11/20 04/11/20 04/11/20 04/11/20 13:33 13:41 13:47 14:55 Temp 98.0 98.0 Pulse 88 97 99 Resp 23 11 10 18 B/P (MAP) 110/72 Pulse Ox 94 98 98 98 O2 Delivery Nasal Cannula Nasal Cannula Nasal Cannula Nasal Cannula O2 Flow Rate 2.0 2.0 2.0 2.0 04/11/20 04/11/20 04/11/20 04/11/20 14:55 15:10 15:25 15:40 Temp 98 98.0 Pulse 97 95 91 Resp 18 18 18 B/P (MAP) 108/73 109/67 119/76 Pulse Ox 97 95 94 O2 Delivery Room Air Nasal Cannula Nasal Cannula Nasal Cannula O2 Flow Rate 2.0 2.0 2.0 2.0 04/11/20 04/11/20 04/11/20 04/11/20 15:43 15:45 16:00 16:15 Temp 98.6 98.6 Pulse 77 99 100 Resp 18 B/P (MAP) 124/76 (92) 105/72 (83) 125/77 (93) Pulse Ox 96 93 94 O2 Delivery Nasal Cannula Room Air Room Air O2 Flow Rate 2.0 04/11/20 04/11/20 04/11/20 04/11/20 16:30 16:45 17:00 17:30 Pulse 97 102 81 96 B/P (MAP) 127/79 (95) 125/72 (89) 120/80 (93) 102/66 (78) Pulse Ox 93 94 91 95 O2 Delivery Room Air Room Air Room Air Nasal Cannula 04/11/20 04/11/20 04/11/20 04/11/20 19:24 19:25 19:30 20:22 Temp 98.1 98.1 Pulse 100 100 Resp 18 B/P (MAP) 144/75 (98) 144/75 Pulse Ox 97 O2 Delivery Room Air Room Air Room Air 04/11/20 04/11/20 04/11/20 04/11/20 20:22 20:23 22:31 23:00 Pulse 100 B/P (MAP) 144/75 O2 Delivery Room Air Room Air Room Air 04/11/20 04/12/20 04/12/20 04/12/20 23:20 02:02 02:34 03:12 Temp 97.6 97.8 97.6 97.8 Pulse 93 80 Resp 18 18 B/P (MAP) 99/49 (66) 93/50 (64) Pulse Ox 94 96 O2 Delivery Room Air Room Air Room Air Room Air 04/12/20 04/12/20 04/12/20 04/12/20 05:58 06:36 07:00 08:45 Temp 97.3 97.3 Pulse 90 Resp 18 B/P (MAP) 110/64 (79) Pulse Ox 98 O2 Delivery Room Air Room Air Room Air Room Air 04/12/20 04/12/20 04/12/20 04/12/20 08:54 08:55 09:30 11:00 Temp 97.3 97.3 Pulse 90 86 Resp 22 18 B/P (MAP) 110/64 114/70 (85) Pulse Ox 98 O2 Delivery Room Air Room Air Room Air Intake and Output 04/11/20 04/11/20 04/12/20 15:00 23:00 07:00 Intake Total 550 ml 480 ml Output Total 550 ml Balance 550 ml -70 ml Justicifation of Admission Dx: Justifications for Admission: Justification of Admission Dx: Yes Chronic Renal Failure: Intravenous Infusions Fracture: Fracture GRACIA CASTANEDA MD Apr 12, 2020 12:38
[2020-04-12 13:02] LABS: BASO % 1 % (0-3); EOS # 0.1 x10^3/uL (0.0-0.7); EOS % 2 % (0-3); HEMATOCRIT 34.9 % (39.0-53.0); HEMOGLOBIN 12.2 g/dL (13.0-17.5); LYMPH # 2.2 x10^3/uL (1.0-4.8); LYMPH % 31 % (24-48); MEAN CORPUSCULAR HEMOGLOBIN 35 pg (25-35); MEAN CORPUSCULAR HGB CONC 35 g/dL (31-37); MEAN CORPUSCULAR VOLUME 101 fL (79-100); MONO # 0.3 x10^3/uL (0.0-1.1); MONO % 5 % (0-9); NEUT # 4.3 x10^3/uL (1.8-7.7); NEUT % 62 % (31-73); PLATELET COUNT 210 x10^3/uL (140-400); RED BLOOD COUNT 3.47 x10^6/uL (4.30-5.70); WHITE BLOOD COUNT 6.9 x10^3/uL (4.0-11.0)
[2020-04-12 13:07] LABS: ALBUMIN 3.3 g/dL (3.4-5.0); ALBUMIN/GLOBULIN RATIO 0.4 (1.0-1.7); CALCIUM 9.9 mg/dL (8.5-10.1); CREATININE 1.4 mg/dL (0.7-1.3); GFR 51.5; POTASSIUM 4.1 mmol/L (3.5-5.1); TOTAL BILIRUBIN 0.6 mg/dL (0.2-1.0); TOTAL PROTEIN 10.9 g/dL (6.4-8.2); URIC ACID 9.4 mg/dL (3.5-7.2)
[2020-04-12] MEDS: diphenhydrAMINE HCL 25 MG CAPSULE PO PRN ×2 (14:17→20:31)
[2020-04-12 15:00] VITALS: BP 112/72
--- NOTE | 2020-04-12 16:05 | PDOC ---
PROGRESS NOTES Date of Service DATE: 04/12/20 TIME: 15:52 Subjective Subjective Did well with biopsies. Has spasms to side of vertebra but less pain in midline. Reviewed lab findings with patient. Creatinine higher today. ROS: Eyes: No changes in vision ENT Nosebleeds. Heart no pain or palpitations Resp No cough, shortness of air GI constipation. Had MagCitrate today No dysuria or urinary symptoms MS Back pain No leg weakness Neuro: No headache no numbness. Objective Objective Vital Signs Date Time Temp Pulse Resp B/P (MAP) Pulse Ox O2 Delivery O2 Flow Rate FiO2 04/12/20 15:00 97.5 84 16 112/72 (85) 99 Room Air 97.5 04/11/20 15:43 2.0 Intake and Output 04/12/20 07:00 Intake Total 1030 ml Output Total 550 ml Balance 480 ml Intake Oral 780 ml IV Total 250 ml Output Urine Total 550 ml # Voids 1 Physical Exam Abdomen: Soft, No tenderness, No hepatosplenomegaly Heart: Regular rate, Normal S1, Normal S2 Extremities: No cyanosis, No edema General: Alert, Cooperative HEENT: PERRLA, EOMI, Other (Mucous membranes dry) Lungs: Clear to auscultation MUSCULOSKELETAL: No deformity, No swelling Neck: Supple, No LAD Neuro: Normal speech, Cranial nerves 3-12 NL Skin: Other (Excoriation on arms) Assessment Assessment Problems Medical Problems: (1) Intractable low back pain Status: Acute (2) Lumbar disc lesion Status: Acute (3) Multiple myeloma Status: Acute IgG kappa Multiple myeloma with 3.2 gm M spike and Marked elevated Free K light chains and K/L ratio. Await bone marrow biopsy. S/P Kyphoplasty. Skelatal survey did not reveal other lesions. Creatinine higher today. Discussed with Dr. Gao. He will add fluids. LDH higher. Uric acid in creased at 9.4 from disease. Will start allopurinol and look at steroids tomorrow. 2. Renal insufficiency with MM. Creatinine up to 1.4. Will give IV fluids and follow. 3. 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 Uric acid 9.4 Start Allopurinol. Item Value Date Time White Blood Count 6.9 x10^3/uL 04/12/20 1228 Hemoglobin 12.2 g/dL L 04/12/20 1228 Platelet Count 210 x10^3/uL 04/12/20 1228 Uric Acid 9.4 mg/dL H 04/12/20 1228 Lactate Dehydrogenase 428 U/L H 04/12/20 1228 Creatinine 1.4 mg/dL H 04/12/20 1228 Total Protein 10.9 g/dL H 04/12/20 1228 Lactate Dehydrogenase 249 U/L H 04/11/20 1056 Will follow up tomorrow Rec: IV fluids to prevent dehydration and renal insult from MM Start allopurinol Discuss treatment options Velcade Rev Dex. CyborD or Darzalex Rev Dex. Will evaluate out of pocket expense for drugs. Because of disease burden, consider starting steroids 8 to 12 mg dexamethasone daily tomorrow. Comment Review of Relevant I have reviewed the following items caity (where applicable) has been applied. Labs Laboratory Tests Test 04/10/20 15:55 04/10/20 16:27 04/11/20 08:23 04/11/20 10:56 Coronavirus (PCR) Not detected (Not Detected) SARS-CoV-2 Antigen (Rapid) Negative (NEGATIVE) Glucose (Fingerstick) 136 mg/dL (70-99) 92 mg/dL (70-99) White Blood Count 6.9 x10^3/uL (4.0-11.0) Red Blood Count 3.31 x10^6/uL (4.30-5.70) Hemoglobin 11.4 g/dL (13.0-17.5) Hematocrit 33.5 % (39.0-53.0) Mean Corpuscular Volume 101 fL (79-100) Mean Corpuscular Hemoglobin 34 pg (25-35) Mean Corpuscular Hemoglobin Concent 34 g/dL (31-37) Red Cell Distribution Width 13.9 % (11.5-14.5) Platelet Count 209 x10^3/uL (140-400) Neutrophils (%) (Auto) 60 % (31-73) Lymphocytes (%) (Auto) 30 % (24-48) Monocytes (%) (Auto) 7 % (0-9) Eosinophils (%) (Auto) 3 % (0-3) Basophils (%) (Auto) 1 % (0-3) Neutrophils # (Auto) 4.1 x10^3/uL (1.8-7.7) Lymphocytes # (Auto) 2.1 x10^3/uL (1.0-4.8) Monocytes # (Auto) 0.5 x10^3/uL (0.0-1.1) Eosinophils # (Auto) 0.2 x10^3/uL (0.0-0.7) Basophils # (Auto) 0.0 x10^3/uL (0.0-0.2) Lactate Dehydrogenase 249 U/L (85-227) Prostate Specific Antigen 0.24 ng/mL (0.00-4.00) Thyroid Stimulating Hormone (TSH) 4.306 uIU/mL (0.358-3.74) Test 04/11/20 15:06 04/11/20 16:45 04/11/20 20:56 04/12/20 07:44 Glucose (Fingerstick) 87 mg/dL (70-99) 76 mg/dL (70-99) 112 mg/dL (70-99) 63 mg/dL (70-99) Test 04/12/20 08:10 04/12/20 11:47 04/12/20 12:28 Glucose (Fingerstick) 75 mg/dL (70-99) 95 mg/dL (70-99) White Blood Count 6.9 x10^3/uL (4.0-11.0) Red Blood Count 3.47 x10^6/uL (4.30-5.70) Hemoglobin 12.2 g/dL (13.0-17.5) Hematocrit 34.9 % (39.0-53.0) Mean Corpuscular Volume 101 fL (79-100) Mean Corpuscular Hemoglobin 35 pg (25-35) Mean Corpuscular Hemoglobin Concent 35 g/dL (31-37) Red Cell Distribution Width 14.0 % (11.5-14.5) Platelet Count 210 x10^3/uL (140-400) Neutrophils (%) (Auto) 62 % (31-73) Lymphocytes (%) (Auto) 31 % (24-48) Monocytes (%) (Auto) 5 % (0-9) Eosinophils (%) (Auto) 2 % (0-3) Basophils (%) (Auto) 1 % (0-3) Neutrophils # (Auto) 4.3 x10^3/uL (1.8-7.7) Lymphocytes # (Auto) 2.2 x10^3/uL (1.0-4.8) Monocytes # (Auto) 0.3 x10^3/uL (0.0-1.1) Eosinophils # (Auto) 0.1 x10^3/uL (0.0-0.7) Basophils # (Auto) 0.0 x10^3/uL (0.0-0.2) Sodium Level 131 mmol/L (136-145) Potassium Level 4.1 mmol/L (3.5-5.1) Chloride Level 99 mmol/L (98-107) Carbon Dioxide Level 26 mmol/L (21-32) Anion Gap 6 (6-14) Blood Urea Nitrogen 22 mg/dL (8-26) Creatinine 1.4 mg/dL (0.7-1.3) Estimated GFR (Cockcroft-Gault) 51.5 BUN/Creatinine Ratio 16 (6-20) Glucose Level 93 mg/dL (70-99) Uric Acid 9.4 mg/dL (3.5-7.2) Calcium Level 9.9 mg/dL (8.5-10.1) Total Bilirubin 0.6 mg/dL (0.2-1.0) Aspartate Amino Transf (AST/SGOT) 36 U/L (15-37) Alanine Aminotransferase (ALT/SGPT) 22 U/L (16-63) Alkaline Phosphatase 92 U/L (46-116) Lactate Dehydrogenase 428 U/L (85-227) Total Protein 10.9 g/dL (6.4-8.2) Albumin 3.3 g/dL (3.4-5.0) Albumin/Globulin Ratio 0.4 (1.0-1.7) Laboratory Tests Test 04/11/20 16:45 04/11/20 20:56 04/12/20 07:44 04/12/20 08:10 Glucose (Fingerstick) 76 mg/dL (70-99) 112 mg/dL (70-99) 63 mg/dL (70-99) 75 mg/dL (70-99) Test 04/12/20 11:47 04/12/20 12:28 Glucose (Fingerstick) 95 mg/dL (70-99) White Blood Count 6.9 x10^3/uL (4.0-11.0) Red Blood Count 3.47 x10^6/uL (4.30-5.70) Hemoglobin 12.2 g/dL (13.0-17.5) Hematocrit 34.9 % (39.0-53.0) Mean Corpuscular Volume 101 fL (79-100) Mean Corpuscular Hemoglobin 35 pg (25-35) Mean Corpuscular Hemoglobin Concent 35 g/dL (31-37) Red Cell Distribution Width 14.0 % (11.5-14.5) Platelet Count 210 x10^3/uL (140-400) Neutrophils (%) (Auto) 62 % (31-73) Lymphocytes (%) (Auto) 31 % (24-48) Monocytes (%) (Auto) 5 % (0-9) Eosinophils (%) (Auto) 2 % (0-3) Basophils (%) (Auto) 1 % (0-3) Neutrophils # (Auto) 4.3 x10^3/uL (1.8-7.7) Lymphocytes # (Auto) 2.2 x10^3/uL (1.0-4.8) Monocytes # (Auto) 0.3 x10^3/uL (0.0-1.1) Eosinophils # (Auto) 0.1 x10^3/uL (0.0-0.7) Basophils # (Auto) 0.0 x10^3/uL (0.0-0.2) Sodium Level 131 mmol/L (136-145) Potassium Level 4.1 mmol/L (3.5-5.1) Chloride Level 99 mmol/L (98-107) Carbon Dioxide Level 26 mmol/L (21-32) Anion Gap 6 (6-14) Blood Urea Nitrogen 22 mg/dL (8-26) Creatinine 1.4 mg/dL (0.7-1.3) Estimated GFR (Cockcroft-Gault) 51.5 BUN/Creatinine Ratio 16 (6-20) Glucose Level 93 mg/dL (70-99) Uric Acid 9.4 mg/dL (3.5-7.2) Calcium Level 9.9 mg/dL (8.5-10.1) Total Bilirubin 0.6 mg/dL (0.2-1.0) Aspartate Amino Transf (AST/SGOT) 36 U/L (15-37) Alanine Aminotransferase (ALT/SGPT) 22 U/L (16-63) Alkaline Phosphatase 92 U/L (46-116) Lactate Dehydrogenase 428 U/L (85-227) Total Protein 10.9 g/dL (6.4-8.2) Albumin 3.3 g/dL (3.4-5.0) Albumin/Globulin Ratio 0.4 (1.0-1.7) Medications Current Medications Hydromorphone HCl (Dilaudid) 1 mg 1X ONCE IVP Last administered on 04/08/20at 13:41; Start 04/08/20 at 13:15; Stop 04/08/20 at 13:16; Status DC Sodium Chloride 1,000 ml @ 1,000 mls/hr 1X ONCE IV Last administered on 04/08/20at 13:39; Start 04/08/20 at 13:15; Stop 04/08/20 at 14:14; Status DC Ondansetron HCl (Zofran) 4 mg 1X ONCE IVP Last administered on 04/08/20at 13:42; Start 04/08/20 at 13:15; Stop 04/08/20 at 13:16; Status DC Diazepam (Valium) 5 mg 1X ONCE PO Last administered on 04/08/20at 13:44; Start 04/08/20 at 13:15; Stop 04/08/20 at 13:16; Status DC Ondansetron HCl (Zofran) 4 mg PRN Q8HRS PRN IV NAUSEA/VOMITING Last admini stered on 04/08/20at 15:35; Start 04/08/20 at 14:15; Stop 04/09/20 at 14:14; Status DC Hydromorphone HCl (Dilaudid) 1 mg PRN Q3HRS PRN IVP PAIN Last administered on 04/09/20at 10:03; Start 04/08/20 at 14:15; Stop 04/09/20 at 13:42; Status DC Sennosides (Senna) 17.2 mg PRN BID PRN PO CONSTIPATION; Start 04/08/20 at 17:15 Docusate Sodium (Colace) 100 mg PRN DAILY PRN PO HARD STOOLS; Start 04/08/20 at 17:15 Ondansetron HCl (Zofran) 4 mg PRN Q6HRS PRN IVP NAUSEA/VOMITING; Start 04/08/20 at 17:15 Potassium Chloride (Klor-Con) 40 meq 1X PRN PO PER PROTOCOL; Start 04/08/20 at 17:15; Stop 04/08/20 at 17:25; Status DC Magnesium Oxide (Magnesium Oxide) 400 mg BID PO ; Start 04/08/20 at 21:00; Stop 04/08/20 at 17:24; Status DC Potassium Chloride/Water 100 ml @ 100 mls/hr Q1H IV ; Start 04/08/20 at 17:15; Stop 04/08/20 at 17:25; Status DC Magnesium Sulfate 50 ml @ 25 mls/hr Q24H IV ; Start 04/08/20 at 17:15; Stop 04/08/20 at 17:24; Status DC Potassium Chloride/Water 100 ml @ 100 mls/hr Q1H PRN IV low k; Start 04/08/20 at 17:15; Stop 04/08/20 at 17:25; Status DC Insulin Human Lispro (HumaLOG) 0-7 UNITS TIDWMEALS SQ ; Start 04/09/20 at 08:00; Stop 04/09/20 at 12:05; Status DC Dextrose (Dextrose 50%-Water Syringe) 12.5 gm PRN Q15MIN PRN IV SEE COMMENTS; Start 04/08/20 at 17:15 Acetaminophen (Tylenol) 650 mg PRN Q4HRS PRN PO TEMP OVER 100.4F OR MILD PAIN; Start 04/08/20 at 17:15 Enoxaparin Sodium (Lovenox 40mg Syringe) 40 mg Q24H SQ Last administered on 04/08/20at 18:31; Start 04/08/20 at 18:00 Info (Non-Icu Electrolyte Protocol) 1 ea CONT PRN PRN MC SEE COMMENTS; Start 04/08/20 at 17:30 Influenza Virus Vaccine Quadrival (Fluzone Quad Syringe) 0.5 ml ONCE ONCE VAX IM Last administered on 04/08/20at 20:19; Start 04/08/20 at 20:00; Stop 04/08/20 at 20:01; Status DC Apixaban (Eliquis) 5 mg BID PO Last administered on 04/09/20at 09:30; Start 04/09/20 at 09:30; Stop 04/09/20 at 16:41; Status DC Dofetilide (Tikosyn) 250 mcg BID PO ; Start 04/09/20 at 09:30; Stop 04/09/20 a t 09:37; Status DC EZETIMIBE (Zetia) 10 mg DAILY PO Last administered on 04/12/20at 08:53; Start 04/09/20 at 09:30 Furosemide (Lasix) 40 mg DAILY PO Last administered on 04/09/20at 10:05; Start 04/09/20 at 10:00; Stop 04/09/20 at 17:50; Status DC Levothyroxine Sodium (Synthroid) 150 mcg DAILY06 PO Last administered on 04/12/20at 06:36; Start 04/09/20 at 10:30 Metoprolol Succinate (Toprol Xl) 12.5 mg DAILY PO ; Start 04/09/20 at 10:00; Stop 04/09/20 at 09:55; Status DC Sacubitril/ Valsartan (Entresto 24 Mg-26 Mg) 1 tab BID PO Last administered on 04/12/20at 08:54; Start 04/09/20 at 10:00 Non-Formulary Medication 48 ea DAILY SQ ; Start 04/09/20 at 17:30; Stop 04/09/20 at 17:18; Status DC Metformin HCl (Glucophage) 1,000 mg BIDWMEALS PO Last administered on 04/09/20at 10:09; Start 04/09/20 at 10:00; Stop 04/09/20 at 18:25; Status DC Multivitamins (Thera M Plus) 1 tab DAILY PO Last administered on 04/12/20at 08:54; Start 04/09/20 at 10:00 Spironolactone (Aldactone) 25 mg DAILY PO Last administered on 04/09/20at 10:09; Start 04/09/20 at 10:00; Stop 04/09/20 at 16:41; Status DC Info (Anti-Coagulation Monitoring By Pharmacy) 1 each PRN DAILY PRN MC SEE COMMENTS; Start 04/09/20 at 09:30 Dofetilide (Tikosyn) 250 mcg BID PO Last administered on 04/12/20at 08:55; Start 04/09/20 at 10:00 Metoprolol Succinate (Toprol Xl) 12.5 mg QHS PO Last administered on 04/11/20at 20:22; Start 04/09/20 at 21:00 Hydromorphone HCl (Dilaudid) 2 mg PRN Q3HRS PRN IVP PAIN Last administered on 04/12/20at 12:39; Start 04/09/20 at 13:45 Non-Formulary Medication 48 ea DAILY SQ Last administered on 04/12/20at 09:07; Start 04/09/20 at 17:30 Spironolactone (Aldactone) 25 mg DAILY PO Last administered on 04/12/20at 08:54; Start 04/10/20 at 09:00 Metformin HCl (Glucophage) 1,000 mg BID PO Last administered on 04/12/20at 08:54; Start 04/09/20 at 21:00 Ringer's Solution 1,000 ml @ 50 mls/hr Q20H IV ; Start 04/11/20 at 07:00; Stop 04/11/20 at 18:59; Status DC Lidocaine HCl (Buffered Lidocaine 1%) 3 ml STK-MED ONCE .ROUTE ; Start 04/11/20 at 12:58; Stop 04/11/20 at 12:58; Status DC Lidocaine HCl (Buffered Lidocaine 1%) 3 ml STK-MED ONCE .ROUTE ; Start 04/11/20 at 13:13; Stop 04/11/20 at 13:14; Status DC Iohexol (Omnipaque 240 Mg/ml) 50 ml STK-MED ONCE .ROUTE ; Start 04/11/20 at 13:14; Stop 04/11/20 at 13:14; Status DC Midazolam HCl (Versed) 2 mg STK-MED ONCE .ROUTE ; Start 04/11/20 at 13:26; Stop 04/11/20 at 13:27; Status DC Fentanyl Citrate (Fentanyl 5ml Vial) 250 mcg STK-MED ONCE .ROUTE ; Start 04/11 at 13:26; Stop 04/11/20 at 13:27; Status DC Propofol (Diprivan) 200 mg STK-MED ONCE IV ; Start 04/11/20 at 13:31; Stop 1 at 13:32; Status DC Propofol 50 ml @ As Directed STK-MED ONCE IV ; Start 04/11/20 at 13:31; Stop 04/11/20 at 13:32; Status DC Midazolam HCl (Versed) 2 mg STK-MED ONCE .ROUTE ; Start 04/11/20 at 13:32; Stop 04/11/20 at 13:32; Status DC Midazolam HCl (Versed) 2 mg 1X ONCE IV Last administered on 04/11/20at 13:33; Start 04/11/20 at 13:45; Stop 04/11/20 at 13:50; Status DC Fentanyl Citrate (Fentanyl 5ml Vial) 100 mcg 1X ONCE IV Last administered on 04/11/20at 13:33; Start 04/11/20 at 13:45; Stop 04/11/20 at 13:50; Status DC Ketamine HCl (Ketamine) 50 mg STK-MED ONCE .ROUTE ; Start 04/11/20 at 13:48; Stop 04/11/20 at 13:48; Status DC Cefazolin Sodium/ Dextrose 50 ml @ As Directed STK-MED ONCE IV ; Start 04/11/20 at 14:03; Stop 04/11/20 at 14:04; Status DC Lidocaine HCl (Buffered Lidocaine 1%) 3 ml 1X ONCE IJ Last administered on 04/11/20at 13:40; Start 04/11/20 at 14:15; Stop 04/11/20 at 14:19; Status DC Iohexol (Omnipaque 240 Mg/ml) 50 ml 1X ONCE IJ Last administered on 04/11/20at 14:15; Start 04/11/20 at 14:15; Stop 04/11/20 at 14:19; Status DC Cefazolin Sodium/ Dextrose 50 ml @ 100 mls/hr 1X ONCE IV Last administered on 04/11/20at 14:12; Start 04/11/20 at 14:15; Stop 04/11/20 at 14:44; Status DC Sodium Chloride (Saline Mist Nasal) 1 celestina PRN Q1HR PRN NS NASAL CONGESTION Last administered on 04/11/20at 19:24; Start 04/11/20 at 19:15 Bisacodyl (Dulcolax Tab) 10 mg PRN DAILY PRN PO CONSTIPATION Last administered on 04/12/20at 10:10; Start 04/12/20 at 10:00; Stop 04/12/20 at 10:30; Status DC Magnesium Citrate (Citroma) 296 ml 1X ONCE PO Last administered on 04/12/20at 10:00; Start 04/12/20 at 10:00; Stop 04/12/20 at 10:01; Status DC Diphenhydramine HCl (Benadryl) 25 mg PRN Q6HRS PRN PO ITCHING Last administered on 04/12/20at 14:17; Start 04/12/20 at 11:15 Active Scripts Active Reported Furosemide 40 Mg Tablet 1 Tab PO DAILY Tikosyn (Dofetilide) 250 Mcg Capsule 250 Mcg PO BID Eliquis (Apixaban) 5 Mg Tablet 5 Mg PO BID Zetia (Ezetimibe) 10 Mg Tablet 10 Mg PO DAILY Metoprolol Succinate ( Xl ) (Metoprolol Succinate) 25 Mg Tab.er.24h 12.5 Mg PO DAILY One-Daily Multi-Vitamin (Multivitamin) 1 Each Tablet 1 Tab PO DAILY 30 Days Lantus Solostar (Insulin Glargine,Hum.rec.anlog) 100 Unit/1 Ml Insuln.pen 48 Unit SQ HS Spironolactone 50 Mg Tablet 0.5 Tab PO DAILY Entresto 24 mg-26 mg Tablet (Sacubitril/Valsartan) 1 Each Tablet 1 Each PO BID Metformin Hcl 1,000 Mg Tablet 1,000 Mg PO BIDWMEALS Levothyroxine Sodium 75 Mcg Tablet 150 Mcg PO DAILY Vitals/I & O Vital Sign - Last 24 Hours 04/11/20 04/11/20 04/11/20 04/11/20 16:00 16:15 16:30 16:45 Pulse 99 100 97 102 B/P (MAP) 105/72 (83) 125/77 (93) 127/79 (95) 125/72 (89) Pulse Ox 93 94 93 94 O2 Delivery Room Air Room Air Room Air 04/11/20 04/11/20 04/11/20 04/11/20 17:00 17:30 19:24 19:25 Temp 98.1 98.1 Pulse 81 96 100 Resp 18 B/P (MAP) 120/80 (93) 102/66 (78) 144/75 (98) Pulse Ox 91 95 97 O2 Delivery Room Air Nasal Cannula Room Air Room Air 04/11/20 04/11/20 04/11/20 04/11/20 19:30 20:22 20:22 20:23 Pulse 100 100 B/P (MAP) 144/75 144/75 O2 Delivery Room Air Room Air 04/11/20 04/11/20 04/11/20 04/12/20 22:31 23:00 23:20 02:02 Temp 97.6 97.6 Pulse 93 Resp 18 B/P (MAP) 99/49 (66) Pulse Ox 94 O2 Delivery Room Air Room Air Room Air Room Air 04/12/20 04/12/20 04/12/20 04/12/20 02:34 03:12 05:58 06:36 Temp 97.8 97.8 Pulse 80 Resp 18 B/P (MAP) 93/50 (64) Pulse Ox 96 O2 Delivery Room Air Room Air Room Air Room Air 04/12/20 04/12/20 04/12/20 04/12/20 07:00 08:45 08:54 08:55 Temp 97.3 97.3 Pulse 90 90 Resp 18 22 B/P (MAP) 110/64 (79) 110/64 Pulse Ox 98 O2 Delivery Room Air Room Air Room Air 04/12/20 04/12/20 04/12/20 04/12/20 09:30 11:00 12:39 13:10 Temp 97.3 97.3 Pulse 86 Resp 18 22 20 B/P (MAP) 114/70 (85) Pulse Ox 98 O2 Delivery Room Air Room Air Room Air Room Air 04/12/20 15:00 Temp 97.5 97.5 Pulse 84 Resp 16 B/P (MAP) 112/72 (85) Pulse Ox 99 O2 Delivery Room Air Intake and Output 04/11/20 04/11/20 04/12/20 15:00 23:00 07:00 Intake Total 550 ml 480 ml Output Total 550 ml Balance 550 ml -70 ml Justifications for Admission Other Justification intractable back pain HYUN BRADFORD MD Apr 12, 2020 16:04
[2020-04-12] MEDS: ALLOPURINOL 300 MG TABLET. PO SCH (16:24)
[2020-04-12] MEDS: IV NORMAL SALINE 1000ML BAG 1,000 ML IV SCH (16:26)
[2020-04-12 17:15] LABS: ALBUM 3.5 g/dL (2.9-4.4); ALPHA 1 0.3 g/dL (0.0-0.4); BETA 0.8 g/dL (0.7-1.3); GAMMA 3.5 g/dL (0.4-1.8); PROTEIN TOTAL 9.1 g/dL (6.0-8.5); SPEP AG RATIO 0.6 (0.7-1.7)
[2020-04-12] MEDS: ENOXAPARIN 40 MG/0.4 ML SYRINGE. SQ SCH (17:40)
[2020-04-12] MEDS: HYDROmorphone 2 MG TABLET PO PRN ×2 (17:47→23:32)
--- NOTE | 2020-04-12 17:51 | PDOC ---
CARDIOLOGY PROGRESS NOTE SUBJECTIVE: No new issues. No chest pain, or dyspnea. OBJECTIVE: Vital Signs/I&O: Vital Signs Date Time Temp Pulse Resp B/P (MAP) Pulse Ox O2 Delivery O2 Flow Rate FiO2 04/12/20 17:47 Room Air 04/12/20 15:00 97.5 84 16 112/72 (85) 99 97.5 04/11/20 15:43 2.0 I & O 04/11/20 04/11/20 04/12/20 15:00 23:00 07:00 Intake Total 550 ml 480 ml Output Total 550 ml Balance 550 ml -70 ml Objective: exam unchanged. cv rrr CURRENT MEDICATIONS: Current Medications Medications (Trade) Dose Ordered Sig/Elva Route PRN Reason Start Time Stop Time Status Last Admin Dose Admin Sodium Chloride (Saline Mist Nasal) 1 celestina PRN Q1HR PRN NS NASAL CONGESTION 04/11/20 19:15 04/11/20 19:24 Bisacodyl (Dulcolax Tab) 10 mg PRN DAILY PRN PO CONSTIPATION 04/12/20 10:00 04/12/20 10:30 DC 04/12/20 10:10 Magnesium Citrate (Citroma) 296 ml 1X ONCE PO 04/12/20 10:00 04/12/20 10:01 DC 04/12/20 10:00 Diphenhydramine HCl (Benadryl) 25 mg PRN Q6HRS PRN PO ITCHING 04/12/20 11:15 04/12/20 14:17 Sodium Chloride 1,000 ml @ 100 mls/hr Q10H IV 04/12/20 16:00 04/12/20 16:26 Allopurinol (Zyloprim) 300 mg DAILY PO 04/12/20 16:00 04/12/20 16:24 Hydromorphone HCl (Dilaudid) 3 mg PRN Q4HRS PRN PO PAIN 04/12/20 16:15 04/12/20 17:47 DIAGNOSTIC TESTING: labs reviewed Labs: Laboratory Tests 04/12/20 12:28 Laboratory Tests Test 04/11/20 20:56 04/12/20 07:44 04/12/20 08:10 04/12/20 11:47 Glucose (Fingerstick) 112 mg/dL (70-99) H 63 mg/dL (70-99) L 75 mg/dL (70-99) 95 mg/dL (70-99) Test 04/12/20 12:28 04/12/20 16:47 White Blood Count 6.9 x10^3/uL (4.0-11.0) Red Blood Count 3.47 x10^6/uL (4.30-5.70) L Hemoglobin 12.2 g/dL (13.0-17.5) L Hematocrit 34.9 % (39.0-53.0) L Mean Corpuscular Volume 101 fL (79-100) H Mean Corpuscular Hemoglobin 35 pg (25-35) Mean Corpuscular Hemoglobin Concent 35 g/dL (31-37) Red Cell Distribution Width 14.0 % (11.5-14.5) Platelet Count 210 x10^3/uL (140-400) Neutrophils (%) (Auto) 62 % (31-73) Lymphocytes (%) (Auto) 31 % (24-48) Monocytes (%) (Auto) 5 % (0-9) Eosinophils (%) (Auto) 2 % (0-3) Basophils (%) (Auto) 1 % (0-3) Neutrophils # (Auto) 4.3 x10^3/uL (1.8-7.7) Lymphocytes # (Auto) 2.2 x10^3/uL (1.0-4.8) Monocytes # (Auto) 0.3 x10^3/uL (0.0-1.1) Eosinophils # (Auto) 0.1 x10^3/uL (0.0-0.7) Basophils # (Auto) 0.0 x10^3/uL (0.0-0.2) Sodium Level 131 mmol/L (136-145) L Potassium Level 4.1 mmol/L (3.5-5.1) Chloride Level 99 mmol/L (98-107) Carbon Dioxide Level 26 mmol/L (21-32) Anion Gap 6 (6-14) Blood Urea Nitrogen 22 mg/dL (8-26) Creatinine 1.4 mg/dL (0.7-1.3) H Estimated GFR (Cockcroft-Gault) 51.5 BUN/Creatinine Ratio 16 (6-20) Glucose Level 93 mg/dL (70-99) Uric Acid 9.4 mg/dL (3.5-7.2) H Calcium Level 9.9 mg/dL (8.5-10.1) Total Bilirubin 0.6 mg/dL (0.2-1.0) Aspartate Amino Transf (AST/SGOT) 36 U/L (15-37) Alkaline Phosphatase 92 U/L (46-116) Lactate Dehydrogenase 428 U/L (85-227) H Total Protein 10.9 g/dL (6.4-8.2) H Albumin 3.3 g/dL (3.4-5.0) L Albumin/Globulin Ratio 0.4 (1.0-1.7) L Glucose (Fingerstick) 87 mg/dL (70-99) ASSESSMENT: 1. Ischemic CMP 2. Presumed MM 3. Mild JASWINDER PLAN: 1. Continue present meds. Supportive care. Will repeat echo after treatment for MM in 3 months. Monitor fluid intake with steroids, IVF being given. Thanks. Justicifation of Admission Dx: Justifications for Admission: Justification of Admission Dx: Yes Chronic Renal Failure: Intravenous Infusions Fracture: Fracture ADELINE ELLSWORTH MD Apr 12, 2020 17:51
[2020-04-12 19:25] VITALS: BP 122/75
[2020-04-12] MEDS: METOPROLOL SUCC 24HR ER 25 MG TAB.ER.24H. PO SCH (20:26)
[2020-04-12 23:29] VITALS: BP 108/68
[2020-04-13 01:12] LABS: UR PROTEIN 16.6 mg/dL (Not Estab.)
[2020-04-13] MEDS: IV NORMAL SALINE 1000ML BAG 1,000 ML IV SCH ×3 (01:58→22:00)
[2020-04-13 02:10] LABS: CREATININE 24 HR UR 1952 mg/24 hr (1000-2000); CREATININE, UR 59.6 mg/dL (Not Estab.)
[2020-04-13 03:15] VITALS: BP 113/71
[2020-04-13] MEDS: HYDROmorphone 2 MG TABLET PO PRN ×3 (03:27→21:36)
[2020-04-13] MEDS: LEVOTHYROXINE 75 MCG TABLET PO SCH (06:08)
[2020-04-13 07:00] VITALS: BP 89/45
[2020-04-13 08:05] LABS: BASO % 1 % (0-3); EOS # 0.1 x10^3/uL (0.0-0.7); EOS % 2 % (0-3); HEMOGLOBIN 11.2 g/dL (13.0-17.5); LYMPH # 1.6 x10^3/uL (1.0-4.8); LYMPH % 26 % (24-48); MEAN CORPUSCULAR HEMOGLOBIN 34 pg (25-35); MEAN CORPUSCULAR HGB CONC 34 g/dL (31-37); MEAN CORPUSCULAR VOLUME 101 fL (79-100); MONO # 0.4 x10^3/uL (0.0-1.1); MONO % 6 % (0-9); NEUT # 4.1 x10^3/uL (1.8-7.7); NEUT % 66 % (31-73); PLATELET COUNT 196 x10^3/uL (140-400); RED BLOOD COUNT 3.25 x10^6/uL (4.30-5.70); RED CELL DISTRIBUTION WIDTH 13.7 % (11.5-14.5); WHITE BLOOD COUNT 6.2 x10^3/uL (4.0-11.0)
[2020-04-13 08:28] LABS: ALBUMIN 2.8 g/dL (3.4-5.0); ALBUMIN/GLOBULIN RATIO 0.4 (1.0-1.7); CALCIUM 9.3 mg/dL (8.5-10.1); CREATININE 1.1 mg/dL (0.7-1.3); GFR 68.1; POTASSIUM 4.4 mmol/L (3.5-5.1); TOTAL BILIRUBIN 0.4 mg/dL (0.2-1.0); TOTAL PROTEIN 9.5 g/dL (6.4-8.2); URIC ACID 7.6 mg/dL (3.5-7.2)
[2020-04-13] MEDS: INSULIN GLARGINE SQ SCH (09:00)
[2020-04-13] MEDS: SACUBITRIL/VALSARTAN 24/26MG TABLET. PO SCH ×2 (09:00→21:35)
--- NOTE | 2020-04-13 09:02 | PDOC ---
PROGRESS NOTES Date of Service DATE: 04/13/20 TIME: 08:59 Subjective Subjective He admits continued back pain. His constipation is relieved. Objective Objective Vital Signs Date Time Temp Pulse Resp B/P (MAP) Pulse Ox O2 Delivery O2 Flow Rate FiO2 04/13/20 07:00 98.6 83 18 89/45 (60) 95 Room Air 98.6 04/11/20 15:43 2.0 Intake and Output 04/13/20 07:00 Intake Total 450 ml Balance 450 ml Intake Oral 450 ml # Voids 7 # Bowel Movements 2 Physical Exam Physical Exam He is comfortable lying on his right side. No change with neurological status. He continues to be independent with mobility and self care. He has not received lumbar corset yet. Assessment Assessment Problems Medical Problems: (1) Intractable low back pain Status: Acute (2) Lumbar disc lesion Status: Acute (3) Multiple myeloma Status: Acute Plan Plan of Care Agree with oncology plans. Comment Review of Relevant I have reviewed the following items caity (where applicable) has been applied. Labs Laboratory Tests Test 04/11/20 10:56 04/11/20 15:06 04/11/20 16:45 04/11/20 20:56 White Blood Count 6.9 x10^3/uL (4.0-11.0) Red Blood Count 3.31 x10^6/uL (4.30-5.70) Hemoglobin 11.4 g/dL (13.0-17.5) Hematocrit 33.5 % (39.0-53.0) Mean Corpuscular Volume 101 fL (79-100) Mean Corpuscular Hemoglobin 34 pg (25-35) Mean Corpuscular Hemoglobin Concent 34 g/dL (31-37) Red Cell Distribution Width 13.9 % (11.5-14.5) Platelet Count 209 x10^3/uL (140-400) Neutrophils (%) (Auto) 60 % (31-73) Lymphocytes (%) (Auto) 30 % (24-48) Monocytes (%) (Auto) 7 % (0-9) Eosinophils (%) (Auto) 3 % (0-3) Basophils (%) (Auto) 1 % (0-3) Neutrophils # (Auto) 4.1 x10^3/uL (1.8-7.7) Lymphocytes # (Auto) 2.1 x10^3/uL (1.0-4.8) Monocytes # (Auto) 0.5 x10^3/uL (0.0-1.1) Eosinophils # (Auto) 0.2 x10^3/uL (0.0-0.7) Basophils # (Auto) 0.0 x10^3/uL (0.0-0.2) Lactate Dehydrogenase 249 U/L (85-227) Prostate Specific Antigen 0.24 ng/mL (0.00-4.00) Thyroid Stimulating Hormone (TSH) 4.306 uIU/mL (0.358-3.74) Glucose (Fingerstick) 87 mg/dL (70-99) 76 mg/dL (70-99) 112 mg/dL (70-99) Test 04/11/20 22:10 04/12/20 07:44 04/12/20 08:10 04/12/20 11:47 Urine Protein 16.6 mg/dL (Not Estab.) Urine Creatinine 24 Hour 59.6 mg/dL (Not Estab.) Urine Creatinine mg/24 hr 1952 mg/24 hr ([id number]) Urine Protein 24 Hr Calculated 544 mg/24 hr (30-150) Glucose (Fingerstick) 63 mg/dL (70-99) 75 mg/dL (70-99) 95 mg/dL (70-99) Test 04/12/20 12:28 04/12/20 16:47 04/12/20 21:02 04/13/20 07:34 White Blood Count 6.9 x10^3/uL (4.0-11.0) 6.2 x10^3/uL (4.0-11.0) Red Blood Count 3.47 x10^6/uL (4.30-5.70) 3.25 x10^6/uL (4.30-5.70) Hemoglobin 12.2 g/dL (13.0-17.5) 11.2 g/dL (13.0-17.5) Hematocrit 34.9 % (39.0-53.0) 33.0 % (39.0-53.0) Mean Corpuscular Volume 101 fL (79-100) 101 fL (79-100) Mean Corpuscular Hemoglobin 35 pg (25-35) 34 pg (25-35) Mean Corpuscular Hemoglobin Concent 35 g/dL (31-37) 34 g/dL (31-37) Red Cell Distribution Width 14.0 % (11.5-14.5) 13.7 % (11.5-14.5) Platelet Count 210 x10^3/uL (140-400) 196 x10^3/uL (140-400) Neutrophils (%) (Auto) 62 % (31-73) 66 % (31-73) Lymphocytes (%) (Auto) 31 % (24-48) 26 % (24-48) Monocytes (%) (Auto) 5 % (0-9) 6 % (0-9) Eosinophils (%) (Auto) 2 % (0-3) 2 % (0-3) Basophils (%) (Auto) 1 % (0-3) 1 % (0-3) Neutrophils # (Auto) 4.3 x10^3/uL (1.8-7.7) 4.1 x10^3/uL (1.8-7.7) Lymphocytes # (Auto) 2.2 x10^3/uL (1.0-4.8) 1.6 x10^3/uL (1.0-4.8) Monocytes # (Auto) 0.3 x10^3/uL (0.0-1.1) 0.4 x10^3/uL (0.0-1.1) Eosinophils # (Auto) 0.1 x10^3/uL (0.0-0.7) 0.1 x10^3/uL (0.0-0.7) Basophils # (Auto) 0.0 x10^3/uL (0.0-0.2) 0.0 x10^3/uL (0.0-0.2) Sodium Level 131 mmol/L (136-145) 136 mmol/L (136-145) Potassium Level 4.1 mmol/L (3.5-5.1) 4.4 mmol/L (3.5-5.1) Chloride Level 99 mmol/L (98-107) 102 mmol/L (98-107) Carbon Dioxide Level 26 mmol/L (21-32) 27 mmol/L (21-32) Anion Gap 6 (6-14) 7 (6-14) Blood Urea Nitrogen 22 mg/dL (8-26) 17 mg/dL (8-26) Creatinine 1.4 mg/dL (0.7-1.3) 1.1 mg/dL (0.7-1.3) Estimated GFR (Cockcroft-Gault) 51.5 68.1 BUN/Creatinine Ratio 16 (6-20) 15 (6-20) Glucose Level 93 mg/dL (70-99) 80 mg/dL (70-99) Uric Acid 9.4 mg/dL (3.5-7.2) 7.6 mg/dL (3.5-7.2) Calcium Level 9.9 mg/dL (8.5-10.1) 9.3 mg/dL (8.5-10.1) Total Bilirubin 0.6 mg/dL (0.2-1.0) 0.4 mg/dL (0.2-1.0) Aspartate Amino Transf (AST/SGOT) 36 U/L (15-37) 30 U/L (15-37) Alanine Aminotransferase (ALT/SGPT) 22 U/L (16-63) 19 U/L (16-63) Alkaline Phosphatase 92 U/L (46-116) 84 U/L (46-116) Lactate Dehydrogenase 428 U/L (85-227) 336 U/L (85-227) Total Protein 10.9 g/dL (6.4-8.2) 9.5 g/dL (6.4-8.2) Albumin 3.3 g/dL (3.4-5.0) 2.8 g/dL (3.4-5.0) Albumin/Globulin Ratio 0.4 (1.0-1.7) 0.4 (1.0-1.7) Glucose (Fingerstick) 87 mg/dL (70-99) 99 mg/dL (70-99) Test 04/13/20 07:42 Glucose (Fingerstick) 81 mg/dL (70-99) Laboratory Tests Test 04/12/20 11:47 04/12/20 12:28 04/12/20 16:47 04/12/20 21:02 Glucose (Fingerstick) 95 mg/dL (70-99) 87 mg/dL (70-99) 99 mg/dL (70-99) White Blood Count 6.9 x10^3/uL (4.0-11.0) Red Blood Count 3.47 x10^6/uL (4.30-5.70) Hemoglobin 12.2 g/dL (13.0-17.5) Hematocrit 34.9 % (39.0-53.0) Mean Corpuscular Volume 101 fL (79-100) Mean Corpuscular Hemoglobin 35 pg (25-35) Mean Corpuscular Hemoglobin Concent 35 g/dL (31-37) Red Cell Distribution Width 14.0 % (11.5-14.5) Platelet Count 210 x10^3/uL (140-400) Neutrophils (%) (Auto) 62 % (31-73) Lymphocytes (%) (Auto) 31 % (24-48) Monocytes (%) (Auto) 5 % (0-9) Eosinophils (%) (Auto) 2 % (0-3) Basophils (%) (Auto) 1 % (0-3) Neutrophils # (Auto) 4.3 x10^3/uL (1.8-7.7) Lymphocytes # (Auto) 2.2 x10^3/uL (1.0-4.8) Monocytes # (Auto) 0.3 x10^3/uL (0.0-1.1) Eosinophils # (Auto) 0.1 x10^3/uL (0.0-0.7) Basophils # (Auto) 0.0 x10^3/uL (0.0-0.2) Sodium Level 131 mmol/L (136-145) Potassium Level 4.1 mmol/L (3.5-5.1) Chloride Level 99 mmol/L (98-107) Carbon Dioxide Level 26 mmol/L (21-32) Anion Gap 6 (6-14) Blood Urea Nitrogen 22 mg/dL (8-26) Creatinine 1.4 mg/dL (0.7-1.3) Estimated GFR (Cockcroft-Gault) 51.5 BUN/Creatinine Ratio 16 (6-20) Glucose Level 93 mg/dL (70-99) Uric Acid 9.4 mg/dL (3.5-7.2) Calcium Level 9.9 mg/dL (8.5-10.1) Total Bilirubin 0.6 mg/dL (0.2-1.0) Aspartate Amino Transf (AST/SGOT) 36 U/L (15-37) Alanine Aminotransferase (ALT/SGPT) 22 U/L (16-63) Alkaline Phosphatase 92 U/L (46-116) Lactate Dehydrogenase 428 U/L (85-227) Total Protein 10.9 g/dL (6.4-8.2) Albumin 3.3 g/dL (3.4-5.0) Albumin/Globulin Ratio 0.4 (1.0-1.7) Test 04/13/20 07:34 04/13/20 07:42 White Blood Count 6.2 x10^3/uL (4.0-11.0) Red Blood Count 3.25 x10^6/uL (4.30-5.70) Hemoglobin 11.2 g/dL (13.0-17.5) Hematocrit 33.0 % (39.0-53.0) Mean Corpuscular Volume 101 fL (79-100) Mean Corpuscular Hemoglobin 34 pg (25-35) Mean Corpuscular Hemoglobin Concent 34 g/dL (31-37) Red Cell Distribution Width 13.7 % (11.5-14.5) Platelet Count 196 x10^3/uL (140-400) Neutrophils (%) (Auto) 66 % (31-73) Lymphocytes (%) (Auto) 26 % (24-48) Monocytes (%) (Auto) 6 % (0-9) Eosinophils (%) (Auto) 2 % (0-3) Basophils (%) (Auto) 1 % (0-3) Neutrophils # (Auto) 4.1 x10^3/uL (1.8-7.7) Lymphocytes # (Auto) 1.6 x10^3/uL (1.0-4.8) Monocytes # (Auto) 0.4 x10^3/uL (0.0-1.1) Eosinophils # (Auto) 0.1 x10^3/uL (0.0-0.7) Basophils # (Auto) 0.0 x10^3/uL (0.0-0.2) Sodium Level 136 mmol/L (136-145) Potassium Level 4.4 mmol/L (3.5-5.1) Chloride Level 102 mmol/L (98-107) Carbon Dioxide Level 27 mmol/L (21-32) Anion Gap 7 (6-14) Blood Urea Nitrogen 17 mg/dL (8-26) Creatinine 1.1 mg/dL (0.7-1.3) Estimated GFR (Cockcroft-Gault) 68.1 BUN/Creatinine Ratio 15 (6-20) Glucose Level 80 mg/dL (70-99) Uric Acid 7.6 mg/dL (3.5-7.2) Calcium Level 9.3 mg/dL (8.5-10.1) Total Bilirubin 0.4 mg/dL (0.2-1.0) Aspartate Amino Transf (AST/SGOT) 30 U/L (15-37) Alanine Aminotransferase (ALT/SGPT) 19 U/L (16-63) Alkaline Phosphatase 84 U/L (46-116) Lactate Dehydrogenase 336 U/L (85-227) Total Protein 9.5 g/dL (6.4-8.2) Albumin 2.8 g/dL (3.4-5.0) Albumin/Globulin Ratio 0.4 (1.0-1.7) Glucose (Fingerstick) 81 mg/dL (70-99) Medications Current Medications Hydromorphone HCl (Dilaudid) 1 mg 1X ONCE IVP Last administered on 04/08/20at 13:41; Start 04/08/20 at 13:15; Stop 04/08/20 at 13:16; Status DC Sodium Chloride 1,000 ml @ 1,000 mls/hr 1X ONCE IV Last administered on 04/08/20at 13:39; Start 04/08/20 at 13:15; Stop 04/08/20 at 14:14; Status DC Ondansetron HCl (Zofran) 4 mg 1X ONCE IVP Last administered on 04/08/20at 13:42; Start 04/08/20 at 13:15; Stop 04/08/20 at 13:16; Status DC Diazepam (Valium) 5 mg 1X ONCE PO Last administered on 04/08/20at 13:44; Start 04/08/20 at 13:15; Stop 04/08/20 at 13:16; Status DC Ondansetron HCl (Zofran) 4 mg PRN Q8HRS PRN IV NAUSEA/VOMITING Last administered on 04/08/20at 15:35; Start 04/08/20 at 14:15; Stop 04/09/20 at 14:14; Status DC Hydromorphone HCl (Dilaudid) 1 mg PRN Q3HRS PRN IVP PAIN Last administered on 04/09/20at 10:03; Start 04/08/20 at 14:15; Stop 04/09/20 at 13:42; Status DC Sennosides (Senna) 17.2 mg PRN BID PRN PO CONSTIPATION Last administered on 04/12/20at 20:27; Start 04/08/20 at 17:15 Docusate Sodium (Colace) 100 mg PRN DAILY PRN PO HARD STOOLS Last administered on 04/12/20at 20:25; Start 04/08/20 at 17:15 Ondansetron HCl (Zofran) 4 mg PRN Q6HRS PRN IVP NAUSEA/VOMITING; Start 04/08/20 at 17:15 Potassium Chloride (Klor-Con) 40 meq 1X PRN PO PER PROTOCOL; Start 04/08/20 at 17:15; Stop 04/08/20 at 17:25; Status DC Magnesium Oxide (Magnesium Oxide) 400 mg BID PO ; Start 04/08/20 at 21:00; Stop 04/08/20 at 17:24; Status DC Potassium Chloride/Water 100 ml @ 100 mls/hr Q1H IV ; Start 04/08/20 at 17:15; Stop 04/08/20 at 17:25; Status DC Magnesium Sulfate 50 ml @ 25 mls/hr Q24H IV ; Start 04/08/20 at 17:15; Stop 04/08/20 at 17:24; Status DC Potassium Chloride/Water 100 ml @ 100 mls/hr Q1H PRN IV low k; Start 04/08/20 at 17:15; Stop 04/08/20 at 17:25; Status DC Insulin Human Lispro (HumaLOG) 0-7 UNITS TIDWMEALS SQ ; Start 04/09/20 at 08:00; Stop 04/09/20 at 12:05; Status DC Dextrose (Dextrose 50%-Water Syringe) 12.5 gm PRN Q15MIN PRN IV SEE COMMENTS; Start 04/08/20 at 17:15 Acetaminophen (Tylenol) 650 mg PRN Q4HRS PRN PO TEMP OVER 100.4F OR MILD PAIN; Start 04/08/20 at 17:15 Enoxaparin Sodium (Lovenox 40mg Syringe) 40 mg Q24H SQ Last administered on 04/12/20at 17:40; Start 04/08/20 at 18:00 Info (Non-Icu Electrolyte Protocol) 1 ea CONT PRN PRN MC SEE COMMENTS; Start 04/08/20 at 17:30 Influenza Virus Vaccine Quadrival (Fluzone Quad Syringe) 0.5 ml ONCE ONCE VAX IM Last administered on 04/08/20at 20:19; Start 04/08/20 at 20:00; Stop 04/08/20 at 20:01; Status DC Apixaban (Eliquis) 5 mg BID PO Last administered on 04/09/20at 09:30; Start 04/09/20 at 09:30; Stop 04/09/20 at 16:41; Status DC Dofetilide (Tikosyn) 250 mcg BID PO ; Start 04/09/20 at 09:30; Stop 04/09/20 at 09:37; Status DC EZETIMIBE (Zetia) 10 mg DAILY PO Last administered on 04/12/20at 08:53; Start 04/09/20 at 09:30 Furosemide (Lasix) 40 mg DAILY PO Last administered on 04/09/20at 10:05; Start 04/09/20 at 10:00; Stop 04/09/20 at 17:50; Status DC Levothyroxine Sodium (Synthroid) 150 mcg DAILY06 PO Last administered on 04/13/20at 06:08; Start 04/09/20 at 10:30 Metoprolol Succinate (Toprol Xl) 12.5 mg DAILY PO ; Start 04/09/20 at 10:00; Stop 04/09/20 at 09:55; Status DC Sacubitril/ Valsartan (Entresto 24 Mg-26 Mg) 1 tab BID PO Last administered on 04/12/20at 20:27; Start 04/09/20 at 10:00 Non-Formulary Medication 48 ea DAILY SQ ; Start 04/09/20 at 17:30; Stop 04/09/20 at 17:18; Status DC Metformin HCl (Glucophage) 1,000 mg BIDWMEALS PO Last administered on 04/09/20 10:09; Start 04/09/20 at 10:00; Stop 04/09/20 at 18:25; Status DC Multivitamins (Thera M Plus) 1 tab DAILY PO Last administered on 04/12/20 08:54; Start 04/09/20 at 10:00 Spironolactone (Aldactone) 25 mg DAILY PO Last administered on 04/09/20 10:09; Start 04/09/20 at 10:00; Stop 04/09/20 at 16:41; Status DC Info (Anti-Coagulation Monitoring By Pharmacy) 1 each PRN DAILY PRN MC SEE COMMENTS; Start 04/09/20 at 09:30 Dofetilide (Tikosyn) 250 mcg BID PO Last administered on 04/12/20 20:26; Start 04/09/20 at 10:00 Metoprolol Succinate (Toprol Xl) 12.5 mg QHS PO Last administered on 04/12/20 20:26; Start 04/09/20 at 21:00 Hydromorphone HCl (Dilaudid) 2 mg PRN Q3HRS PRN IVP PAIN Last administered on 04/12/20 16:24; Start 04/09/20 at 13:45 Non-Formulary Medication 48 ea DAILY SQ Last administered on 04/12/20 09:07; Start 04/09/20 at 17:30 Spironolactone (Aldactone) 25 mg DAILY PO Last administered on 04/12/20 08:54; Start 04/10/20 at 09:00 Metformin HCl (Glucophage) 1,000 mg BID PO Last administered on 04/12/20 20:26; Start 04/09/20 at 21:00 Ringer's Solution 1,000 ml @ 50 mls/hr Q20H IV ; Start 04/11/20 at 07:00; Stop 04/11/20 at 18:59; Status DC Lidocaine HCl (Buffered Lidocaine 1%) 3 ml STK-MED ONCE .ROUTE ; Start 04/11/20 at 12:58; Stop 04/11/20 at 12:58; Status DC Lidocaine HCl (Buffered Lidocaine 1%) 3 ml STK-MED ONCE .ROUTE ; Start 04/11/20 at 13:13; Stop 04/11/20 at 13:14; Status DC Iohexol (Omnipaque 240 Mg/ml) 50 ml STK-MED ONCE .ROUTE ; Start 04/11/20 at 13:14; Stop 04/11/20 at 13:14; Status DC Midazolam HCl (Versed) 2 mg STK-MED ONCE .ROUTE ; Start 04/11/20 at 13:26; Stop 04/11/20 at 13:27; Status DC Fentanyl Citrate (Fentanyl 5ml Vial) 250 mcg STK-MED ONCE .ROUTE ; Start 04/11/20 at 13:26; Stop 04/11/20 at 13:27; Status DC Propofol (Diprivan) 200 mg STK-MED ONCE IV ; Start 04/11/20 at 13:31; Stop 04/11/20 at 13:32; Status DC Propofol 50 ml @ As Directed STK-MED ONCE IV ; Start 04/11/20 at 13:31; Stop 04/11/20 at 13:32; Status DC Midazolam HCl (Versed) 2 mg STK-MED ONCE .ROUTE ; Start 04/11/20 at 13:32; Stop 04/11/20 at 13:32; Status DC Midazolam HCl (Versed) 2 mg 1X ONCE IV Last administered on 04/11/20at 13:33; Start 04/11/20 at 13:45; Stop 04/11/20 at 13:50; Status DC Fentanyl Citrate (Fentanyl 5ml Vial) 100 mcg 1X ONCE IV Last administered on 04/11/20at 13:33; Start 04/11/20 at 13:45; Stop 04/11/20 at 13:50; Status DC Ketamine HCl (Ketamine) 50 mg STK-MED ONCE .ROUTE ; Start 04/11/20 at 13:48; Stop 04/11/20 at 13:48; Status DC Cefazolin Sodium/ Dextrose 50 ml @ As Directed STK-MED ONCE IV ; Start 04/11/20 at 14:03; Stop 04/11/20 at 14:04; Status DC Lidocaine HCl (Buffered Lidocaine 1%) 3 ml 1X ONCE IJ Last administered on 04/11/20at 13:40; Start 04/11/20 at 14:15; Stop 04/11/20 at 14:19; Status DC Iohexol (Omnipaque 240 Mg/ml) 50 ml 1X ONCE IJ Last administered on 04/11/20at 14:15; Start 04/11/20 at 14:15; Stop 04/11/20 at 14:19; Status DC Cefazolin Sodium/ Dextrose 50 ml @ 100 mls/hr 1X ONCE IV Last administered on 04/11/20at 14:12; Start 04/11/20 at 14:15; Stop 04/11/20 at 14:44; Status DC Sodium Chloride (Saline Mist Nasal) 1 celestina PRN Q1HR PRN NS NASAL CONGESTION Last administered on 04/11/20at 19:24; Start 04/11/20 at 19:15 Bisacodyl (Dulcolax Tab) 10 mg PRN DAILY PRN PO CONSTIPATION Last administered on 04/12/20at 10:10; Start 04/12/20 at 10:00; Stop 04/12/20 at 10:30; Status DC Magnesium Citrate (Citroma) 296 ml 1X ONCE PO Last administered on 04/12/20at 10:00; Start 04/12/20 at 10:00; Stop 04/12/20 at 10:01; Status DC Diphenhydramine HCl (Benadryl) 25 mg PRN Q6HRS PRN PO ITCHING Last administered on 04/12/20at 20:31; Start 04/12/20 at 11:15 Sodium Chloride 1,000 ml @ 100 mls/hr Q10H IV Last administered on 04/13/20at 01:58; Start 04/12/20 at 16:00 Allopurinol (Zyloprim) 300 mg DAILY PO Last administered on 04/12/20at 16:24; Start 04/12/20 at 16:00 Hydromorphone HCl (Dilaudid) 3 mg PRN Q4HRS PRN PO PAIN Last administered on 04/13/20at 03:27; Start 04/12/20 at 16:15 Active Scripts Active Reported Furosemide 40 Mg Tablet 1 Tab PO DAILY Tikosyn (Dofetilide) 250 Mcg Capsule 250 Mcg PO BID Eliquis (Apixaban) 5 Mg Tablet 5 Mg PO BID Zetia (Ezetimibe) 10 Mg Tablet 10 Mg PO DAILY Metoprolol Succinate ( Xl ) (Metoprolol Succinate) 25 Mg Tab.er.24h 12.5 Mg PO DAILY One-Daily Multi-Vitamin (Multivitamin) 1 Each Tablet 1 Tab PO DAILY 30 Days Lantus Solostar (Insulin Glargine,Hum.rec.anlog) 100 Unit/1 Ml Insuln.pen 48 Unit SQ HS Spironolactone 50 Mg Tablet 0.5 Tab PO DAILY Entresto 24 mg-26 mg Tablet (Sacubitril/Valsartan) 1 Each Tablet 1 Each PO BID Metformin Hcl 1,000 Mg Tablet 1,000 Mg PO BIDWMEALS Levothyroxine Sodium 75 Mcg Tablet 150 Mcg PO DAILY Vitals/I & O Vital Sign - Last 24 Hours 04/12/20 04/12/20 04/12/20 04/12/20 09:30 11:00 12:39 13:10 Temp 97.3 97.3 Pulse 86 Resp 18 20 B/P (MAP) 114/70 (85) Pulse Ox 98 O2 Delivery Room Air Room Air Room Air Room Air 04/12/20 04/12/20 04/12/20 04/12/20 15:00 16:24 17:47 17:48 Temp 97.5 97.5 Pulse 84 Resp 16 B/P (MAP) 112/72 (85) Pulse Ox 99 O2 Delivery Room Air Room Air Room Air Room Air 04/12/20 04/12/20 04/12/20 04/12/20 19:00 19:25 20:00 20:26 Temp 98.5 98.5 Pulse 102 102 Resp 18 B/P (MAP) 122/75 (91) 122/75 O2 Delivery Room Air Room Air 04/12/20 04/12/20 04/12/20 04/13/20 20:27 23:29 23:32 03:15 Temp 98.3 98.2 98.3 98.2 Pulse 102 87 97 Resp 18 18 B/P (MAP) 122/75 108/68 (81) 113/71 (85) Pulse Ox 97 98 O2 Delivery Room Air Room Air Room Air 04/13/20 04/13/20 03:27 07:00 Temp 98.6 98.6 Pulse 83 Resp 18 B/P (MAP) 89/45 (60) Pulse Ox 95 O2 Delivery Room Air Room Air Intake and Output 04/12/20 04/12/20 04/13/20 15:00 23:00 07:00 Intake Total 90 ml 360 ml Balance 90 ml 360 ml Justifications for Admission Other Justification intractable back pain JOSE RAFAEL NORTON MD Apr 13, 2020 09:02
[2020-04-13] MEDS: MULTIVITAMIN with MINERAL TABLET. PO SCH (09:36)
[2020-04-13] MEDS: EZETIMIBE 10 MG TABLET. PO SCH (09:39)
[2020-04-13] MEDS: ALLOPURINOL 300 MG TABLET. PO SCH (09:39)
[2020-04-13] MEDS: SPIRONOLACTONE 25 MG TABLET PO SCH (09:39)
[2020-04-13] MEDS: DOFETILIDE 125 MCG CAPSULE PO SCH ×2 (09:40→21:34)
[2020-04-13] MEDS: metFORMIN 500 MG TABLET PO SCH ×2 (09:40→21:35)
[2020-04-13] MEDS ORDERED: DEXAMETHASONE SOD PHOS 4 MG/ML VIAL IVP ONE (10:30)
--- NOTE | 2020-04-13 10:37 | PDOC ---
PROGRESS NOTES Date of Service DATE: 04/13/20 TIME: 10:30 Subjective Subjective More pain today. IV improved urine output. Otherwise doing well ROS: Gen: No fever or chills Eyes No eye pain or changes in vision ENT: Dry mouth. No trouble swallowing Lungs: No cough. No shortness of breath Heart: No pain or palpitations Abd No N/V. Constipation better : No urgency or frequency Neuro: No headache or focal weakness M/S Back pain Heme: No easy bruising Objective Objective Vital Signs Date Time Temp Pulse Resp B/P (MAP) Pulse Ox O2 Delivery O2 Flow Rate FiO2 04/13/20 09:34 Room Air 04/13/20 07:00 98.6 83 18 89/45 (60) 95 98.6 04/11/20 15:43 2.0 Intake and Output 04/13/20 07:00 Intake Total 450 ml Balance 450 ml Intake Oral 450 ml # Voids 7 # Bowel Movements 2 Physical Exam Abdomen: Soft, No tenderness, No hepatosplenomegaly Heart: Regular rate, Normal S1, Normal S2 Extremities: No cyanosis, No edema General: Alert, mild distress (From pain) HEENT: PERRLA, EOMI, Other (dry mucous membranes) Neck: Supple, No LAD Neuro: Normal speech, Cranial nerves 3-12 NL Psych/Mental Status: Mood NL Skin: Other (Excoriation on arms. ) Assessment Assessment Problems Medical Problems: (1) Intractable low back pain Status: Acute (2) Lumbar disc lesion Status: Acute (3) Multiple myeloma Status: Acute IgG kappa Multiple myeloma with 3.2 gm M spike and Marked elevated Free K light chains and K/L ratio. Await bone marrow biopsy. S/P Kyphoplasty. Skelatal survey did not reveal any other lesions. Creatinine higher yesterday. Down to 1.1 today with fluids. Will start Dex 8 mg today. Pantoprozole for prevention of GI toxicity 2. Renal insufficiency with MM. Creatinine up to 1.4 on 04/12. Better at 1.1 on 04/13. Will follow. 3. 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 Uric acid 9.4 . Better at 7.6 with Allop urinol. 4. Pain secondary to vertebral fractures. Will follow. Rec: IV fluids to prevent dehydration and renal insult from MM Continue allopurinol Dex 8 mg IV today Start Pantoprozole. Discuss treatment options Velcade Rev Dex. CyborD or Darzalex Rev Dex. Will evaluate out of pocket expense for drugs. Comment Review of Relevant I have reviewed the following items caity (where applicable) has been applied. Labs Laboratory Tests Test 04/11/20 10:56 04/11/20 15:06 04/11/20 16:45 04/11/20 20:56 White Blood Count 6.9 x10^3/uL (4.0-11.0) Red Blood Count 3.31 x10^6/uL (4.30-5.70) Hemoglobin 11.4 g/dL (13.0-17.5) Hematocrit 33.5 % (39.0-53.0) Mean Corpuscular Volume 101 fL (79-100) Mean Corpuscular Hemoglobin 34 pg (25-35) Mean Corpuscular Hemoglobin Concent 34 g/dL (31-37) Red Cell Distribution Width 13.9 % (11.5-14.5) Platelet Count 209 x10^3/uL (140-400) Neutrophils (%) (Auto) 60 % (31-73) Lymphocytes (%) (Auto) 30 % (24-48) Monocytes (%) (Auto) 7 % (0-9) Eosinophils (%) (Auto) 3 % (0-3) Basophils (%) (Auto) 1 % (0-3) Neutrophils # (Auto) 4.1 x10^3/uL (1.8-7.7) Lymphocytes # (Auto) 2.1 x10^3/uL (1.0-4.8) Monocytes # (Auto) 0.5 x10^3/uL (0.0-1.1) Eosinophils # (Auto) 0.2 x10^3/uL (0.0-0.7) Basophils # (Auto) 0.0 x10^3/uL (0.0-0.2) Lactate Dehydrogenase 249 U/L (85-227) Prostate Specific Antigen 0.24 ng/mL (0.00-4.00) Thyroid Stimulating Hormone (TSH) 4.306 uIU/mL (0.358-3.74) Glucose (Fingerstick) 87 mg/dL (70-99) 76 mg/dL (70-99) 112 mg/dL (70-99) Test 04/11/20 22:10 04/12/20 07:44 04/12/20 08:10 04/12/20 11:47 Urine Protein 16.6 mg/dL (Not Estab.) Urine Creatinine 24 Hour 59.6 mg/dL (Not Estab.) Urine Creatinine mg/24 hr 1952 mg/24 hr ([id number]) Urine Protein 24 Hr Calculated 544 mg/24 hr (30-150) Glucose (Fingerstick) 63 mg/dL (70-99) 75 mg/dL (70-99) 95 mg/dL (70-99) Test 04/12/20 12:28 04/12/20 16:47 04/12/20 21:02 04/13/20 07:34 White Blood Count 6.9 x10^3/uL (4.0-11.0) 6.2 x10^3/uL (4.0-11.0) Red Blood Count 3.47 x10^6/uL (4.30-5.70) 3.25 x10^6/uL (4.30-5.70) Hemoglobin 12.2 g/dL (13.0-17.5) 11.2 g/dL (13.0-17.5) Hematocrit 34.9 % (39.0-53.0) 33.0 % (39.0-53.0) Mean Corpuscular Volume 101 fL (79-100) 101 fL (79-100) Mean Corpuscular Hemoglobin 35 pg (25-35) 34 pg (25-35) Mean Corpuscular Hemoglobin Concent 35 g/dL (31-37) 34 g/dL (31-37) Red Cell Distribution Width 14.0 % (11.5-14.5) 13.7 % (11.5-14.5) Platelet Count 210 x10^3/uL (140-400) 196 x10^3/uL (140-400) Neutrophils (%) (Auto) 62 % (31-73) 66 % (31-73) Lymphocytes (%) (Auto) 31 % (24-48) 26 % (24-48) Monocytes (%) (Auto) 5 % (0-9) 6 % (0-9) Eosinophils (%) (Auto) 2 % (0-3) 2 % (0-3) Basophils (%) (Auto) 1 % (0-3) 1 % (0-3) Neutrophils # (Auto) 4.3 x10^3/uL (1.8-7.7) 4.1 x10^3/uL (1.8-7.7) Lymphocytes # (Auto) 2.2 x10^3/uL (1.0-4.8) 1.6 x10^3/uL (1.0-4.8) Monocytes # (Auto) 0.3 x10^3/uL (0.0-1.1) 0.4 x10^3/uL (0.0-1.1) Eosinophils # (Auto) 0.1 x10^3/uL (0.0-0.7) 0.1 x10^3/uL (0.0-0.7) Basophils # (Auto) 0.0 x10^3/uL (0.0-0.2) 0.0 x10^3/uL (0.0-0.2) Sodium Level 131 mmol/L (136-145) 136 mmol/L (136-145) Potassium Level 4.1 mmol/L (3.5-5.1) 4.4 mmol/L (3.5-5.1) Chloride Level 99 mmol/L (98-107) 102 mmol/L (98-107) Carbon Dioxide Level 26 mmol/L (21-32) 27 mmol/L (21-32) Anion Gap 6 (6-14) 7 (6-14) Blood Urea Nitrogen 22 mg/dL (8-26) 17 mg/dL (8-26) Creatinine 1.4 mg/dL (0.7-1.3) 1.1 mg/dL (0.7-1.3) Estimated GFR (Cockcroft-Gault) 51.5 68.1 BUN/Creatinine Ratio 16 (6-20) 15 (6-20) Glucose Level 93 mg/dL (70-99) 80 mg/dL (70-99) Uric Acid 9.4 mg/dL (3.5-7.2) 7.6 mg/dL (3.5-7.2) Calcium Level 9.9 mg/dL (8.5-10.1) 9.3 mg/dL (8.5-10.1) Total Bilirubin 0.6 mg/dL (0.2-1.0) 0.4 mg/dL (0.2-1.0) Aspartate Amino Transf (AST/SGOT) 36 U/L (15-37) 30 U/L (15-37) Alanine Aminotransferase (ALT/SGPT) 22 U/L (16-63) 19 U/L (16-63) Alkaline Phosphatase 92 U/L (46-116) 84 U/L (46-116) Lactate Dehydrogenase 428 U/L (85-227) 336 U/L (85-227) Total Protein 10.9 g/dL (6.4-8.2) 9.5 g/dL (6.4-8.2) Albumin 3.3 g/dL (3.4-5.0) 2.8 g/dL (3.4-5.0) Albumin/Globulin Ratio 0.4 (1.0-1.7) 0.4 (1.0-1.7) Glucose (Fingerstick) 87 mg/dL (70-99) 99 mg/dL (70-99) Test 04/13/20 07:42 Glucose (Fingerstick) 81 mg/dL (70-99) Laboratory Tests Test 04/12/20 11:47 04/12/20 12:28 04/12/20 16:47 04/12/20 21:02 Glucose (Fingerstick) 95 mg/dL (70-99) 87 mg/dL (70-99) 99 mg/dL (70-99) White Blood Count 6.9 x10^3/uL (4.0-11.0) Red Blood Count 3.47 x10^6/uL (4.30-5.70) Hemoglobin 12.2 g/dL (13.0-17.5) Hematocrit 34.9 % (39.0-53.0) Mean Corpuscular Volume 101 fL (79-100) Mean Corpuscular Hemoglobin 35 pg (25-35) Mean Corpuscular Hemoglobin Concent 35 g/dL (31-37) Red Cell Distribution Width 14.0 % (11.5-14.5) Platelet Count 210 x10^3/uL (140-400) Neutrophils (%) (Auto) 62 % (31-73) Lymphocytes (%) (Auto) 31 % (24-48) Monocytes (%) (Auto) 5 % (0-9) Eosinophils (%) (Auto) 2 % (0-3) Basophils (%) (Auto) 1 % (0-3) Neutrophils # (Auto) 4.3 x10^3/uL (1.8-7.7) Lymphocytes # (Auto) 2.2 x10^3/uL (1.0-4.8) Monocytes # (Auto) 0.3 x10^3/uL (0.0-1.1) Eosinophils # (Auto) 0.1 x10^3/uL (0.0-0.7) Basophils # (Auto) 0.0 x10^3/uL (0.0-0.2) Sodium Level 131 mmol/L (136-145) Potassium Level 4.1 mmol/L (3.5-5.1) Chloride Level 99 mmol/L (98-107) Carbon Dioxide Level 26 mmol/L (21-32) Anion Gap 6 (6-14) Blood Urea Nitrogen 22 mg/dL (8-26) Creatinine 1.4 mg/dL (0.7-1.3) Estimated GFR (Cockcroft-Gault) 51.5 BUN/Creatinine Ratio 16 (6-20) Glucose Level 93 mg/dL (70-99) Uric Acid 9.4 mg/dL (3.5-7.2) Calcium Level 9.9 mg/dL (8.5-10.1) Total Bilirubin 0.6 mg/dL (0.2-1.0) Aspartate Amino Transf (AST/SGOT) 36 U/L (15-37) Alanine Aminotransferase (ALT/SGPT) 22 U/L (16-63) Alkaline Phosphatase 92 U/L (46-116) Lactate Dehydrogenase 428 U/L (85-227) Total Protein 10.9 g/dL (6.4-8.2) Albumin 3.3 g/dL (3.4-5.0) Albumin/Globulin Ratio 0.4 (1.0-1.7) Test 04/13/20 07:34 04/13/20 07:42 White Blood Count 6.2 x10^3/uL (4.0-11.0) Red Blood Count 3.25 x10^6/uL (4.30-5.70) Hemoglobin 11.2 g/dL (13.0-17.5) Hematocrit 33.0 % (39.0-53.0) Mean Corpuscular Volume 101 fL (79-100) Mean Corpuscular Hemoglobin 34 pg (25-35) Mean Corpuscular Hemoglobin Concent 34 g/dL (31-37) Red Cell Distribution Width 13.7 % (11.5-14.5) Platelet Count 196 x10^3/uL (140-400) Neutrophils (%) (Auto) 66 % (31-73) Lymphocytes (%) (Auto) 26 % (24-48) Monocytes (%) (Auto) 6 % (0-9) Eosinophils (%) (Auto) 2 % (0-3) Basophils (%) (Auto) 1 % (0-3) Neutrophils # (Auto) 4.1 x10^3/uL (1.8-7.7) Lymphocytes # (Auto) 1.6 x10^3/uL (1.0-4.8) Monocytes # (Auto) 0.4 x10^3/uL (0.0-1.1) Eosinophils # (Auto) 0.1 x10^3/uL (0.0-0.7) Basophils # (Auto) 0.0 x10^3/uL (0.0-0.2) Sodium Level 136 mmol/L (136-145) Potassium Level 4.4 mmol/L (3.5-5.1) Chloride Level 102 mmol/L (98-107) Carbon Dioxide Level 27 mmol/L (21-32) Anion Gap 7 (6-14) Blood Urea Nitrogen 17 mg/dL (8-26) Creatinine 1.1 mg/dL (0.7-1.3) Estimated GFR (Cockcroft-Gault) 68.1 BUN/Creatinine Ratio 15 (6-20) Glucose Level 80 mg/dL (70-99) Uric Acid 7.6 mg/dL (3.5-7.2) Calcium Level 9.3 mg/dL (8.5-10.1) Total Bilirubin 0.4 mg/dL (0.2-1.0) Aspartate Amino Transf (AST/SGOT) 30 U/L (15-37) Alanine Aminotransferase (ALT/SGPT) 19 U/L (16-63) Alkaline Phosphatase 84 U/L (46-116) Lactate Dehydrogenase 336 U/L (85-227) Total Protein 9.5 g/dL (6.4-8.2) Albumin 2.8 g/dL (3.4-5.0) Albumin/Globulin Ratio 0.4 (1.0-1.7) Glucose (Fingerstick) 81 mg/dL (70-99) Medications Current Medications Hydromorphone HCl (Dilaudid) 1 mg 1X ONCE IVP Last administered on 04/08/20at 13:41; Start 04/08/20 at 13:15; Stop 04/08/20 at 13:16; Status DC Sodium Chloride 1,000 ml @ 1,000 mls/hr 1X ONCE IV Last administered on 04/08/20at 13:39; Start 04/08/20 at 13:15; Stop 04/08/20 at 14:14; Status DC Ondansetron HCl (Zofran) 4 mg 1X ONCE IVP Last administered on 04/08/20at 13:42; Start 04/08/20 at 13:15; Stop 04/08/20 at 13:16; Status DC Diazepam (Valium) 5 mg 1X ONCE PO Last administered on 04/08/20at 13:44; Start 04/08/20 at 13:15; Stop 04/08/20 at 13:16; Status DC Ondansetron HCl (Zofran) 4 mg PRN Q8HRS PRN IV NAUSEA/VOMITING Last administered on 04/08/20at 15:35; Start 04/08/20 at 14:15; Stop 04/09/20 at 14:14; Status DC Hydromorphone HCl (Dilaudid) 1 mg PRN Q3HRS PRN IVP PAIN Last administered on 04/09/20at 10:03; Start 04/08/20 at 14:15; Stop 04/09/20 at 13:42; Status DC Sennosides (Senna) 17.2 mg PRN BID PRN PO CONSTIPATION Last administered on 04/12/20at 20:27; Start 04/08/20 at 17:15 Docusate Sodium (Colace) 100 mg PRN DAILY PRN PO HARD STOOLS Last administered on 04/12/20at 20:25; Start 04/08/20 at 17:15 Ondansetron HCl (Zofran) 4 mg PRN Q6HRS PRN IVP NAUSEA/VOMITING; Start 04/08/20 at 17:15 Potassium Chloride (Klor-Con) 40 meq 1X PRN PO PER PROTOCOL; Start 04/08/20 at 17:15; Stop 04/08/20 at 17:25; Status DC Magnesium Oxide (Magnesium Oxide) 400 mg BID PO ; Start 04/08/20 at 21:00; Stop 04/08/20 at 17:24; Status DC Potassium Chloride/Water 100 ml @ 100 mls/hr Q1H IV ; Start 04/08/20 at 17:15; Stop 04/08/20 at 17:25; Status DC Magnesium Sulfate 50 ml @ 25 mls/hr Q24H IV ; Start 04/08/20 at 17:15; Stop 04/08/20 at 17:24; Status DC Potassium Chloride/Water 100 ml @ 100 mls/hr Q1H PRN IV low k; Start 04/08/20 at 17:15; Stop 04/08/20 at 17:25; Status DC Insulin Human Lispro (HumaLOG) 0-7 UNITS TIDWMEALS SQ ; Start 04/09/20 at 08:00; Stop 04/09/20 at 12:05; Status DC Dextrose (Dextrose 50%-Water Syringe) 12.5 gm PRN Q15MIN PRN IV SEE COMMENTS; Start 04/08/20 at 17:15 Acetaminophen (Tylenol) 650 mg PRN Q4HRS PRN PO TEMP OVER 100.4F OR MILD PAIN; Start 04/08/20 at 17:15 Enoxaparin Sodium (Lovenox 40mg Syringe) 40 mg Q24H SQ Last administered on 04/12/20at 17:40; Start 04/08/20 at 18:00 Info (Non-Icu Electrolyte Protocol) 1 ea CONT PRN PRN MC SEE COMMENTS; Start 04/08/20 at 17:30 Influenza Virus Vaccine Quadrival (Fluzone Quad Syringe) 0.5 ml ONCE ONCE VAX IM Last administered on 04/08/20at 20:19; Start 04/08/20 at 20:00; S top 04/08/20 at 20:01; Status DC Apixaban (Eliquis) 5 mg BID PO Last administered on 04/09/20 09:30; Start 04/09/20 at 09:30; Stop 04/09/20 at 16:41; Status DC Dofetilide (Tikosyn) 250 mcg BID PO ; Start 04/09/20 at 09:30; Stop 04/09/20 at 09:37; Status DC EZETIMIBE (Zetia) 10 mg DAILY PO Last administered on 04/13/20 09:39; Start 04/09/20 at 09:30 Furosemide (Lasix) 40 mg DAILY PO Last administered on 04/09/20at 10:05; Start 04/09/20 at 10:00; Stop 04/09/20 at 17:50; Status DC Levothyroxine Sodium (Synthroid) 150 mcg DAILY06 PO Last administered on 04/13/20at 06:08; Start 04/09/20 at 10:30 Metoprolol Succinate (Toprol Xl) 12.5 mg DAILY PO ; Start 04/09/20 at 10:00; Stop 04/09/20 at 09:55; Status DC Sacubitril/ Valsartan (Entresto 24 Mg-26 Mg) 1 tab BID PO Last administered on 04/12/20at 20:27; Start 04/09/20 at 10:00 Non-Formulary Medication 48 ea DAILY SQ ; Start 04/09/20 at 17:30; Stop 04/09/20 at 17:18; Status DC Metformin HCl (Glucophage) 1,000 mg BIDWMEALS PO Last administered on 04/09/20at 10:09; Start 04/09/20 at 10:00; Stop 04/09/20 at 18:25; Status DC Multivitamins (Thera M Plus) 1 tab DAILY PO Last administered on 04/13/20 09:36; Start 04/09/20 at 10:00 Spironolactone (Aldactone) 25 mg DAILY PO Last administered on 04/09/20at 10:09; Start 04/09/20 at 10:00; Stop 04/09/20 at 16:41; Status DC Info (Anti-Coagulation Monitoring By Pharmacy) 1 each PRN DAILY PRN MC SEE COMMENTS; Start 04/09/20 at 09:30 Dofetilide (Tikosyn) 250 mcg BID PO Last administered on 04/13/20at 09:40; Start 04/09/20 at 10:00 Metoprolol Succinate (Toprol Xl) 12.5 mg QHS PO Last administered on 04/12/20at 20:26; Start 04/09/20 at 21:00 Hydromorphone HCl (Dilaudid) 2 mg PRN Q3HRS PRN IVP PAIN Last administered on 04/12/20at 16:24; Start 04/09/20 at 13:45 Non-Formulary Medication 48 ea DAILY SQ Last administered on 04/13/20at 09:00; Start 04/09/20 at 17:30 Spironolactone (Aldactone) 25 mg DAILY PO Last administered on 04/13/20at 09:39; Start 04/10/20 at 09:00 Metformin HCl (Glucophage) 1,000 mg BID PO Last administered on 04/13/20at 09:40; Start 04/09/20 at 21:00 Ringer's Solution 1,000 ml @ 50 mls/hr Q20H IV ; Start 04/11/20 at 07:00; Stop 04/11/20 at 18:59; Status DC Lidocaine HCl (Buffered Lidocaine 1%) 3 ml STK-MED ONCE .ROUTE ; Start 04/11/20 at 12:58; Stop 04/11/20 at 12:58; Status DC Lidocaine HCl (Buffered Lidocaine 1%) 3 ml STK-MED ONCE .ROUTE ; Start 04/11/20 at 13:13; Stop 04/11/20 at 13:14; Status DC Iohexol (Omnipaque 240 Mg/ml) 50 ml STK-MED ONCE .ROUTE ; Start 04/11/20 at 13:14; Stop 04/11/20 at 13:14; Status DC Midazolam HCl (Versed) 2 mg STK-MED ONCE .ROUTE ; Start 04/11/20 at 13:26; Stop 04/11/20 at 13:27; Status DC Fentanyl Citrate (Fentanyl 5ml Vial) 250 mcg STK-MED ONCE .ROUTE ; Start 04/11/20 at 13:26; Stop 04/11/20 at 13:27; Status DC Propofol (Diprivan) 200 mg STK-MED ONCE IV ; Start 04/11/20 at 13:31; Stop 04/11/20 at 13:32; Status DC Propofol 50 ml @ As Directed STK-MED ONCE IV ; Start 04/11/20 at 13:31; Stop 04/11/20 at 13:32; Status DC Midazolam HCl (Versed) 2 mg STK-MED ONCE .ROUTE ; Start 04/11/20 at 13:32; Stop 04/11/20 at 13:32; Status DC Midazolam HCl (Versed) 2 mg 1X ONCE IV Last administered on 04/11/20at 13:33; Start 04/11/20 at 13:45; Stop 04/11/20 at 13:50; Status DC Fentanyl Citrate (Fentanyl 5ml Vial) 100 mcg 1X ONCE IV Last administered on 04/11/20at 13:33; Start 04/11/20 at 13:45; Stop 04/11/20 at 13:50; Status DC Ketamine HCl (Ketamine) 50 mg STK-MED ONCE .ROUTE ; Start 04/11/20 at 13:48; Stop 04/11/20 at 13:48; Status DC Cefazolin Sodium/ Dextrose 50 ml @ As Directed STK-MED ONCE IV ; Start 04/11/20 at 14:03; Stop 04/11/20 at 14:04; Status DC Lidocaine HCl (Buffered Lidocaine 1%) 3 ml 1X ONCE IJ Last administered on 04/11/20at 13:40; Start 04/11/20 at 14:15; Stop 04/11/20 at 14:19; Status DC Iohexol (Omnipaque 240 Mg/ml) 50 ml 1X ONCE IJ Last administered on 04/11/20at 14:15; Start 04/11/20 at 14:15; Stop 04/11/20 at 14:19; Status DC Cefazolin Sodium/ Dextrose 50 ml @ 100 mls/hr 1X ONCE IV Last administered on 04/11/20at 14:12; Start 04/11/20 at 14:15; Stop 04/11/20 at 14:44; Status DC Sodium Chloride (Saline Mist Nasal) 1 celestina PRN Q1HR PRN NS NASAL CONGESTION Last administered on 04/11/20at 19:24; Start 04/11/20 at 19:15 Bisacodyl (Dulcolax Tab) 10 mg PRN DAILY PRN PO CONSTIPATION Last administered on 04/12/20at 10:10; Start 04/12/20 at 10:00; Stop 04/12/20 at 10:30; Status DC Magnesium Citrate (Citroma) 296 ml 1X ONCE PO Last administered on 04/12/20at 10:00; Start 04/12/20 at 10:00; Stop 04/12/20 at 10:01; Status DC Diphenhydramine HCl (Benadryl) 25 mg PRN Q6HRS PRN PO ITCHING Last administered on 04/12/20at 20:31; Start 04/12/20 at 11:15 Sodium Chloride 1,000 ml @ 100 mls/hr Q10H IV Last administered on 04/13/20at 01:58; Start 04/12/20 at 16:00 Allopurinol (Zyloprim) 300 mg DAILY PO Last administered on 04/13/20at 09:39; Start 04/12/20 at 16:00 Hydromorphone HCl (Dilaudid) 3 mg PRN Q4HRS PRN PO PAIN Last administered on 04/13/20at 09:34; Start 04/12/20 at 16:15 Active Scripts Active Reported Furosemide 40 Mg Tablet 1 Tab PO DAILY Tikosyn (Dofetilide) 250 Mcg Capsule 250 Mcg PO BID Eliquis (Apixaban) 5 Mg Tablet 5 Mg PO BID Zetia (Ezetimibe) 10 Mg Tablet 10 Mg PO DAILY Metoprolol Succinate ( Xl ) (Metoprolol Succinate) 25 Mg Tab.er.24h 12.5 Mg PO DAILY One-Daily Multi-Vitamin (Multivitamin) 1 Each Tablet 1 Tab PO DAILY 30 Days Lantus Solostar (Insulin Glargine,Hum.rec.anlog) 100 Unit/1 Ml Insuln.pen 48 Unit SQ HS Spironolactone 50 Mg Tablet 0.5 Tab PO DAILY Entresto 24 mg-26 mg Tablet (Sacubitril/Valsartan) 1 Each Tablet 1 Each PO BID Metformin Hcl 1,000 Mg Tablet 1,000 Mg PO BIDWMEALS Levothyroxine Sodium 75 Mcg Tablet 150 Mcg PO DAILY Vitals/I & O Vital Sign - Last 24 Hours 04/12/20 04/12/20 04/12/20 04/12/20 11:00 12:39 13:10 15:00 Temp 97.3 97.5 97.3 97.5 Pulse 86 84 Resp 18 22 20 16 B/P (MAP) 114/70 (85) 112/72 (85) Pulse Ox 98 99 O2 Delivery Room Air Room Air Room Air Room Air 04/12/20 04/12/20 04/12/20 04/12/20 16:24 17:47 17:48 19:00 O2 Delivery Room Air Room Air Room Air Room Air 04/12/20 04/12/20 04/12/20 04/12/20 19:25 20:00 20:26 20:27 Temp 98.5 98.5 Pulse 102 102 102 Resp 18 B/P (MAP) 122/75 (91) 122/75 122/75 O2 Delivery Room Air 04/12/20 04/12/20 04/13/20 04/13/20 23:29 23:32 03:15 03:27 Temp 98.3 98.2 98.3 98.2 Pulse 87 97 Resp 18 18 B/P (MAP) 108/68 (81) 113/71 (85) Pulse Ox 97 98 O2 Delivery Room Air Room Air Room Air Room Air 04/13/20 04/13/20 07:00 09:34 Temp 98.6 98.6 Pulse 83 Resp 18 B/P (MAP) 89/45 (60) Pulse Ox 95 O2 Delivery Room Air Room Air Intake and Output 04/12/20 04/12/20 04/13/20 15:00 23:00 07:00 Intake Total 90 ml 360 ml Balance 90 ml 360 ml Justifications for Admission Other Justification intractable back pain HYUN BRADFORD MD Apr 13, 2020 10:37
--- NOTE | 2020-04-13 10:46 | PDOC ---
PROGRESS NOTES Date of Service: DATE: 04/13/20 TIME: 10:46 Chief Complaint Chief Complaint Images: Images Spine MRI Impression: 1. There are multiple edematous marrow lesions, evidence of metastatic disease or multiple myeloma. There is degree of pathologic compression deformity of L2 and to lesser degree of L4 which may be more recent as there is associated marrow edema, no osseous retropulsion. 2. There is no significant lumbar spinal stenosis. There is mild neural foramina compromise as stated. Assessment/Plan Assessment/Plan Intractable back pain due to multiple edematous marrow lesions, evidence of metastatic disease or multiple myeloma Pathologic compression fracture of L2 and L4 pathologic compression deformity of L2 and to lesser degree of L4 which may be more recent as there is associated marrow edema, no osseous retropulsion. Anemia of unclear etiology Elevated gamma gap Hyponatremia hx Ischemic cardiomyopathy 2018 echo Ejection Fraction is 35-40%.global hypokinesis of the left ve ntricle.moderately severe mitral regurgitation. Ischemic CMP with EF of 20-25% 12/07 cardiac cath Chronic systolic heart failure Atrial fibrillation Hypertension Coronary artery disease Diabetes mellitus type 2 HYPERURECEMIA due to myeloma, uric acid down to 7.6 Immunofixation shows IgG monoclonal protein with kappa light chain specificity. No lytic lesions identified by radiograph. on skeletal survey plan Admit to medicine for further management Neurology consult Oncology consult reviewed cardiology consult , pt refusing tele monitor ama IV pain control as needed Serial neuro checks Lovenox for DVT prophylaxis ADA diet Full code Bone marrow biopsy noted 24 hour urine for TV, Protein, Creatinine, Protein electrophoresis, Protein immunoelectrophoresis, [place] and Lambda light chains. Skeletal survey. Discussed with RN and SW Disposition inpatient care trial po dilaudid Surrogate decision maker is the inc dilaudid to 3 mg iv q 3 hrs prn severe pain, consult cardiology, to tele bed but refused 27 min pt exam, chart review, > 50% of time spent with exam, chart review, pt care coordination Justifications for Admission Justifications for Admission Other Justification INTRACTABLE PAIN History of Present Illness History of Present Illness Chief Complaint: Chief Complain: Back Pain History of Present Illness: HPI: 60 year old male with history of diabetes type 2, hypertension, A. fib, who presents the ED today to be evaluated for moderate low back pain that he states has been going on since January but has gotten worse in the last couple days with back spasms today, he reports the last time he had back spasms was 15 years ago. Patient states he did follow-up with his PCP as well as a chiropractor for the back pain towards the end of February. He had an MRI done at [facility] 3 days ago but he does not know the results. Patient denies any loss of bowel/bladder function. Denies any injury. Denies any pain radiating to bilateral lower extremities. He states his pain is worse on movement. He states he tried taking his hydrocodone and Flexeril with no re lief. Of note, patient did experience 1 episode of fall which she fell to his right side and had a rib pain. Patient has had routine colonoscopy screening starting at age 44 and had it every 5 years without any positive findings. Patient is up-to-date with his Pneumovax Past Medical/Surgical History: PMH/PSH: Past Medical History: A-Fib, CAD, Diabetes-Type II, Hypertension, annamarie mountain spotted fever Past Surgical History: Appendectomy, Pacemaker, splenectomy, knee surgery Allergies: Allergies: Coded Allergies: amiodarone (Verified Allergy, Severe, Shortness of Air, 12/06/18) meperidine (Verified Allergy, Severe, Shortness of Air, 12/06/18) Tsislxk-Rvg-Dec Reductase Inhibitor (Verified Adverse Reaction, Intermediate, 12/06/18) pt states he has a severe liver reaction lisinopril (Verified Adverse Reaction, Mild, 12/06/18) Cough-pt refuses to take medication due to rxn Family History: Family History: Father with hairy cell leukemia Social History: Social History: Smoking Status: Never Smoker Alcohol Use: Occasionally Drug Use: None Current Medications: Vitals Vitals Vital Signs Date Time Temp Pulse Resp B/P (MAP) Pulse Ox O2 Delivery O2 Flow Rate FiO2 04/13/20 09:34 Room Air 04/13/20 07:00 98.6 83 18 89/45 (60) 95 98.6 Physical Exam Physical Exam Physcial Exam: GEN: NO apparent distress. Alert and oriented HEENT: Normal cephalic, atraumatic, external auditory canals are patent EYES: Extraocular muscles are intact, pupil are equally round and reactive to light and accommodation MUSCULOSKELETAL: Well developed , well nourished, good range of motion ENDOCRINE: No thyromegaly was palpated LYMPHATICS: No cervical chain or axillary nodes were noted HEMATOPOIETIC: No bruising NECK: Supple, no JVD, no thyromegaly was noted LUNGS: Clear to auscultation in all lung hernandez without rhonchi or wheezing HEART: RRR, S!, S2 present. Peripheral pulses intact, no obvious murmurs noted ABDOMEN: Soft, nontender. Positive bowel sounds, no organomegaly, normal bowel sounds EXTREMITIES: Without clubbing, cyanosis, or edema. Pedal pulses intact. Negative Homans sign NEUROLOGIC: Normal speech and tone. A&O x 3, moves all extremities, no obvio us focal deficits any movement causes severe pain PSYCHIATRIC: Normal affect, normal mood. Stable SKIN: No ulcerations or rashes, good skin turgor, no jaundice VASCULAR: Good capillary refill, neurovascular bundle appears to be intact General: Alert, Oriented X3, Cooperative Heart: Regular rate, Normal S1, Normal S2 Lungs: Clear Abdomen: Normal bowel sounds, Soft, No tenderness, No hepatosplenomegaly Extremities: No cyanosis, No edema Skin: Other (Excoriation on arms) Labs LABS CLINICAL INDICATION:Suspected multiple myeloma COMPARISON:Chest radiograph 04/17/2020 and MRI chest 04/05/2020 TECHNIQUE:Complete bone survey. FINDINGS: Skull: No definite lytic lesion Chest: No lytic lesions. The heart is mildly enlarged. There is a pacemaker/AICD. Lungs are clear. Cervical spine: No definite lytic lesion. Mild degenerative disc disease. Thoracic spine: No definite lytic lesion. Moderate degenerative disc disease in the midthoracic spine. Lumbar spine: There is a compression fracture of L2 with mild/moderate height loss and a compression fracture of L4 with mild height loss. These are unchanged from prior MRI. No definite lytic lesions seen by radiograph to correlate with T2 hyperintense lesions on MRI. Mild degenerative disc disease. Pelvis: No definite lytic lesion. Mild degenerative joint disease of the hips. Right femur, tibia and fibula: No definite lytic lesion. Left femur, tibia and fibula: No definite lytic lesion. Right humerus, radius and ulna: No definite lytic lesion. Degenerative joint disease of the glenohumeral and acromioclavicular joints. Left humerus, radius and ulna: No definite lytic lesion. Mild degenerative joint disease of glenohumeral acromioclavicular joints. IMPRESSION: 1. No lytic lesions identified by radiograph. 2. Unchanged L2 and L4 compression fractures. Lesions in the lumbar spine on prior MRI are not well visualized by radiograph. Electronically signed by: Celena Bee MD (04/11/2020 4:00 PM) [id number] DICTATED and SIGNED BY: CELENA BEE MD DATE: 04/11/20 1600 esult Comment: Immunofixation shows IgG monoclonal protein with kappa light chain specificity. Performed at: [address], [place], [place] [id number] District Fire Management Officer: ELIUD Giraldo MD, Phone: [phone] Specimen Comment: Has specimen been collected/obtained? Y Laboratory Tests Test 04/12/20 11:47 04/12/20 12:28 04/12/20 16:47 04/12/20 21:02 Glucose (Fingerstick) 95 mg/dL (70-99) 87 mg/dL (70-99) 99 mg/dL (70-99) White Blood Count 6.9 x10^3/uL (4.0-11.0) Red Blood Count 3.47 x10^6/uL (4.30-5.70) Hemoglobin 12.2 g/dL (13.0-17.5) Hematocrit 34.9 % (39.0-53.0) Mean Corpuscular Volume 101 fL (79-100) Mean Corpuscular Hemoglobin 35 pg (25-35) Mean Corpuscular Hemoglobin Concent 35 g/dL (31-37) Red Cell Distribution Width 14.0 % (11.5-14.5) Platelet Count 210 x10^3/uL (140-400) Neutrophils (%) (Auto) 62 % (31-73) Lymphocytes (%) (Auto) 31 % (24-48) Monocytes (%) (Auto) 5 % (0-9) Eosinophils (%) (Auto) 2 % (0-3) Basophils (%) (Auto) 1 % (0-3) Neutrophils # (Auto) 4.3 x10^3/uL (1.8-7.7) Lymphocytes # (Auto) 2.2 x10^3/uL (1.0-4.8) Monocytes # (Auto) 0.3 x10^3/uL (0.0-1.1) Eosinophils # (Auto) 0.1 x10^3/uL (0.0-0.7) Basophils # (Auto) 0.0 x10^3/uL (0.0-0.2) Sodium Level 131 mmol/L (136-145) Potassium Level 4.1 mmol/L (3.5-5.1) Chloride Level 99 mmol/L (98-107) Carbon Dioxide Level 26 mmol/L (21-32) Anion Gap 6 (6-14) Blood Urea Nitrogen 22 mg/dL (8-26) Creatinine 1.4 mg/dL (0.7-1.3) Estimated GFR (Cockcroft-Gault) 51.5 BUN/Creatinine Ratio 16 (6-20) Glucose Level 93 mg/dL (70-99) Uric Acid 9.4 mg/dL (3.5-7.2) Calcium Level 9.9 mg/dL (8.5-10.1) Total Bilirubin 0.6 mg/dL (0.2-1.0) Aspartate Amino Transf (AST/SGOT) 36 U/L (15-37) Alanine Aminotransferase (ALT/SGPT) 22 U/L (16-63) Alkaline Phosphatase 92 U/L (46-116) Lactate Dehydrogenase 428 U/L (85-227) Total Protein 10.9 g/dL (6.4-8.2) Albumin 3.3 g/dL (3.4-5.0) Albumin/Globulin Ratio 0.4 (1.0-1.7) Test 04/13/20 07:34 04/13/20 07:42 White Blood Count 6.2 x10^3/uL (4.0-11.0) Red Blood Count 3.25 x10^6/uL (4.30-5.70) Hemoglobin 11.2 g/dL (13.0-17.5) Hematocrit 33.0 % (39.0-53.0) Mean Corpuscular Volume 101 fL (79-100) Mean Corpuscular Hemoglobin 34 pg (25-35) Mean Corpuscular Hemoglobin Concent 34 g/dL (31-37) Red Cell Distribution Width 13.7 % (11.5-14.5) Platelet Count 196 x10^3/uL (140-400) Neutrophils (%) (Auto) 66 % (31-73) Lymphocytes (%) (Auto) 26 % (24-48) Monocytes (%) (Auto) 6 % (0-9) Eosinophils (%) (Auto) 2 % (0-3) Basophils (%) (Auto) 1 % (0-3) Neutrophils # (Auto) 4.1 x10^3/uL (1.8-7.7) Lymphocytes # (Auto) 1.6 x10^3/uL (1.0-4.8) Monocytes # (Auto) 0.4 x10^3/uL (0.0-1.1) Eosinophils # (Auto) 0.1 x10^3/uL (0.0-0.7) Basophils # (Auto) 0.0 x10^3/uL (0.0-0.2) Sodium Level 136 mmol/L (136-145) Potassium Level 4.4 mmol/L (3.5-5.1) Chloride Level 102 mmol/L (98-107) Carbon Dioxide Level 27 mmol/L (21-32) Anion Gap 7 (6-14) Blood Urea Nitrogen 17 mg/dL (8-26) Creatinine 1.1 mg/dL (0.7-1.3) Estimated GFR (Cockcroft-Gault) 68.1 BUN/Creatinine Ratio 15 (6-20) Glucose Level 80 mg/dL (70-99) Uric Acid 7.6 mg/dL (3.5-7.2) Calcium Level 9.3 mg/dL (8.5-10.1) Total Bilirubin 0.4 mg/dL (0.2-1.0) Aspartate Amino Transf (AST/SGOT) 30 U/L (15-37) Alanine Aminotransferase (ALT/SGPT) 19 U/L (16-63) Alkaline Phosphatase 84 U/L (46-116) Lactate Dehydrogenase 336 U/L (85-227) Total Protein 9.5 g/dL (6.4-8.2) Albumin 2.8 g/dL (3.4-5.0) Albumin/Globulin Ratio 0.4 (1.0-1.7) Glucose (Fingerstick) 81 mg/dL (70-99) Assessment and Plan Assessmemt and Plan Problems Medical Problems: (1) Intractable low back pain Status: Acute (2) Lumbar disc lesion Status: Acute (3) Multiple myeloma Status: Acute Comment Review of Relevant I have reviewed the following items caity (where applicable) has been applied. Labs Laboratory Tests Test 04/11/20 10:56 04/11/20 15:06 04/11/20 16:45 04/11/20 20:56 White Blood Count 6.9 x10^3/uL (4.0-11.0) Red Blood Count 3.31 x10^6/uL (4.30-5.70) Hemoglobin 11.4 g/dL (13.0-17.5) Hematocrit 33.5 % (39.0-53.0) Mean Corpuscular Volume 101 fL (79-100) Mean Corpuscular Hemoglobin 34 pg (25-35) Mean Corpuscular Hemoglobin Concent 34 g/dL (31-37) Red Cell Distribution Width 13.9 % (11.5-14.5) Platelet Count 209 x10^3/uL (140-400) Neutrophils (%) (Auto) 60 % (31-73) Lymphocytes (%) (Auto) 30 % (24-48) Monocytes (%) (Auto) 7 % (0-9) Eosinophils (%) (Auto) 3 % (0-3) Basophils (%) (Auto) 1 % (0-3) Neutrophils # (Auto) 4.1 x10^3/uL (1.8-7.7) Lymphocytes # (Auto) 2.1 x10^3/uL (1.0-4.8) Monocytes # (Auto) 0.5 x10^3/uL (0.0-1.1) Eosinophils # (Auto) 0.2 x10^3/uL (0.0-0.7) Basophils # (Auto) 0.0 x10^3/uL (0.0-0.2) Lactate Dehydrogenase 249 U/L (85-227) Prostate Specific Antigen 0.24 ng/mL (0.00-4.00) Thyroid Stimulating Hormone (TSH) 4.306 uIU/mL (0.358-3.74) Glucose (Fingerstick) 87 mg/dL (70-99) 76 mg/dL (70-99) 112 mg/dL (70-99) Test 04/11/20 22:10 04/12/20 07:44 04/12/20 08:10 04/12/20 11:47 Urine Protein 16.6 mg/dL (Not Estab.) Urine Creatinine 24 Hour 59.6 mg/dL (Not Estab.) Urine Creatinine mg/24 hr 1952 mg/24 hr (5286-7287) Urine Protein 24 Hr Calculated 544 mg/24 hr (30-150) Glucose (Fingerstick) 63 mg/dL (70-99) 75 mg/dL (70-99) 95 mg/dL (70-99) Test 04/12/20 12:28 04/12/20 16:47 04/12/20 21:02 04/13/20 07:34 White Blood Count 6.9 x10^3/uL (4.0-11.0) 6.2 x10^3/uL (4.0-11.0) Red Blood Count 3.47 x10^6/uL (4.30-5.70) 3.25 x10^6/uL (4.30-5.70) Hemoglobin 12.2 g/dL (13.0-17.5) 11.2 g/dL (13.0-17.5) Hematocrit 34.9 % (39.0-53.0) 33.0 % (39.0-53.0) Mean Corpuscular Volume 101 fL (79-100) 101 fL (79-100) Mean Corpuscular Hemoglobin 35 pg (25-35) 34 pg (25-35) Mean Corpuscular Hemoglobin Concent 35 g/dL (31-37) 34 g/dL (31-37) Red Cell Distribution Width 14.0 % (11.5-14.5) 13.7 % (11.5-14.5) Platelet Count 210 x10^3/uL (140-400) 196 x10^3/uL (140-400) Neutrophils (%) (Auto) 62 % (31-73) 66 % (31-73) Lymphocytes (%) (Auto) 31 % (24-48) 26 % (24-48) Monocytes (%) (Auto) 5 % (0-9) 6 % (0-9) Eosinophils (%) (Auto) 2 % (0-3) 2 % (0-3) Basophils (%) (Auto) 1 % (0-3) 1 % (0-3) Neutrophils # (Auto) 4.3 x10^3/uL (1.8-7.7) 4.1 x10^3/uL (1.8-7.7) Lymphocytes # (Auto) 2.2 x10^3/uL (1.0-4.8) 1.6 x10^3/uL (1.0-4.8) Monocytes # (Auto) 0.3 x10^3/uL (0.0-1.1) 0.4 x10^3/uL (0.0-1.1) Eosinophils # (Auto) 0.1 x10^3/uL (0.0-0.7) 0.1 x10^3/uL (0.0-0.7) Basophils # (Auto) 0.0 x10^3/uL (0.0-0.2) 0.0 x10^3/uL (0.0-0.2) Sodium Level 131 mmol/L (136-145) 136 mmol/L (136-145) Potassium Level 4.1 mmol/L (3.5-5.1) 4.4 mmol/L (3.5-5.1) Chloride Level 99 mmol/L (98-107) 102 mmol/L (98-107) Carbon Dioxide Level 26 mmol/L (21-32) 27 mmol/L (21-32) Anion Gap 6 (6-14) 7 (6-14) Blood Urea Nitrogen 22 mg/dL (8-26) 17 mg/dL (8-26) Creatinine 1.4 mg/dL (0.7-1.3) 1.1 mg/dL (0.7-1.3) Estimated GFR (Cockcroft-Gault) 51.5 68.1 BUN/Creatinine Ratio 16 (6-20) 15 (6-20) Glucose Level 93 mg/dL (70-99) 80 mg/dL (70-99) Uric Acid 9.4 mg/dL (3.5-7.2) 7.6 mg/dL (3.5-7.2) Calcium Level 9.9 mg/dL (8.5-10.1) 9.3 mg/dL (8.5-10.1) Total Bilirubin 0.6 mg/dL (0.2-1.0) 0.4 mg/dL (0.2-1.0) Aspartate Amino Transf (AST/SGOT) 36 U/L (15-37) 30 U/L (15-37) Alanine Aminotransferase (ALT/SGPT) 22 U/L (16-63) 19 U/L (16-63) Alkaline Phosphatase 92 U/L (46-116) 84 U/L (46-116) Lactate Dehydrogenase 428 U/L (85-227) 336 U/L (85-227) Total Protein 10.9 g/dL (6.4-8.2) 9.5 g/dL (6.4-8.2) Albumin 3.3 g/dL (3.4-5.0) 2.8 g/dL (3.4-5.0) Albumin/Globulin Ratio 0.4 (1.0-1.7) 0.4 (1.0-1.7) Glucose (Fingerstick) 87 mg/dL (70-99) 99 mg/dL (70-99) Test 04/13/20 07:42 Glucose (Fingerstick) 81 mg/dL (70-99) Laboratory Tests Test 04/12/20 11:47 04/12/20 12:28 04/12/20 16:47 04/12/20 21:02 Glucose (Fingerstick) 95 mg/dL (70-99) 87 mg/dL (70-99) 99 mg/dL (70-99) White Blood Count 6.9 x10^3/uL (4.0-11.0) Red Blood Count 3.47 x10^6/uL (4.30-5.70) Hemoglobin 12.2 g/dL (13.0-17.5) Hematocrit 34.9 % (39.0-53.0) Mean Corpuscular Volume 101 fL (79-100) Mean Corpuscular Hemoglobin 35 pg (25-35) Mean Corpuscular Hemoglobin Concent 35 g/dL (31-37) Red Cell Distribution Width 14.0 % (11.5-14.5) Platelet Count 210 x10^3/uL (140-400) Neutrophils (%) (Auto) 62 % (31-73) Lymphocytes (%) (Auto) 31 % (24-48) Monocytes (%) (Auto) 5 % (0-9) Eosinophils (%) (Auto) 2 % (0-3) Basophils (%) (Auto) 1 % (0-3) Neutrophils # (Auto) 4.3 x10^3/uL (1.8-7.7) Lymphocytes # (Auto) 2.2 x10^3/uL (1.0-4.8) Monocytes # (Auto) 0.3 x10^3/uL (0.0-1.1) Eosinophils # (Auto) 0.1 x10^3/uL (0.0-0.7) Basophils # (Auto) 0.0 x10^3/uL (0.0-0.2) Sodium Level 131 mmol/L (136-145) Potassium Level 4.1 mmol/L (3.5-5.1) Chloride Level 99 mmol/L (98-107) Carbon Dioxide Level 26 mmol/L (21-32) Anion Gap 6 (6-14) Blood Urea Nitrogen 22 mg/dL (8-26) Creatinine 1.4 mg/dL (0.7-1.3) Estimated GFR (Cockcroft-Gault) 51.5 BUN/Creatinine Ratio 16 (6-20) Glucose Level 93 mg/dL (70-99) Uric Acid 9.4 mg/dL (3.5-7.2) Calcium Level 9.9 mg/dL (8.5-10.1) Total Bilirubin 0.6 mg/dL (0.2-1.0) Aspartate Amino Transf (AST/SGOT) 36 U/L (15-37) Alanine Aminotransferase (ALT/SGPT) 22 U/L (16-63) Alkaline Phosphatase 92 U/L (46-116) Lactate Dehydrogenase 428 U/L (85-227) Total Protein 10.9 g/dL (6.4-8.2) Albumin 3.3 g/dL (3.4-5.0) Albumin/Globulin Ratio 0.4 (1.0-1.7) Test 04/13/20 07:34 04/13/20 07:42 White Blood Count 6.2 x10^3/uL (4.0-11.0) Red Blood Count 3.25 x10^6/uL (4.30-5.70) Hemoglobin 11.2 g/dL (13.0-17.5) Hematocrit 33.0 % (39.0-53.0) Mean Corpuscular Volume 101 fL (79-100) Mean Corpuscular Hemoglobin 34 pg (25-35) Mean Corpuscular Hemoglobin Concent 34 g/dL (31-37) Red Cell Distribution Width 13.7 % (11.5-14.5) Platelet Count 196 x10^3/uL (140-400) Neutrophils (%) (Auto) 66 % (31-73) Lymphocytes (%) (Auto) 26 % (24-48) Monocytes (%) (Auto) 6 % (0-9) Eosinophils (%) (Auto) 2 % (0-3) Basophils (%) (Auto) 1 % (0-3) Neutrophils # (Auto) 4.1 x10^3/uL (1.8-7.7) Lymphocytes # (Auto) 1.6 x10^3/uL (1.0-4.8) Monocytes # (Auto) 0.4 x10^3/uL (0.0-1.1) Eosinophils # (Auto) 0.1 x10^3/uL (0.0-0.7) Basophils # (Auto) 0.0 x10^3/uL (0.0-0.2) Sodium Level 136 mmol/L (136-145) Potassium Level 4.4 mmol/L (3.5-5.1) Chloride Level 102 mmol/L (98-107) Carbon Dioxide Level 27 mmol/L (21-32) Anion Gap 7 (6-14) Blood Urea Nitrogen 17 mg/dL (8-26) Creatinine 1.1 mg/dL (0.7-1.3) Estimated GFR (Cockcroft-Gault) 68.1 BUN/Creatinine Ratio 15 (6-20) Glucose Level 80 mg/dL (70-99) Uric Acid 7.6 mg/dL (3.5-7.2) Calcium Level 9.3 mg/dL (8.5-10.1) Total Bilirubin 0.4 mg/dL (0.2-1.0) Aspartate Amino Transf (AST/SGOT) 30 U/L (15-37) Alanine Aminotransferase (ALT/SGPT) 19 U/L (16-63) Alkaline Phosphatase 84 U/L (46-116) Lactate Dehydrogenase 336 U/L (85-227) Total Protein 9.5 g/dL (6.4-8.2) Albumin 2.8 g/dL (3.4-5.0) Albumin/Globulin Ratio 0.4 (1.0-1.7) Glucose (Fingerstick) 81 mg/dL (70-99) Medications Current Medications Hydromorphone HCl (Dilaudid) 1 mg 1X ONCE IVP Last administered on 04/08/20at 13:41; Start 04/08/20 at 13:15; Stop 04/08/20 at 13:16; Status DC Sodium Chloride 1,000 ml @ 1,000 mls/hr 1X ONCE IV Last administered on 04/08/20at 13:39; Start 04/08/20 at 13:15; Stop 04/08/20 at 14:14; Status DC Ondansetron HCl (Zofran) 4 mg 1X ONCE IVP Last administered on 04/08/20at 13:42; Start 04/08/20 at 13:15; Stop 04/08/20 at 13:16; Status DC Diazepam (Valium) 5 mg 1X ONCE PO Last administered on 04/08/20at 13:44; Start 04/08/20 at 13:15; Stop 04/08/20 at 13:16; Status DC Ondansetron HCl (Zofran) 4 mg PRN Q8HRS PRN IV NAUSEA/VOMITING Last administered on 04/08/20at 15:35; Start 04/08/20 at 14:15; Stop 04/09/20 at 14:14; Status DC Hydromorphone HCl (Dilaudid) 1 mg PRN Q3HRS PRN IVP PAIN Last administered on 04/09/20at 10:03; Start 04/08/20 at 14:15; Stop 04/09/20 at 13:42; Status DC Sennosides (Senna) 17.2 mg PRN BID PRN PO CONSTIPATION Last administered on 04/12/20at 20:27; Start 04/08/20 at 17:15 Docusate Sodium (Colace) 100 mg PRN DAILY PRN PO HARD STOOLS Last administered on 04/12/20at 20:25; Start 04/08/20 at 17:15 Ondansetron HCl (Zofran) 4 mg PRN Q6HRS PRN IVP NAUSEA/VOMITING; Start 04/08/20 at 17:15 Potassium Chloride (Klor-Con) 40 meq 1X PRN PO PER PROTOCOL; Start 04/08/20 at 17:15; Stop 04/08/20 at 17:25; Status DC Magnesium Oxide (Magnesium Oxide) 400 mg BID PO ; Start 04/08/20 at 21:00; S top 04/08/20 at 17:24; Status DC Potassium Chloride/Water 100 ml @ 100 mls/hr Q1H IV ; Start 04/08/20 at 17:15; Stop 04/08/20 at 17:25; Status DC Magnesium Sulfate 50 ml @ 25 mls/hr Q24H IV ; Start 04/08/20 at 17:15; Stop 04/08/20 at 17:24; Status DC Potassium Chloride/Water 100 ml @ 100 mls/hr Q1H PRN IV low k; Start 04/08/20 at 17:15; Stop 04/08/20 at 17:25; Status DC Insulin Human Lispro (HumaLOG) 0-7 UNITS TIDWMEALS SQ ; Start 04/09/20 at 08:00; Stop 04/09/20 at 12:05; Status DC Dextrose (Dextrose 50%-Water Syringe) 12.5 gm PRN Q15MIN PRN IV SEE COMMENTS; Start 04/08/20 at 17:15 Acetaminophen (Tylenol) 650 mg PRN Q4HRS PRN PO TEMP OVER 100.4F OR MILD PAIN; Start 04/08/20 at 17:15 Enoxaparin Sodium (Lovenox 40mg Syringe) 40 mg Q24H SQ Last administered on 04/12/20at 17:40; Start 04/08/20 at 18:00 Info (Non-Icu Electrolyte Protocol) 1 ea CONT PRN PRN MC SEE COMMENTS; Start 04/08/20 at 17:30 Influenza Virus Vaccine Quadrival (Fluzone Quad Syringe) 0.5 ml ONCE ONCE VAX IM Last administered on 04/08/20at 20:19; Start 04/08/20 at 20:00; Stop 04/08/20 at 20:01; Status DC Apixaban (Eliquis) 5 mg BID PO Last administered on 04/09/20at 09:30; Start 04/09/20 at 09:30; Stop 04/09/20 at 16:41; Status DC Dofetilide (Tikosyn) 250 mcg BID PO ; Start 04/09/20 at 09:30; Stop 04/09/20 at 09:37; Status DC EZETIMIBE (Zetia) 10 mg DAILY PO Last administered on 04/13/20 09:39; Start 04/09/20 at 09:30 Furosemide (Lasix) 40 mg DAILY PO Last administered on 04/09/20at 10:05; Start 04/09/20 at 10:00; Stop 04/09/20 at 17:50; Status DC Levothyroxine Sodium (Synthroid) 150 mcg DAILY06 PO Last administered on 04/13/20at 06:08; Start 04/09/20 at 10:30 Metoprolol Succinate (Toprol Xl) 12.5 mg DAILY PO ; Start 04/09/20 at 10:00; Stop 04/09/20 at 09:55; Status DC Sacubitril/ Valsartan (Entresto 24 Mg-26 Mg) 1 tab BID PO Last administered on 04/12/20at 20:27; Start 04/09/20 at 10:00 Non-Formulary Medication 48 ea DAILY SQ ; Start 04/09/20 at 17:30; Stop 04/09/20 at 17:18; Status DC Metformin HCl (Glucophage) 1,000 mg BIDWMEALS PO Last administered on 04/09/20at 10:09; Start 04/09/20 at 10:00; Stop 04/09/20 at 18:25; Status DC Multivitamins (Thera M Plus) 1 tab DAILY PO Last administered on 04/13/20 09:36; Start 04/09/20 at 10:00 Spironolactone (Aldactone) 25 mg DAILY PO Last administered on 04/09/20at 10:09; Start 04/09/20 at 10:00; Stop 04/09/20 at 16:41; Status DC Info (Anti-Coagulation Monitoring By Pharmacy) 1 each PRN DAILY PRN MC SEE COMMENTS; Start 04/09/20 at 09:30 Dofetilide (Tikosyn) 250 mcg BID PO Last administered on 04/13/20at 09:40; Start 04/09/20 at 10:00 Metoprolol Succinate (Toprol Xl) 12.5 mg QHS PO Last administered on 04/12/20at 20:26; Start 04/09/20 at 21:00 Hydromorphone HCl (Dilaudid) 2 mg PRN Q3HRS PRN IVP PAIN Last administered on 04/12/20at 16:24; Start 04/09/20 at 13:45 Non-Formulary Medication 48 ea DAILY SQ Last administered on 04/13/20at 09:00; Start 04/09/20 at 17:30 Spironolactone (Aldactone) 25 mg DAILY PO Last administered on 04/13/20at 09:39; Start 04/10/20 at 09:00 Metformin HCl (Glucophage) 1,000 mg BID PO Last administered on 04/13/20at 09:40; Start 04/09/20 at 21:00 Ringer's Solution 1,000 ml @ 50 mls/hr Q20H IV ; Start 04/11/20 at 07:00; Stop 04/11/20 at 18:59; Status DC Lidocaine HCl (Buffered Lidocaine 1%) 3 ml STK-MED ONCE .ROUTE ; Start 04/11/20 at 12:58; Stop 04/11/20 at 12:58; Status DC Lidocaine HCl (Buffered Lidocaine 1%) 3 ml STK-MED ONCE .ROUTE ; Start 04/11/20 at 13:13; Stop 04/11/20 at 13:14; Status DC Iohexol (Omnipaque 240 Mg/ml) 50 ml STK-MED ONCE .ROUTE ; Start 04/11/20 at 13:14; Stop 04/11/20 at 13:14; Status DC Midazolam HCl (Versed) 2 mg STK-MED ONCE .ROUTE ; Start 04/11/20 at 13:26; Stop 04/11/20 at 13:27; Status DC Fentanyl Citrate (Fentanyl 5ml Vial) 250 mcg STK-MED ONCE .ROUTE ; Start 04/11/20 at 13:26; Stop 04/11/20 at 13:27; Status DC Propofol (Diprivan) 200 mg STK-MED ONCE IV ; Start 04/11/20 at 13:31; Stop 04/11/20 at 13:32; Status DC Propofol 50 ml @ As Directed STK-MED ONCE IV ; Start 04/11/20 at 13:31; Stop 04/11/20 at 13:32; Status DC Midazolam HCl (Versed) 2 mg STK-MED ONCE .ROUTE ; Start 04/11/20 at 13:32; Stop 04/11/20 at 13:32; Status DC Midazolam HCl (Versed) 2 mg 1X ONCE IV Last administered on 04/11/20at 13:33; Start 04/11/20 at 13:45; Stop 04/11/20 at 13:50; Status DC Fentanyl Citrate (Fentanyl 5ml Vial) 100 mcg 1X ONCE IV Last administered on 04/11/20at 13:33; Start 04/11/20 at 13:45; Stop 04/11/20 at 13:50; Status DC Ketamine HCl (Ketamine) 50 mg STK-MED ONCE .ROUTE ; Start 04/11/20 at 13:48; Stop 04/11/20 at 13:48; Status DC Cefazolin Sodium/ Dextrose 50 ml @ As Directed STK-MED ONCE IV ; Start 04/11/20 at 14:03; Stop 04/11/20 at 14:04; Status DC Lidocaine HCl (Buffered Lidocaine 1%) 3 ml 1X ONCE IJ Last administered on 04/11/20at 13:40; Start 04/11/20 at 14:15; Stop 04/11/20 at 14:19; Status DC Iohexol (Omnipaque 240 Mg/ml) 50 ml 1X ONCE IJ Last administered on 04/11/20at 14:15; Start 04/11/20 at 14:15; Stop 04/11/20 at 14:19; Status DC Cefazolin Sodium/ Dextrose 50 ml @ 100 mls/hr 1X ONCE IV Last administered on 04/11/20at 14:12; Start 04/11/20 at 14:15; Stop 04/11/20 at 14:44; Status DC Sodium Chloride (Saline Mist Nasal) 1 celestina PRN Q1HR PRN NS NASAL CONGESTION Last administered on 04/11/20at 19:24; Start 04/11/20 at 19:15 Bisacodyl (Dulcolax Tab) 10 mg PRN DAILY PRN PO CONSTIPATION Last administered on 04/12/20at 10:10; Start 04/12/20 at 10:00; Stop 04/12/20 at 10:30; Status DC Magnesium Citrate (Citroma) 296 ml 1X ONCE PO Last administered on 04/12/20at 10:00; Start 04/12/20 at 10:00; Stop 04/12/20 at 10:01; Status DC Diphenhydramine HCl (Benadryl) 25 mg PRN Q6HRS PRN PO ITCHING Last administered on 04/12/20at 20:31; Start 04/12/20 at 11:15 Sodium Chloride 1,000 ml @ 100 mls/hr Q10H IV Last administered on 04/13/20at 01:58; Start 04/12/20 at 16:00 Allopurinol (Zyloprim) 300 mg DAILY PO Last administered on 04/13/20at 09:39; Start 04/12/20 at 16:00 Hydromorphone HCl (Dilaudid) 3 mg PRN Q4HRS PRN PO PAIN Last administered on 04/13/20at 09:34; Start 04/12/20 at 16:15 Pantoprazole Sodium (Protonix) 40 mg DAILYAC PO ; Start 04/13/20 at 10:30 Dexamethasone Sodium Phosphate (Decadron) 8 mg 1X ONCE IVP ; Start 04/13/20 at 10:30; Stop 04/13/20 at 10:35; Status DC Active Scripts Active Reported Furosemide 40 Mg Tablet 1 Tab PO DAILY Tikosyn (Dofetilide) 250 Mcg Capsule 250 Mcg PO BID Eliquis (Apixaban) 5 Mg Tablet 5 Mg PO BID Zetia (Ezetimibe) 10 Mg Tablet 10 Mg PO DAILY Metoprolol Succinate ( Xl ) (Metoprolol Succinate) 25 Mg Tab.er.24h 12.5 Mg PO DAILY One-Daily Multi-Vitamin (Multivitamin) 1 Each Tablet 1 Tab PO DAILY 30 Days Lantus Solostar (Insulin Glargine,Hum.rec.anlog) 100 Unit/1 Ml Insuln.pen 48 Unit SQ HS Spironolactone 50 Mg Tablet 0.5 Tab PO DAILY Entresto 24 mg-26 mg Tablet (Sacubitril/Valsartan) 1 Each Tablet 1 Each PO BID Metformin Hcl 1,000 Mg Tablet 1,000 Mg PO BIDWMEALS Levothyroxine Sodium 75 Mcg Tablet 150 Mcg PO DAILY Vitals/I & O Vital Sign - Last 24 Hours 04/12/20 04/12/20 04/12/20 04/12/20 11:00 12:39 13:10 15:00 Temp 97.3 97.5 97.3 97.5 Pulse 86 84 Resp 18 22 20 16 B/P (MAP) 114/70 (85) 112/72 (85) Pulse Ox 98 99 O2 Delivery Room Air Room Air Room Air Room Air 04/12/20 04/12/20 04/12/20 04/12/20 16:24 17:47 17:48 19:00 O2 Delivery Room Air Room Air Room Air Room Air 04/12/20 04/12/20 04/12/20 04/12/20 19:25 20:00 20:26 20:27 Temp 98.5 98.5 Pulse 102 102 102 Resp 18 B/P (MAP) 122/75 (91) 122/75 122/75 O2 Delivery Room Air 04/12/20 04/12/20 04/13/20 04/13/20 23:29 23:32 03:15 03:27 Temp 98.3 98.2 98.3 98.2 Pulse 87 97 Resp 18 18 B/P (MAP) 108/68 (81) 113/71 (85) Pulse Ox 97 98 O2 Delivery Room Air Room Air Room Air Room Air 04/13/20 04/13/20 07:00 09:34 Temp 98.6 98.6 Pulse 83 Resp 18 B/P (MAP) 89/45 (60) Pulse Ox 95 O2 Delivery Room Air Room Air Intake and Output 04/12/20 04/12/20 04/13/20 15:00 23:00 07:00 Intake Total 90 ml 360 ml Balance 90 ml 360 ml Justicifation of Admission Dx: Justifications for Admission: Justification of Admission Dx: Yes Chronic Renal Failure: Intravenous Infusions Fracture: Fracture GRACIA CASTANEDA MD Apr 13, 2020 10:46
[2020-04-13 11:00] VITALS: BP 113/81
[2020-04-13] MEDS: PANTOPRAZOLE 40 MG TABLET.DR. PO SCH (11:11)
[2020-04-13] MEDS: HYDROmorphone 2 MG/ML VIAL IVP PRN (12:22)
[2020-04-13 15:00] VITALS: BP 104/61
--- NOTE | 2020-04-13 16:54 | RAD ---
Renal ultrasound dated 04/13/2020. No comparison available. Clinical data indication: Acute kidney injury. FINDINGS: Right kidney measures 10.8 cm in length. Left kidney measures 11.4 cm in length. No hydronephrosis. No apparent mass or shadowing calculus. Urinary bladder is nondistended. Limited visualized portions of aorta and IVC are unremarkable. There is atrophic changes of the abdominal aorta without definite aneurysm. IMPRESSION: 1. No acute sonographic abnormality. No hydronephrosis. Electronically signed by: Chris Ochoa MD (04/13/2020 4:51 PM) [id number]
[2020-04-13] MEDS ORDERED: diazePAM 5 MG TABLET PO PRN (17:00)
[2020-04-13] MEDS: ENOXAPARIN 40 MG/0.4 ML SYRINGE. SQ SCH (17:33)
[2020-04-13 18:56] VITALS: BP 102/72
[2020-04-13] MEDS: METOPROLOL SUCC 24HR ER 25 MG TAB.ER.24H. PO SCH (21:35)
[2020-04-13 23:00] VITALS: BP 110/65
[2020-04-14] MEDS: HYDROmorphone 2 MG/ML VIAL IVP PRN ×3 (00:50→12:43)
[2020-04-14] MEDS: HYDROmorphone 2 MG TABLET PO PRN ×4 (02:23→20:50)
[2020-04-14 03:00] VITALS: BP 100/60
[2020-04-14] MEDS: LEVOTHYROXINE 75 MCG TABLET PO SCH (06:16)
[2020-04-14 06:46] VITALS: BP 101/67
[2020-04-14] MEDS: DOFETILIDE 125 MCG CAPSULE PO SCH ×2 (09:38→20:50)
[2020-04-14] MEDS: metFORMIN 500 MG TABLET PO SCH ×2 (09:38→20:51)
[2020-04-14] MEDS: MULTIVITAMIN with MINERAL TABLET. PO SCH (09:39)
[2020-04-14] MEDS: PANTOPRAZOLE 40 MG TABLET.DR. PO SCH (09:40)
[2020-04-14] MEDS: ALLOPURINOL 300 MG TABLET. PO SCH (09:41)
[2020-04-14] MEDS: SACUBITRIL/VALSARTAN 24/26MG TABLET. PO SCH ×2 (09:41→20:51)
[2020-04-14] MEDS: diazePAM 5 MG TABLET PO SCH ×2 (09:41→20:51)
[2020-04-14] MEDS: EZETIMIBE 10 MG TABLET. PO SCH (09:42)
[2020-04-14] MEDS: INSULIN GLARGINE SQ SCH (09:42)
[2020-04-14] MEDS: SPIRONOLACTONE 25 MG TABLET PO SCH (09:43)
[2020-04-14] MEDS: IV NORMAL SALINE 1000ML BAG 1,000 ML IV SCH ×2 (09:44→17:59)
[2020-04-14 09:46] LABS: BASO % 0 % (0-3); EOS % 0 % (0-3); HEMATOCRIT 30.7 % (39.0-53.0); HEMOGLOBIN 10.4 g/dL (13.0-17.5); LYMPH # 1.4 x10^3/uL (1.0-4.8); LYMPH % 18 % (24-48); MEAN CORPUSCULAR HEMOGLOBIN 34 pg (25-35); MEAN CORPUSCULAR HGB CONC 34 g/dL (31-37); MEAN CORPUSCULAR VOLUME 102 fL (79-100); MONO # 0.4 x10^3/uL (0.0-1.1); MONO % 6 % (0-9); NEUT # 5.8 x10^3/uL (1.8-7.7); NEUT % 77 % (31-73); PLATELET COUNT 213 x10^3/uL (140-400); RED BLOOD COUNT 3.01 x10^6/uL (4.30-5.70); RED CELL DISTRIBUTION WIDTH 14.1 % (11.5-14.5); WHITE BLOOD COUNT 7.6 x10^3/uL (4.0-11.0)
[2020-04-14 09:48] LABS: ALBUMIN 2.7 g/dL (3.4-5.0); ALBUMIN/GLOBULIN RATIO 0.4 (1.0-1.7); CALCIUM 9.1 mg/dL (8.5-10.1); CREATININE 1.1 mg/dL (0.7-1.3); GFR 68.1; POTASSIUM 5.3 mmol/L (3.5-5.1); TOTAL BILIRUBIN 0.3 mg/dL (0.2-1.0); TOTAL PROTEIN 9.7 g/dL (6.4-8.2)
[2020-04-14 11:00] VITALS: BP 116/69
--- NOTE | 2020-04-14 11:36 | PDOC ---
PROGRESS NOTES Date of Service: DATE: 04/14/20 TIME: 11:36 Chief Complaint Chief Complaint Images: Images Spine MRI Impression: 1. There are multiple edematous marrow lesions, evidence of metastatic disease or multiple myeloma. There is degree of pathologic compression deformity of L2 and to lesser degree of L4 which may be more recent as there is associated marrow edema, no osseous retropulsion. 2. There is no significant lumbar spinal stenosis. There is mild neural foramina compromise as stated. Assessment/Plan Assessment/Plan Intractable back pain due to multiple edematous marrow lesions, evidence of metastatic disease or multiple myeloma Pathologic MODERATE compression fracture of L2 and L4 pathologic compression deformity of L2 and to lesser degree of L4 which may be more recent as there is associated marrow edema, no osseous retropulsion. Anemia of unclear etiology Elevated gamma gap Hyponatremia hx Ischemic cardiomyopathy 2018 echo Ejection Fraction is 35-40%.global hypokinesis of the left ventricle.moderately severe mitral regurgitation. Ischemic CMP with EF of 20-25% 12/07 cardiac cath Chronic systolic heart failure Atrial fibrillation Hypertension Coronary artery disease Diabetes mellitus type 2 HYPERURECEMIA due to myeloma, uric acid down to 7.6 Immunofixation shows IgG monoclonal protein with kappa light chain specificity. No lytic lesions identified by radiograph. on skeletal survey plan Admit to medicine for further management Neurology consult Oncology consult reviewed cardiology consult , pt refusing tele monitor ama IV pain control as needed Serial neuro checks Lovenox for DVT prophylaxis ADA diet Full code Bone marrow biopsy noted 24 hour urine for TV, Protein, Creatinine, Protein electrophoresis, Protein immunoelectrophoresis, Boley and Lambda light chains. Skeletal survey. Discussed with RN and SW Disposition inpatient care trial po dilaudid Surrogate decision maker is the [facility] dilaudid to 3 mg iv q 3 hrs prn severe pain, consult cardiology, to tele bed but refused 27 min pt exam, chart review, > 50% of time spent with exam, chart review, pt care coordination Justifications for Admission Justifications for Admission Other Justification INTRACTABLE PAIN History of Present Illness History of Present Illness Chief Complaint: Chief Complain: Back Pain History of Present Illness: HPI: 60 year old male with history of diabetes type 2, hypertension, A. fib, who presents the ED today to be evaluated for moderate low back pain that he states has been going on since January but has gotten worse in the last couple days with back spasms today, he reports the last time he had back spasms was 15 years ago. Patient states he did follow-up with his PCP as well as a chiropractor for the back pain towards the end of February. He had an MRI done at [facility] 3 days ago but he does not know the results. Patient denies any loss of bowel/bladder function. Denies any injury. Denies any pain radiating to bilateral lower extremities. He states his pain is worse on movement. He states he tried taking his hydrocodone and Flexeril with no relief. Of note, patient did experience 1 episode of fall which she fell to his right side and had a rib pain. Patient has had routine colonoscopy screening starting at age 44 and had it every 5 years without any positive findings. Patient is up-to-date with his Pneumovax Past Medical/Surgical History: PMH/PSH: Past Medical History: A-Fib, CAD, Diabetes-Type II, Hypertension, annamarie mountain spotted fever Past Surgical History: Appendectomy, Pacemaker, splenectomy, knee surgery Allergies: Allergies: Coded Allergies: amiodarone (Verified Allergy, Severe, Shortness of Air, 12/06/18) meperidine (Verified Allergy, Severe, Shortness of Air, 12/06/18) Etccjjo-Qqc-Lpm Reductase Inhibitor (Verified Adverse Reaction, Intermediate, 12/06/18) pt states he has a severe liver reaction lisinopril (Verified Adverse Reaction, Mild, 12/06/18) Cough-pt refuses to take medication due to rxn Family History: Family History: Father with hairy cell leukemia Social History: Social History: Smoking Status: Never Smoker Alcohol Use: Occasionally Drug Use: None Current Medications: Vitals Vitals Vital Signs Date Time Temp Pulse Resp B/P (MAP) Pulse Ox O2 Delivery O2 Flow Rate FiO2 04/14/20 10:46 Room Air 04/14/20 09:41 101/69 04/14/20 06:46 98.9 82 18 95 98.9 04/14/20 03:23 2.0 Physical Exam Physical Exam Physcial Exam: GEN: NO apparent distress. Alert and oriented HEENT: Normal cephalic, atraumatic, external auditory canals are patent EYES: Extraocular muscles are intact, pupil are equally round and reactive to light and accommodation MUSCULOSKELETAL: Well developed , well nourished, good range of motion ENDOCRINE: No thyromegaly was palpated LYMPHATICS: No cervical chain or axillary nodes were noted HEMATOPOIETIC: No bruising NECK: Supple, no JVD, no thyromegaly was noted LUNGS: Clear to auscultation in all lung hernandez without rhonchi or wheezing HEART: RRR, S!, S2 present. Peripheral pulses intact, no obvious murmurs noted ABDOMEN: Soft, nontender. Positive bowel sounds, no organomegaly, normal bowel sounds EXTREMITIES: Without clubbing, cyanosis, or edema. Pedal pulses intact. Negative Homans sign NEUROLOGIC: Normal speech and tone. A&O x 3, moves all extremities, no obvious focal deficits any movement causes severe pain PSYCHIATRIC: Normal affect, normal mood. Stable SKIN: No ulcerations or rashes, good skin turgor, no jaundice VASCULAR: Good capillary refill, neurovascular bundle appears to be intact General: Alert, mild distress (From pain) Heart: Regular rate, Normal S1, Normal S2 Lungs: Clear Abdomen: Soft, No tenderness, No hepatosplenomegaly Extremities: No cyanosis, No edema Skin: Other (Excoriation on arms. ) Labs LABS Renal ultrasound dated 04/13/2020. No comparison available. Clinical data indication: Acute kidney injury. FINDINGS: Right kidney measures 10.8 cm in length. Left kidney measures 11.4 cm in length. No hydronephrosis. No apparent mass or shadowing calculus. Urinary bladder is nondistended. Limited visualized portions of aorta and IVC are unremarkable. There is atrophic changes of the abdominal aorta without definite aneurysm. IMPRESSION: 1. No acute sonographic abnormality. No hydronephrosis. Electronically signed by: Chris Ochoa MD (04/13/2020 4:51 PM) [id number] DICTATED and SIGNED BY: CHRIS OCHOA MD DATE: 04/13/20 1651 STATUS: ADM IN ORD. PHYSICIAN: HYUN BRADFORD MD REASON: Suspect multiple myeloma PROCEDURE: BONE SURVEY METASTATIC COMPL EXAM: BONE SURVEY METASTATIC COMPL 04/11/2020 1:00 PM CLINICAL INDICATION:Suspected multiple myeloma COMPARISON:Chest radiograph 04/17/2020 and MRI chest 04/05/2020 TECHNIQUE:Complete bone survey. FINDINGS: Skull: No definite lytic lesion Chest: No lytic lesions. The heart is mildly enlarged. There is a pacemaker/AICD. Lungs are clear. Cervical spine: No definite lytic lesion. Mild degenerative disc disease. Thoracic spine: No definite lytic lesion. Moderate degenerative disc disease in the midthoracic spine. Lumbar spine: There is a compression fracture of L2 with mild/moderate height loss and a compression fracture of L4 with mild height loss. These are unchanged from prior MRI. No definite lytic lesions seen by radiograph to correlate with T2 hyperintense lesions on MRI. Mild degenerative disc disease. Pelvis: No definite lytic lesion. Mild degenerative joint disease of the hips. Right femur, tibia and fibula: No definite lytic lesion. Left femur, tibia and fibula: No definite lytic lesion. Right humerus, radius and ulna: No definite lytic lesion. Degenerative joint disease of the glenohumeral and acromioclavicular joints. Left humerus, radius and ulna: No definite lytic lesion. Mild degenerative joint disease of glenohumeral acromioclavicular joints. IMPRESSION: 1. No lytic lesions identified by radiograph. 2. Unchanged L2 and L4 compression fractures. Lesions in the lumbar spine on prior MRI are not well visualized by radiograph. Electronically signed by: Meliza Bee MD (04/11/2020 4:00 PM) [id number] DICTATED and SIGNED BY: MELIZA BEE MD DATE: 04/11/20 1600 Laboratory Tests Test 04/13/20 11:40 04/13/20 16:46 04/13/20 21:07 04/14/20 07:40 Glucose (Fingerstick) 121 mg/dL (70-99) 140 mg/dL (70-99) 178 mg/dL (70-99) 157 mg/dL (70-99) Test 04/14/20 09:02 White Blood Count 7.6 x10^3/uL (4.0-11.0) Red Blood Count 3.01 x10^6/uL (4.30-5.70) Hemoglobin 10.4 g/dL (13.0-17.5) Hematocrit 30.7 % (39.0-53.0) Mean Corpuscular Volume 102 fL (79-100) Mean Corpuscular Hemoglobin 34 pg (25-35) Mean Corpuscular Hemoglobin Concent 34 g/dL (31-37) Red Cell Distribution Width 14.1 % (11.5-14.5) Platelet Count 213 x10^3/uL (140-400) Neutrophils (%) (Auto) 77 % (31-73) Lymphocytes (%) (Auto) 18 % (24-48) Monocytes (%) (Auto) 6 % (0-9) Eosinophils (%) (Auto) 0 % (0-3) Basophils (%) (Auto) 0 % (0-3) Neutrophils # (Auto) 5.8 x10^3/uL (1.8-7.7) Lymphocytes # (Auto) 1.4 x10^3/uL (1.0-4.8) Monocytes # (Auto) 0.4 x10^3/uL (0.0-1.1) Eosinophils # (Auto) 0.0 x10^3/uL (0.0-0.7) Basophils # (Auto) 0.0 x10^3/uL (0.0-0.2) Sodium Level 133 mmol/L (136-145) Potassium Level 5.3 mmol/L (3.5-5.1) Chloride Level 102 mmol/L (98-107) Carbon Dioxide Level 25 mmol/L (21-32) Anion Gap 6 (6-14) Blood Urea Nitrogen 21 mg/dL (8-26) Creatinine 1.1 mg/dL (0.7-1.3) Estimated GFR (Cockcroft-Gault) 68.1 BUN/Creatinine Ratio 19 (6-20) Glucose Level 165 mg/dL (70-99) Uric Acid 7.0 mg/dL (3.5-7.2) Calcium Level 9.1 mg/dL (8.5-10.1) Total Bilirubin 0.3 mg/dL (0.2-1.0) Aspartate Amino Transf (AST/SGOT) 24 U/L (15-37) Alanine Aminotransferase (ALT/SGPT) 18 U/L (16-63) Alkaline Phosphatase 78 U/L (46-116) Total Protein 9.7 g/dL (6.4-8.2) Albumin 2.7 g/dL (3.4-5.0) Albumin/Globulin Ratio 0.4 (1.0-1.7) Assessment and Plan Assessmemt and Plan Problems Medical Problems: (1) Intractable low back pain Status: Acute (2) Lumbar disc lesion Status: Acute (3) Multiple myeloma Status: Acute Comment Review of Relevant I have reviewed the following items caity (where applicable) has been applied. Labs Laboratory Tests Test 04/12/20 11:47 04/12/20 12:28 04/12/20 16:47 04/12/20 21:02 Glucose (Fingerstick) 95 mg/dL (70-99) 87 mg/dL (70-99) 99 mg/dL (70-99) White Blood Count 6.9 x10^3/uL (4.0-11.0) Red Blood Count 3.47 x10^6/uL (4.30-5.70) Hemoglobin 12.2 g/dL (13.0-17.5) Hematocrit 34.9 % (39.0-53.0) Mean Corpuscular Volume 101 fL (79-100) Mean Corpuscular Hemoglobin 35 pg (25-35) Mean Corpuscular Hemoglobin Concent 35 g/dL (31-37) Red Cell Distribution Width 14.0 % (11.5-14.5) Platelet Count 210 x10^3/uL (140-400) Neutrophils (%) (Auto) 62 % (31-73) Lymphocytes (%) (Auto) 31 % (24-48) Monocytes (%) (Auto) 5 % (0-9) Eosinophils (%) (Auto) 2 % (0-3) Basophils (%) (Auto) 1 % (0-3) Neutrophils # (Auto) 4.3 x10^3/uL (1.8-7.7) Lymphocytes # (Auto) 2.2 x10^3/uL (1.0-4.8) Monocytes # (Auto) 0.3 x10^3/uL (0.0-1.1) Eosinophils # (Auto) 0.1 x10^3/uL (0.0-0.7) Basophils # (Auto) 0.0 x10^3/uL (0.0-0.2) Sodium Level 131 mmol/L (136-145) Potassium Level 4.1 mmol/L (3.5-5.1) Chloride Level 99 mmol/L (98-107) Carbon Dioxide Level 26 mmol/L (21-32) Anion Gap 6 (6-14) Blood Urea Nitrogen 22 mg/dL (8-26) Creatinine 1.4 mg/dL (0.7-1.3) Estimated GFR (Cockcroft-Gault) 51.5 BUN/Creatinine Ratio 16 (6-20) Glucose Level 93 mg/dL (70-99) Uric Acid 9.4 mg/dL (3.5-7.2) Calcium Level 9.9 mg/dL (8.5-10.1) Total Bilirubin 0.6 mg/dL (0.2-1.0) Aspartate Amino Transf (AST/SGOT) 36 U/L (15-37) Alanine Aminotransferase (ALT/SGPT) 22 U/L (16-63) Alkaline Phosphatase 92 U/L (46-116) Lactate Dehydrogenase 428 U/L (85-227) Total Protein 10.9 g/dL (6.4-8.2) Albumin 3.3 g/dL (3.4-5.0) Albumin/Globulin Ratio 0.4 (1.0-1.7) Test 04/13/20 07:34 04/13/20 07:42 04/13/20 11:40 04/13/20 16:46 White Blood Count 6.2 x10^3/uL (4.0-11.0) Red Blood Count 3.25 x10^6/uL (4.30-5.70) Hemoglobin 11.2 g/dL (13.0-17.5) Hematocrit 33.0 % (39.0-53.0) Mean Corpuscular Volume 101 fL (79-100) Mean Corpuscular Hemoglobin 34 pg (25-35) Mean Corpuscular Hemoglobin Concent 34 g/dL (31-37) Red Cell Distribution Width 13.7 % (11.5-14.5) Platelet Count 196 x10^3/uL (140-400) Neutrophils (%) (Auto) 66 % (31-73) Lymphocytes (%) (Auto) 26 % (24-48) Monocytes (%) (Auto) 6 % (0-9) Eosinophils (%) (Auto) 2 % (0-3) Basophils (%) (Auto) 1 % (0-3) Neutrophils # (Auto) 4.1 x10^3/uL (1.8-7.7) Lymphocytes # (Auto) 1.6 x10^3/uL (1.0-4.8) Monocytes # (Auto) 0.4 x10^3/uL (0.0-1.1) Eosinophils # (Auto) 0.1 x10^3/uL (0.0-0.7) Basophils # (Auto) 0.0 x10^3/uL (0.0-0.2) Sodium Level 136 mmol/L (136-145) Potassium Level 4.4 mmol/L (3.5-5.1) Chloride Level 102 mmol/L (98-107) Carbon Dioxide Level 27 mmol/L (21-32) Anion Gap 7 (6-14) Blood Urea Nitrogen 17 mg/dL (8-26) Creatinine 1.1 mg/dL (0.7-1.3) Estimated GFR (Cockcroft-Gault) 68.1 BUN/Creatinine Ratio 15 (6-20) Glucose Level 80 mg/dL (70-99) Uric Acid 7.6 mg/dL (3.5-7.2) Calcium Level 9.3 mg/dL (8.5-10.1) Total Bilirubin 0.4 mg/dL (0.2-1.0) Aspartate Amino Transf (AST/SGOT) 30 U/L (15-37) Alanine Aminotransferase (ALT/SGPT) 19 U/L (16-63) Alkaline Phosphatase 84 U/L (46-116) Lactate Dehydrogenase 336 U/L (85-227) Total Protein 9.5 g/dL (6.4-8.2) Albumin 2.8 g/dL (3.4-5.0) Albumin/Globulin Ratio 0.4 (1.0-1.7) Glucose (Fingerstick) 81 mg/dL (70-99) 121 mg/dL (70-99) 140 mg/dL (70-99) Test 04/13/20 21:07 04/14/20 07:40 04/14/20 09:02 Glucose (Fingerstick) 178 mg/dL (70-99) 157 mg/dL (70-99) White Blood Count 7.6 x10^3/uL (4.0-11.0) Red Blood Count 3.01 x10^6/uL (4.30-5.70) Hemoglobin 10.4 g/dL (13.0-17.5) Hematocrit 30.7 % (39.0-53.0) Mean Corpuscular Volume 102 fL (79-100) Mean Corpuscular Hemoglobin 34 pg (25-35) Mean Corpuscular Hemoglobin Concent 34 g/dL (31-37) Red Cell Distribution Width 14.1 % (11.5-14.5) Platelet Count 213 x10^3/uL (140-400) Neutrophils (%) (Auto) 77 % (31-73) Lymphocytes (%) (Auto) 18 % (24-48) Monocytes (%) (Auto) 6 % (0-9) Eosinophils (%) (Auto) 0 % (0-3) Basophils (%) (Auto) 0 % (0-3) Neutrophils # (Auto) 5.8 x10^3/uL (1.8-7.7) Lymphocytes # (Auto) 1.4 x10^3/uL (1.0-4.8) Monocytes # (Auto) 0.4 x10^3/uL (0.0-1.1) Eosinophils # (Auto) 0.0 x10^3/uL (0.0-0.7) Basophils # (Auto) 0.0 x10^3/uL (0.0-0.2) Sodium Level 133 mmol/L (136-145) Potassium Level 5.3 mmol/L (3.5-5.1) Chloride Level 102 mmol/L (98-107) Carbon Dioxide Level 25 mmol/L (21-32) Anion Gap 6 (6-14) Blood Urea Nitrogen 21 mg/dL (8-26) Creatinine 1.1 mg/dL (0.7-1.3) Estimated GFR (Cockcroft-Gault) 68.1 BUN/Creatinine Ratio 19 (6-20) Glucose Level 165 mg/dL (70-99) Uric Acid 7.0 mg/dL (3.5-7.2) Calcium Level 9.1 mg/dL (8.5-10.1) Total Bilirubin 0.3 mg/dL (0.2-1.0) Aspartate Amino Transf (AST/SGOT) 24 U/L (15-37) Alanine Aminotransferase (ALT/SGPT) 18 U/L (16-63) Alkaline Phosphatase 78 U/L (46-116) Total Protein 9.7 g/dL (6.4-8.2) Albumin 2.7 g/dL (3.4-5.0) Albumin/Globulin Ratio 0.4 (1.0-1.7) Laboratory Tests Test 04/13/20 11:40 04/13/20 16:46 04/13/20 21:07 04/14/20 07:40 Glucose (Fingerstick) 121 mg/dL (70-99) 140 mg/dL (70-99) 178 mg/dL (70-99) 157 mg/dL (70-99) Test 04/14/20 09:02 White Blood Count 7.6 x10^3/uL (4.0-11.0) Red Blood Count 3.01 x10^6/uL (4.30-5.70) Hemoglobin 10.4 g/dL (13.0-17.5) Hematocrit 30.7 % (39.0-53.0) Mean Corpuscular Volume 102 fL (79-100) Mean Corpuscular Hemoglobin 34 pg (25-35) Mean Corpuscular Hemoglobin Concent 34 g/dL (31-37) Red Cell Distribution Width 14.1 % (11.5-14.5) Platelet Count 213 x10^3/uL (140-400) Neutrophils (%) (Auto) 77 % (31-73) Lymphocytes (%) (Auto) 18 % (24-48) Monocytes (%) (Auto) 6 % (0-9) Eosinophils (%) (Auto) 0 % (0-3) Basophils (%) (Auto) 0 % (0-3) Neutrophils # (Auto) 5.8 x10^3/uL (1.8-7.7) Lymphocytes # (Auto) 1.4 x10^3/uL (1.0-4.8) Monocytes # (Auto) 0.4 x10^3/uL (0.0-1.1) Eosinophils # (Auto) 0.0 x10^3/uL (0.0-0.7) Basophils # (Auto) 0.0 x10^3/uL (0.0-0.2) Sodium Level 133 mmol/L (136-145) Potassium Level 5.3 mmol/L (3.5-5.1) Chloride Level 102 mmol/L (98-107) Carbon Dioxide Level 25 mmol/L (21-32) Anion Gap 6 (6-14) Blood Urea Nitrogen 21 mg/dL (8-26) Creatinine 1.1 mg/dL (0.7-1.3) Estimated GFR (Cockcroft-Gault) 68.1 BUN/Creatinine Ratio 19 (6-20) Glucose Level 165 mg/dL (70-99) Uric Acid 7.0 mg/dL (3.5-7.2) Calcium Level 9.1 mg/dL (8.5-10.1) Total Bilirubin 0.3 mg/dL (0.2-1.0) Aspartate Amino Transf (AST/SGOT) 24 U/L (15-37) Alanine Aminotransferase (ALT/SGPT) 18 U/L (16-63) Alkaline Phosphatase 78 U/L (46-116) Total Protein 9.7 g/dL (6.4-8.2) Albumin 2.7 g/dL (3.4-5.0) Albumin/Globulin Ratio 0.4 (1.0-1.7) Medications Current Medications Hydromorphone HCl (Dilaudid) 1 mg 1X ONCE IVP Last administered on 04/08/20at 13:41; Start 04/08/20 at 13:15; Stop 04/08/20 at 13:16; Status DC Sodium Chloride 1,000 ml @ 1,000 mls/hr 1X ONCE IV Last administered on 04/08/20at 13:39; Start 04/08/20 at 13:15; Stop 04/08/20 at 14:14; Status DC Ondansetron HCl (Zofran) 4 mg 1X ONCE IVP Last administered on 04/08/20at 13:42; Start 04/08/20 at 13:15; Stop 04/08/20 at 13:16; Status DC Diazepam (Valium) 5 mg 1X ONCE PO Last administered on 04/08/20at 13:44; Start 04/08/20 at 13:15; Stop 04/08/20 at 13:16; Status DC Ondansetron HCl (Zofran) 4 mg PRN Q8HRS PRN IV NAUSEA/VOMITING Last administered on 04/08/20at 15:35; Start 04/08/20 at 14:15; Stop 04/09/20 at 14:14; Status DC Hydromorphone HCl (Dilaudid) 1 mg PRN Q3HRS PRN IVP PAIN Last administered on 04/09/20at 10:03; Start 04/08/20 at 14:15; Stop 04/09/20 at 13:42; Status DC Sennosides (Senna) 17.2 mg PRN BID PRN PO CONSTIPATION Last administered on 04/12/20at 20:27; Start 04/08/20 at 17:15 Docusate Sodium (Colace) 100 mg PRN DAILY PRN PO HARD STOOLS Last administered on 04/12/20at 20:25; Start 04/08/20 at 17:15 Ondansetron HCl (Zofran) 4 mg PRN Q6HRS PRN IVP NAUSEA/VOMITING; Start 04/08/20 at 17:15 Potassium Chloride (Klor-Con) 40 meq 1X PRN PO PER PROTOCOL; Start 04/08/20 at 17:15; Stop 04/08/20 at 17:25; Status DC Magnesium Oxide (Magnesium Oxide) 400 mg BID PO ; Start 04/08/20 at 21:00; Stop 04/08/20 at 17:24; Status DC Potassium Chloride/Water 100 ml @ 100 mls/hr Q1H IV ; Start 04/08/20 at 17:15; Stop 04/08/20 at 17:25; Status DC Magnesium Sulfate 50 ml @ 25 mls/hr Q24H IV ; Start 04/08/20 at 17:15; Stop 04/08/20 at 17:24; Status DC Potassium Chloride/Water 100 ml @ 100 mls/hr Q1H PRN IV low k; Start 04/08/20 at 17:15; Stop 04/08/20 at 17:25; Status DC Insulin Human Lispro (HumaLOG) 0-7 UNITS TIDWMEALS SQ ; Start 04/09/20 at 08:00; Stop 04/09/20 at 12:05; Status DC Dextrose (Dextrose 50%-Water Syringe) 12.5 gm PRN Q15MIN PRN IV SEE COMMENTS; Start 04/08/20 at 17:15 Acetaminophen (Tylenol) 650 mg PRN Q4HRS PRN PO TEMP OVER 100.4F OR MILD PAIN; Start 04/08/20 at 17:15 Enoxaparin Sodium (Lovenox 40mg Syringe) 40 mg Q24H SQ Last administered on 04/13/20at 17:33; Start 04/08/20 at 18:00 Info (Non-Icu Electrolyte Protocol) 1 ea CONT PRN PRN MC SEE COMMENTS; Start 04/08/20 at 17:30 Influenza Virus Vaccine Quadrival (Fluzone Quad [id number] Syringe) 0.5 ml ONCE ONCE VAX IM Last administered on 04/08/20at 20:19; Start 04/08/20 at 20:00; Stop 04/08/20 at 20:01; Status DC Apixaban (Eliquis) 5 mg BID PO Last administered on 04/09/20at 09:30; Start 04/09/20 at 09:30; Stop 04/09/20 at 16:41; Status DC Dofetilide (Tikosyn) 250 mcg BID PO ; Start 04/09/20 at 09:30; Stop 04/09/20 at 09:37; Status DC EZETIMIBE (Zetia) 10 mg DAILY PO Last administered on 04/14/20at 09:42; Start 04/09/20 at 09:30 Furosemide (Lasix) 40 mg DAILY PO Last administered on 04/09/20at 10:05; Start 04/09/20 at 10:00; Stop 04/09/20 at 17:50; Status DC Levothyroxine Sodium (Synthroid) 150 mcg DAILY06 PO Last administered on 04/14/20at 06:16; Start 04/09/20 at 10:30 Metoprolol Succinate (Toprol Xl) 12.5 mg DAILY PO ; Start 04/09/20 at 10:00; Stop 04/09/20 at 09:55; Status DC Sacubitril/ Valsartan (Entresto 24 Mg-26 Mg) 1 tab BID PO Last administered on 04/14/20at 09:41; Start 04/09/20 at 10:00 Non-Formulary Medication 48 ea DAILY SQ ; Start 04/09/20 at 17:30; Stop 04/09/20 at 17:18; Status DC Metformin HCl (Glucophage) 1,000 mg BIDWMEALS PO Last administered on 04/09/20at 10:09; Start 04/09/20 at 10:00; Stop 04/09/20 at 18:25; Status DC Multivitamins (Thera M Plus) 1 tab DAILY PO Last administered on 04/14/20at 09:39; Start 04/09/20 at 10:00 Spironolactone (Aldactone) 25 mg DAILY PO Last administered on 04/09/20at 10:09; Start 04/09/20 at 10:00; Stop 04/09/20 at 16:41; Status DC Info (Anti-Coagulation Monitoring By Pharmacy) 1 each PRN DAILY PRN MC SEE COMMENTS; Start 04/09/20 at 09:30 Dofetilide (Tikosyn) 250 mcg BID PO Last administered on 04/14/20 09:38; Start 04/09/20 at 10:00 Metoprolol Succinate (Toprol Xl) 12.5 mg QHS PO Last administered on 04/13/20at 21:35; Start 04/09/20 at 21:00 Hydromorphone HCl (Dilaudid) 2 mg PRN Q3HRS PRN IVP PAIN Last administered on 04/13/20at 12:22; Start 04/09/20 at 13:45; Stop 04/13/20 at 14:54; Status DC Non-Formulary Medication 48 ea DAILY SQ Last administered on 04/14/20 09:42; Start 04/09/20 at 17:30 Spironolactone (Aldactone) 25 mg DAILY PO Last administered on 04/14/20 09:43; Start 04/10/20 at 09:00 Metformin HCl (Glucophage) 1,000 mg BID PO Last administered on 04/14/20 09:38; Start 04/09/20 at 21:00 Ringer's Solution 1,000 ml @ 50 mls/hr Q20H IV ; Start 04/11/20 at 07:00; Stop 04/11/20 at 18:59; Status DC Lidocaine HCl (Buffered Lidocaine 1%) 3 ml STK-MED ONCE .ROUTE ; Start 04/11/20 at 12:58; Stop 04/11/20 at 12:58; Status DC Lidocaine HCl (Buffered Lidocaine 1%) 3 ml STK-MED ONCE .ROUTE ; Start 04/11/20 at 13:13; Stop 04/11/20 at 13:14; Status DC Iohexol (Omnipaque 240 Mg/ml) 50 ml STK-MED ONCE .ROUTE ; Start 04/11/20 at 13 :14; Stop 04/11/20 at 13:14; Status DC Midazolam HCl (Versed) 2 mg STK-MED ONCE .ROUTE ; Start 04/11/20 at 13:26; Stop 04/11/20 at 13:27; Status DC Fentanyl Citrate (Fentanyl 5ml Vial) 250 mcg STK-MED ONCE .ROUTE ; Start 04/11/20 at 13:26; Stop 04/11/20 at 13:27; Status DC Propofol (Diprivan) 200 mg STK-MED ONCE IV ; Start 04/11/20 at 13:31; Stop 04/11/20 at 13:32; Status DC Propofol 50 ml @ As Directed STK-MED ONCE IV ; Start 04/11/20 at 13:31; Stop 04/11/20 at 13:32; Status DC Midazolam HCl (Versed) 2 mg STK-MED ONCE .ROUTE ; Start 04/11/20 at 13:32; Stop 04/11/20 at 13:32; Status DC Midazolam HCl (Versed) 2 mg 1X ONCE IV Last administered on 04/11/20at 13:33; Start 04/11/20 at 13:45; Stop 04/11/20 at 13:50; Status DC Fentanyl Citrate (Fentanyl 5ml Vial) 100 mcg 1X ONCE IV Last administered on 04/11/20at 13:33; Start 04/11/20 at 13:45; Stop 04/11/20 at 13:50; Status DC Ketamine HCl (Ketamine) 50 mg STK-MED ONCE .ROUTE ; Start 04/11/20 at 13:48; Stop 04/11/20 at 13:48; Status DC Cefazolin Sodium/ Dextrose 50 ml @ As Directed STK-MED ONCE IV ; Start 04/11/20 at 14:03; Stop 04/11/20 at 14:04; Status DC Lidocaine HCl (Buffered Lidocaine 1%) 3 ml 1X ONCE IJ Last administered on 04/11/20at 13:40; Start 04/11/20 at 14:15; Stop 04/11/20 at 14:19; Status DC Iohexol (Omnipaque 240 Mg/ml) 50 ml 1X ONCE IJ Last administered on 04/11/20at 14:15; Start 04/11/20 at 14:15; Stop 04/11/20 at 14:19; Status DC Cefazolin Sodium/ Dextrose 50 ml @ 100 mls/hr 1X ONCE IV Last administered on 04/11/20at 14:12; Start 04/11/20 at 14:15; Stop 04/11/20 at 14:44; Status DC Sodium Chloride (Saline Mist Nasal) 1 celestina PRN Q1HR PRN NS NASAL CONGESTION Last administered on 04/11/20at 19:24; Start 04/11/20 at 19:15 Bisacodyl (Dulcolax Tab) 10 mg PRN DAILY PRN PO CONSTIPATION Last administered on 04/12/20at 10:10; Start 04/12/20 at 10:00; Stop 04/12/20 at 10:30; Status DC Magnesium Citrate (Citroma) 296 ml 1X ONCE PO Last administered on 04/12/20at 10:00; Start 04/12/20 at 10:00; Stop 04/12/20 at 10:01; Status DC Diphenhydramine HCl (Benadryl) 25 mg PRN Q6HRS PRN PO ITCHING Last administered on 04/12/20at 20:31; Start 04/12/20 at 11:15 Sodium Chloride 1,000 ml @ 100 mls/hr Q10H IV Last administered on 04/14/20at 09:44; Start 04/12/20 at 16:00 Allopurinol (Zyloprim) 300 mg DAILY PO Last administered on 04/14/20at 09:41; Start 04/12/20 at 16:00 Hydromorphone HCl (Dilaudid) 3 mg PRN Q4HRS PRN PO PAIN Last administered on 04/13/20at 09:34; Start 04/12/20 at 16:15; Stop 04/13/20 at 14:53; Status DC Pantoprazole Sodium (Protonix) 40 mg DAILYAC PO Last administered on 04/14/20at 09:40; Start 04/13/20 at 10:30 Dexamethasone Sodium Phosphate (Decadron) 8 mg 1X ONCE IVP Last administered on 04/13/20at 12:21; Start 04/13/20 at 10:30; Stop 04/13/20 at 10:35; Status DC Hydromorphone HCl (Dilaudid) 4 mg PRN Q3HRS PRN PO PAIN Last administered on 04/14/20at 10:46; Start 04/13/20 at 15:00 Hydromorphone HCl (Dilaudid) 4 mg PRN Q3HRS PRN IVP PAIN Last administered on 04/14/20at 06:16; Start 04/13/20 at 15:00 Diazepam (Valium) 10 mg PRN Q12HRS PRN PO MUSPM Last administered on 04/13/20at 17:34; Start 04/13/20 at 17:00; Stop 04/13/20 at 18:38; Status DC Diazepam (Valium) 10 mg Q12HR PO Last administered on 04/14/20at 09:41; Start 04/14/20 at 09:00 Active Scripts Active Reported Furosemide 40 Mg Tablet 1 Tab PO DAILY Tikosyn (Dofetilide) 250 Mcg Capsule 250 Mcg PO BID Eliquis (Apixaban) 5 Mg Tablet 5 Mg PO BID Zetia (Ezetimibe) 10 Mg Tablet 10 Mg PO DAILY Metoprolol Succinate ( Xl ) (Metoprolol Succinate) 25 Mg Tab.er.24h 12.5 Mg PO DAILY One-Daily Multi-Vitamin (Multivitamin) 1 Each Tablet 1 Tab PO DAILY 30 Days Lantus Solostar (Insulin Glargine,Hum.rec.anlog) 100 Unit/1 Ml Insuln.pen 48 Unit SQ HS Spironolactone 50 Mg Tablet 0.5 Tab PO DAILY Entresto 24 mg-26 mg Tablet (Sacubitril/Valsartan) 1 Each Tablet 1 Each PO BID Metformin Hcl 1,000 Mg Tablet 1,000 Mg PO BIDWMEALS Levothyroxine Sodium 75 Mcg Tablet 150 Mcg PO DAILY Vitals/I & O Vital Sign - Last 24 Hours 04/13/20 04/13/20 04/13/20 04/13/20 12:22 15:00 18:56 20:00 Temp 98.0 98.6 98.0 98.6 Pulse 79 80 Resp 18 20 B/P (MAP) 104/61 (75) 102/72 (82) Pulse Ox 96 96 O2 Delivery Room Air Room Air Room Air Room Air 04/13/20 04/13/20 04/13/20 04/13/20 21:35 21:35 21:36 22:36 Pulse 80 80 Resp 16 16 B/P (MAP) 102/72 102/72 Pulse Ox 96 96 O2 Delivery Room Air Room Air 04/13/20 04/14/20 04/14/20 04/14/20 23:00 00:50 01:20 02:23 Temp 97.4 97.4 Pulse 98 Resp 18 16 18 B/P (MAP) 110/65 (80) Pulse Ox 98 98 98 98 O2 Delivery Room Air Room Air Room Air Room Air 04/14/20 04/14/20 04/14/20 04/14/20 03:00 03:23 06:16 06:46 Temp 97.9 97.9 Pulse 95 Resp 18 16 16 B/P (MAP) 100/60 (73) Pulse Ox 98 98 98 O2 Delivery Room Air Room Air Room Air Room Air O2 Flow Rate 2.0 04/14/20 04/14/20 04/14/20 06:46 09:41 10:46 Temp 98.9 98.9 Pulse 82 Resp 18 B/P (MAP) 101/67 (78) 101/69 Pulse Ox 95 O2 Delivery Room Air Room Air Intake and Output 04/13/20 04/13/20 04/14/20 15:00 23:00 07:00 Intake Total 240 ml 240 ml Balance 240 ml 240 ml Justicifation of Admission Dx: Justifications for Admission: Justification of Admission Dx: Yes Chronic Renal Failure: Intravenous Infusions Fracture: Fracture GRACIA CASTANEDA MD Apr 14, 2020 11:36
[2020-04-14] MEDS: SODIUM CHLORIDE 0.65% NASAL SPRAY 45ML BOTTLE. NS PRN (12:42)
[2020-04-14 15:00] VITALS: BP 106/76
[2020-04-14] MEDS ORDERED: DEXAMETHASONE SOD PHOS 4 MG/ML VIAL IVP ONE (16:15)
--- NOTE | 2020-04-14 16:50 | PDOC ---
PROGRESS NOTES Date of Service DATE: 04/14/20 TIME: 16:43 Subjective Subjective Feeling better today.. Pain better Sitting up in chair. Constipation resolved. Did well with Dex yesterday. Objective Objective Vital Signs Date Time Temp Pulse Resp B/P (MAP) Pulse Ox O2 Delivery O2 Flow Rate FiO2 04/14/20 15:00 97.7 82 20 106/76 (86) 98 Room Air 97.7 04/14/20 03:23 2.0 Intake and Output 04/14/20 07:00 Intake Total 480 ml Balance 480 ml Intake Oral 480 ml # Voids 5 Physical Exam Abdomen: Soft, No tenderness, No hepatosplenomegaly Heart: Regular rate, Normal S1, Normal S2 Extremities: No cyanosis, No edema General: Alert, No acute distress HEENT: Atraumatic, PERRLA, EOMI Lungs: Clear to auscultation MUSCULOSKELETAL: No swelling Neck: Supple, No LAD Neuro: Normal speech, Cranial nerves 3-12 NL Skin: Other (Excoriation on arms better. ) Assessment Assessment Problems Medical Problems: (1) Intractable low back pain Status: Acute (2) Lumbar disc lesion Status: Acute (3) Multiple myeloma Status: Acute IgG kappa Multiple myeloma with 3.2 gm M spike and Marked elevated Free K light chains and K/L ratio. Await bone marrow biopsy. S/P Kyphoplasty. Skelatal survey did not reveal any other lesions. Did well with Dex yesterday. Will give another Dex 8 mg today. Pantoprozole for prevention of GI toxicity 2. Renal insufficiency with MM. Creatinine up to 1.4 on 04/12. Better at 1.1 on 04/13 and 04/14. Will follow. 3. 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 Uric acid 9.4 . Better at 7.6 on 04/13 and 7.0 on 04/14 with Allopurinol. 4. Pain secondary to vertebral fractures. Improved. . Rec: IV fluids to prevent dehydration and renal insult from MM Continue allopurinol Dex 8 mg IV today Continue Pantoprozole. Discuss treatment options Velcade Rev Dex. CyborD or Darzalex Rev Dex. Will evaluate out of pocket expense for drugs. Item Value Date Time White Blood Count 7.6 x10^3/uL 04/14/20 0902 Red Blood Count 3.01 x10^6/uL L 04/14/20 0902 Hemoglobin 10.4 g/dL L 04/14/20 0902 Platelet Count 213 x10^3/uL 04/14/20 0902 Hemoglobin 11.2 g/dL L 04/13/20 0734 Hemoglobin 12.2 g/dL L 04/12/20 1228 Hemoglobin 11.4 g/dL L 04/11/20 1056 Sodium Level 133 mmol/L L 04/14/20 0902 Potassium Level 5.3 mmol/L H 04/14/20 0902 Chloride Level 102 mmol/L 04/14/20 0902 Carbon Dioxide Level 25 mmol/L 04/14/20 0902 Blood Urea Nitrogen 21 mg/dL 04/14/20 0902 Creatinine 1.1 mg/dL 04/14/20 0902 Glucose Level 165 mg/dL H 04/14/20 0902 Uric Acid 7.0 mg/dL 04/14/20 0902 Total Protein 9.7 g/dL H 04/14/20 0902 Comment Review of Relevant I have reviewed the following items caity (where applicable) has been applied. Labs Laboratory Tests Test 04/12/20 16:47 04/12/20 21:02 04/13/20 07:34 04/13/20 07:42 Glucose (Fingerstick) 87 mg/dL (70-99) 99 mg/dL (70-99) 81 mg/dL (70-99) White Blood Count 6.2 x10^3/uL (4.0-11.0) Red Blood Count 3.25 x10^6/uL (4.30-5.70) Hemoglobin 11.2 g/dL (13.0-17.5) Hematocrit 33.0 % (39.0-53.0) Mean Corpuscular Volume 101 fL (79-100) Mean Corpuscular Hemoglobin 34 pg (25-35) Mean Corpuscular Hemoglobin Concent 34 g/dL (31-37) Red Cell Distribution Width 13.7 % (11.5-14.5) Platelet Count 196 x10^3/uL (140-400) Neutrophils (%) (Auto) 66 % (31-73) Lymphocytes (%) (Auto) 26 % (24-48) Monocytes (%) (Auto) 6 % (0-9) Eosinophils (%) (Auto) 2 % (0-3) Basophils (%) (Auto) 1 % (0-3) Neutrophils # (Auto) 4.1 x10^3/uL (1.8-7.7) Lymphocytes # (Auto) 1.6 x10^3/uL (1.0-4.8) Monocytes # (Auto) 0.4 x10^3/uL (0.0-1.1) Eosinophils # (Auto) 0.1 x10^3/uL (0.0-0.7) Basophils # (Auto) 0.0 x10^3/uL (0.0-0.2) Sodium Level 136 mmol/L (136-145) Potassium Level 4.4 mmol/L (3.5-5.1) Chloride Level 102 mmol/L (98-107) Carbon Dioxide Level 27 mmol/L (21-32) Anion Gap 7 (6-14) Blood Urea Nitrogen 17 mg/dL (8-26) Creatinine 1.1 mg/dL (0.7-1.3) Estimated GFR (Cockcroft-Gault) 68.1 BUN/Creatinine Ratio 15 (6-20) Glucose Level 80 mg/dL (70-99) Uric Acid 7.6 mg/dL (3.5-7.2) Calcium Level 9.3 mg/dL (8.5-10.1) Total Bilirubin 0.4 mg/dL (0.2-1.0) Aspartate Amino Transf (AST/SGOT) 30 U/L (15-37) Alanine Aminotransferase (ALT/SGPT) 19 U/L (16-63) Alkaline Phosphatase 84 U/L (46-116) Lactate Dehydrogenase 336 U/L (85-227) Total Protein 9.5 g/dL (6.4-8.2) Albumin 2.8 g/dL (3.4-5.0) Albumin/Globulin Ratio 0.4 (1.0-1.7) Test 04/13/20 11:40 04/13/20 16:46 04/13/20 21:07 04/14/20 07:40 Glucose (Fingerstick) 121 mg/dL (70-99) 140 mg/dL (70-99) 178 mg/dL (70-99) 157 mg/dL (70-99) Test 04/14/20 09:02 10/25/20 11:40 White Blood Count 7.6 x10^3/uL (4.0-11.0) Red Blood Count 3.01 x10^6/uL (4.30-5.70) Hemoglobin 10.4 g/dL (13.0-17.5) Hematocrit 30.7 % (39.0-53.0) Mean Corpuscular Volume 102 fL (79-100) Mean Corpuscular Hemoglobin 34 pg (25-35) Mean Corpuscular Hemoglobin Concent 34 g/dL (31-37) Red Cell Distribution Width 14.1 % (11.5-14.5) Platelet Count 213 x10^3/uL (140-400) Neutrophils (%) (Auto) 77 % (31-73) Lymphocytes (%) (Auto) 18 % (24-48) Monocytes (%) (Auto) 6 % (0-9) Eosinophils (%) (Auto) 0 % (0-3) Basophils (%) (Auto) 0 % (0-3) Neutrophils # (Auto) 5.8 x10^3/uL (1.8-7.7) Lymphocytes # (Auto) 1.4 x10^3/uL (1.0-4.8) Monocytes # (Auto) 0.4 x10^3/uL (0.0-1.1) Eosinophils # (Auto) 0.0 x10^3/uL (0.0-0.7) Basophils # (Auto) 0.0 x10^3/uL (0.0-0.2) Sodium Level 133 mmol/L (136-145) Potassium Level 5.3 mmol/L (3.5-5.1) Chloride Level 102 mmol/L (98-107) Carbon Dioxide Level 25 mmol/L (21-32) Anion Gap 6 (6-14) Blood Urea Nitrogen 21 mg/dL (8-26) Creatinine 1.1 mg/dL (0.7-1.3) Estimated GFR (Cockcroft-Gault) 68.1 BUN/Creatinine Ratio 19 (6-20) Glucose Level 165 mg/dL (70-99) Uric Acid 7.0 mg/dL (3.5-7.2) Calcium Level 9.1 mg/dL (8.5-10.1) Total Bilirubin 0.3 mg/dL (0.2-1.0) Aspartate Amino Transf (AST/SGOT) 24 U/L (15-37) Alanine Aminotransferase (ALT/SGPT) 18 U/L (16-63) Alkaline Phosphatase 78 U/L (46-116) Total Protein 9.7 g/dL (6.4-8.2) Albumin 2.7 g/dL (3.4-5.0) Albumin/Globulin Ratio 0.4 (1.0-1.7) Glucose (Fingerstick) 202 mg/dL (70-99) Laboratory Tests Test 04/13/20 16:46 04/13/20 21:07 04/14/20 07:40 04/14/20 09:02 Glucose (Fingerstick) 140 mg/dL (70-99) 178 mg/dL (70-99) 157 mg/dL (70-99) White Blood Count 7.6 x10^3/uL (4.0-11.0) Red Blood Count 3.01 x10^6/uL (4.30-5.70) Hemoglobin 10.4 g/dL (13.0-17.5) Hematocrit 30.7 % (39.0-53.0) Mean Corpuscular Volume 102 fL (79-100) Mean Corpuscular Hemoglobin 34 pg (25-35) Mean Corpuscular Hemoglobin Concent 34 g/dL (31-37) Red Cell Distribution Width 14.1 % (11.5-14.5) Platelet Count 213 x10^3/uL (140-400) Neutrophils (%) (Auto) 77 % (31-73) Lymphocytes (%) (Auto) 18 % (24-48) Monocytes (%) (Auto) 6 % (0-9) Eosinophils (%) (Auto) 0 % (0-3) Basophils (%) (Auto) 0 % (0-3) Neutrophils # (Auto) 5.8 x10^3/uL (1.8-7.7) Lymphocytes # (Auto) 1.4 x10^3/uL (1.0-4.8) Monocytes # (Auto) 0.4 x10^3/uL (0.0-1.1) Eosinophils # (Auto) 0.0 x10^3/uL (0.0-0.7) Basophils # (Auto) 0.0 x10^3/uL (0.0-0.2) Sodium Level 133 mmol/L (136-145) Potassium Level 5.3 mmol/L (3.5-5.1) Chloride Level 102 mmol/L (98-107) Carbon Dioxide Level 25 mmol/L (21-32) Anion Gap 6 (6-14) Blood Urea Nitrogen 21 mg/dL (8-26) Creatinine 1.1 mg/dL (0.7-1.3) Estimated GFR (Cockcroft-Gault) 68.1 BUN/Creatinine Ratio 19 (6-20) Glucose Level 165 mg/dL (70-99) Uric Acid 7.0 mg/dL (3.5-7.2) Calcium Level 9.1 mg/dL (8.5-10.1) Total Bilirubin 0.3 mg/dL (0.2-1.0) Aspartate Amino Transf (AST/SGOT) 24 U/L (15-37) Alanine Aminotransferase (ALT/SGPT) 18 U/L (16-63) Alkaline Phosphatase 78 U/L (46-116) Total Protein 9.7 g/dL (6.4-8.2) Albumin 2.7 g/dL (3.4-5.0) Albumin/Globulin Ratio 0.4 (1.0-1.7) Test 04/14/20 11:40 Glucose (Fingerstick) 202 mg/dL (70-99) Medications Current Medications Hydromorphone HCl (Dilaudid) 1 mg 1X ONCE IVP Last administered on 04/08/20at 13:41; Start 04/08/20 at 13:15; Stop 04/08/20 at 13:16; Status DC Sodium Chloride 1,000 ml @ 1,000 mls/hr 1X ONCE IV Last administered on 04/08/20at 13:39; Start 04/08/20 at 13:15; Stop 04/08/20 at 14:14; Status DC Ondansetron HCl (Zofran) 4 mg 1X ONCE IVP Last administered on 04/08/20at 13:42; Start 04/08/20 at 13:15; Stop 04/08/20 at 13:16; Status DC Diazepam (Valium) 5 mg 1X ONCE PO Last administered on 04/08/20at 13:44; Start 04/08/20 at 13:15; Stop 04/08/20 at 13:16; Status DC Ondansetron HCl (Zofran) 4 mg PRN Q8HRS PRN IV NAUSEA/VOMITING Last administered on 04/08/20at 15:35; Start 04/08/20 at 14:15; Stop 04/09/20 at 14:14; Status DC Hydromorphone HCl (Dilaudid) 1 mg PRN Q3HRS PRN IVP PAIN Last administered on 04/09/20at 10:03; Start 04/08/20 at 14:15; Stop 04/09/20 at 13:42; Status DC Sennosides (Senna) 17.2 mg PRN BID PRN PO CONSTIPATION Last administered on 04/12/20at 20:27; Start 04/08/20 at 17:15 Docusate Sodium (Colace) 100 mg PRN DAILY PRN PO HARD STOOLS Last administered on 04/12/20at 20:25; Start 04/08/20 at 17:15 Ondansetron HCl (Zofran) 4 mg PRN Q6HRS PRN IVP NAUSEA/VOMITING; Start 04/08/20 at 17:15 Potassium Chloride (Klor-Con) 40 meq 1X PRN PO PER PROTOCOL; Start 04/08/20 at 17:15; Stop 04/08/20 at 17:25; Status DC Magnesium Oxide (Magnesium Oxide) 400 mg BID PO ; Start 04/08/20 at 21:00; Stop 04/08/20 at 17:24; Status DC Potassium Chloride/Water 100 ml @ 100 mls/hr Q1H IV ; Start 04/08/20 at 17:15; Stop 04/08/20 at 17:25; Status DC Magnesium Sulfate 50 ml @ 25 mls/hr Q24H IV ; Start 04/08/20 at 17:15; Stop 04/08/20 at 17:24; Status DC Potassium Chloride/Water 100 ml @ 100 mls/hr Q1H PRN IV low k; Start 04/08/20 at 17:15; Stop 04/08/20 at 17:25; Status DC Insulin Human Lispro (HumaLOG) 0-7 UNITS TIDWMEALS SQ ; Start 04/09/20 at 08:00; Stop 04/09/20 at 12:05; Status DC Dextrose (Dextrose 50%-Water Syringe) 12.5 gm PRN Q15MIN PRN IV SEE COMMENTS; Start 04/08/20 at 17:15 Acetaminophen (Tylenol) 650 mg PRN Q4HRS PRN PO TEMP OVER 100.4F OR MILD PAIN; Start 04/08/20 at 17:15 Enoxaparin Sodium (Lovenox 40mg Syringe) 40 mg Q24H SQ Last administered on 04/13/20at 17:33; Start 04/08/20 at 18:00 Info (Non-Icu Electrolyte Protocol) 1 ea CONT PRN PRN MC SEE COMMENTS; Start 04/08/20 at 17:30 Influenza Virus Vaccine Quadrival (Fluzone Quad Syringe) 0.5 ml ONCE ONCE VAX IM Last administered on 04/08/20at 20:19; Start 04/08/20 at 20:00; Stop 04/08/20 at 20:01; Status DC Apixaban (Eliquis) 5 mg BID PO Last administered on 04/09/20at 09:30; Start 04/09/20 at 09:30; Stop 04/09/20 at 16:41; Status DC Dofetilide (Tikosyn) 250 mcg BID PO ; Start 04/09/20 at 09:30; Stop 04/09/20 at 09:37; Status DC EZETIMIBE (Zetia) 10 mg DAILY PO Last administered on 04/14/20at 09:42; Start 04/09/20 at 09:30 Furosemide (Lasix) 40 mg DAILY PO Last administered on 04/09/20at 10:05; Start 04/09/20 at 10:00; Stop 04/09/20 at 17:50; Status DC Levothyroxine Sodium (Synthroid) 150 mcg DAILY06 PO Last administered on 04/14/20at 06:16; Start 04/09/20 at 10:30 Metoprolol Succinate (Toprol Xl) 12.5 mg DAILY PO ; Start 04/09/20 at 10:00; Stop 04/09/20 at 09:55; Status DC Sacubitril/ Valsartan (Entresto 24 Mg-26 Mg) 1 tab BID PO Last administered on 04/14/20at 09:41; Start 04/09/20 at 10:00 Non-Formulary Medication 48 ea DAILY SQ ; Start 04/09/20 at 17:30; Stop 04/09/20 at 17:18; Status DC Metformin HCl (Glucophage) 1,000 mg BIDWMEALS PO Last administered on 04/09/20 10:09; Start 04/09/20 at 10:00; Stop 04/09/20 at 18:25; Status DC Multivitamins (Thera M Plus) 1 tab DAILY PO Last administered on 04/14/20at 09:39; Start 04/09/20 at 10:00 Spironolactone (Aldactone) 25 mg DAILY PO Last administered on 04/09/20at 10:09; Start 04/09/20 at 10:00; Stop 04/09/20 at 16:41; Status DC Info (Anti-Coagulation Monitoring By Pharmacy) 1 each PRN DAILY PRN ZI ROBLES; Start 04/09/20 at 09:30 Dofetilide (Tikosyn) 250 mcg BID PO Last administered on 04/14/20 09:38; Start 04/09/20 at 10:00 Metoprolol Succinate (Toprol Xl) 12.5 mg QHS PO Last administered on 04/13/20at 21:35; Start 04/09/20 at 21:00 Hydromorphone HCl (Dilaudid) 2 mg PRN Q3HRS PRN IVP PAIN Last administered on 04/13/20 12:22; Start 04/09/20 at 13:45; Stop 04/13/20 at 14:54; Status DC Non-Formulary Medication 48 ea DAILY SQ Last administered on 04/14/20at 09:42; Start 04/09/20 at 17:30 Spironolactone (Aldactone) 25 mg DAILY PO Last administered on 04/14/20 09:43; Start 04/10/20 at 09:00 Metformin HCl (Glucophage) 1,000 mg BID PO Last administered on 04/14/20at 09:38; Start 04/09/20 at 21:00 Ringer's Solution 1,000 ml @ 50 mls/hr Q20H IV ; Start 04/11/20 at 07:00; Stop 04/11/20 at 18:59; Status DC Lidocaine HCl (Buffered Lidocaine 1%) 3 ml STK-MED ONCE .ROUTE ; Start 04/11/20 at 12:58; Stop 04/11/20 at 12:58; Status DC Lidocaine HCl (Buffered Lidocaine 1%) 3 ml STK-MED ONCE .ROUTE ; Start 04/11/20 at 13:13; Stop 04/11/20 at 13:14; Status DC Iohexol (Omnipaque 240 Mg/ml) 50 ml STK-MED ONCE .ROUTE ; Start 04/11/20 at 13:14; Stop 04/11/20 at 13:14; Status DC Midazolam HCl (Versed) 2 mg STK-MED ONCE .ROUTE ; Start 04/11/20 at 13:26; Stop 04/11/20 at 13:27; Status DC Fentanyl Citrate (Fentanyl 5ml Vial) 250 mcg STK-MED ONCE .ROUTE ; Start 04/11/20 at 13:26; Stop 04/11/20 at 13:27; Status DC Propofol (Diprivan) 200 mg STK-MED ONCE IV ; Start 04/11/20 at 13:31; Stop 04/11/20 at 13:32; Status DC Propofol 50 ml @ As Directed STK-MED ONCE IV ; Start 04/11/20 at 13:31; Stop 04/11/20 at 13:32; Status DC Midazolam HCl (Versed) 2 mg STK-MED ONCE .ROUTE ; Start 04/11/20 at 13:32; Stop 04/11/20 at 13:32; Status DC Midazolam HCl (Versed) 2 mg 1X ONCE IV Last administered on 04/11/20at 13:33; Start 04/11/20 at 13:45; Stop 04/11/20 at 13:50; Status DC Fentanyl Citrate (Fentanyl 5ml Vial) 100 mcg 1X ONCE IV Last administered on 04/11/20at 13:33; Start 04/11/20 at 13:45; Stop 04/11/20 at 13:50; Status DC Ketamine HCl (Ketamine) 50 mg STK-MED ONCE .ROUTE ; Start 04/11/20 at 13:48; Stop 04/11/20 at 13:48; Status DC Cefazolin Sodium/ Dextrose 50 ml @ As Directed STK-MED ONCE IV ; Start 04/11/20 at 14:03; Stop 04/11/20 at 14:04; Status DC Lidocaine HCl (Buffered Lidocaine 1%) 3 ml 1X ONCE IJ Last administered on 04/11/20at 13:40; Start 04/11/20 at 14:15; Stop 04/11/20 at 14:19; Status DC Iohexol (Omnipaque 240 Mg/ml) 50 ml 1X ONCE IJ Last administered on 04/11/20at 14:15; Start 04/11/20 at 14:15; Stop 04/11/20 at 14:19; Status DC Cefazolin Sodium/ Dextrose 50 ml @ 100 mls/hr 1X ONCE IV Last administered on 04/11/20at 14:12; Start 04/11/20 at 14:15; Stop 04/11/20 at 14:44; Status DC Sodium Chloride (Saline Mist Nasal) 1 celestina PRN Q1HR PRN NS NASAL CONGESTION Last administered on 04/14/20at 12:42; Start 04/11/20 at 19:15 Bisacodyl (Dulcolax Tab) 10 mg PRN DAILY PRN PO CONSTIPATION Last administered on 04/12/20at 10:10; Start 04/12/20 at 10:00; Stop 04/12/20 at 10:30; Status DC Magnesium Citrate (Citroma) 296 ml 1X ONCE PO Last administered on 04/12/20at 10:00; Start 04/12/20 at 10:00; Stop 04/12/20 at 10:01; Status DC Diphenhydramine HCl (Benadryl) 25 mg PRN Q6HRS PRN PO ITCHING Last administered on 04/12/20at 20:31; Start 04/12/20 at 11:15 Sodium Chloride 1,000 ml @ 100 mls/hr Q10H IV Last administered on 04/14/20at 09:44; Start 04/12/20 at 16:00 Allopurinol (Zyloprim) 300 mg DAILY PO Last administered on 04/14/20at 09:41; Start 04/12/20 at 16:00 Hydromorphone HCl (Dilaudid) 3 mg PRN Q4HRS PRN PO PAIN Last administered on 04/13/20at 09:34; Start 04/12/20 at 16:15; Stop 04/13/20 at 14:53; Status DC Pantoprazole Sodium (Protonix) 40 mg DAILYAC PO Last administered on 04/14/20at 09:40; Start 04/13/20 at 10:30 Dexamethasone Sodium Phosphate (Decadron) 8 mg 1X ONCE IVP Last administered on 04/13/20at 12:21; Start 04/13/20 at 10:30; Stop 04/13/20 at 10:35; Status DC Hydromorphone HCl (Dilaudid) 4 mg PRN Q3HRS PRN PO MODERATE TO SEVERE PAIN Last administered on 04/14/20at 10:46; Start 04/13/20 at 15:00 Hydromorphone HCl (Dilaudid) 4 mg PRN Q3HRS PRN IVP PAIN Last administered on 04/14/20at 12:43; Start 04/13/20 at 15:00 Diazepam (Valium) 10 mg PRN Q12HRS PRN PO MUSPM Last administered on 04/13/20at 17:34; Start 04/13/20 at 17:00; Stop 04/13/20 at 18:38; Status DC Diazepam (Valium) 10 mg Q12HR PO Last administered on 04/14/20at 09:41; Start 04/14/20 at 09:00 Dexamethasone Sodium Phosphate (Decadron) 8 mg 1X ONCE IVP ; Start 04/14/20 at 16:15; Stop 04/14/20 at 16:16; Status DC Active Scripts Active Reported Furosemide 40 Mg Tablet 1 Tab PO DAILY Tikosyn (Dofetilide) 250 Mcg Capsule 250 Mcg PO BID Eliquis (Apixaban) 5 Mg Tablet 5 Mg PO BID Zetia (Ezetimibe) 10 Mg Tablet 10 Mg PO DAILY Metoprolol Succinate ( Xl ) (Metoprolol Succinate) 25 Mg Tab.er.24h 12.5 Mg PO DAILY One-Daily Multi-Vitamin (Multivitamin) 1 Each Tablet 1 Tab PO DAILY 30 Days Lantus Solostar (Insulin Glargine,Hum.rec.anlog) 100 Unit/1 Ml Insuln.pen 48 Unit SQ HS Spironolactone 50 Mg Tablet 0.5 Tab PO DAILY Entresto 24 mg-26 mg Tablet (Sacubitril/Valsartan) 1 Each Tablet 1 Each PO BID Metformin Hcl 1,000 Mg Tablet 1,000 Mg PO BIDWMEALS Levothyroxine Sodium 75 Mcg Tablet 150 Mcg PO DAILY Vitals/I & O Vital Sign - Last 24 Hours 04/13/20 04/13/20 04/13/20 04/13/20 18:56 20:00 21:35 21:35 Temp 98.6 98.6 Pulse 80 80 80 Resp 20 B/P (MAP) 102/72 (82) 102/72 102/72 Pulse Ox 96 O2 Delivery Room Air Room Air 04/13/20 04/13/20 04/13/20 04/14/20 21:36 22:36 23:00 00:50 Temp 97.4 97.4 Pulse 98 Resp 16 16 18 16 B/P (MAP) 110/65 (80) Pulse Ox 96 96 98 98 O2 Delivery Room Air Room Air Room Air Room Air 04/14/20 04/14/20 04/14/20 04/14/20 01:20 02:23 03:00 03:23 Temp 97.9 97.9 Pulse 95 Resp 18 18 16 B/P (MAP) 100/60 (73) Pulse Ox 98 98 98 98 O2 Delivery Room Air Room Air Room Air Room Air O2 Flow Rate 2.0 04/14/20 04/14/20 04/14/20 04/14/20 06:16 06:46 06:46 09:41 Temp 98.9 98.9 Pulse 82 Resp 16 18 B/P (MAP) 101/67 (78) 101/69 Pulse Ox 98 95 O2 Delivery Room Air Room Air Room Air 04/14/20 04/14/20 04/14/20 04/14/20 10:46 11:00 11:46 12:43 Temp 97.9 97.9 Pulse 83 Resp 18 B/P (MAP) 116/69 (85) Pulse Ox 98 O2 Delivery Room Air Room Air Nasal Cannula Room Air 04/14/20 04/14/20 13:13 15:00 Temp 97.7 97.7 Pulse 82 Resp 20 B/P (MAP) 106/76 (86) Pulse Ox 98 O2 Delivery Room Air Room Air Intake and Output 04/13/20 04/13/20 04/14/20 15:00 23:00 07:00 Intake Total 240 ml 240 ml Balance 240 ml 240 ml Justifications for Admission Other Justification intractable back pain HYUN BRADFORD MD Apr 14, 2020 16:50
[2020-04-14] MEDS: ENOXAPARIN 40 MG/0.4 ML SYRINGE. SQ SCH (18:07)
[2020-04-14 19:00] VITALS: BP 128/86
[2020-04-14] MEDS: METOPROLOL SUCC 24HR ER 25 MG TAB.ER.24H. PO SCH (20:50)
[2020-04-14 23:00] VITALS: BP 116/76
[2020-04-15] MEDS: HYDROmorphone 2 MG TABLET PO PRN ×4 (00:26→21:37)
[2020-04-15 03:00] VITALS: BP 117/65
[2020-04-15] MEDS: IV NORMAL SALINE 1000ML BAG 1,000 ML IV SCH ×3 (04:00→23:54)
[2020-04-15] MEDS: LEVOTHYROXINE 75 MCG TABLET PO SCH (06:00)
[2020-04-15 07:00] VITALS: BP 106/64
[2020-04-15 07:30] LABS: BASO % 0 % (0-3); EOS % 0 % (0-3); HEMATOCRIT 30.5 % (39.0-53.0); HEMOGLOBIN 10.3 g/dL (13.0-17.5); LYMPH # 1.3 x10^3/uL (1.0-4.8); LYMPH % 17 % (24-48); MEAN CORPUSCULAR HEMOGLOBIN 34 pg (25-35); MEAN CORPUSCULAR HGB CONC 34 g/dL (31-37); MEAN CORPUSCULAR VOLUME 102 fL (79-100); MONO # 0.2 x10^3/uL (0.0-1.1); MONO % 3 % (0-9); NEUT # 6.2 x10^3/uL (1.8-7.7); NEUT % 80 % (31-73); PLATELET COUNT 210 x10^3/uL (140-400); RED BLOOD COUNT 2.99 x10^6/uL (4.30-5.70); RED CELL DISTRIBUTION WIDTH 14.3 % (11.5-14.5); WHITE BLOOD COUNT 7.7 x10^3/uL (4.0-11.0)
[2020-04-15 07:47] LABS: ALBUMIN 2.7 g/dL (3.4-5.0); ALBUMIN/GLOBULIN RATIO 0.4 (1.0-1.7); CALCIUM 8.6 mg/dL (8.5-10.1); CREATININE 1.1 mg/dL (0.7-1.3); GFR 68.1; POTASSIUM 4.3 mmol/L (3.5-5.1); TOTAL BILIRUBIN 0.2 mg/dL (0.2-1.0); TOTAL PROTEIN 9.2 g/dL (6.4-8.2)
--- NOTE | 2020-04-15 09:25 | PDOC ---
PROGRESS NOTES Date of Service DATE: 04/15/20 TIME: 09:21 Subjective Subjective He still admits back pain mainly while getting in and out of bed. Objective Objective Vital Signs Date Time Temp Pulse Resp B/P (MAP) Pulse Ox O2 Delivery O2 Flow Rate FiO2 04/15/20 08:00 Room Air 04/15/20 07:00 98.2 91 20 106/64 (78) 97 98.2 04/15/20 06:00 2.0 Intake and Output 04/15/20 07:00 Intake Total 1300 ml Balance 1300 ml Intake Oral 1300 ml # Voids 7 Physical Exam General: Alert, Oriented X3, Cooperative, No acute distress MUSCULOSKELETAL: Other (he continues with tenderness to palpation over left lumbar paraspinal muscles.) Neuro: Normal gait, Normal speech, Strength at 5/5 X4 ext, Normal tone, Sensation intact, Cranial nerves 3-12 NL, Reflexes 2+ Psych/Mental Status: Mental status NL Assessment Assessment Problems Medical Problems: (1) Intractable low back pain Status: Acute (2) Lumbar disc lesion Status: Acute (3) Multiple myeloma Status: Acute Plan Plan of Care Agree with present plans. Comment Review of Relevant I have reviewed the following items caity (where applicable) has been applied. Labs Laboratory Tests Test 04/13/20 11:40 04/13/20 16:46 04/13/20 21:07 04/14/20 07:40 Glucose (Fingerstick) 121 mg/dL (70-99) 140 mg/dL (70-99) 178 mg/dL (70-99) 157 mg/dL (70-99) Test 04/14/20 09:02 04/14/20 11:40 04/14/20 17:01 04/15/20 06:15 White Blood Count 7.6 x10^3/uL (4.0-11.0) 7.7 x10^3/uL (4.0-11.0) Red Blood Count 3.01 x10^6/uL (4.30-5.70) 2.99 x10^6/uL (4.30-5.70) Hemoglobin 10.4 g/dL (13.0-17.5) 10.3 g/dL (13.0-17.5) Hematocrit 30.7 % (39.0-53.0) 30.5 % (39.0-53.0) Mean Corpuscular Volume 102 fL (79-100) 102 fL (79-100) Mean Corpuscular Hemoglobin 34 pg (25-35) 34 pg (25-35) Mean Corpuscular Hemoglobin Concent 34 g/dL (31-37) 34 g/dL (31-37) Red Cell Distribution Width 14.1 % (11.5-14.5) 14.3 % (11.5-14.5) Platelet Count 213 x10^3/uL (140-400) 210 x10^3/uL (140-400) Neutrophils (%) (Auto) 77 % (31-73) 80 % (31-73) Lymphocytes (%) (Auto) 18 % (24-48) 17 % (24-48) Monocytes (%) (Auto) 6 % (0-9) 3 % (0-9) Eosinophils (%) (Auto) 0 % (0-3) 0 % (0-3) Basophils (%) (Auto) 0 % (0-3) 0 % (0-3) Neutrophils # (Auto) 5.8 x10^3/uL (1.8-7.7) 6.2 x10^3/uL (1.8-7.7) Lymphocytes # (Auto) 1.4 x10^3/uL (1.0-4.8) 1.3 x10^3/uL (1.0-4.8) Monocytes # (Auto) 0.4 x10^3/uL (0.0-1.1) 0.2 x10^3/uL (0.0-1.1) Eosinophils # (Auto) 0.0 x10^3/uL (0.0-0.7) 0.0 x10^3/uL (0.0-0.7) Basophils # (Auto) 0.0 x10^3/uL (0.0-0.2) 0.0 x10^3/uL (0.0-0.2) Sodium Level 133 mmol/L (136-145) 134 mmol/L (136-145) Potassium Level 5.3 mmol/L (3.5-5.1) 4.3 mmol/L (3.5-5.1) Chloride Level 102 mmol/L (98-107) 101 mmol/L (98-107) Carbon Dioxide Level 25 mmol/L (21-32) 24 mmol/L (21-32) Anion Gap 6 (6-14) 9 (6-14) Blood Urea Nitrogen 21 mg/dL (8-26) 20 mg/dL (8-26) Creatinine 1.1 mg/dL (0.7-1.3) 1.1 mg/dL (0.7-1.3) Estimated GFR (Cockcroft-Gault) 68.1 68.1 BUN/Creatinine Ratio 19 (6-20) 18 (6-20) Glucose Level 165 mg/dL (70-99) 225 mg/dL (70-99) Uric Acid 7.0 mg/dL (3.5-7.2) Calcium Level 9.1 mg/dL (8.5-10.1) 8.6 mg/dL (8.5-10.1) Total Bilirubin 0.3 mg/dL (0.2-1.0) 0.2 mg/dL (0.2-1.0) Aspartate Amino Transf (AST/SGOT) 24 U/L (15-37) 19 U/L (15-37) Alanine Aminotransferase (ALT/SGPT) 18 U/L (16-63) 18 U/L (16-63) Alkaline Phosphatase 78 U/L (46-116) 66 U/L (46-116) Total Protein 9.7 g/dL (6.4-8.2) 9.2 g/dL (6.4-8.2) Albumin 2.7 g/dL (3.4-5.0) 2.7 g/dL (3.4-5.0) Albumin/Globulin Ratio 0.4 (1.0-1.7) 0.4 (1.0-1.7) Glucose (Fingerstick) 202 mg/dL (70-99) 185 mg/dL (70-99) Test 04/15/20 06:45 04/15/20 07:53 Uric Acid 6.0 mg/dL (3.5-7.2) Lactate Dehydrogenase 271 U/L (85-227) Glucose (Fingerstick) 203 mg/dL (70-99) Laboratory Tests Test 04/14/20 11:40 04/14/20 17:01 04/15/20 06:15 04/15/20 06:45 Glucose (Fingerstick) 202 mg/dL (70-99) 185 mg/dL (70-99) White Blood Count 7.7 x10^3/uL (4.0-11.0) Red Blood Count 2.99 x10^6/uL (4.30-5.70) Hemoglobin 10.3 g/dL (13.0-17.5) Hematocrit 30.5 % (39.0-53.0) Mean Corpuscular Volume 102 fL (79-100) Mean Corpuscular Hemoglobin 34 pg (25-35) Mean Corpuscular Hemoglobin Concent 34 g/dL (31-37) Red Cell Distribution Width 14.3 % (11.5-14.5) Platelet Count 210 x10^3/uL (140-400) Neutrophils (%) (Auto) 80 % (31-73) Lymphocytes (%) (Auto) 17 % (24-48) Monocytes (%) (Auto) 3 % (0-9) Eosinophils (%) (Auto) 0 % (0-3) Basophils (%) (Auto) 0 % (0-3) Neutrophils # (Auto) 6.2 x10^3/uL (1.8-7.7) Lymphocytes # (Auto) 1.3 x10^3/uL (1.0-4.8) Monocytes # (Auto) 0.2 x10^3/uL (0.0-1.1) Eosinophils # (Auto) 0.0 x10^3/uL (0.0-0.7) Basophils # (Auto) 0.0 x10^3/uL (0.0-0.2) Sodium Level 134 mmol/L (136-145) Potassium Level 4.3 mmol/L (3.5-5.1) Chloride Level 101 mmol/L (98-107) Carbon Dioxide Level 24 mmol/L (21-32) Anion Gap 9 (6-14) Blood Urea Nitrogen 20 mg/dL (8-26) Creatinine 1.1 mg/dL (0.7-1.3) Estimated GFR (Cockcroft-Gault) 68.1 BUN/Creatinine Ratio 18 (6-20) Glucose Level 225 mg/dL (70-99) Calcium Level 8.6 mg/dL (8.5-10.1) Total Bilirubin 0.2 mg/dL (0.2-1.0) Aspartate Amino Transf (AST/SGOT) 19 U/L (15-37) Alanine Aminotransferase (ALT/SGPT) 18 U/L (16-63) Alkaline Phosphatase 66 U/L (46-116) Total Protein 9.2 g/dL (6.4-8.2) Albumin 2.7 g/dL (3.4-5.0) Albumin/Globulin Ratio 0.4 (1.0-1.7) Uric Acid 6.0 mg/dL (3.5-7.2) Lactate Dehydrogenase 271 U/L (85-227) Test 04/15/20 07:53 Glucose (Fingerstick) 203 mg/dL (70-99) Medications Current Medications Hydromorphone HCl (Dilaudid) 1 mg 1X ONCE IVP Last administered on 04/08/20at 13:41; Start 04/08/20 at 13:15; Stop 04/08/20 at 13:16; Status DC Sodium Chloride 1,000 ml @ 1,000 mls/hr 1X ONCE IV Last administered on 04/08/20at 13:39; Start 04/08/20 at 13:15; Stop 04/08/20 at 14:14; Status DC Ondansetron HCl (Zofran) 4 mg 1X ONCE IVP Last administered on 04/08/20at 13:42; Start 04/08/20 at 13:15; Stop 04/08/20 at 13:16; Status DC Diazepam (Valium) 5 mg 1X ONCE PO Last administered on 04/08/20at 13:44; Start 04/08/20 at 13:15; Stop 04/08/20 at 13:16; Status DC Ondansetron HCl (Zofran) 4 mg PRN Q8HRS PRN IV NAUSEA/VOMITING Last administered on 04/08/20at 15:35; Start 04/08/20 at 14:15; Stop 04/09/20 at 14:14; Status DC Hydromorphone HCl (Dilaudid) 1 mg PRN Q3HRS PRN IVP PAIN Last administered on 04/09/20at 10:03; Start 04/08/20 at 14:15; Stop 04/09/20 at 13:42; Status DC Sennosides (Senna) 17.2 mg PRN BID PRN PO CONSTIPATION Last administered on 04/12/20at 20:27; Start 04/08/20 at 17:15 Docusate Sodium (Colace) 100 mg PRN DAILY PRN PO HARD STOOLS Last administered on 04/12/20at 20:25; Start 04/08/20 at 17:15 Ondansetron HCl (Zofran) 4 mg PRN Q6HRS PRN IVP NAUSEA/VOMITING; Start 04/08/20 at 17:15 Potassium Chloride (Klor-Con) 40 meq 1X PRN PO PER PROTOCOL; Start 04/08/20 at 17:15; Stop 04/08/20 at 17:25; Status DC Magnesium Oxide (Magnesium Oxide) 400 mg BID PO ; Start 04/08/20 at 21:00; Stop 04/08/20 at 17:24; Status DC Potassium Chloride/Water 100 ml @ 100 mls/hr Q1H IV ; Start 04/08/20 at 17:15; Stop 04/08/20 at 17:25; Status DC Magnesium Sulfate 50 ml @ 25 mls/hr Q24H IV ; Start 04/08/20 at 17:15; Stop 04/08/20 at 17:24; Status DC Potassium Chloride/Water 100 ml @ 100 mls/hr Q1H PRN IV low k; Start 04/08/20 at 17:15; Stop 04/08/20 at 17:25; Status DC Insulin Human Lispro (HumaLOG) 0-7 UNITS TIDWMEALS SQ ; Start 04/09/20 at 08:00; Stop 04/09/20 at 12:05; Status DC Dextrose (Dextrose 50%-Water Syringe) 12.5 gm PRN Q15MIN PRN IV SEE COMMENTS; Start 04/08/20 at 17:15 Acetaminophen (Tylenol) 650 mg PRN Q4HRS PRN PO TEMP OVER 100.4F OR MILD PAIN; Start 04/08/20 at 17:15 Enoxaparin Sodium (Lovenox 40mg Syringe) 40 mg Q24H SQ Last administered on 04/14/20at 18:07; Start 04/08/20 at 18:00 Info (Non-Icu Electrolyte Protocol) 1 ea CONT PRN PRN MC SEE COMMENTS; Start 04/08/20 at 17:30 Influenza Virus Vaccine Quadrival (Fluzone Quad Syringe) 0.5 ml ONCE ONCE VAX IM Last administered on 04/08/20at 20:19; Start 04/08/20 at 20:00; Stop 04/08/20 at 20:01; Status DC Apixaban (Eliquis) 5 mg BID PO Last administered on 04/09/20at 09:30; Start 04/09/20 at 09:30; Stop 04/09/20 at 16:41; Status DC Dofetilide (Tikosyn) 250 mcg BID PO ; Start 04/09/20 at 09:30; Stop 04/09/20 at 09:37; Status DC EZETIMIBE (Zetia) 10 mg DAILY PO Last administered on 04/14/20at 09:42; Start 04/09/20 at 09:30 Furosemide (Lasix) 40 mg DAILY PO Last administered on 04/09/20at 10:05; Start 04/09/20 at 10:00; Stop 04/09/20 at 17:50; Status DC Levothyroxine Sodium (Synthroid) 150 mcg DAILY06 PO Last administered on 04/15/20at 06:00; Start 04/09/20 at 10:30 Metoprolol Succinate (Toprol Xl) 12.5 mg DAILY PO ; Start 04/09/20 at 10:00; Stop 04/09/20 at 09:55; Status DC Sacubitril/ Valsartan (Entresto 24 Mg-26 Mg) 1 tab BID PO Last administered on 04/14/20at 20:51; Start 04/09/20 at 10:00 Non-Formulary Medication 48 ea DAILY SQ ; Start 04/09/20 at 17:30; Stop 04/09/20 at 17:18; Status DC Metformin HCl (Glucophage) 1,000 mg BIDWMEALS PO Last administered on 04/09/20at 10:09; Start 04/09/20 at 10:00; Stop 04/09/20 at 18:25; Status DC Multivitamins (Thera M Plus) 1 tab DAILY PO Last administered on 04/14/20at 09:39; Start 04/09/20 at 10:00 Spironolactone (Aldactone) 25 mg DAILY PO Last administered on 10/20/20at 10:09; Start 04/09/20 at 10:00; Stop 04/09/20 at 16:41; Status DC Info (Anti-Coagulation Monitoring By Pharmacy) 1 each PRN DAILY PRN MC SEE COMMENTS; Start 04/09/20 at 09:30 Dofetilide (Tikosyn) 250 mcg BID PO Last administered on 04/14/20at 20:50; Start 04/09/20 at 10:00 Metoprolol Succinate (Toprol Xl) 12.5 mg QHS PO Last administered on 04/14/20at 20:50; Start 04/09/20 at 21:00 Hydromorphone HCl (Dilaudid) 2 mg PRN Q3HRS PRN IVP PAIN Last administered on 04/13/20 12:22; Start 04/09/20 at 13:45; Stop 04/13/20 at 14:54; Status DC Non-Formulary Medication 48 ea DAILY SQ Last administered on 04/14/20 09:42; Start 04/09/20 at 17:30 Spironolactone (Aldactone) 25 mg DAILY PO Last administered on 04/14/20 09:43; Start 04/10/20 at 09:00 Metformin HCl (Glucophage) 1,000 mg BID PO Last administered on 04/14/20 20:51; Start 04/09/20 at 21:00 Ringer's Solution 1,000 ml @ 50 mls/hr Q20H IV ; Start 04/11/20 at 07:00; Stop 04/11/20 at 18:59; Status DC Lidocaine HCl (Buffered Lidocaine 1%) 3 ml STK-MED ONCE .ROUTE ; Start 04/11/20 at 12:58; Stop 04/11/20 at 12:58; Status DC Lidocaine HCl (Buffered Lidocaine 1%) 3 ml STK-MED ONCE .ROUTE ; Start 04/11/20 at 13:13; Stop 04/11/20 at 13:14; Status DC Iohexol (Omnipaque 240 Mg/ml) 50 ml STK-MED ONCE .ROUTE ; Start 04/11/20 at 13:14; Stop 04/11/20 at 13:14; Status DC Midazolam HCl (Versed) 2 mg STK-MED ONCE .ROUTE ; Start 04/11/20 at 13:26; Stop 04/11/20 at 13:27; Status DC Fentanyl Citrate (Fentanyl 5ml Vial) 250 mcg STK-MED ONCE .ROUTE ; Start 04/11/20 at 13:26; Stop 04/11/20 at 13:27; Status DC Propofol (Diprivan) 200 mg STK-MED ONCE IV ; Start 04/11/20 at 13:31; Stop 04/11/20 at 13:32; Status DC Propofol 50 ml @ As Directed STK-MED ONCE IV ; Start 04/11/20 at 13:31; Stop 04/11/20 at 13:32; Status DC Midazolam HCl (Versed) 2 mg STK-MED ONCE .ROUTE ; Start 04/11/20 at 13:32; Stop 04/11/20 at 13:32; Status DC Midazolam HCl (Versed) 2 mg 1X ONCE IV Last administered on 04/11/20at 13:33; Start 04/11/20 at 13:45; Stop 04/11/20 at 13:50; Status DC Fentanyl Citrate (Fentanyl 5ml Vial) 100 mcg 1X ONCE IV Last administered on 04/11/20at 13:33; Start 04/11/20 at 13:45; Stop 04/11/20 at 13:50; Status DC Ketamine HCl (Ketamine) 50 mg STK-MED ONCE .ROUTE ; Start 04/11/20 at 13:48; Stop 04/11/20 at 13:48; Status DC Cefazolin Sodium/ Dextrose 50 ml @ As Directed STK-MED ONCE IV ; Start 04/11/20 at 14:03; Stop 04/11/20 at 14:04; Status DC Lidocaine HCl (Buffered Lidocaine 1%) 3 ml 1X ONCE IJ Last administered on 04/11/20at 13:40; Start 04/11/20 at 14:15; Stop 04/11/20 at 14:19; Status DC Iohexol (Omnipaque 240 Mg/ml) 50 ml 1X ONCE IJ Last administered on 04/11/20at 14:15; Start 04/11/20 at 14:15; Stop 04/11/20 at 14:19; Status DC Cefazolin Sodium/ Dextrose 50 ml @ 100 mls/hr 1X ONCE IV Last administered on 04/11/20at 14:12; Start 04/11/20 at 14:15; Stop 04/11/20 at 14:44; Status DC Sodium Chloride (Saline Mist Nasal) 1 celestina PRN Q1HR PRN NS NASAL CONGESTION Last administered on 04/14/20at 12:42; Start 04/11/20 at 19:15 Bisacodyl (Dulcolax Tab) 10 mg PRN DAILY PRN PO CONSTIPATION Last administered on 04/12/20at 10:10; Start 04/12/20 at 10:00; Stop 04/12/20 at 10:30; Status DC Magnesium Citrate (Citroma) 296 ml 1X ONCE PO Last administered on 04/12/20at 10:00; Start 04/12/20 at 10:00; Stop 04/12/20 at 10:01; Status DC Diphenhydramine HCl (Benadryl) 25 mg PRN Q6HRS PRN PO ITCHING Last administered on 04/12/20at 20:31; Start 04/12/20 at 11:15 Sodium Chloride 1,000 ml @ 100 mls/hr Q10H IV Last administered on 04/14/20at 17:59; Start 04/12/20 at 16:00 Allopurinol (Zyloprim) 300 mg DAILY PO Last administered on 04/14/20at 09:41; Start 04/12/20 at 16:00 Hydromorphone HCl (Dilaudid) 3 mg PRN Q4HRS PRN PO PAIN Last administered on 04/13/20at 09:34; Start 04/12/20 at 16:15; Stop 04/13/20 at 14:53; Status DC Pantoprazole Sodium (Protonix) 40 mg DAILYAC PO Last administered on 04/14/20at 09:40; Start 04/13/20 at 10:30 Dexamethasone Sodium Phosphate (Decadron) 8 mg 1X ONCE IVP Last administered on 04/13/20at 12:21; Start 04/13/20 at 10:30; Stop 04/13/20 at 10:35; Status DC Hydromorphone HCl (Dilaudid) 4 mg PRN Q3HRS PRN PO MODERATE TO SEVERE PAIN Last administered on 04/15/20at 06:00; Start 04/13/20 at 15:00 Hydromorphone HCl (Dilaudid) 4 mg PRN Q3HRS PRN IVP PAIN Last administered on 04/14/20at 12:43; Start 04/13/20 at 15:00 Diazepam (Valium) 10 mg PRN Q12HRS PRN PO MUSPM Last administered on 04/13/20at 17:34; Start 04/13/20 at 17:00; Stop 04/13/20 at 18:38; Status DC Diazepam (Valium) 10 mg Q12HR PO Last administered on 04/14/20at 20:51; Start 04/14/20 at 09:00 Dexamethasone Sodium Phosphate (Decadron) 8 mg 1X ONCE IVP Last administered on 04/14/20at 17:58; Start 04/14/20 at 16:15; Stop 04/14/20 at 16:16; Status DC Active Scripts Active Reported Furosemide 40 Mg Tablet 1 Tab PO DAILY Tikosyn (Dofetilide) 250 Mcg Capsule 250 Mcg PO BID Eliquis (Apixaban) 5 Mg Tablet 5 Mg PO BID Zetia (Ezetimibe) 10 Mg Tablet 10 Mg PO DAILY Metoprolol Succinate ( Xl ) (Metoprolol Succinate) 25 Mg Tab.er.24h 12.5 Mg PO DAILY One-Daily Multi-Vitamin (Multivitamin) 1 Each Tablet 1 Tab PO DAILY 30 Days Lantus Solostar (Insulin Glargine,Hum.rec.anlog) 100 Unit/1 Ml Insuln.pen 48 Unit SQ HS Spironolactone 50 Mg Tablet 0.5 Tab PO DAILY Entresto 24 mg-26 mg Tablet (Sacubitril/Valsartan) 1 Each Tablet 1 Each PO BID Metformin Hcl 1,000 Mg Tablet 1,000 Mg PO BIDWMEALS Levothyroxine Sodium 75 Mcg Tablet 150 Mcg PO DAILY Vitals/I & O Vital Sign - Last 24 Hours 04/14/20 04/14/20 04/14/20 04/14/20 09:41 10:46 11:00 11:46 Temp 97.9 97.9 Pulse 83 Resp 18 B/P (MAP) 101/69 116/69 (85) Pulse Ox 98 O2 Delivery Room Air Room Air Nasal Cannula 04/14/20 04/14/20 04/14/20 04/14/20 12:43 13:13 15:00 17:57 Temp 97.7 97.7 Pulse 82 Resp 20 B/P (MAP) 106/76 (86) Pulse Ox 98 O2 Delivery Room Air Room Air Room Air Room Air 04/14/20 04/14/20 04/14/20 04/14/20 18:57 19:00 20:00 20:50 Temp 97.4 97.4 Pulse 91 82 Resp 18 18 B/P (MAP) 128/86 (100) 106/76 Pulse Ox 98 96 O2 Delivery Room Air Room Air Room Air O2 Flow Rate 2.0 04/14/20 04/14/20 04/14/20 04/14/20 20:50 20:51 21:50 23:00 Temp 98.1 98.1 Pulse 82 85 Resp 18 18 18 B/P (MAP) 106/76 116/76 (89) Pulse Ox 98 98 93 O2 Delivery Room Air Room Air Room Air O2 Flow Rate 2.0 04/15/20 04/15/20 04/15/20 04/15/20 00:26 01:26 03:00 06:00 Temp 97.9 97.9 Pulse 81 Resp 18 18 18 18 B/P (MAP) 117/65 (82) Pulse Ox 93 93 96 96 O2 Delivery Room Air Room Air Room Air Room Air O2 Flow Rate 2.0 04/15/20 04/15/20 07:00 08:00 Temp 98.2 98.2 Pulse 91 Resp 20 B/P (MAP) 106/64 (78) Pulse Ox 97 O2 Delivery Room Air Room Air Intake and Output 04/14/20 04/14/20 04/15/20 15:00 23:00 07:00 Intake Total 900 ml 400 ml Balance 900 ml 400 ml Justifications for Admission Other Justification intractable back pain JOSE RAFAEL NORTON MD Apr 15, 2020 09:25
[2020-04-15] MEDS: metFORMIN 500 MG TABLET PO SCH ×2 (09:58→21:36)
[2020-04-15] MEDS: MULTIVITAMIN with MINERAL TABLET. PO SCH (09:58)
[2020-04-15] MEDS: DOFETILIDE 125 MCG CAPSULE PO SCH ×2 (09:59→21:35)
[2020-04-15] MEDS: EZETIMIBE 10 MG TABLET. PO SCH (09:59)
[2020-04-15] MEDS: SACUBITRIL/VALSARTAN 24/26MG TABLET. PO SCH ×2 (10:01→21:39)
[2020-04-15] MEDS: ALLOPURINOL 300 MG TABLET. PO SCH (10:02)
[2020-04-15] MEDS: diazePAM 5 MG TABLET PO SCH ×2 (10:02→21:35)
[2020-04-15] MEDS: PANTOPRAZOLE 40 MG TABLET.DR. PO SCH (10:02)
[2020-04-15] MEDS: SPIRONOLACTONE 25 MG TABLET PO SCH (10:02)
--- NOTE | 2020-04-15 10:08 | NUR ---
SW following. Discussed with RN, pt from home, room air, ada diet. Pt had significant pain over the weekend, appears to be somewhat better today. RN advised no SW needs at this time, anticipates possible discharge home today. SW will continue to follow.
[2020-04-15] MEDS: INSULIN GLARGINE SQ SCH (10:10)
[2020-04-15 11:00] VITALS: BP 110/72
--- NOTE | 2020-04-15 12:54 | PDOC ---
JAMA YATES RESIDENTIAL REMODELING SUBCONTRACTOR 04/15/20 1254: CARDIO Progress Notes Date and Time Date of Service 04/15/20 Time of Evaluation 1252 Subjective Subjective: No Chest Pain, No shortness of breath, No Palpitations Vitals Vitals Vital Signs Date Time Temp Pulse Resp B/P (MAP) Pulse Ox O2 Delivery O2 Flow Rate FiO2 04/15/20 11:00 98.0 87 20 110/72 (85) 98 Room Air 98.0 04/15/20 06:00 2.0 Weight Weight [ ] Input and Output Intake and Output Intake and Output 04/15/20 07:00 Intake Total 1300 ml Balance 1300 ml Intake Oral 1300 ml # Voids 7 Laboratory Labs Laboratory Tests Test 04/14/20 17:01 04/15/20 06:15 04/15/20 06:45 04/15/20 07:53 Glucose (Fingerstick) 185 mg/dL (70-99) 203 mg/dL (70-99) White Blood Count 7.7 x10^3/uL (4.0-11.0) Red Blood Count 2.99 x10^6/uL (4.30-5.70) Hemoglobin 10.3 g/dL (13.0-17.5) Hematocrit 30.5 % (39.0-53.0) Mean Corpuscular Volume 102 fL (79-100) Mean Corpuscular Hemoglobin 34 pg (25-35) Mean Corpuscular Hemoglobin Concent 34 g/dL (31-37) Red Cell Distribution Width 14.3 % (11.5-14.5) Platelet Count 210 x10^3/uL (140-400) Neutrophils (%) (Auto) 80 % (31-73) Lymphocytes (%) (Auto) 17 % (24-48) Monocytes (%) (Auto) 3 % (0-9) Eosinophils (%) (Auto) 0 % (0-3) Basophils (%) (Auto) 0 % (0-3) Neutrophils # (Auto) 6.2 x10^3/uL (1.8-7.7) Lymphocytes # (Auto) 1.3 x10^3/uL (1.0-4.8) Monocytes # (Auto) 0.2 x10^3/uL (0.0-1.1) Eosinophils # (Auto) 0.0 x10^3/uL (0.0-0.7) Basophils # (Auto) 0.0 x10^3/uL (0.0-0.2) Sodium Level 134 mmol/L (136-145) Potassium Level 4.3 mmol/L (3.5-5.1) Chloride Level 101 mmol/L (98-107) Carbon Dioxide Level 24 mmol/L (21-32) Anion Gap 9 (6-14) Blood Urea Nitrogen 20 mg/dL (8-26) Creatinine 1.1 mg/dL (0.7-1.3) Estimated GFR (Cockcroft-Gault) 68.1 BUN/Creatinine Ratio 18 (6-20) Glucose Level 225 mg/dL (70-99) Calcium Level 8.6 mg/dL (8.5-10.1) Total Bilirubin 0.2 mg/dL (0.2-1.0) Aspartate Amino Transf (AST/SGOT) 19 U/L (15-37) Alanine Aminotransferase (ALT/SGPT) 18 U/L (16-63) Alkaline Phosphatase 66 U/L (46-116) Total Protein 9.2 g/dL (6.4-8.2) Albumin 2.7 g/dL (3.4-5.0) Albumin/Globulin Ratio 0.4 (1.0-1.7) Uric Acid 6.0 mg/dL (3.5-7.2) Lactate Dehydrogenase 271 U/L (85-227) Test 04/15/20 11:40 Glucose (Fingerstick) 184 mg/dL (70-99) Physical Exam HEENT: Neck Supple W Full Motion Chest: Symmetric LUNGS: Clear to Auscultation Heart: RRR Abdomen: Soft N/T Extremities: No Edema Neurology: alert, oriented, follow commands Assessment Assessment 1. Back pain with lumbar compression fractures. S/p bone marrow biopsy, kyphoplasty. Probably MM 2. PAFIB; QTc 435. Maintaining SR. Recent device check without AFIB. 3. Chronic systolic CHF with ICM s/p AICD (Biotronik). Echo with LVEF 25%. Device check 04/05/20 with normal function. Appears compensated 4. CAD; s/p PCI/stent placement. clinically stable. CP free 5. Severe MR 6. Diabetes, II 7. Hypertension; low end 8. Hypothyroidism Recommendations Continue Tikosyn for rhythm maintenance Continue low dose Toprol, Entresto, and spironolactone as BP allows. Secondary prevention measures. Resume Eliquis if now further invasive procedures warranted. Justicifation of Admission Dx: Justifications for Admission: Justification of Admission Dx: Yes Chronic Renal Failure: Intravenous Infusions Fracture: Fracture DEREK MEJIA MD 04/15/20 3767: CARDIO Progress Notes Assessment Assessment Patient seen and examined. Agree with PASTA PRESS OPERATOR's assessment and plan. Probable multiple myeloma with lumbar compression fracture s/p kyphoplasty and bone marrow biopsy Chr systolic HF EF 25% compensated. s/p AICD clinically stable CAD stable. PAF maintaining SR. Continue tikosyn for rhythm maintenance. Resume eliquis prior to DC JAMA YATES APRN Apr 15, 2020 12:54 DEREK MEJIA MD Apr 15, 2020 17:57
--- NOTE | 2020-04-15 14:34 | PDOC ---
[facility] [facility] PROGRESS NOTE Date of Service DOS: DATE: 04/15/20 TIME: 14:26 Chief Complaint Chief Complaint Images: Images Spine MRI Impression: 1. There are multiple edematous marrow lesions, evidence of metastatic disease or multiple myeloma. There is degree of pathologic compression deformity of L2 and to lesser degree of L4 which may be more recent as there is associated marrow edema, no osseous retropulsion. 2. There is no significant lumbar spinal stenosis. There is mild neural foramina compromise as stated. Assessment/Plan Assessment/Plan Intractable back pain due to multiple edematous marrow lesions, evidence of metastatic disease or multiple myeloma Pathologic MODERATE compression fracture of L2 and L4 pathologic compression deformity of L2 and to lesser degree of L4 which may be more recent as there is associated marrow edema, no osseous retropulsion. Anemia of unclear etiology Elevated gamma gap Hyponatremia hx Ischemic cardiomyopathy 2018 echo Ejection Fraction is 35-40%.global hypokinesis of the left ventricle.moderately severe mitral regurgitation. Ischemic CMP with EF of 20-25% 12/07 cardiac cath Chronic systolic heart failure Atrial fibrillation Hypertension Coronary artery disease Diabetes mellitus type 2 HYPERURECEMIA due to myeloma, uric acid down to 7.6 Immunofixation shows IgG monoclonal protein with kappa light chain specificity. No lytic lesions identified by radiograph. on skeletal survey plan Admit to medicine for further management Neurology consult Oncology consult reviewed cardiology consult , pt refusing tele monitor ama IV pain control as needed Serial neuro checks Lovenox for DVT prophylaxis ADA diet Full code Bone marrow biopsy noted 24 hour urine for TV, Protein, Creatinine, Protein electrophoresis, Protein immunoelectrophoresis, [place] and [place] light chains. Skeletal survey. Discussed with RN and SW Disposition inpatient care trial po dilaudid Surrogate decision maker is the [facility] dilaudid to 3 mg iv q 3 hrs prn severe pain, consult cardiology, to tele bed but refused 27 min pt exam, chart review, > 50% of time spent with exam, chart review, pt care coordination Justifications for Admission Justifications for Admission Other Justification INTRACTABLE PAIN History of Present Illness History of Present Illness 60 year old male with history of diabetes type 2, hypertension, A. fib, who presents the ED today to be evaluated for moderate low back pain that he states has been going on since January but has gotten worse in the last couple days with back spasms today, he reports the last time he had back spasms was 15 years ago. Patient states he did follow-up with his PCP as well as a chiropractor for the back pain towards the end of February. He had an MRI done at [facility] department 3 days ago but he does not know the results. Patient denies any loss of bowel/bladder function. Denies any injury. Denies any pain radiating to bilateral lower extremities. He states his pain is worse on movement. He states he tried taking his hydrocodone and Flexeril with no relief. Of note, patient did experience 1 episode of fall which she fell to his right side and had a rib pain. Patient has had routine colonoscopy screening starting at age 44 and had it every 5 years without any positive findings. Patient is up-to-date with his Pneumovax 04/15: Patient evaluated bedside. His pain improving, but pain control is still an issue. Bone biopsy is pending. He still in discussion with his oncologist about treatment modalities. Likely discharge tomorrow, discussed with RN. Vitals/I&O Vitals/I&O: Vital Signs Date Time Temp Pulse Resp B/P (MAP) Pulse Ox O2 Delivery O2 Flow Rate FiO2 04/15/20 11:00 98.0 87 20 110/72 (85) 98 Room Air 98.0 04/15/20 06:00 2.0 I & O 04/14/20 04/14/20 04/15/20 15:00 23:00 07:00 Intake Total 900 ml 400 ml Balance 900 ml 400 ml Physical Exam General: Alert, Oriented X3, Cooperative, No acute distress Heart: Regular rate, Normal S1, Normal S2 Lungs: Clear Abdomen: Soft, No tenderness, No hepatosplenomegaly Extremities: No cyanosis, No edema Skin: Other (Excoriation on arms better. ) Labs Labs: Laboratory Tests Test 04/14/20 17:01 04/15/20 06:15 04/15/20 06:45 04/15/20 07:53 Glucose (Fingerstick) 185 mg/dL (70-99) 203 mg/dL (70-99) White Blood Count 7.7 x10^3/uL (4.0-11.0) Red Blood Count 2.99 x10^6/uL (4.30-5.70) Hemoglobin 10.3 g/dL (13.0-17.5) Hematocrit 30.5 % (39.0-53.0) Mean Corpuscular Volume 102 fL (79-100) Mean Corpuscular Hemoglobin 34 pg (25-35) Mean Corpuscular Hemoglobin Concent 34 g/dL (31-37) Red Cell Distribution Width 14.3 % (11.5-14.5) Platelet Count 210 x10^3/uL (140-400) Neutrophils (%) (Auto) 80 % (31-73) Lymphocytes (%) (Auto) 17 % (24-48) Monocytes (%) (Auto) 3 % (0-9) Eosinophils (%) (Auto) 0 % (0-3) Basophils (%) (Auto) 0 % (0-3) Neutrophils # (Auto) 6.2 x10^3/uL (1.8-7.7) Lymphocytes # (Auto) 1.3 x10^3/uL (1.0-4.8) Monocytes # (Auto) 0.2 x10^3/uL (0.0-1.1) Eosinophils # (Auto) 0.0 x10^3/uL (0.0-0.7) Basophils # (Auto) 0.0 x10^3/uL (0.0-0.2) Sodium Level 134 mmol/L (136-145) Potassium Level 4.3 mmol/L (3.5-5.1) Chloride Level 101 mmol/L (98-107) Carbon Dioxide Level 24 mmol/L (21-32) Anion Gap 9 (6-14) Blood Urea Nitrogen 20 mg/dL (8-26) Creatinine 1.1 mg/dL (0.7-1.3) Estimated GFR (Cockcroft-Gault) 68.1 BUN/Creatinine Ratio 18 (6-20) Glucose Level 225 mg/dL (70-99) Calcium Level 8.6 mg/dL (8.5-10.1) Total Bilirubin 0.2 mg/dL (0.2-1.0) Aspartate Amino Transf (AST/SGOT) 19 U/L (15-37) Alanine Aminotransferase (ALT/SGPT) 18 U/L (16-63) Alkaline Phosphatase 66 U/L (46-116) Total Protein 9.2 g/dL (6.4-8.2) Albumin 2.7 g/dL (3.4-5.0) Albumin/Globulin Ratio 0.4 (1.0-1.7) Uric Acid 6.0 mg/dL (3.5-7.2) Lactate Dehydrogenase 271 U/L (85-227) Test 04/15/20 11:40 Glucose (Fingerstick) 184 mg/dL (70-99) Review of Systems Review of Systems: Back pain. Denies fever, denies nausea, denies chest pain. Assessment and Plan Assessmemt and Plan Problems Medical Problems: (1) Intractable low back pain Status: Acute (2) Lumbar disc lesion Status: Acute (3) Multiple myeloma Status: Acute Comment Review of Relevant I have reviewed the following items caity (where applicable) has been applied. Medications: Current Medications Medications (Trade) Dose Ordered Sig/Elva Route PRN Reason Start Time Stop Time Status Last Admin Dose Admin Dexamethasone Sodium Phosphate (Decadron) 8 mg 1X ONCE IVP 04/14/20 16:15 04/14/20 16:16 DC 04/14/20 17:58 Justifications for Admission Other Justification intractable back pain TROY LLANES MD Apr 15, 2020 14:34
[2020-04-15 15:00] VITALS: BP 120/86
[2020-04-15] MEDS: ENOXAPARIN 40 MG/0.4 ML SYRINGE. SQ SCH (18:00)
[2020-04-15 19:00] VITALS: BP 137/88
[2020-04-15] MEDS: METOPROLOL SUCC 24HR ER 25 MG TAB.ER.24H. PO SCH (21:39)
--- NOTE | 2020-04-15 22:42 | PDOC ---
PROGRESS NOTES Date of Service DATE: 04/15/20 TIME: 22:36 Subjective Subjective Pain better rates it as a 4 . Moving more. Objective Objective Vital Signs Date Time Temp Pulse Resp B/P (MAP) Pulse Ox O2 Delivery O2 Flow Rate FiO2 04/15/20 21:39 98 135/85 04/15/20 21:37 Room Air 04/15/20 19:00 97.7 18 100 97.7 04/15/20 06:00 2.0 Intake and Output 04/15/20 07:00 Intake Total 1300 ml Balance 1300 ml Intake Oral 1300 ml # Voids 7 Physical Exam Abdomen: Soft, No tenderness Heart: Regular rate, Normal S1, Normal S2 Extremities: No edema General: Alert, Cooperative, No acute distress HEENT: PERRLA, EOMI, Mucous membr. moist/pink Lungs: Clear to auscultation Neck: Supple, No LAD Skin: Other (Excoriation on arms. ) Assessment Assessment Problems Medical Problems: (1) Intractable low back pain Status: Acute (2) Lumbar disc lesion Status: Acute (3) Multiple myeloma Status: Acute IgG kappa Multiple myeloma with 3.2 gm M spike and Marked elevated Free K light chains and K/L ratio. Await bone marrow biopsy. S/P Kyphoplasty. [place]el[place] survey did not reveal any other lesions. Did well with Dex yesterday. Will give another Dex 8 mg in AM Urine has elevated [place] light chain with K/ L ratio of 56. . Pantoprozole for prevention of GI toxicity 2. Renal insufficiency with MM. Creatinine up to 1.4 on 04/12. Better at 1.1 on 04/13 ,04/14 and 04/15. Will follow. 3. 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 Uric acid 9.4 . Better at 7.6 on 04/13 and 7.0 on 04/14 6.0 on 04/15 with Allopurinol. 4. Pain secondary to vertebral fractures. Improved. . Rec: IV fluids to prevent dehydration and renal insult from MM Continue allopurinol Dex 8 mg IV in AM Continue Pantoprozole. Discuss treatment options Velcade Rev Dex. CyborD or Darzalex Rev Dex. Will evaluate out of pocket expense for drugs. Comment Review of Relevant I have reviewed the following items caity (where applicable) has been applied. Labs Laboratory Tests Test 04/14/20 07:40 04/14/20 09:02 04/14/20 11:40 04/14/20 17:01 Glucose (Fingerstick) 157 mg/dL (70-99) 202 mg/dL (70-99) 185 mg/dL (70-99) White Blood Count 7.6 x10^3/uL (4.0-11.0) Red Blood Count 3.01 x10^6/uL (4.30-5.70) Hemoglobin 10.4 g/dL (13.0-17.5) Hematocrit 30.7 % (39.0-53.0) Mean Corpuscular Volume 102 fL (79-100) Mean Corpuscular Hemoglobin 34 pg (25-35) Mean Corpuscular Hemoglobin Concent 34 g/dL (31-37) Red Cell Distribution Width 14.1 % (11.5-14.5) Platelet Count 213 x10^3/uL (140-400) Neutrophils (%) (Auto) 77 % (31-73) Lymphocytes (%) (Auto) 18 % (24-48) Monocytes (%) (Auto) 6 % (0-9) Eosinophils (%) (Auto) 0 % (0-3) Basophils (%) (Auto) 0 % (0-3) Neutrophils # (Auto) 5.8 x10^3/uL (1.8-7.7) Lymphocytes # (Auto) 1.4 x10^3/uL (1.0-4.8) Monocytes # (Auto) 0.4 x10^3/uL (0.0-1.1) Eosinophils # (Auto) 0.0 x10^3/uL (0.0-0.7) Basophils # (Auto) 0.0 x10^3/uL (0.0-0.2) Sodium Level 133 mmol/L (136-145) Potassium Level 5.3 mmol/L (3.5-5.1) Chloride Level 102 mmol/L (98-107) Carbon Dioxide Level 25 mmol/L (21-32) Anion Gap 6 (6-14) Blood Urea Nitrogen 21 mg/dL (8-26) Creatinine 1.1 mg/dL (0.7-1.3) Estimated GFR (Cockcroft-Gault) 68.1 BUN/Creatinine Ratio 19 (6-20) Glucose Level 165 mg/dL (70-99) Uric Acid 7.0 mg/dL (3.5-7.2) Calcium Level 9.1 mg/dL (8.5-10.1) Total Bilirubin 0.3 mg/dL (0.2-1.0) Aspartate Amino Transf (AST/SGOT) 24 U/L (15-37) Alanine Aminotransferase (ALT/SGPT) 18 U/L (16-63) Alkaline Phosphatase 78 U/L (46-116) Total Protein 9.7 g/dL (6.4-8.2) Albumin 2.7 g/dL (3.4-5.0) Albumin/Globulin Ratio 0.4 (1.0-1.7) Test 04/15/20 06:15 04/15/20 06:45 04/15/20 07:53 04/15/20 11:40 White Blood Count 7.7 x10^3/uL (4.0-11.0) Red Blood Count 2.99 x10^6/uL (4.30-5.70) Hemoglobin 10.3 g/dL (13.0-17.5) Hematocrit 30.5 % (39.0-53.0) Mean Corpuscular Volume 102 fL (79-100) Mean Corpuscular Hemoglobin 34 pg (25-35) Mean Corpuscular Hemoglobin Concent 34 g/dL (31-37) Red Cell Distribution Width 14.3 % (11.5-14.5) Platelet Count 210 x10^3/uL (140-400) Neutrophils (%) (Auto) 80 % (31-73) Lymphocytes (%) (Auto) 17 % (24-48) Monocytes (%) (Auto) 3 % (0-9) Eosinophils (%) (Auto) 0 % (0-3) Basophils (%) (Auto) 0 % (0-3) Neutrophils # (Auto) 6.2 x10^3/uL (1.8-7.7) Lymphocytes # (Auto) 1.3 x10^3/uL (1.0-4.8) Monocytes # (Auto) 0.2 x10^3/uL (0.0-1.1) Eosinophils # (Auto) 0.0 x10^3/uL (0.0-0.7) Basophils # (Auto) 0.0 x10^3/uL (0.0-0.2) Sodium Level 134 mmol/L (136-145) Potassium Level 4.3 mmol/L (3.5-5.1) Chloride Level 101 mmol/L (98-107) Carbon Dioxide Level 24 mmol/L (21-32) Anion Gap 9 (6-14) Blood Urea Nitrogen 20 mg/dL (8-26) Creatinine 1.1 mg/dL (0.7-1.3) Estimated GFR (Cockcroft-Gault) 68.1 BUN/Creatinine Ratio 18 (6-20) Glucose Level 225 mg/dL (70-99) Calcium Level 8.6 mg/dL (8.5-10.1) Total Bilirubin 0.2 mg/dL (0.2-1.0) Aspartate Amino Transf (AST/SGOT) 19 U/L (15-37) Alanine Aminotransferase (ALT/SGPT) 18 U/L (16-63) Alkaline Phosphatase 66 U/L (46-116) Total Protein 9.2 g/dL (6.4-8.2) Albumin 2.7 g/dL (3.4-5.0) Albumin/Globulin Ratio 0.4 (1.0-1.7) Uric Acid 6.0 mg/dL (3.5-7.2) Lactate Dehydrogenase 271 U/L (85-227) Glucose (Fingerstick) 203 mg/dL (70-99) 184 mg/dL (70-99) Test 04/15/20 16:35 Glucose (Fingerstick) 145 mg/dL (70-99) Laboratory Tests Test 04/15/20 06:15 04/15/20 06:45 04/15/20 07:53 04/15/20 11:40 White Blood Count 7.7 x10^3/uL (4.0-11.0) Red Blood Count 2.99 x10^6/uL (4.30-5.70) Hemoglobin 10.3 g/dL (13.0-17.5) Hematocrit 30.5 % (39.0-53.0) Mean Corpuscular Volume 102 fL (79-100) Mean Corpuscular Hemoglobin 34 pg (25-35) Mean Corpuscular Hemoglobin Concent 34 g/dL (31-37) Red Cell Distribution Width 14.3 % (11.5-14.5) Platelet Count 210 x10^3/uL (140-400) Neutrophils (%) (Auto) 80 % (31-73) Lymphocytes (%) (Auto) 17 % (24-48) Monocytes (%) (Auto) 3 % (0-9) Eosinophils (%) (Auto) 0 % (0-3) Basophils (%) (Auto) 0 % (0-3) Neutrophils # (Auto) 6.2 x10^3/uL (1.8-7.7) Lymphocytes # (Auto) 1.3 x10^3/uL (1.0-4.8) Monocytes # (Auto) 0.2 x10^3/uL (0.0-1.1) Eosinophils # (Auto) 0.0 x10^3/uL (0.0-0.7) Basophils # (Auto) 0.0 x10^3/uL (0.0-0.2) Sodium Level 134 mmol/L (136-145) Potassium Level 4.3 mmol/L (3.5-5.1) Chloride Level 101 mmol/L (98-107) Carbon Dioxide Level 24 mmol/L (21-32) Anion Gap 9 (6-14) Blood Urea Nitrogen 20 mg/dL (8-26) Creatinine 1.1 mg/dL (0.7-1.3) Estimated GFR (Cockcroft-Gault) 68.1 BUN/Creatinine Ratio 18 (6-20) Glucose Level 225 mg/dL (70-99) Calcium Level 8.6 mg/dL (8.5-10.1) Total Bilirubin 0.2 mg/dL (0.2-1.0) Aspartate Amino Transf (AST/SGOT) 19 U/L (15-37) Alanine Aminotransferase (ALT/SGPT) 18 U/L (16-63) Alkaline Phosphatase 66 U/L (46-116) Total Protein 9.2 g/dL (6.4-8.2) Albumin 2.7 g/dL (3.4-5.0) Albumin/Globulin Ratio 0.4 (1.0-1.7) Uric Acid 6.0 mg/dL (3.5-7.2) Lactate Dehydrogenase 271 U/L (85-227) Glucose (Fingerstick) 203 mg/dL (70-99) 184 mg/dL (70-99) Test 04/15/20 16:35 Glucose (Fingerstick) 145 mg/dL (70-99) Medications Current Medications Hydromorphone HCl (Dilaudid) 1 mg 1X ONCE IVP Last administered on 04/08/20 13:41; Start 04/08/20 at 13:15; Stop 04/08/20 at 13:16; Status DC Sodium Chloride 1,000 ml @ 1,000 mls/hr 1X ONCE IV Last administered on 04/08/20at 13:39; Start 04/08/20 at 13:15; Stop 04/08/20 at 14:14; Status DC Ondansetron HCl (Zofran) 4 mg 1X ONCE IVP Last administered on 04/08/20 13:42; Start 04/08/20 at 13:15; Stop 04/08/20 at 13:16; Status DC Diazepam (Valium) 5 mg 1X ONCE PO Last administered on 04/08/20at 13:44; Start 04/08/20 at 13:15; Stop 04/08/20 at 13:16; Status DC Ondansetron HCl (Zofran) 4 mg PRN Q8HRS PRN IV NAUSEA/VOMITING Last administered on 04/08/20at 15:35; Start 04/08/20 at 14:15; Stop 04/09/20 at 14:14; Status DC Hydromorphone HCl (Dilaudid) 1 mg PRN Q3HRS PRN IVP PAIN Last administered on 04/09/20at 10:03; Start 04/08/20 at 14:15; Stop 04/09/20 at 13:42; Status DC Sennosides (Senna) 17.2 mg PRN BID PRN PO CONSTIPATION Last administered on 04/12/20at 20:27; Start 04/08/20 at 17:15 Docusate Sodium (Colace) 100 mg PRN DAILY PRN PO HARD STOOLS Last administered on 04/12/20at 20:25; Start 04/08/20 at 17:15 Ondansetron HCl (Zofran) 4 mg PRN Q6HRS PRN IVP NAUSEA/VOMITING; Start 04/08/20 at 17:15 Potassium Chloride (Klor-Con) 40 meq 1X PRN PO PER PROTOCOL; Start 04/08/20 at 17:15; Stop 04/08/20 at 17:25; Status DC Magnesium Oxide (Magnesium Oxide) 400 mg BID PO ; Start 04/08/20 at 21:00; Stop 04/08/20 at 17:24; Status DC Potassium Chloride/Water 100 ml @ 100 mls/hr Q1H IV ; Start 04/08/20 at 17:15; Stop 04/08/20 at 17:25; Status DC Magnesium Sulfate 50 ml @ 25 mls/hr Q24H IV ; Start 04/08/20 at 17:15; Stop 04/08/20 at 17:24; Status DC Potassium Chloride/Water 100 ml @ 100 mls/hr Q1H PRN IV low k; Start 04/08/20 at 17:15; Stop 04/08/20 at 17:25; Status DC Insulin Human Lispro (HumaLOG) 0-7 UNITS TIDWMEALS SQ ; Start 04/09/20 at 08:00; Stop 04/09/20 at 12:05; Status DC Dextrose (Dextrose 50%-Water Syringe) 12.5 gm PRN Q15MIN PRN IV SEE COMMENTS; Start 04/08/20 at 17:15 Acetaminophen (Tylenol) 650 mg PRN Q4HRS PRN PO TEMP OVER 100.4F OR MILD PAIN; Start 04/08/20 at 17:15 Enoxaparin Sodium (Lovenox 40mg Syringe) 40 mg Q24H SQ Last administered on 04/14/20at 18:07; Start 04/08/20 at 18:00 Info (Non-Icu Electrolyte Protocol) 1 ea CONT PRN PRN MC SEE COMMENTS; Start 04/08/20 at 17:30 Influenza Virus Vaccine Quadrival (Fluzone Quad [id number] Syringe) 0.5 ml ONCE ONCE VAX IM Last administered on 04/08/20at 20:19; Start 04/08/20 at 20:00; Stop 04/08/20 at 20:01; Status DC Apixaban (Eliquis) 5 mg BID PO Last administered on 04/09/20at 09:30; Start 04/09/20 at 09:30; Stop 04/09/20 at 16:41; Status DC Dofetilide (Tikosyn) 250 mcg BID PO ; Start 04/09/20 at 09:30; Stop 04/09/20 at 09:37; Status DC EZETIMIBE (Zetia) 10 mg DAILY PO Last administered on 04/15/20at 09:59; Start 04/09/20 at 09:30 Furosemide (Lasix) 40 mg DAILY PO Last administered on 04/09/20at 10:05; Start 04/09/20 at 10:00; Stop 04/09/20 at 17:50; Status DC Levothyroxine Sodium (Synthroid) 150 mcg DAILY06 PO Last administered on 04/15/20at 06:00; Start 04/09/20 at 10:30 Metoprolol Succinate (Toprol Xl) 12.5 mg DAILY PO ; Start 04/09/20 at 10:00; Stop 04/09/20 at 09:55; Status DC Sacubitril/ Valsartan (Entresto 24 Mg-26 Mg) 1 tab BID PO Last administered on 04/15/20at 21:39; Start 04/09/20 at 10:00 Non-Formulary Medication 48 ea DAILY SQ ; Start 04/09/20 at 17:30; Stop 04/09/20 at 17:18; Status DC Metformin HCl (Glucophage) 1,000 mg BIDWMEALS PO Last administered on 04/09/20at 10:09; Start 04/09/20 at 10:00; Stop 04/09/20 at 18:25; Status DC Multivitamins (Thera M Plus) 1 tab DAILY PO Last administered on 04/15/20at 09:58; Start 04/09/20 at 10:00 Spironolactone (Aldactone) 25 mg DAILY PO Last administered on 04/09/20at 10:09; Start 04/09/20 at 10:00; Stop 04/09/20 at 16:41; Status DC Info (Anti-Coagulation Monitoring By Pharmacy) 1 each PRN DAILY PRN MC SEE COMMENTS; Start 04/09/20 at 09:30 Dofetilide (Tikosyn) 250 mcg BID PO Last administered on 04/15/20at 21:35; Start 04/09/20 at 10:00 Metoprolol Succinate (Toprol Xl) 12.5 mg QHS PO Last administered on 04/15/20at 21:39; Start 04/09/20 at 21:00 Hydromorphone HCl (Dilaudid) 2 mg PRN Q3HRS PRN IVP PAIN Last administered on 04/13/20at 12:22; Start 04/09/20 at 13:45; Stop 04/13/20 at 14:54; Status DC Non-Formulary Medication 48 ea DAILY SQ Last administered on 04/15/20at 10:10; Start 04/09/20 at 17:30 Spironolactone (Aldactone) 25 mg DAILY PO Last administered on 04/15/20at 10 :02; Start 04/10/20 at 09:00 Metformin HCl (Glucophage) 1,000 mg BID PO Last administered on 04/15/20at 21:36; Start 04/09/20 at 21:00 Ringer's Solution 1,000 ml @ 50 mls/hr Q20H IV ; Start 04/11/20 at 07:00; Stop 04/11/20 at 18:59; Status DC Lidocaine HCl (Buffered Lidocaine 1%) 3 ml STK-MED ONCE .ROUTE ; Start 04/11/20 at 12:58; Stop 04/11/20 at 12:58; Status DC Lidocaine HCl (Buffered Lidocaine 1%) 3 ml STK-MED ONCE .ROUTE ; Start 04/11/20 at 13:13; Stop 04/11/20 at 13:14; Status DC Iohexol (Omnipaque 240 Mg/ml) 50 ml STK-MED ONCE .ROUTE ; Start 04/11/20 at 13:14; Stop 04/11/20 at 13:14; Status DC Midazolam HCl (Versed) 2 mg STK-MED ONCE .ROUTE ; Start 04/11/20 at 13:26; Stop 04/11/20 at 13:27; Status DC Fentanyl Citrate (Fentanyl 5ml Vial) 250 mcg STK-MED ONCE .ROUTE ; Start 04/11/20 at 13:26; Stop 04/11/20 at 13:27; Status DC Propofol (Diprivan) 200 mg STK-MED ONCE IV ; Start 04/11/20 at 13:31; Stop 04/11/20 at 13:32; Status DC Propofol 50 ml @ As Directed STK-MED ONCE IV ; Start 04/11/20 at 13:31; Stop 04/11/20 at 13:32; Status DC Midazolam HCl (Versed) 2 mg STK-MED ONCE .ROUTE ; Start 04/11/20 at 13:32; Stop 04/11/20 at 13:32; Status DC Midazolam HCl (Versed) 2 mg 1X ONCE IV Last administered on 04/11/20at 13:33; Start 04/11/20 at 13:45; Stop 04/11/20 at 13:50; Status DC Fentanyl Citrate (Fentanyl 5ml Vial) 100 mcg 1X ONCE IV Last administered on 04/11/20at 13:33; Start 04/11/20 at 13:45; Stop 04/11/20 at 13:50; Status DC Ketamine HCl (Ketamine) 50 mg STK-MED ONCE .ROUTE ; Start 04/11/20 at 13:48; Stop 04/11/20 at 13:48; Status DC Cefazolin Sodium/ Dextrose 50 ml @ As Directed STK-MED ONCE IV ; Start 04/11/20 at 14:03; Stop 04/11/20 at 14:04; Status DC Lidocaine HCl (Buffered Lidocaine 1%) 3 ml 1X ONCE IJ Last administered on 04/11/20at 13:40; Start 04/11/20 at 14:15; Stop 04/11/20 at 14:19; Status DC Iohexol (Omnipaque 240 Mg/ml) 50 ml 1X ONCE IJ Last administered on 04/11/20at 14:15; Start 04/11/20 at 14:15; Stop 04/11/20 at 14:19; Status DC Cefazolin Sodium/ Dextrose 50 ml @ 100 mls/hr 1X ONCE IV Last administered on 04/11/20at 14:12; Start 04/11/20 at 14:15; Stop 04/11/20 at 14:44; Status DC Sodium Chloride (Saline Mist Nasal) 1 celestina PRN Q1HR PRN NS NASAL CONGESTION Last administered on 04/14/20at 12:42; Start 04/11/20 at 19:15 Bisacodyl (Dulcolax Tab) 10 mg PRN DAILY PRN PO CONSTIPATION Last administered on 04/12/20at 10:10; Start 04/12/20 at 10:00; Stop 04/12/20 at 10:30; Status DC Magnesium Citrate (Citroma) 296 ml 1X ONCE PO Last administered on 04/12/20at 10:00; Start 04/12/20 at 10:00; Stop 04/12/20 at 10:01; Status DC Diphenhydramine HCl (Benadryl) 25 mg PRN Q6HRS PRN PO ITCHING Last administered on 04/12/20at 20:31; Start 04/12/20 at 11:15 Sodium Chloride 1,000 ml @ 100 mls/hr Q10H IV Last administered on 04/14/20at 17:59; Start 04/12/20 at 16:00 Allopurinol (Zyloprim) 300 mg DAILY PO Last administered on 04/15/20at 10:02; Start 04/12/20 at 16:00 Hydromorphone HCl (Dilaudid) 3 mg PRN Q4HRS PRN PO PAIN Last administered on 04/13/20at 09:34; Start 04/12/20 at 16:15; Stop 04/13/20 at 14:53; Status DC Pantoprazole Sodium (Protonix) 40 mg DAILYAC PO Last administered on 04/15/20at 10:02; Start 04/13/20 at 10:30 Dexamethasone Sodium Phosphate (Decadron) 8 mg 1X ONCE IVP Last administered on 04/13/20at 12:21; Start 04/13/20 at 10:30; Stop 04/13/20 at 10:35; Status DC Hydromorphone HCl (Dilaudid) 4 mg PRN Q3HRS PRN PO MODERATE TO SEVERE PAIN Last administered on 04/15/20at 21:37; Start 04/13/20 at 15:00 Hydromorphone HCl (Dilaudid) 4 mg PRN Q3HRS PRN IVP PAIN Last administered on 04/14/20at 12:43; Start 04/13/20 at 15:00 Diazepam (Valium) 10 mg PRN Q12HRS PRN PO MUSPM Last administered on 04/13/20at 17:34; Start 04/13/20 at 17:00; Stop 04/13/20 at 18:38; Status DC Diazepam (Valium) 10 mg Q12HR PO Last administered on 04/15/20at 21:35; Start 04/14/20 at 09:00 Dexamethasone Sodium Phosphate (Decadron) 8 mg 1X ONCE IVP Last administered on 04/14/20at 17:58; Start 04/14/20 at 16:15; Stop 04/14/20 at 16:16; Status DC Dexamethasone Sodium Phosphate (Decadron) 8 mg 1X ONCE IVP ; Start 04/16/20 at 09:00; Stop 04/16/20 at 09:01 Active Scripts Active Reported Furosemide 40 Mg Tablet 1 Tab PO DAILY Tikosyn (Dofetilide) 250 Mcg Capsule 250 Mcg PO BID Eliquis (Apixaban) 5 Mg Tablet 5 Mg PO BID Zetia (Ezetimibe) 10 Mg Tablet 10 Mg PO DAILY Metoprolol Succinate ( Xl ) (Metoprolol Succinate) 25 Mg Tab.er.24h 12.5 Mg PO DAILY One-Daily Multi-Vitamin (Multivitamin) 1 Each Tablet 1 Tab PO DAILY 30 Days Lantus Solostar (Insulin Glargine,Hum.rec.anlog) 100 Unit/1 Ml Insuln.pen 48 Unit SQ HS Spironolactone 50 Mg Tablet 0.5 Tab PO DAILY Entresto 24 mg-26 mg Tablet (Sacubitril/Valsartan) 1 Each Tablet 1 Each PO BID Metformin Hcl 1,000 Mg Tablet 1,000 Mg PO BIDWMEALS Levothyroxine Sodium 75 Mcg Tablet 150 Mcg PO DAILY Vitals/I & O Vital Sign - Last 24 Hours 04/14/20 04/15/20 04/15/20 04/15/20 23:00 00:26 01:26 03:00 Temp 98.1 97.9 98.1 97.9 Pulse 85 81 Resp 18 18 18 18 B/P (MAP) 116/76 (89) 117/65 (82) Pulse Ox 93 93 93 96 O2 Delivery Room Air Room Air Room Air Room Air 04/15/20 04/15/20 04/15/20 04/15/20 06:00 07:00 07:00 08:00 Temp 98.2 98.2 Pulse 91 Resp 18 20 B/P (MAP) 106/64 (78) Pulse Ox 96 97 O2 Delivery Room Air Room Air Room Air Room Air O2 Flow Rate 2.0 04/15/20 04/15/20 04/15/20 04/15/20 10:01 11:00 15:00 17:43 Temp 98.0 97.6 98.0 97.6 Pulse 78 87 94 Resp 20 20 B/P (MAP) 106/64 110/72 (85) 120/86 (97) Pulse Ox 98 99 O2 Delivery Room Air Room Air Room Air 04/15/20 04/15/20 04/15/20 04/15/20 18:45 19:00 21:37 21:39 Temp 97.7 97.7 Pulse 98 98 Resp 18 B/P (MAP) 137/88 (104) 137/85 Pulse Ox 100 O2 Delivery Room Air Room Air Room Air 04/15/20 21:39 Pulse 98 B/P (MAP) 135/85 Intake and Output 04/14/20 04/14/20 04/15/20 15:00 23:00 07:00 Intake Total 900 ml 400 ml Balance 900 ml 400 ml Justifications for Admission Other Justification intractable back pain HYUN BRADFORD MD Apr 15, 2020 22:42
[2020-04-15 23:00] VITALS: BP 121/72
[2020-04-16] MEDS: diphenhydrAMINE HCL 25 MG CAPSULE PO PRN (00:44)
[2020-04-16] MEDS: HYDROmorphone 2 MG TABLET PO PRN ×3 (00:44→08:48)
[2020-04-16 03:00] VITALS: BP 121/70
[2020-04-16] MEDS: LEVOTHYROXINE 75 MCG TABLET PO SCH (05:40)
[2020-04-16 07:00] VITALS: BP 135/76
[2020-04-16] MEDS: EZETIMIBE 10 MG TABLET. PO SCH (08:47)
[2020-04-16] MEDS: SACUBITRIL/VALSARTAN 24/26MG TABLET. PO SCH (08:47)
[2020-04-16] MEDS: diazePAM 5 MG TABLET PO SCH (08:47)
[2020-04-16] MEDS: DOFETILIDE 125 MCG CAPSULE PO SCH (08:47)
[2020-04-16] MEDS: ALLOPURINOL 300 MG TABLET. PO SCH (08:47)
[2020-04-16] MEDS: PANTOPRAZOLE 40 MG TABLET.DR. PO SCH (08:47)
[2020-04-16] MEDS: SPIRONOLACTONE 25 MG TABLET PO SCH (08:47)
[2020-04-16] MEDS: MULTIVITAMIN with MINERAL TABLET. PO SCH (08:48)
[2020-04-16] MEDS: metFORMIN 500 MG TABLET PO SCH (08:48)
[2020-04-16] MEDS: INSULIN GLARGINE SQ SCH (08:48)
[2020-04-16] MEDS ORDERED: DEXAMETHASONE SOD PHOS 4 MG/ML VIAL IVP ONE (09:00)
--- NOTE | 2020-04-16 09:40 | NUR ---
SW following. Discussed with RN, pt from home with spouse, room air, ada diet. Pt having a CT scan today for treatment planning. RN advised no SW needs, anticipates discharge in the next day or two. SW will continue to follow.
[2020-04-16] MEDS ORDERED: APIXABAN 5 MG TABLET. PO SCH (09:45)
[2020-04-16] MEDS: IV NORMAL SALINE 1000ML BAG 1,000 ML IV SCH (10:00)
[2020-04-16] MEDS: ENOXAPARIN 40 MG/0.4 ML SYRINGE. SQ SCH (10:04)
[2020-04-16 10:16] LABS: CALCIUM 8.7 mg/dL (8.5-10.1)
[2020-04-16 11:00] VITALS: BP 120/65
--- NOTE | 2020-04-16 11:04 | PDOC ---
CARDIO Progress Notes Date and Time Date of Service 04/16/20 Time of Evaluation 1054 Subjective Subjective: No Chest Pain, No shortness of breath, No Palpitations, Other (back pain improved ) Vitals Vitals Vital Signs Date Time Temp Pulse Resp B/P (MAP) Pulse Ox O2 Delivery O2 Flow Rate FiO2 04/16/20 09:48 Room Air 04/16/20 08:47 107 135/76 04/16/20 07:00 98.1 16 100 98.1 Weight Weight [ ] Input and Output Intake and Output Intake and Output 04/16/20 07:00 Intake Total 1480 ml Output Total 351 ml Balance 1129 ml Intake Oral 1480 ml Output Urine Total 350 ml Stool Total 1 ml # Voids 2 Laboratory Labs Laboratory Tests Test 04/15/20 11:40 04/15/20 16:35 04/16/20 07:57 04/16/20 08:50 Glucose (Fingerstick) 184 mg/dL (70-99) 145 mg/dL (70-99) 82 mg/dL (70-99) Sodium Level 138 mmol/L (136-145) Potassium Level 4.0 mmol/L (3.5-5.1) Chloride Level 104 mmol/L (98-107) Carbon Dioxide Level 23 mmol/L (21-32) Anion Gap 11 (6-14) Blood Urea Nitrogen 16 mg/dL (8-26) Creatinine 1.0 mg/dL (0.7-1.3) Estimated GFR (Cockcroft-Gault) 76.0 Glucose Level 101 mg/dL (70-99) Calcium Level 8.7 mg/dL (8.5-10.1) Physical Exam HEENT: Neck Supple W Full Motion Chest: Symmetric LUNGS: Clear to Auscultation Heart: RRR Abdomen: Soft N/T Extremities: No Edema Neurology: alert, oriented, follow commands Assessment Assessment 1. Back pain with lumbar compression fractures. S/p bone marrow biopsy, kyphoplasty. Probable MM 2. PAFIB; QTc 435. Maintaining SR. Recent device check without AFIB. 3. Chronic systolic CHF with ICM s/p AICD (Biotronik). Echo with LVEF 25%. Device check 04/05/20 with normal function. Appears compensated 4. CAD; s/p PCI/stent placement. clinically stable. CP free 5. Severe MR 6. Diabetes, II 7. Hypertension; controlled 8. Hypothyroidism Recommendations Continue Tikosyn for rhythm maintenance Continue low dose Toprol, Entresto, and spironolactone Secondary prevention measures. Eliquis therapy resumed. Follow up with Dr. Acevedo as scheduled. Justicifation of Admission Dx: Justifications for Admission: Justification of Admission Dx: Yes Chronic Renal Failure: Intravenous Infusions Fracture: Fracture JAMA YATES APRN Apr 16, 2020 11:04
--- NOTE | 2020-04-16 13:30 | PDOC ---
PROGRESS NOTES Date of Service DATE: 04/16/20 TIME: 13:28 Subjective Subjective He feels better. Objective Objective Vital Signs Date Time Temp Pulse Resp B/P (MAP) Pulse Ox O2 Delivery O2 Flow Rate FiO2 04/16/20 11:00 97.9 88 16 120/65 (83) 92 Room Air 97.9 04/15/20 06:00 2.0 Intake and Output 04/16/20 07:00 Intake Total 1480 ml Output Total 351 ml Balance 1129 ml Intake Oral 1480 ml Output Urine Total 350 ml Stool Total 1 ml # Voids 2 Physical Exam Physical Exam He remains independent with his mobility and self care. Assessment Assessment Problems Medical Problems: (1) Intractable low back pain Status: Acute (2) Lumbar disc lesion Status: Acute (3) Multiple myeloma Status: Acute Plan Plan of Care Agree with oncology plans. Comment Review of Relevant I have reviewed the following items caity (where applicable) has been applied. Labs Laboratory Tests Test 04/14/20 17:01 04/15/20 06:15 04/15/20 06:45 04/15/20 07:53 Glucose (Fingerstick) 185 mg/dL (70-99) 203 mg/dL (70-99) White Blood Count 7.7 x10^3/uL (4.0-11.0) Red Blood Count 2.99 x10^6/uL (4.30-5.70) Hemoglobin 10.3 g/dL (13.0-17.5) Hematocrit 30.5 % (39.0-53.0) Mean Corpuscular Volume 102 fL (79-100) Mean Corpuscular Hemoglobin 34 pg (25-35) Mean Corpuscular Hemoglobin Concent 34 g/dL (31-37) Red Cell Distribution Width 14.3 % (11.5-14.5) Platelet Count 210 x10^3/uL (140-400) Neutrophils (%) (Auto) 80 % (31-73) Lymphocytes (%) (Auto) 17 % (24-48) Monocytes (%) (Auto) 3 % (0-9) Eosinophils (%) (Auto) 0 % (0-3) Basophils (%) (Auto) 0 % (0-3) Neutrophils # (Auto) 6.2 x10^3/uL (1.8-7.7) Lymphocytes # (Auto) 1.3 x10^3/uL (1.0-4.8) Monocytes # (Auto) 0.2 x10^3/uL (0.0-1.1) Eosinophils # (Auto) 0.0 x10^3/uL (0.0-0.7) Basophils # (Auto) 0.0 x10^3/uL (0.0-0.2) Sodium Level 134 mmol/L (136-145) Potassium Level 4.3 mmol/L (3.5-5.1) Chloride Level 101 mmol/L (98-107) Carbon Dioxide Level 24 mmol/L (21-32) Anion Gap 9 (6-14) Blood Urea Nitrogen 20 mg/dL (8-26) Creatinine 1.1 mg/dL (0.7-1.3) Estimated GFR (Cockcroft-Gault) 68.1 BUN/Creatinine Ratio 18 (6-20) Glucose Level 225 mg/dL (70-99) Calcium Level 8.6 mg/dL (8.5-10.1) Total Bilirubin 0.2 mg/dL (0.2-1.0) Aspartate Amino Transf (AST/SGOT) 19 U/L (15-37) Alanine Aminotransferase (ALT/SGPT) 18 U/L (16-63) Alkaline Phosphatase 66 U/L (46-116) Total Protein 9.2 g/dL (6.4-8.2) Albumin 2.7 g/dL (3.4-5.0) Albumin/Globulin Ratio 0.4 (1.0-1.7) Uric Acid 6.0 mg/dL (3.5-7.2) Lactate Dehydrogenase 271 U/L (85-227) Test 04/15/20 11:40 04/15/20 16:35 04/16/20 07:57 04/16/20 08:50 Glucose (Fingerstick) 184 mg/dL (70-99) 145 mg/dL (70-99) 82 mg/dL (70-99) Sodium Level 138 mmol/L (136-145) Potassium Level 4.0 mmol/L (3.5-5.1) Chloride Level 104 mmol/L (98-107) Carbon Dioxide Level 23 mmol/L (21-32) Anion Gap 11 (6-14) Blood Urea Nitrogen 16 mg/dL (8-26) Creatinine 1.0 mg/dL (0.7-1.3) Estimated GFR (Cockcroft-Gault) 76.0 Glucose Level 101 mg/dL (70-99) Calcium Level 8.7 mg/dL (8.5-10.1) Laboratory Tests Test 04/15/20 16:35 04/16/20 07:57 04/16/20 08:50 Glucose (Fingerstick) 145 mg/dL (70-99) 82 mg/dL (70-99) Sodium Level 138 mmol/L (136-145) Potassium Level 4.0 mmol/L (3.5-5.1) Chloride Level 104 mmol/L (98-107) Carbon Dioxide Level 23 mmol/L (21-32) Anion Gap 11 (6-14) Blood Urea Nitrogen 16 mg/dL (8-26) Creatinine 1.0 mg/dL (0.7-1.3) Estimated GFR (Cockcroft-Gault) 76.0 Glucose Level 101 mg/dL (70-99) Calcium Level 8.7 mg/dL (8.5-10.1) Medications Current Medications Hydromorphone HCl (Dilaudid) 1 mg 1X ONCE IVP Last administered on 04/08/20at 13:41; Start 04/08/20 at 13:15; Stop 04/08/20 at 13:16; Status DC Sodium Chloride 1,000 ml @ 1,000 mls/hr 1X ONCE IV Last administered on 04/08/20at 13:39; Start 04/08/20 at 13:15; Stop 04/08/20 at 14:14; Status DC Ondansetron HCl (Zofran) 4 mg 1X ONCE IVP Last administered on 04/08/20at 13 :42; Start 04/08/20 at 13:15; Stop 04/08/20 at 13:16; Status DC Diazepam (Valium) 5 mg 1X ONCE PO Last administered on 04/08/20at 13:44; Start 04/08/20 at 13:15; Stop 04/08/20 at 13:16; Status DC Ondansetron HCl (Zofran) 4 mg PRN Q8HRS PRN IV NAUSEA/VOMITING Last administered on 04/08/20at 15:35; Start 04/08/20 at 14:15; Stop 04/09/20 at 14:14; Status DC Hydromorphone HCl (Dilaudid) 1 mg PRN Q3HRS PRN IVP PAIN Last administered on 04/09/20at 10:03; Start 04/08/20 at 14:15; Stop 04/09/20 at 13:42; Status DC Sennosides (Senna) 17.2 mg PRN BID PRN PO CONSTIPATION Last administered on 04/12/20at 20:27; Start 04/08/20 at 17:15 Docusate Sodium (Colace) 100 mg PRN DAILY PRN PO HARD STOOLS Last administered on 04/12/20at 20:25; Start 04/08/20 at 17:15 Ondansetron HCl (Zofran) 4 mg PRN Q6HRS PRN IVP NAUSEA/VOMITING; Start 04/08/20 at 17:15 Potassium Chloride (Klor-Con) 40 meq 1X PRN PO PER PROTOCOL; Start 04/08/20 at 17:15; Stop 04/08/20 at 17:25; Status DC Magnesium Oxide (Magnesium Oxide) 400 mg BID PO ; Start 04/08/20 at 21:00; Stop 04/08/20 at 17:24; Status DC Potassium Chloride/Water 100 ml @ 100 mls/hr Q1H IV ; Start 04/08/20 at 17:15; Stop 04/08/20 at 17:25; Status DC Magnesium Sulfate 50 ml @ 25 mls/hr Q24H IV ; Start 04/08/20 at 17:15; Stop 04/08/20 at 17:24; Status DC Potassium Chloride/Water 100 ml @ 100 mls/hr Q1H PRN IV low k; Start 04/08/20 at 17:15; Stop 04/08/20 at 17:25; Status DC Insulin Human Lispro (HumaLOG) 0-7 UNITS TIDWMEALS SQ ; Start 04/09/20 at 08:00; Stop 04/09/20 at 12:05; Status DC Dextrose (Dextrose 50%-Water Syringe) 12.5 gm PRN Q15MIN PRN IV SEE COMMENTS; Start 04/08/20 at 17:15 Acetaminophen (Tylenol) 650 mg PRN Q4HRS PRN PO TEMP OVER 100.4F OR MILD PAIN; Start 04/08/20 at 17:15 Enoxaparin Sodium (Lovenox 40mg Syringe) 40 mg Q24H SQ Last administered on 04/14/20at 18:07; Start 04/08/20 at 18:00; Stop 04/16/20 at 12:36; Status DC Info (Non-Icu Electrolyte Protocol) 1 ea CONT PRN PRN MC SEE COMMENTS; Start 04/08/20 at 17:30 Influenza Virus Vaccine Quadrival (Fluzone Quad Syringe) 0.5 ml ONCE ONCE VAX IM Last administered on 04/08/20at 20:19; Start 04/08/20 at 20:00; Stop 04/08/20 at 20:01; Status DC Apixaban (Eliquis) 5 mg BID PO Last administered on 04/09/20at 09:30; Start 04/09/20 at 09:30; Stop 04/09/20 at 16:41; Status DC Dofetilide (Tikosyn) 250 mcg BID PO ; Start 04/09/20 at 09:30; Stop 04/09/20 at 09:37; Status DC EZETIMIBE (Zetia) 10 mg DAILY PO Last administered on 04/16/20at 08:47; Start 04/09/20 at 09:30 Furosemide (Lasix) 40 mg DAILY PO Last administered on 04/09/20at 10:05; Start 04/09/20 at 10:00; Stop 04/09/20 at 17:50; Status DC Levothyroxine Sodium (Synthroid) 150 mcg DAILY06 PO Last administered on 04/16/20at 05:40; Start 04/09/20 at 10:30 Metoprolol Succinate (Toprol Xl) 12.5 mg DAILY PO ; Start 04/09/20 at 10:00; Stop 04/09/20 at 09:55; Status DC Sacubitril/ Valsartan (Entresto 24 Mg-26 Mg) 1 tab BID PO Last administered on 04/16/20at 08:47; Start 04/09/20 at 10:00 Non-Formulary Medication 48 ea DAILY SQ ; Start 04/09/20 at 17:30; Stop 04/09/20 at 17:18; Status DC Metformin HCl (Glucophage) 1,000 mg BIDWMEALS PO Last administered on 04/09/20 10:09; Start 04/09/20 at 10:00; Stop 04/09/20 at 18:25; Status DC Multivitamins (Thera M Plus) 1 tab DAILY PO Last administered on 04/16/20 08:48; Start 04/09/20 at 10:00 Spironolactone (Aldactone) 25 mg DAILY PO Last administered on 04/09/20 10:09; Start 04/09/20 at 10:00; Stop 04/09/20 at 16:41; Status DC Info (Anti-Coagulation Monitoring By Pharmacy) 1 each PRN DAILY PRN MC SEE COMMENTS Last administered on 04/16/20 12:37; Start 04/09/20 at 09:30 Dofetilide (Tikosyn) 250 mcg BID PO Last administered on 04/16/20 08:47; Start 04/09/20 at 10:00 Metoprolol Succinate (Toprol Xl) 12.5 mg QHS PO Last administered on 04/15/20at 21:39; Start 04/09/20 at 21:00 Hydromorphone HCl (Dilaudid) 2 mg PRN Q3HRS PRN IVP PAIN Last administered on 04/13/20 12:22; Start 04/09/20 at 13:45; Stop 04/13/20 at 14:54; Status DC Non-Formulary Medication 48 ea DAILY SQ Last administered on 04/16/20 08:48; Start 04/09/20 at 17:30 Spironolactone (Aldactone) 25 mg DAILY PO Last administered on 04/16/20 08:47; Start 04/10/20 at 09:00 Metformin HCl (Glucophage) 1,000 mg BID PO Last administered on 04/16/20 08:48; Start 04/09/20 at 21:00 Ringer's Solution 1,000 ml @ 50 mls/hr Q20H IV ; Start 04/11/20 at 07:00; Stop 04/11/20 at 18:59; Status DC Lidocaine HCl (Buffered Lidocaine 1%) 3 ml STK-MED ONCE .ROUTE ; Start 04/11/20 at 12:58; Stop 04/11/20 at 12:58; Status DC Lidocaine HCl (Buffered Lidocaine 1%) 3 ml STK-MED ONCE .ROUTE ; Start 04/11/20 at 13:13; Stop 04/11/20 at 13:14; Status DC Iohexol (Omnipaque 240 Mg/ml) 50 ml STK-MED ONCE .ROUTE ; Start 04/11/20 at 13:14; Stop 04/11/20 at 13:14; Status DC Midazolam HCl (Versed) 2 mg STK-MED ONCE .ROUTE ; Start 04/11/20 at 13:26; Stop 04/11/20 at 13:27; Status DC Fentanyl Citrate (Fentanyl 5ml Vial) 250 mcg STK-MED ONCE .ROUTE ; Start 04/11/20 at 13:26; Stop 04/11/20 at 13:27; Status DC Propofol (Diprivan) 200 mg STK-MED ONCE IV ; Start 04/11/20 at 13:31; Stop 04/11/20 at 13:32; Status DC Propofol 50 ml @ As Directed STK-MED ONCE IV ; Start 04/11/20 at 13:31; Stop 04/11/20 at 13:32; Status DC Midazolam HCl (Versed) 2 mg STK-MED ONCE .ROUTE ; Start 04/11/20 at 13:32; Stop 04/11/20 at 13:32; Status DC Midazolam HCl (Versed) 2 mg 1X ONCE IV Last administered on 04/11/20at 13:33; Start 04/11/20 at 13:45; Stop 04/11/20 at 13:50; Status DC Fentanyl Citrate (Fentanyl 5ml Vial) 100 mcg 1X ONCE IV Last administered on 04/11/20at 13:33; Start 04/11/20 at 13:45; Stop 04/11/20 at 13:50; Status DC Ketamine HCl (Ketamine) 50 mg STK-MED ONCE .ROUTE ; Start 04/11/20 at 13:48; Stop 04/11/20 at 13:48; Status DC Cefazolin Sodium/ Dextrose 50 ml @ As Directed STK-MED ONCE IV ; Start 04/11/20 at 14:03; Stop 04/11/20 at 14:04; Status DC Lidocaine HCl (Buffered Lidocaine 1%) 3 ml 1X ONCE IJ Last administered on 04/11/20at 13:40; Start 04/11/20 at 14:15; Stop 04/11/20 at 14:19; Status DC Iohexol (Omnipaque 240 Mg/ml) 50 ml 1X ONCE IJ Last administered on 04/11/20at 14:15; Start 04/11/20 at 14:15; Stop 04/11/20 at 14:19; Status DC Cefazolin Sodium/ Dextrose 50 ml @ 100 mls/hr 1X ONCE IV Last administered on 04/11/20at 14:12; Start 04/11/20 at 14:15; Stop 04/11/20 at 14:44; Status DC Sodium Chloride (Saline Mist Nasal) 1 celestina PRN Q1HR PRN NS NASAL CONGESTION Last administered on 04/14/20at 12:42; Start 04/11/20 at 19:15 Bisacodyl (Dulcolax Tab) 10 mg PRN DAILY PRN PO CONSTIPATION Last administered on 04/12/20at 10:10; Start 04/12/20 at 10:00; Stop 04/12/20 at 10:30; Status DC Magnesium Citrate (Citroma) 296 ml 1X ONCE PO Last administered on 04/12/20at 10:00; Start 04/12/20 at 10:00; Stop 04/12/20 at 10:01; Status DC Diphenhydramine HCl (Benadryl) 25 mg PRN Q6HRS PRN PO ITCHING Last administered on 04/16/20at 00:44; Start 04/12/20 at 11:15 Sodium Chloride 1,000 ml @ 100 mls/hr Q10H IV Last administered on 04/14/20at 17:59; Start 04/12/20 at 16:00 Allopurinol (Zyloprim) 300 mg DAILY PO Last administered on 04/16/20at 08:47; Start 04/12/20 at 16:00 Hydromorphone HCl (Dilaudid) 3 mg PRN Q4HRS PRN PO PAIN Last administered on 04/13/20at 09:34; Start 04/12/20 at 16:15; Stop 04/13/20 at 14:53; Status DC Pantoprazole Sodium (Protonix) 40 mg DAILYAC PO Last administered on 04/16/20at 08:47; Start 04/13/20 at 10:30 Dexamethasone Sodium Phosphate (Decadron) 8 mg 1X ONCE IVP Last administered on 04/13/20at 12:21; Start 04/13/20 at 10:30; Stop 04/13/20 at 10:35; Status DC Hydromorphone HCl (Dilaudid) 4 mg PRN Q3HRS PRN PO MODERATE TO SEVERE PAIN Last administered on 04/16/20at 08:48; Start 04/13/20 at 15:00 Hydromorphone HCl (Dilaudid) 4 mg PRN Q3HRS PRN IVP PAIN Last administered on 04/14/20at 12:43; Start 04/13/20 at 15:00 Diazepam (Valium) 10 mg PRN Q12HRS PRN PO MUSPM Last administered on 04/13/20at 17:34; Start 04/13/20 at 17:00; Stop 04/13/20 at 18:38; Status DC Diazepam (Valium) 10 mg Q12HR PO Last administered on 04/16/20at 08:47; Start 04/14/20 at 09:00 Dexamethasone Sodium Phosphate (Decadron) 8 mg 1X ONCE IVP Last administered on 04/14/20at 17:58; Start 04/14/20 at 16:15; Stop 04/14/20 at 16:16; Status DC Dexamethasone Sodium Phosphate (Decadron) 8 mg 1X ONCE IVP Last administered on 04/16/20at 08:49; Start 04/16/20 at 09:00; Stop 04/16/20 at 09:01; Status DC Apixaban (Eliquis) 5 mg BID PO Last administered on 04/16/20at 09:52; Start 04/16/20 at 09:45 Active Scripts Active Reported Furosemide 40 Mg Tablet 1 Tab PO DAILY Tikosyn (Dofetilide) 250 Mcg Capsule 250 Mcg PO BID Eliquis (Apixaban) 5 Mg Tablet 5 Mg PO BID Zetia (Ezetimibe) 10 Mg Tablet 10 Mg PO DAILY Metoprolol Succinate ( Xl ) (Metoprolol Succinate) 25 Mg Tab.er.24h 12.5 Mg PO DAILY One-Daily Multi-Vitamin (Multivitamin) 1 Each Tablet 1 Tab PO DAILY 30 Days Lantus Solostar (Insulin Glargine,Hum.rec.anlog) 100 Unit/1 Ml Insuln.pen 48 Unit SQ HS Spironolactone 50 Mg Tablet 0.5 Tab PO DAILY Entresto 24 mg-26 mg Tablet (Sacubitril/Valsartan) 1 Each Tablet 1 Each PO BID Metformin Hcl 1,000 Mg Tablet 1,000 Mg PO BIDWMEALS Levothyroxine Sodium 75 Mcg Tablet 150 Mcg PO DAILY Vitals/I & O Vital Sign - Last 24 Hours 04/15/20 04/15/20 04/15/20 04/15/20 15:00 17:43 18:45 19:00 Temp 97.6 97.7 97.6 97.7 Pulse 94 98 Resp 20 18 B/P (MAP) 120/86 (97) 137/88 (104) Pulse Ox 99 100 O2 Delivery Room Air Room Air Room Air Room Air 04/15/20 04/15/20 04/15/20 04/15/20 19:50 21:37 21:39 21:39 Pulse 98 98 B/P (MAP) 137/85 135/85 O2 Delivery Room Air Room Air 04/15/20 04/16/20 04/16/20 04/16/20 23:00 00:44 03:00 05:40 Temp 97.6 97.5 97.6 97.5 Pulse 96 70 Resp 18 18 B/P (MAP) 121/72 (88) 121/70 (87) Pulse Ox 95 95 O2 Delivery Room Air Room Air Room Air Room Air 04/16/20 04/16/20 04/16/20 04/16/20 07:00 08:00 08:47 09:48 Temp 98.1 98.1 Pulse 107 107 Resp 16 B/P (MAP) 135/76 (95) 135/76 Pulse Ox 100 O2 Delivery Room Air Room Air Room Air 04/16/20 11:00 Temp 97.9 97.9 Pulse 88 Resp 16 B/P (MAP) 120/65 (83) Pulse Ox 92 O2 Delivery Room Air Intake and Output 04/15/20 04/15/20 04/16/20 15:00 23:00 07:00 Intake Total 900 ml 480 ml 100 ml Output Total 1 ml 350 ml Balance 899 ml 480 ml -250 ml Justifications for Admission Other Justification intractable back pain JOSE RAFAEL NORTON MD Apr 16, 2020 13:30
[2020-04-16 15:00] VITALS: BP 122/66
--- NOTE | 2020-04-16 15:08 | PDOC ---
[facility] PROGRESS NOTE Date of Service DOS: DATE: 04/16/20 TIME: 15:06 Chief Complaint Chief Complaint Images: Images Spine MRI Impression: 1. There are multiple edematous marrow lesions, evidence of metastatic disease or multiple myeloma. There is degree of pathologic compression deformity of L2 and to lesser degree of L4 which may be more recent as there is associated marrow edema, no osseous retropulsion. 2. There is no significant lumbar spinal stenosis. There is mild neural foramina compromise as stated. Assessment/Plan Assessment/Plan Intractable back pain due to multiple edematous marrow lesions, evidence of metastatic disease or multiple myeloma Pathologic MODERATE compression fracture of L2 and L4 pathologic compression deformity of L2 and to lesser degree of L4 which may be more recent as there is associated marrow edema, no osseous retropulsion. Anemia of unclear etiology Elevated gamma gap Hyponatremia hx Ischemic cardiomyopathy 2018 echo Ejection Fraction is 35-40%.global hypokinesis of the left ventricle.moderately severe mitral regurgitation. Ischemic CMP with EF of 20-25% 12/07 cardiac cath Chronic systolic heart failure Atrial fibrillation Hypertension Coronary artery disease Diabetes mellitus type 2 HYPERURECEMIA due to myeloma, uric acid down to 7.6 Immunofixation shows IgG monoclonal protein with kappa light chain specificity. No lytic lesions identified by radiograph. on skeletal survey plan Admit to medicine for further management Neurology consult Oncology consult reviewed cardiology consult , pt refusing tele monitor ama IV pain control as needed Serial neuro checks Lovenox for DVT prophylaxis ADA diet Full code Bone marrow biopsy noted 24 hour urine for TV, Protein, Creatinine, Protein electrophoresis, Protein immunoelectrophoresis, [place] and Lambda light chains. Skeletal survey. Discussed with RN and SW Disposition inpatient care trial po dilaudid Surrogate decision maker is the [facility] dilaudid to 3 mg iv q 3 hrs prn severe pain, consult cardiology, to tele bed but refused 27 min pt exam, chart review, > 50% of time spent with exam, chart review, pt care coordination Justifications for Admission Justifications for Admission Other Justification INTRACTABLE PAIN History of Present Illness History of Present Illness 60 year old male with history of diabetes type 2, hypertension, A. fib, who presents the ED today to be evaluated for moderate low back pain that he states has been going on since January but has gotten worse in the last couple days with back spasms today, he reports the last time he had back spasms was 15 years ago. Patient states he did follow-up with his PCP as well as a chiropractor for the back pain towards the end of February. He had an MRI done at [place] [facility] department 3 days ago but he does not know the results. Patient denies any loss of bowel/bladder function. Denies any injury. Denies any pain radiating to bilateral lower extremities. He states his pain is worse on movement. He states he tried taking his hydrocodone and Flexeril with no relief. Of note, patient did experience 1 episode of fall which she fell to his right side and had a rib pain. Patient has had routine colonoscopy screening starting at age 44 and had it every 5 years without any positive findings. Patient is up-to-date with his Pneumovax 04/15: Patient evaluated bedside. His pain improving, but pain control is still an issue. Bone biopsy is pending. He still in discussion with his oncologist about treatment modalities. Likely discharge tomorrow, discussed with RN. 04/16: Patient reports improvement in his back pain. Discussed with oncology, patient may discharge today after his CT to help guide chemotherapy. Will discharge patient on allopurinol, hydrocodone, Flexeril, and regular insulin to initiate sliding scale at home in case he is continued on steroids. Discussed with RN. Greater than 30 minutes was spent managing the discharge of this patient. Vitals/I&O Vitals/I&O: Vital Signs Date Time Temp Pulse Resp B/P (MAP) Pulse Ox O2 Delivery O2 Flow Rate FiO2 04/16/20 11:00 97.9 88 16 120/65 (83) 92 Room Air 97.9 I & O 04/15/20 04/15/20 04/16/20 15:00 23:00 07:00 Intake Total 900 ml 480 ml 100 ml Output Total 1 ml 350 ml Balance 899 ml 480 ml -250 ml Physical Exam General: Alert, Cooperative, No acute distress Heart: Regular rate, Normal S1, Normal S2 Lungs: Clear Abdomen: Soft, No tenderness Extremities: No edema Skin: Other (Excoriation on arms. ) Labs Labs: Laboratory Tests Test 04/15/20 16:35 04/16/20 07:57 04/16/20 08:50 Glucose (Fingerstick) 145 mg/dL (70-99) 82 mg/dL (70-99) Sodium Level 138 mmol/L (136-145) Potassium Level 4.0 mmol/L (3.5-5.1) Chloride Level 104 mmol/L (98-107) Carbon Dioxide Level 23 mmol/L (21-32) Anion Gap 11 (6-14) Blood Urea Nitrogen 16 mg/dL (8-26) Creatinine 1.0 mg/dL (0.7-1.3) Estimated GFR (Cockcroft-Gault) 76.0 Glucose Level 101 mg/dL (70-99) Calcium Level 8.7 mg/dL (8.5-10.1) Review of Systems Review of Systems: Back pain. Denies fever, denies nausea, denies shortness of breath, denies chest pain. Assessment and Plan Assessmemt and Plan Problems Medical Problems: (1) Intractable low back pain Status: Acute (2) Lumbar disc lesion Status: Acute (3) Multiple myeloma Status: Acute Comment Review of Relevant I have reviewed the following items caity (where applicable) has been applied. Medications: Current Medications Medications (Trade) Dose Ordered Sig/Elva Route PRN Reason Start Time Stop Time Status Last Admin Dose Admin Dexamethasone Sodium Phosphate (Decadron) 8 mg 1X ONCE IVP 04/16/20 09:00 04/16/20 09:01 DC 04/16/20 08:49 Apixaban (Eliquis) 5 mg BID PO 04/16/20 09:45 04/16/20 09:52 Justifications for Admission Other Justification intractable back pain TROY LLANES MD Apr 16, 2020 15:08
[2020-04-16] MEDS ORDERED: ALLO300T PO (15:17)
--- NOTE | 2020-04-16 15:18 | PDOC ---
PROGRESS NOTES Date of Service DATE: 04/16/20 TIME: 15:02 Objective Objective Vital Signs Date Time Temp Pulse Resp B/P (MAP) Pulse Ox O2 Delivery O2 Flow Rate FiO2 04/16/20 11:00 97.9 88 16 120/65 (83) 92 Room Air 97.9 04/15/20 06:00 2.0 Intake and Output 04/16/20 07:00 Intake Total 1480 ml Output Total 351 ml Balance 1129 ml Intake Oral 1480 ml Output Urine Total 350 ml Stool Total 1 ml # Voids 2 Assessment Assessment Problems Medical Problems: (1) Intractable low back pain Status: Acute (2) Lumbar disc lesion Status: Acute (3) Multiple myeloma Status: Acute Patient discharged prior to being seen This draft note was made prior to his discharge. Patient not seen today. IgG kappa Multiple myeloma with 3.2 gm M spike and Marked elevated Free K light chains and K/L ratio. Await bone marrow biopsy. S/P Kyphoplasty. Skelatal survey did not reveal any other lesions. Urine has elevated [place] light chain with K/L ratio of 56. Pantoprozole for prevention of GI toxicity He has had 8 mg dex on Wednesday and Wednesday. Add acyclovir prophylaxis. 2. Renal insufficiency with MM. Creatinine up to 1.4 on 04/12. Better at 1.1 on 04/13 ,04/14 and 04/15. 1.0 on 04/16 Will follow. 3. 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 Uric acid 9.4 . Better at 7.6 on 04/13 and 7.0 on 04/14 6.0 on 04/15 with Allopurinol. 4. Pain secondary to vertebral fractures. Improved. . Rec: IV fluids to prevent dehydration and renal insult from MM Continue allopurinol Dex 8 mg IV in AM Continue Pantoprozole. Add Acyclovir prophylaxis PET scan as out patient Xgeva for prevention of skelatal related events as out patient. Discuss treatment options Velcade Rev Dex. CyborD or Darzalex Rev Dex. Will evaluate out of pocket expense for drugs. Item Value Date Time Hemoglobin 10.3 g/dL L 04/15/20 0615 Glucose Level 225 mg/dL H 04/15/20 0615 Creatinine 1.1 mg/dL 04/15/20 0615 Total Protein 9.2 g/dL H 04/15/20 0615 Uric Acid 6.0 mg/dL 04/15/20 0645 Lactate Dehydrogenase 271 U/L H 04/15/20 0645 Total Protein 9.7 g/dL H 04/14/20 0902 Lactate Dehydrogenase 336 U/L H 04/13/20 0734 Total Protein 9.5 g/dL H 04/13/20 0734 Urine Free [place] Light Chains 163.78 mg/L H 04/11/20 2210 Urine Free [place] Light Chains 2.90 mg/L 04/11/20 2210 Urine Free [place]/Lambda Ratio 56.48 H 04/11/20 2210 Creatinine 1.0 mg/dL 04/16/20 0850 Potassium Level 4.0 mmol/L 04/16/20 0850 Glucose Level 101 mg/dL H 04/16/20 0850 Comment Review of Relevant I have reviewed the following items caity (where applicable) has been applied. Labs Laboratory Tests Test 04/14/20 17:01 04/15/20 06:15 04/15/20 06:45 04/15/20 07:53 Glucose (Fingerstick) 185 mg/dL (70-99) 203 mg/dL (70-99) White Blood Count 7.7 x10^3/uL (4.0-11.0) Red Blood Count 2.99 x10^6/uL (4.30-5.70) Hemoglobin 10.3 g/dL (13.0-17.5) Hematocrit 30.5 % (39.0-53.0) Mean Corpuscular Volume 102 fL (79-100) Mean Corpuscular Hemoglobin 34 pg (25-35) Mean Corpuscular Hemoglobin Concent 34 g/dL (31-37) Red Cell Distribution Width 14.3 % (11.5-14.5) Platelet Count 210 x10^3/uL (140-400) Neutrophils (%) (Auto) 80 % (31-73) Lymphocytes (%) (Auto) 17 % (24-48) Monocytes (%) (Auto) 3 % (0-9) Eosinophils (%) (Auto) 0 % (0-3) Basophils (%) (Auto) 0 % (0-3) Neutrophils # (Auto) 6.2 x10^3/uL (1.8-7.7) Lymphocytes # (Auto) 1.3 x10^3/uL (1.0-4.8) Monocytes # (Auto) 0.2 x10^3/uL (0.0-1.1) Eosinophils # (Auto) 0.0 x10^3/uL (0.0-0.7) Basophils # (Auto) 0.0 x10^3/uL (0.0-0.2) Sodium Level 134 mmol/L (136-145) Potassium Level 4.3 mmol/L (3.5-5.1) Chloride Level 101 mmol/L (98-107) Carbon Dioxide Level 24 mmol/L (21-32) Anion Gap 9 (6-14) Blood Urea Nitrogen 20 mg/dL (8-26) Creatinine 1.1 mg/dL (0.7-1.3) Estimated GFR (Cockcroft-Gault) 68.1 BUN/Creatinine Ratio 18 (6-20) Glucose Level 225 mg/dL (70-99) Calcium Level 8.6 mg/dL (8.5-10.1) Total Bilirubin 0.2 mg/dL (0.2-1.0) Aspartate Amino Transf (AST/SGOT) 19 U/L (15-37) Alanine Aminotransferase (ALT/SGPT) 18 U/L (16-63) Alkaline Phosphatase 66 U/L (46-116) Total Protein 9.2 g/dL (6.4-8.2) Albumin 2.7 g/dL (3.4-5.0) Albumin/Globulin Ratio 0.4 (1.0-1.7) Uric Acid 6.0 mg/dL (3.5-7.2) Lactate Dehydrogenase 271 U/L (85-227) Test 04/15/20 11:40 04/15/20 16:35 04/16/20 07:57 04/16/20 08:50 Glucose (Fingerstick) 184 mg/dL (70-99) 145 mg/dL (70-99) 82 mg/dL (70-99) Sodium Level 138 mmol/L (136-145) Potassium Level 4.0 mmol/L (3.5-5.1) Chloride Level 104 mmol/L (98-107) Carbon Dioxide Level 23 mmol/L (21-32) Anion Gap 11 (6-14) Blood Urea Nitrogen 16 mg/dL (8-26) Creatinine 1.0 mg/dL (0.7-1.3) Estimated GFR (Cockcroft-Gault) 76.0 Glucose Level 101 mg/dL (70-99) Calcium Level 8.7 mg/dL (8.5-10.1) Laboratory Tests Test 04/15/20 16:35 04/16/20 07:57 04/16/20 08:50 Glucose (Fingerstick) 145 mg/dL (70-99) 82 mg/dL (70-99) Sodium Level 138 mmol/L (136-145) Potassium Level 4.0 mmol/L (3.5-5.1) Chloride Level 104 mmol/L (98-107) Carbon Dioxide Level 23 mmol/L (21-32) Anion Gap 11 (6-14) Blood Urea Nitrogen 16 mg/dL (8-26) Creatinine 1.0 mg/dL (0.7-1.3) Estimated GFR (Cockcroft-Gault) 76.0 Glucose Level 101 mg/dL (70-99) Calcium Level 8.7 mg/dL (8.5-10.1) Medications Current Medications Hydromorphone HCl (Dilaudid) 1 mg 1X ONCE IVP Last administered on 04/08/20at 13:41; Start 04/08/20 at 13:15; Stop 04/08/20 at 13:16; Status DC Sodium Chloride 1,000 ml @ 1,000 mls/hr 1X ONCE IV Last administered on 04/08/20at 13:39; Start 04/08/20 at 13:15; Stop 04/08/20 at 14:14; Status DC Ondansetron HCl (Zofran) 4 mg 1X ONCE IVP Last administered on 04/08/20at 13:42; Start 04/08/20 at 13:15; Stop 04/08/20 at 13:16; Status DC Diazepam (Valium) 5 mg 1X ONCE PO Last administered on 04/08/20at 13:44; Start 04/08/20 at 13:15; Stop 04/08/20 at 13:16; Status DC Ondansetron HCl (Zofran) 4 mg PRN Q8HRS PRN IV NAUSEA/VOMITING Last administered on 04/08/20at 15:35; Start 04/08/20 at 14:15; Stop 04/09/20 at 14:14; Status DC Hydromorphone HCl (Dilaudid) 1 mg PRN Q3HRS PRN IVP PAIN Last administered on 04/09/20at 10:03; Start 04/08/20 at 14:15; Stop 04/09/20 at 13:42; Status DC Sennosides (Senna) 17.2 mg PRN BID PRN PO CONSTIPATION Last administered on 04/12/20at 20:27; Start 04/08/20 at 17:15 Docusate Sodium (Colace) 100 mg PRN DAILY PRN PO HARD STOOLS Last administered on 04/12/20at 20:25; Start 04/08/20 at 17:15 Ondansetron HCl (Zofran) 4 mg PRN Q6HRS PRN IVP NAUSEA/VOMITING; Start 04/08/20 at 17:15 Potassium Chloride (Klor-Con) 40 meq 1X PRN PO PER PROTOCOL; Start 04/08/20 at 17:15; Stop 04/08/20 at 17:25; Status DC Magnesium Oxide (Magnesium Oxide) 400 mg BID PO ; Start 04/08/20 at 21:00; Sto p 04/08/20 at 17:24; Status DC Potassium Chloride/Water 100 ml @ 100 mls/hr Q1H IV ; Start 04/08/20 at 17:15; Stop 04/08/20 at 17:25; Status DC Magnesium Sulfate 50 ml @ 25 mls/hr Q24H IV ; Start 04/08/20 at 17:15; Stop 04/08/20 at 17:24; Status DC Potassium Chloride/Water 100 ml @ 100 mls/hr Q1H PRN IV low k; Start 04/08/20 at 17:15; Stop 04/08/20 at 17:25; Status DC Insulin Human Lispro (HumaLOG) 0-7 UNITS TIDWMEALS SQ ; Start 04/09/20 at 08:00; Stop 04/09/20 at 12:05; Status DC Dextrose (Dextrose 50%-Water Syringe) 12.5 gm PRN Q15MIN PRN IV SEE COMMENTS; Start 04/08/20 at 17:15 Acetaminophen (Tylenol) 650 mg PRN Q4HRS PRN PO TEMP OVER 100.4F OR MILD PAIN; Start 04/08/20 at 17:15 Enoxaparin Sodium (Lovenox 40mg Syringe) 40 mg Q24H SQ Last administered on 04/14/20at 18:07; Start 04/08/20 at 18:00; Stop 04/16/20 at 12:36; Status DC Info (Non-Icu Electrolyte Protocol) 1 ea CONT PRN PRN MC SEE COMMENTS; Start 04/08/20 at 17:30 Influenza Virus Vaccine Quadrival (Fluzone Quad Syringe) 0.5 ml ONCE ONCE VAX IM Last administered on 04/08/20at 20:19; Start 04/08/20 at 20:00; Stop 04/08/20 at 20:01; Status DC Apixaban (Eliquis) 5 mg BID PO Last administered on 04/09/20at 09:30; Start 04/09/20 at 09:30; Stop 04/09/20 at 16:41; Status DC Dofetilide (Tikosyn) 250 mcg BID PO ; Start 04/09/20 at 09:30; Stop 04/09/20 at 09:37; Status DC EZETIMIBE (Zetia) 10 mg DAILY PO Last administered on 04/16/20at 08:47; Start 04/09/20 at 09:30 Furosemide (Lasix) 40 mg DAILY PO Last administered on 04/09/20at 10:05; Start 04/09/20 at 10:00; Stop 04/09/20 at 17:50; Status DC Levothyroxine Sodium (Synthroid) 150 mcg DAILY06 PO Last administered on 04/16/20at 05:40; Start 04/09/20 at 10:30 Metoprolol Succinate (Toprol Xl) 12.5 mg DAILY PO ; Start 04/09/20 at 10:00; Stop 04/09/20 at 09:55; Status DC Sacubitril/ Valsartan (Entresto 24 Mg-26 Mg) 1 tab BID PO Last administered on 04/16/20at 08:47; Start 04/09/20 at 10:00 Non-Formulary Medication 48 ea DAILY SQ ; Start 04/09/20 at 17:30; Stop 04/09/20 at 17:18; Status DC Metformin HCl (Glucophage) 1,000 mg BIDWMEALS PO Last administered on 04/09/20 10:09; Start 04/09/20 at 10:00; Stop 04/09/20 at 18:25; Status DC Multivitamins (Thera M Plus) 1 tab DAILY PO Last administered on 04/16/20 08:48; Start 04/09/20 at 10:00 Spironolactone (Aldactone) 25 mg DAILY PO Last administered on 04/09/20 10:09; Start 04/09/20 at 10:00; Stop 04/09/20 at 16:41; Status DC Info (Anti-Coagulation Monitoring By Pharmacy) 1 each PRN DAILY PRN MC SEE COMMENTS Last administered on 04/16/20 12:37; Start 04/09/20 at 09:30 Dofetilide (Tikosyn) 250 mcg BID PO Last administered on 04/16/20 08:47; Start 04/09/20 at 10:00 Metoprolol Succinate (Toprol Xl) 12.5 mg QHS PO Last administered on 04/15/20at 21:39; Start 04/09/20 at 21:00 Hydromorphone HCl (Dilaudid) 2 mg PRN Q3HRS PRN IVP PAIN Last administered on 04/13/20 12:22; Start 04/09/20 at 13:45; Stop 04/13/20 at 14:54; Status DC Non-Formulary Medication 48 ea DAILY SQ Last administered on 04/16/20 08:48; Start 04/09/20 at 17:30 Spironolactone (Aldactone) 25 mg DAILY PO Last administered on 04/16/20 08:47; Start 04/10/20 at 09:00 Metformin HCl (Glucophage) 1,000 mg BID PO Last administered on 04/16/20 08:48; Start 04/09/20 at 21:00 Ringer's Solution 1,000 ml @ 50 mls/hr Q20H IV ; Start 04/11/20 at 07:00; Stop 04/11/20 at 18:59; Status DC Lidocaine HCl (Buffered Lidocaine 1%) 3 ml STK-MED ONCE .ROUTE ; Start 04/11/20 at 12:58; Stop 04/11/20 at 12:58; Status DC Lidocaine HCl (Buffered Lidocaine 1%) 3 ml STK-MED ONCE .ROUTE ; Start 04/11/20 at 13:13; Stop 04/11/20 at 13:14; Status DC Iohexol (Omnipaque 240 Mg/ml) 50 ml STK-MED ONCE .ROUTE ; Start 04/11/20 at 13:14; Stop 04/11/20 at 13:14; Status DC Midazolam HCl (Versed) 2 mg STK-MED ONCE .ROUTE ; Start 04/11/20 at 13:26; Stop 04/11/20 at 13:27; Status DC Fentanyl Citrate (Fentanyl 5ml Vial) 250 mcg STK-MED ONCE .ROUTE ; Start 04/11/20 at 13:26; Stop 04/11/20 at 13:27; Status DC Propofol (Diprivan) 200 mg STK-MED ONCE IV ; Start 04/11/20 at 13:31; Stop 04/11/20 at 13:32; Status DC Propofol 50 ml @ As Directed STK-MED ONCE IV ; Start 04/11/20 at 13:31; Stop 04/11/20 at 13:32; Status DC Midazolam HCl (Versed) 2 mg STK-MED ONCE .ROUTE ; Start 04/11/20 at 13:32; Sto p 04/11/20 at 13:32; Status DC Midazolam HCl (Versed) 2 mg 1X ONCE IV Last administered on 04/11/20at 13:33; Start 04/11/20 at 13:45; Stop 04/11/20 at 13:50; Status DC Fentanyl Citrate (Fentanyl 5ml Vial) 100 mcg 1X ONCE IV Last administered on 04/11/20at 13:33; Start 04/11/20 at 13:45; Stop 04/11/20 at 13:50; Status DC Ketamine HCl (Ketamine) 50 mg STK-MED ONCE .ROUTE ; Start 04/11/20 at 13:48; Stop 04/11/20 at 13:48; Status DC Cefazolin Sodium/ Dextrose 50 ml @ As Directed STK-MED ONCE IV ; Start 04/11/20 at 14:03; Stop 04/11/20 at 14:04; Status DC Lidocaine HCl (Buffered Lidocaine 1%) 3 ml 1X ONCE IJ Last administered on 04/11/20at 13:40; Start 04/11/20 at 14:15; Stop 04/11/20 at 14:19; Status DC Iohexol (Omnipaque 240 Mg/ml) 50 ml 1X ONCE IJ Last administered on 04/11/20at 14:15; Start 04/11/20 at 14:15; Stop 04/11/20 at 14:19; Status DC Cefazolin Sodium/ Dextrose 50 ml @ 100 mls/hr 1X ONCE IV Last administered on 04/11/20at 14:12; Start 04/11/20 at 14:15; Stop 04/11/20 at 14:44; Status DC Sodium Chloride (Saline Mist Nasal) 1 celestina PRN Q1HR PRN NS NASAL CONGESTION Last administered on 04/14/20at 12:42; Start 04/11/20 at 19:15 Bisacodyl (Dulcolax Tab) 10 mg PRN DAILY PRN PO CONSTIPATION Last administered on 04/12/20at 10:10; Start 04/12/20 at 10:00; Stop 04/12/20 at 10:30; Status DC Magnesium Citrate (Citroma) 296 ml 1X ONCE PO Last administered on 04/12/20at 10:00; Start 04/12/20 at 10:00; Stop 04/12/20 at 10:01; Status DC Diphenhydramine HCl (Benadryl) 25 mg PRN Q6HRS PRN PO ITCHING Last administered on 04/16/20at 00:44; Start 04/12/20 at 11:15 Sodium Chloride 1,000 ml @ 100 mls/hr Q10H IV Last administered on 04/14/20at 17:59; Start 04/12/20 at 16:00 Allopurinol (Zyloprim) 300 mg DAILY PO Last administered on 04/16/20at 08:47; Start 04/12/20 at 16:00 Hydromorphone HCl (Dilaudid) 3 mg PRN Q4HRS PRN PO PAIN Last administered on 04/13/20at 09:34; Start 04/12/20 at 16:15; Stop 04/13/20 at 14:53; Status DC Pantoprazole Sodium (Protonix) 40 mg DAILYAC PO Last administered on 04/16/20at 08:47; Start 04/13/20 at 10:30 Dexamethasone Sodium Phosphate (Decadron) 8 mg 1X ONCE IVP Last administered on 04/13/20at 12:21; Start 04/13/20 at 10:30; Stop 04/13/20 at 10:35; Status DC Hydromorphone HCl (Dilaudid) 4 mg PRN Q3HRS PRN PO MODERATE TO SEVERE PAIN Last administered on 04/16/20at 08:48; Start 04/13/20 at 15:00 Hydromorphone HCl (Dilaudid) 4 mg PRN Q3HRS PRN IVP PAIN Last administered on 04/14/20at 12:43; Start 04/13/20 at 15:00 Diazepam (Valium) 10 mg PRN Q12HRS PRN PO MUSPM Last administered on 04/13/20at 17:34; Start 04/13/20 at 17:00; Stop 04/13/20 at 18:38; Status DC Diazepam (Valium) 10 mg Q12HR PO Last administered on 04/16/20at 08:47; Start 04/14/20 at 09:00 Dexamethasone Sodium Phosphate (Decadron) 8 mg 1X ONCE IVP Last administered on 04/14/20at 17:58; Start 04/14/20 at 16:15; Stop 04/14/20 at 16:16; Status DC Dexamethasone Sodium Phosphate (Decadron) 8 mg 1X ONCE IVP Last administered on 04/16/20at 08:49; Start 04/16/20 at 09:00; Stop 04/16/20 at 09:01; Status DC Apixaban (Eliquis) 5 mg BID PO Last administered on 04/16/20at 09:52; Start 04/16/20 at 09:45 Active Scripts Active Reported Furosemide 40 Mg Tablet 1 Tab PO DAILY Tikosyn (Dofetilide) 250 Mcg Capsule 250 Mcg PO BID Eliquis (Apixaban) 5 Mg Tablet 5 Mg PO BID Zetia (Ezetimibe) 10 Mg Tablet 10 Mg PO DAILY Metoprolol Succinate ( Xl ) (Metoprolol Succinate) 25 Mg Tab.er.24h 12.5 Mg PO DAILY One-Daily Multi-Vitamin (Multivitamin) 1 Each Tablet 1 Tab PO DAILY 30 Days Lantus Solostar (Insulin Glargine,Hum.rec.anlog) 100 Unit/1 Ml Insuln.pen 48 Unit SQ HS Spironolactone 50 Mg Tablet 0.5 Tab PO DAILY Entresto 24 mg-26 mg Tablet (Sacubitril/Valsartan) 1 Each Tablet 1 Each PO BID Metformin Hcl 1,000 Mg Tablet 1,000 Mg PO BIDWMEALS Levothyroxine Sodium 75 Mcg Tablet 150 Mcg PO DAILY Vitals/I & O Vital Sign - Last 24 Hours 04/15/20 04/15/20 04/15/20 04/15/20 17:43 18:45 19:00 19:50 Temp 97.7 97.7 Pulse 98 Resp 18 B/P (MAP) 137/88 (104) Pulse Ox 100 O2 Delivery Room Air Room Air Room Air Room Air 04/15/20 04/15/20 04/15/20 04/15/20 21:37 21:39 21:39 23:00 Temp 97.6 97.6 Pulse 98 98 96 Resp 18 B/P (MAP) 137/85 135/85 121/72 (88) Pulse Ox 95 O2 Delivery Room Air Room Air 04/16/20 04/16/20 04/16/20 04/16/20 00:44 03:00 05:40 07:00 Temp 97.5 98.1 97.5 98.1 Pulse 70 107 Resp 18 16 B/P (MAP) 121/70 (87) 135/76 (95) Pulse Ox 95 100 O2 Delivery Room Air Room Air Room Air Room Air 04/16/20 04/16/20 04/16/20 04/16/20 08:00 08:47 09:48 11:00 Temp 97.9 97.9 Pulse 107 88 Resp 16 B/P (MAP) 135/76 120/65 (83) Pulse Ox 92 O2 Delivery Room Air Room Air Room Air Intake and Output 04/15/20 04/15/20 04/16/20 15:00 23:00 07:00 Intake Total 900 ml 480 ml 100 ml Output Total 1 ml 350 ml Balance 899 ml 480 ml -250 ml Justifications for Admission Other Justification intractable back pain HYUN BRADFORD MD Apr 16, 2020 15:18
--- NOTE | 2020-04-16 15:33 | PDOC3 ---
Discharge Summary Visit Information Date of Admission: Apr 08, 2020 Date of Discharge: Apr 16, 2020 Final Diagnosis Problems Medical Problems: (1) Intractable low back pain Status: Acute (2) Lumbar disc lesion Status: Acute (3) Multiple myeloma Status: Acute Brief Hospital Course Allergies Allergies Coded Allergies Type Severity Reaction Last Updated Verified amiodarone Allergy Severe Shortness of Air 12/06/18 Yes meperidine Allergy Severe Shortness of Air 12/06/18 Yes Sybulcv-Tyb-Trp Reductase Inhibitor Adverse Reaction Intermediate 12/06/18 Yes lisinopril Adverse Reaction Mild 12/06/18 Yes Vital Signs Vital Signs Date Time Temp Pulse Resp B/P (MAP) Pulse Ox O2 Delivery O2 Flow Rate FiO2 04/16/20 11:00 97.9 88 16 120/65 (83) 92 Room Air 97.9 Lab Results Laboratory Tests Test 04/14/20 17:01 04/15/20 06:15 04/15/20 06:45 04/15/20 07:53 Glucose (Fingerstick) 185 mg/dL (70-99) 203 mg/dL (70-99) White Blood Count 7.7 x10^3/uL (4.0-11.0) Red Blood Count 2.99 x10^6/uL (4.30-5.70) Hemoglobin 10.3 g/dL (13.0-17.5) Hematocrit 30.5 % (39.0-53.0) Mean Corpuscular Volume 102 fL (79-100) Mean Corpuscular Hemoglobin 34 pg (25-35) Mean Corpuscular Hemoglobin Concent 34 g/dL (31-37) Red Cell Distribution Width 14.3 % (11.5-14.5) Platelet Count 210 x10^3/uL (140-400) Neutrophils (%) (Auto) 80 % (31-73) Lymphocytes (%) (Auto) 17 % (24-48) Monocytes (%) (Auto) 3 % (0-9) Eosinophils (%) (Auto) 0 % (0-3) Basophils (%) (Auto) 0 % (0-3) Neutrophils # (Auto) 6.2 x10^3/uL (1.8-7.7) Lymphocytes # (Auto) 1.3 x10^3/uL (1.0-4.8) Monocytes # (Auto) 0.2 x10^3/uL (0.0-1.1) Eosinophils # (Auto) 0.0 x10^3/uL (0.0-0.7) Basophils # (Auto) 0.0 x10^3/uL (0.0-0.2) Sodium Level 134 mmol/L (136-145) Potassium Level 4.3 mmol/L (3.5-5.1) Chloride Level 101 mmol/L (98-107) Carbon Dioxide Level 24 mmol/L (21-32) Anion Gap 9 (6-14) Blood Urea Nitrogen 20 mg/dL (8-26) Creatinine 1.1 mg/dL (0.7-1.3) Estimated GFR (Cockcroft-Gault) 68.1 BUN/Creatinine Ratio 18 (6-20) Glucose Level 225 mg/dL (70-99) Calcium Level 8.6 mg/dL (8.5-10.1) Total Bilirubin 0.2 mg/dL (0.2-1.0) Aspartate Amino Transf (AST/SGOT) 19 U/L (15-37) Alanine Aminotransferase (ALT/SGPT) 18 U/L (16-63) Alkaline Phosphatase 66 U/L (46-116) Total Protein 9.2 g/dL (6.4-8.2) Albumin 2.7 g/dL (3.4-5.0) Albumin/Globulin Ratio 0.4 (1.0-1.7) Uric Acid 6.0 mg/dL (3.5-7.2) Lactate Dehydrogenase 271 U/L (85-227) Test 04/15/20 11:40 04/15/20 16:35 04/16/20 07:57 04/16/20 08:50 Glucose (Fingerstick) 184 mg/dL (70-99) 145 mg/dL (70-99) 82 mg/dL (70-99) Sodium Level 138 mmol/L (136-145) Potassium Level 4.0 mmol/L (3.5-5.1) Chloride Level 104 mmol/L (98-107) Carbon Dioxide Level 23 mmol/L (21-32) Anion Gap 11 (6-14) Blood Urea Nitrogen 16 mg/dL (8-26) Creatinine 1.0 mg/dL (0.7-1.3) Estimated GFR (Cockcroft-Gault) 76.0 Glucose Level 101 mg/dL (70-99) Calcium Level 8.7 mg/dL (8.5-10.1) Laboratory Tests Test 04/15/20 16:35 04/16/20 07:57 04/16/20 08:50 Glucose (Fingerstick) 145 mg/dL (70-99) 82 mg/dL (70-99) Sodium Level 138 mmol/L (136-145) Potassium Level 4.0 mmol/L (3.5-5.1) Chloride Level 104 mmol/L (98-107) Carbon Dioxide Level 23 mmol/L (21-32) Anion Gap 11 (6-14) Blood Urea Nitrogen 16 mg/dL (8-26) Creatinine 1.0 mg/dL (0.7-1.3) Estimated GFR (Cockcroft-Gault) 76.0 Glucose Level 101 mg/dL (70-99) Calcium Level 8.7 mg/dL (8.5-10.1) Brief Hospital Course Mr. Garduno is a 60 old male who presented with intractable lower back pain, lumbar disc lesion, L2 and L4 compression fracture, multiple myeloma. Consultations were placed to oncology, radiation oncology, cardiology, PM&R. He had kyphoplasty performed on 04/11, with CT-guided bone marrow biopsy on the same day. He was treated with Decadron x 2, allopurinol for hyperuricemia,, and pain management. Patient was discharged with instructions to follow-up with radiation oncology and his PCP. Discharge Information Condition at Discharge: Stable Follow Up: Weeks Disposition/Orders: D/C to Home Scheduled Allopurinol (Allopurinol) 300 Mg Tablet, 300 MG PO DAILY for Hyperuricemia, #30 Ref 2 Prescribed by: TROY LLANES MD on 04/16/20 1517 Apixaban (Eliquis) 5 Mg Tablet, 5 MG PO BID for afib, (Reported) Entered as Reported by: EMMY ALEXIS on 05/26/191246 Last Action: Continued on 04/09/20925 by LISA MONTE Dofetilide (Tikosyn) 250 Mcg Capsule, 250 MCG PO BID for , (Reported) Entered as Reported by: EMMY ALEXIS on 05/26/191246 Last Action: Continued on 04/09/20925 by LISA MONTE Ezetimibe (Zetia) 10 Mg Tablet, 10 MG PO DAILY for chol, (Reported) Entered as Reported by: EMMY ALEXIS on 05/26/191246 Last Action: Continued on 04/09/20925 by LISA MONTE Furosemide (Furosemide) 40 Mg Tablet, 1 TAB PO DAILY for htn, #30 Ref 5 (Reported) Entered as Reported by: LISA MONTE on 04/09/20923 Last Action: Continued on 04/09/20925 by LISA MONTE Insulin Glargine,Hum.rec.anlog (Lantus Solostar) 100 Unit/1 Ml Insuln.pen, 48 UNIT SQ HS for DIABETES, #15 Ref 3 (Reported) Entered as Reported by: BEHZAD HOLMAN on 12/05/181614 Last Action: Converted on 04/09/20925 by LISA MONTE Levothyroxine Sodium (Levothyroxine Sodium) 75 Mcg Tablet, 150 MCG PO DAILY for HYPOTHYROID, (Reported) Entered as Reported by: CORNEL HALL on 10/05/131600 Last Action: Continued on 04/09/20925 by LISA MONTE Metformin Hcl (Metformin Hcl) 1,000 Mg Tablet, 1,000 MG PO BIDWMEALS for DIABETES, (Reported) Entered as Reported by: BEHZAD HOLMAN on 12/05/181600 Last Action: Converted on 04/09/20925 by LISA MONTE Metoprolol Succinate (Metoprolol Succinate ( Xl )) 25 Mg Tab.er.24h, 12.5 MG PO DAILY for FOR HYPERTENSION, #30 Ref 0 (Reported) Entered as Reported by: EMMY ALEXIS on 05/26/191246 Last Action: Continued on 04/09/20925 by LISA MONTE Multivitamin (One-Daily Multi-Vitamin) 1 Each Tablet, 1 TAB PO DAILY for for 30 Days, #30 Ref 0 (Reported) Entered as Reported by: EMMY ALEXIS on 05/26/191246 Last Action: Converted on 04/09/20925 by LISA LAVELL Sacubitril/Valsartan (Entresto 24 mg-26 mg Tablet) 1 Each Tablet, 1 EACH PO BID for HYPERTENSION, (Reported) Entered as Reported by: BEHZAD HOLMAN on 12/05/18 160 Last Action: Continued on 04/09/20925 by LISA MONTE Spironolactone (Spironolactone) 50 Mg Tablet, 0.5 TAB PO DAILY for DIURETIC, #30 Ref 5 (Reported) Entered as Reported by: BEHZAD HOLMAN on 12/05/18 161 Last Action: Converted on 04/09/20925 by LISA MONTE Justicifation of Admission Dx: Justifications for Admission: Justification of Admission Dx: Yes Chronic Renal Failure: Intravenous Infusions Fracture: Fracture TROY LLANES MD Apr 16, 2020 15:33
--- NOTE | 2020-04-16 16:35 | NUR ---
Discharge Note: [facility] [place] Discharge instructions and discharge home medications reviewed with Patient and a copy given. All questions have been answered and understanding verbalized. The following instructions and handouts were given: information about follow up appointments, medications, plan of care, medical equipement, etc. Discontinued lines and drains: IV line in left forearm removed, catheter tip intact. Patient discharged to home with self care with , patient walked to discharge vehicle.
[2020-04-16 21:11] LABS: ALBUMIN UR 27.8 % (.); ALPHA 1 UR 2.3 % (.); BETA UR 8.9 % (.); GAMMA UR 49.1 % (.); PROTEIN 24 UR 534 mg/24 hr (30-150); PROTEIN UR 16.3 mg/dL (Not Estab.)
--- NOTE | 2020-04-18 15:08 | PATHOLOGY ---
[facility] Accession Number: [id number] . 01 Material submitted: . PART A: vertebral column - BONE BIOPSY, L2 PART B: vertebral column - BONE BIOPSY, L4 . 01 Clinical history: . SUSPECT MULTIPLE MYELOMA, INTRACTABLE LOW BACK PAIN . 02 Diagnosis: A. L2 bone needle biopsy: - Small fragments of calcified bone - tissue insufficient for diagnosis. . B. L4 bone needle biopsy: - Hypercellular marrow with areas of sheet like replacement by plasma cells showing kappa light chain restriction, consistent with involvement by plasma cell myeloma. (JPM:flaco 04/18/2020) [facility] 04/18/2020 1423 Local . 02 Comment: Sections of the L2 bone biopsy reveal minute segments of calcified bone which are essentially devoid of cellular marrow elements. The biopsy is insufficient for diagnosis. . Sections of the L4 bone biopsy reveal bony trabeculae with accompanying hypercellular marrow. There are areas of sheet like replacement of marrow by mildly atypical plasma cells. Other areas show a smaller proportion of plasma cells with admixed hematopoietic cellular elements. An immunoperoxidase stain for CD138 and in situ hybridization for kappa and lambda light chain are obtained on block B1 and yield the following results: . CD138: Plasma cells positive confirming areas of marked plasmacytosis Rosen[place]n and lambda ARAM: Plasma cells show kappa light chain restriction. . The morphologic and immunophenotypic findings of the L4 bone biopsy are supportive of the diagnosis of involvement by plasma cell myeloma. (JPM:pit 04/18/2020) . Special stains performed: CD138 on B1 and kappa and lambda ARAM on B1 . 02 Electronically signed: . Vish Miller MD, Pathologist NPI- [id number] . 01 Gross description: . A. The specimen is received in formalin, labeled "Ahmet Garduno, L2 bone BX" and consists of a minute fragment of possible cooper tissue measuring 0.1 x 0.1 x 0.1 cm which is entirely submitted in A1. . B. The specimen is received in formalin, labeled "Ahmet Garduno, L4 bone BX" and consists of multiple fragments of brown bone measuring 1.0 x 0.6 x 0.3 cm in aggregate which are entirely submitted in B1 following decalcification. (SDY; 04/16/2020) SYU/SYU 04/16/2020 1052 Local . 02 Pathologist provided ICD-10: D75.89 . 02 CPT . 289753, 362495, K18422, O75112, P20452 Specimen Comment: A courtesy copy of this report has been sent to [phone], [phone] Specimen Comment: [phone], , Specimen Comment: Report sent to ,DR BRADFORD,DR CABALLERO / DR GARCIA Performed at: 01 [facility] [address], [place] [id number] MD Dom Godwin MD Phone: [phone] Performed at: [address] [facility] [address] [place], [place] [id number] MD Vish Miller MD Phone: [phone]
== END 2020-04-16 16:35 | disposition home or self-care (01) | DRG 478 ==
LOC: ER 12:34 → ED HOLD 14:20 → 4 NORTH 17:21
PROVIDERS: ADMIT Internal Medicine; ATTEND Internal Medicine
PROC: 0QS03ZZ Reposition Lumbar Vertebra, Percutaneous Approach (ICD-10-PCS; 2020-04-11)
PROC: 0QU03JZ Supplement Lumbar Vertebra with Synthetic Substitute, Percutaneous Approach (ICD-10-PCS; 2020-04-11)
PROC: 07DR3ZX Extraction of Iliac Bone Marrow, Percutaneous Approach, Diagnostic (ICD-10-PCS; 2020-04-11)
PROC: 0Q903ZX Drainage of Lumbar Vertebra, Percutaneous Approach, Diagnostic (ICD-10-PCS; principal; 2020-04-11 14:00)
DX: M84.48XA Pathological fracture, other site, initial encounter for fracture (principal); C90.00 Multiple myeloma not having achieved remission; E87.1 Hypo-osmolality and hyponatremia; I13.0 Hypertensive heart and chronic kidney disease with heart failure and stage 1 through stage 4 chronic kidney disease, or unspecified chronic kidney disease; I50.22 Chronic systolic (congestive) heart failure; N17.9 Acute kidney failure, unspecified; D64.9 Anemia, unspecified; E03.9 Hypothyroidism, unspecified; E11.22 Type 2 diabetes mellitus with diabetic chronic kidney disease; E78.5 Hyperlipidemia, unspecified; I25.10 Atherosclerotic heart disease of native coronary artery without angina pectoris; I25.2 Old myocardial infarction; I25.5 Ischemic cardiomyopathy; I34.0 Nonrheumatic mitral (valve) insufficiency; I48.0 Paroxysmal atrial fibrillation; K59.00 Constipation, unspecified; N18.9 Chronic kidney disease, unspecified; Z80.6 Family history of leukemia; Z82.49 Family history of ischemic heart disease and other diseases of the circulatory system; Z90.49 Acquired absence of other specified parts of digestive tract; Z90.81 Acquired absence of spleen; Z91.19 Patient's noncompliance with other medical treatment and regimen; Z95.5 Presence of coronary angioplasty implant and graft; Z95.810 Presence of automatic (implantable) cardiac defibrillator; G47.33 Obstructive sleep apnea (adult) (pediatric); K21.9 Gastro-esophageal reflux disease without esophagitis; M19.90 Unspecified osteoarthritis, unspecified site; Z88.8 Allergy status to other drugs, medicaments and biological substances; Z20.828 Contact with and (suspected) exposure to other viral communicable diseases
CPT/HCPCS: 20225; 22511; 22514; 22515; 36415; 38222; 71045; 76770; 77012; 77075; 80048; 80053; 81001; 81270; 82232; 82570; 82607; 82668; 82728; 82784; 82962; 83036; 83520; 83540; 83550; 83615; 83735; 83883; 84100; 84156; 84165; 84166; 84443; 84550; 85025; 85045; 85610; 86140; 86334; 86335; 87426; 90471; 90686; 93005; 93306; 96361; 96374; 96375; 99152; 99285; C1713; C1758; G0103; J0690; J1100; J1170; J1650; J1815; J2250; J2405; J2704; J3010; J3490; J7030; Q9966; U0003; G0378; Q0163

== ENCOUNTER → 2020-04-26 | Outpatient (CLI) | payer OTHER ==
[2020-04-16 15:00] VITALS: BP 122/66
[~2020-04-26] MED LIST changes: +ALLO300T PO
[2020-04-26 11:59] LABS: CALCIUM 9.7 mg/dL (8.5-10.1); CREATININE 1.2 mg/dL (0.7-1.3); GFR 61.6
[2020-04-26 12:06] LABS: ALBUMIN 3.1 g/dL (3.4-5.0); ALBUMIN/GLOBULIN RATIO 0.4 (1.0-1.7); TOTAL BILIRUBIN 0.4 mg/dL (0.2-1.0); TOTAL PROTEIN 10.4 g/dL (6.4-8.2)
[2020-04-26 12:08] LABS: BASO % 1 % (0-3); EOS # 0.1 x10^3/uL (0.0-0.7); EOS % 2 % (0-3); HEMATOCRIT 34.4 % (39.0-53.0); HEMOGLOBIN 11.8 g/dL (13.0-17.5); LYMPH # 0.9 x10^3/uL (1.0-4.8); LYMPH % 25 % (24-48); MEAN CORPUSCULAR HEMOGLOBIN 35 pg (25-35); MEAN CORPUSCULAR HGB CONC 34 g/dL (31-37); MEAN CORPUSCULAR VOLUME 102 fL (79-100); MONO # 0.2 x10^3/uL (0.0-1.1); MONO % 5 % (0-9); NEUT # 2.6 x10^3/uL (1.8-7.7); NEUT % 68 % (31-73); PLATELET COUNT 219 x10^3/uL (140-400); RED BLOOD COUNT 3.38 x10^6/uL (4.30-5.70); RED CELL DISTRIBUTION WIDTH 14.2 % (11.5-14.5); WHITE BLOOD COUNT 3.8 x10^3/uL (4.0-11.0)
== END ==
LOC: ONCLAB 11:30
PROVIDERS: ATTEND Internal Medicine Hematology & Oncology
DX: C90.00 Multiple myeloma not having achieved remission (principal)
CPT/HCPCS: 36415; 80053; 84550; 85025

== ENCOUNTER 2020-05-01 11:07 | Emergency (ER) | payer OTHER ==
[~2020-05-01] VITALS: Ht 175.3 cm; Wt 110.0 kg
--- NOTE | 2020-05-01 11:24 | PHYS DOC ---
Past Medical History Past Medical History: A-Fib, CAD, Diabetes-Type II, Hypertension Additional Past Medical Histor: annamarie mountain spotted fever Past Surgical History: Appendectomy, Pacemaker Additional Past Surgical Histo: spleenectomy, knee surgery Smoking Status: Never Smoker Alcohol Use: Occasionally Drug Use: None General Adult EDM: Chief Complaint: WEAKNESS HPI: HPI: Patient is a 60 year old male who arrives via EMS with a chief complaint of generalized weakness. Patient has had some shortness of breath. Patient has had lumbar back pain radiating to his abdomen and worse with movement since yesterday. Patient still weak and short of breath today. Patient denies any fever, cough. he describes moderate in severity low back pain. Patient has noticed mottled appearance of his torso today. Review of Systems: Review of Systems: Constitutional: Denies fever or chills. [] Eyes: Denies change in visual acuity. [] HENT: Denies nasal congestion or sore throat. [] Respiratory: Patient complains of shortness of breath Cardiovascular: She has some chest discomfort GI: Patient has a mild abdominal pain without vomiting : Denies dysuria. [] Musculoskeletal: Patient complains of lumbar back pain Integument: Denies rash. [] Neurologic: Denies headache, focal weakness or sensory changes. [] Endocrine: Denies polyuria or polydipsia. [] Lymphatic: Denies swollen glands. [] Psychiatric: Denies depression or anxiety. [] Heart Score: Risk Factors: Risk Factors: DM, Current or recent (<one month) smoker, HTN, HLP, family history of CAD, obesity. Risk Scores: Score 0 - 3: 2.5% MACE over next 6 weeks - Discharge Home Score 4 - 6: 20.3% MACE over next 6 weeks - Admit for Clinical Observation Score 7 - 10: 72.7% MACE over next 6 weeks - Early Invasive Strategies Current Medications: Current Medications Medications (Trade) Dose Ordered Sig/Elva Start Time Stop Time Status Last Admin Dose Admin Info (CONTRAST GIVEN -- Rx MONITORING) 1 each PRN DAILY PRN 05/01/20 11:30 05/03/20 11:29 Iohexol (Omnipaque 350 Mg/ml) 100 ml 1X ONCE 05/01/20 11:30 05/01/20 11:31 Sodium Chloride 1,000 ml @ 1,000 mls/hr 1X ONCE 05/01/20 11:30 05/01/20 12:29 Allergies: Allergies: Allergies Coded Allergies Type Severity Reaction Last Updated Verified amiodarone Allergy Severe Shortness of Air 12/06/18 Yes meperidine Allergy Severe Shortness of Air 12/06/18 Yes Nbpuxkw-Isz-Qts Reductase Inhibitor Adverse Reaction Intermediate 12/06/18 Yes lisinopril Adverse Reaction Mild 12/06/18 Yes Physical Exam: PE: Constitutional: Well developed, well nourished, severe distress HENT: Normocephalic, atraumatic, bilateral external ears normal, oropharynx moist, no oral exudates, nose normal. [] Eyes: PERRLA, EOMI, conjunctiva normal, no discharge. [] Neck: Normal range of motion, no tenderness, supple, no stridor. [] Cardiovascular: Tachycardia, thready peripheral pulses, diminished cap refill Lungs & Thorax: Diminished breath sounds bilaterally Abdomen: Soft without obvious pulsatile masses but patient is obese tenderness in epigastric area Skin: Mottled appearance below the nipples. Back: Unable to rule to assess the back at this time Extremities: Mild bilateral lower extremities edema Neurologic: Alert and oriented X 3, normal motor function, normal sensory function, no focal deficits noted. [] Psychologic: Affect normal, judgement normal, mood normal. [] Current Patient Data: Labs: Laboratory Tests Test 05/01/20 11:41 White Blood Count 5.2 x10^3/uL Red Blood Count 2.52 x10^6/uL Hemoglobin 9.1 g/dL Hematocrit 26.9 % Mean Corpuscular Volume 107 fL Mean Corpuscular Hemoglobin 36 pg Mean Corpuscular Hemoglobin Concent 34 g/dL Red Cell Distribution Width 15.3 % Platelet Count 134 x10^3/uL Neutrophils (%) (Auto) 85 % Lymphocytes (%) (Auto) 11 % Monocytes (%) (Auto) 4 % Eosinophils (%) (Auto) 0 % Basophils (%) (Auto) 0 % Neutrophils # (Auto) 4.5 x10^3/uL Lymphocytes # (Auto) 0.6 x10^3/uL Monocytes # (Auto) 0.2 x10^3/uL Eosinophils # (Auto) 0.0 x10^3/uL Basophils # (Auto) 0.0 x10^3/uL Platelet Estimate Pending Prothrombin Time 37.6 SEC Prothromb Time International Ratio 3.8 Activated Partial Thromboplast Time 37 SEC Sodium Level 128 mmol/L Potassium Level 5.9 mmol/L Chloride Level 94 mmol/L Carbon Dioxide Level 9 mmol/L Anion Gap 25 Blood Urea Nitrogen 47 mg/dL Creatinine 3.3 mg/dL Estimated GFR (Cockcroft-Gault) 19.2 BUN/Creatinine Ratio 14 Glucose Level 319 mg/dL Calcium Level 9.9 mg/dL Magnesium Level 2.3 mg/dL Total Bilirubin 0.9 mg/dL Aspartate Amino Transf (AST/SGOT) 1949 U/L Alanine Aminotransferase (ALT/SGPT) 1340 U/L Alkaline Phosphatase 66 U/L Troponin I Quantitative < 0.017 ng/mL DC-Cmr-N-Type Natriuretic Peptide 2032 pg/mL Total Protein 8.9 g/dL Albumin 2.3 g/dL Albumin/Globulin Ratio 0.3 Lipase 77 U/L Current Medications Medications (Trade) Dose Ordered Sig/Elva Route PRN Reason Start Time Stop Time Status Last Admin Dose Admin Sodium Chloride 1,000 ml @ 1,000 mls/hr 1X ONCE IV 05/01/20 11:30 05/01/20 12:29 DC 05/01/20 11:10 Iohexol (Omnipaque 350 Mg/ml) 100 ml 1X ONCE IV 05/01/20 11:30 05/01/20 11:31 DC 05/01/20 11:39 Info (CONTRAST GIVEN -- Rx MONITORING) 1 each PRN DAILY PRN MC SEE COMMENTS 05/01/20 11:30 05/03/20 11:29 Sodium Chloride 1,000 ml @ 1,000 mls/hr 1X ONCE IV 05/01/20 12:45 05/01/20 13:44 DC 05/01/20 11:10 Phenylephrine HCl (PHENYLEPHRINE in 0.9% NACL PF) 0.1 mg 1X ONCE IV 05/01/20 13:00 05/01/20 13:04 DC Midazolam HCl (Versed) 5 mg STK-MED ONCE .ROUTE 05/01/20 13:01 05/01/20 13:01 DC Fentanyl Citrate (Fentanyl 2ml Vial) 100 mcg STK-MED ONCE .ROUTE 05/01/20 13:01 05/01/20 13:01 DC Midazolam HCl (Versed) 2.5 mg 1X ONCE IV 05/01/20 13:15 05/01/20 13:16 DC Fentanyl Citrate (Fentanyl 2ml Vial) 50 mcg 1X ONCE IVP 05/01/20 13:15 05/01/20 13:16 DC Insulin Human Regular (HumuLIN R VIAL) 10 unit 1X ONCE IV 05/01/20 13:15 05/01/20 13:16 DC Calcium Gluconate (Calcium Gluconate) 1,000 mg 1X ONCE IVP 05/01/20 13:15 05/01/20 13:16 DC Cefepime HCl (Maxipime) 2 gm 1X ONCE IVP 05/01/20 13:45 05/01/20 13:46 DC Norepinephrine Bitartrate 8 mg/ Dextrose 258 ml @ 21.285 mls/ hr CONT PRN IV PER PROTOCOL 05/01/20 13:15 Calcium Chloride (Calcium Chloride) 1,000 mg STK-MED ONCE .ROUTE 05/01/20 13:30 05/01/20 13:30 DC Vital Signs: Vital Signs Date Time Temp Pulse Resp B/P (MAP) Pulse Ox O2 Delivery O2 Flow Rate FiO2 05/01/20 12:47 114 64/46 (52) 05/01/20 11:59 78/ 05/01/20 11:46 88/ 05/01/20 11:07 79.6 136 30 75/47 (56) 100 Nasal Cannula 3.0 79.6 EKG: EKG: EKG interpreted by me Ant perez with a rate of 134 normal axis normal QTC nonspecific ST changes [] Radiology/Procedures: Radiology/Procedures: [][facility] [address] [place] [address] IMAGING REPORT Signed PATIENT: REBECCA MONROE ACCOUNT: [id number] : 1960 LOCATION: ER AGE: 60 SEX: M EXAM STATUS: REG ER ORD. PHYSICIAN: STANFORD LACKEY MD REASON: BACK PAIN, HYPOTENSION PROCEDURE: CT ANGIO CHEST ABD PELVIS PQRS Compliance Statement: One or more of the following individualized dose reduction techniques were utilized for this examination: 1. Automated exposure control 2. Adjustment of the mA and/or kV according to patient size 3. Use of iterative reconstruction technique CT ANGIO CHEST ABD PELVIS 05/01/2020 11:18 AM INDICATION: Neck pain, hypotension. COMPARISON: None available TECHNIQUE: Multiple axial CT images of the chest, abdomen and pelvis were obtained after the intravenous administration of 90 mL Omnipaque 350. Coronal and sagittal reformats are provided. FINDINGS: Thyroid gland is normal in appearance. There is a right paratracheal lymph node measuring 12 mm (series 6, image 25). Heart size is within normal limits. Moderate to large sized hemopericardium. Thoracic aorta is normal in course and caliber. No aortic dissection is identified. Minor coronary artery vascular calcifications are present. Trace right pleural effusion. No pulmonary vascular congestion or pneumothorax. No focal airspace consolidation. There is reflux within the right hepatic vein. Cholelithiasis. No suspicious hepatic mass. Spleen appears surgically absent. There is moderate atrophy of the pancreatic parenchyma. Small duodenal diverticulum measuring 2.2 x 1.6 cm. Abdominal aorta is normal in course and caliber. No pathologically enlarged lymph nodes are identified in abdomen and pelvis. Trace free fluid identified within the dependent pelvis. No free intraperitoneal air. Small large bowel is normal in caliber. No bowel obstruction or inflammation. Kidneys enhance symmetrically. No suspicious renal mass. No hydronephrosis. Urinary bladder is within normal limits given degree of distention. Prostate and seminal vesicles appear normal. Moderate colonic diverticulosis without evidence for diverticulitis. Appendix is not definitively visualized. No pericecal inflammatory changes are identified. Moderate distention of the stomach with air-fluid level. There is diffuse osteopenia. Spinal augmentation changes are identified at L2 and L4. Minimal superior plate compression deformity at L3, age indeterminate without significant height loss. IMPRESSION: 1. Moderate to large volume hemopericardium. 2. Trace right pleural effusion. 3. Contrast reflux into the right hepatic vein and renal vein suggestive of right heart failure. 4. Small duodenal diverticulum measuring 2.2 x 1.16. 5. Splenectomy changes. Moderate atrophy of the pancreas. 6. Moderate diverticulosis without adjacent inflammation. 7. Small volume free fluid within the dependent pelvis. 8. Superior plate compression deformity involving L3 without significant height loss. L2 and L4 treated compression deformities with spinal augmentation. FOR INTERNAL CODING PURPOSES Critical result: Findings discussed with Dr. LACKEY at 05/01/2020 1:20 PM. RESULT CODE: (C) Electronically signed by: Carlos Hair MD (05/01/2020 1:27 PM) [id number] DICTATED and SIGNED BY: CARLOS HAIR MD DATE: 05/01/20 1327 [facility] [address] [place] [address] IMAGING REPORT Signed PATIENT: REBECCA MONROE ACCOUNT: [id number] : 1960 LOCATION: ER AGE: 60 SEX: M EXAM STATUS: REG ER ORD. PHYSICIAN: STANFORD LACKEY MD REASON: BACK PAIN, HYPOTENSION. Hx MULTIPLE MYELOMA PROCEDURE: PORTABLE CHEST 1V PORTABLE CHEST 1V History: Reason: BACK PAIN, HYPOTENSION. Hx MULTIPLE MYELOMA / Spl. Instructions: / History: Comparison: April 09, 2020 Findings: Linear left basilar opacity. No pleural effusion. No pneumothorax. Left-sided pacemaker, unchanged. Enlarged cardiac size. Impression: 1. Linear left basilar opacity, may represent atelectasis. 2. Increased cardiac size, may represent pericardial effusion. Electronically signed by: Yuniel Perry DO (05/01/2020 12:57 PM) [id number] DICTATED and SIGNED BY: YUNIEL PERRY DO DATE: 05/01/20 1257 Course & Med Decision Making: Course & Med Decision Making Indication: Respiratory failure Consent: Unable to give consent due to emergent nature. Medications Used: 20 MG AMIDATE, 100 MG ROCCURONIUM, 100 mcg phenylephrine Procedure: The patient was placed in the appropriate position. Intubation was performed [GLYDESCOPE 3] [7.5] endotracheal tube. [23 AT TEETH]. Initial confirmation of placement included bilateral breath sounds, tube fogging, adequate chest rise, adequate pulse oximetry reading, +end tidal co2 color change. A chest x-ray to verify correct placement of the tube showed appropriate tube position. The patient tolerated the procedure well. Complications: none. Pertinent Labs and Imaging studies reviewed. (See chart for details) [] 60-year-old man came in critically ill with A. fib with RVR and hypotension and skin mottling. Patient also had complained of back pain radiating to the abdomen. Due to the mottling of the skin and low blood pressure and weak peripheral pulses patient was sent over for stat CAT scan to rule out aortic pathology. CT revealed no evidence of aortic dissection or aneurysm but did show a pericardial effusion. I immediately called his house wirer helper, Dr. Acevedo and ordered a stat echocardiogram. reviewed the echo and did not feel there was tamponade physiology. and came to the emergency room to evaluate the patient and attempted to cardiovert him 4 times without success. Patient received Versed and fentanyl prior to this but due to his emergent nature there was not time to fill out procedural sedation paperwork. After the cardioversion was attempted patient had increased work of breathing and was persistently hypotensive and tachycardic. I discussed with and we elected to intubate the patient due to his critical nature and further need for aggressive IV fluids and ICU care. Patient was intubated without any complications at 1:19 PM. Approximately 5 minutes later I was called to the room as the patient went into asystole. Full ACLS and CPR was then initiated and directed by me. Patient received multiple rounds of epinephrine, calcium, bicarb, insulin (for hyperkalemia). Patient also received lidocaine for a run of ventricular tachycardia. Patient was shocked several times when he was in ventricular fibrillation. was present during the entire resuscitation. discussed with me that patient would not want to be a "vegetable" and understands that severity of his illness. Patient remained in asystole and finally pronounced at 1:41 PM. Critical care time was [45] minutes exclusive of procedures. Critical care time was [45] minutes which includes time at bedside, spent in discussion of patient's care with specialist and/or family members, with interpretation of laboratory and/or radiological studies and is exclusive of procedures. Critical condition: respiratory failure, hypotension, renal failure, atrial fibrillation with rapid ventricular response, shock, hyperkalemia Critical interventions: Intubation, full ACLS protocol., Cardioversion per cardiology, multiple assessments and emergent cardiac consult Dragon Disclaimer: Madelin Disclaimer: This electronic medical record was generated, in whole or in part, using a voice recognition dictation system. Departure Departure Impression: Primary Impression: Respiratory failure Additional Impressions: Cardiac arrest Atrial fibrillation with RVR Hypotension Acute renal failure Back pain Pericardial effusion Disposition: 20 (13:41) Referrals: YUAN GARCIA MD (PCP) STANFORD LACKEY MD May 01, 2020 11:24
[2020-05-01] MEDS ORDERED: IOHEXOL 350 MG/ML 100 ML VIAL. IV ONE (11:30)
[2020-05-01] MEDS ORDERED: IV NORMAL SALINE 1000ML BAG 1,000 ML IV ONE ×2 (11:30→12:45)
[2020-05-01] MEDS ORDERED: CONTRAST GIVEN. MC PRN (11:30)
[2020-05-01 12:09] LABS: BASO % 0 % (0-3); EOS % 0 % (0-3); HEMATOCRIT 26.9 % (39.0-53.0); HEMOGLOBIN 9.1 g/dL (13.0-17.5); LYMPH # 0.6 x10^3/uL (1.0-4.8); LYMPH % 11 % (24-48); MEAN CORPUSCULAR HEMOGLOBIN 36 pg (25-35); MEAN CORPUSCULAR HGB CONC 34 g/dL (31-37); MEAN CORPUSCULAR VOLUME 107 fL (79-100); MONO # 0.2 x10^3/uL (0.0-1.1); MONO % 4 % (0-9); NEUT # 4.5 x10^3/uL (1.8-7.7); NEUT % 85 % (31-73); PLATELET COUNT 134 x10^3/uL (140-400); RED BLOOD COUNT 2.52 x10^6/uL (4.30-5.70); RED CELL DISTRIBUTION WIDTH 15.3 % (11.5-14.5); WHITE BLOOD COUNT 5.2 x10^3/uL (4.0-11.0)
[2020-05-01 12:22] LABS: PROTHROMBIN TIME PATIENT 37.6 SEC (11.7-14.0)
[2020-05-01 12:30] LABS: ALBUMIN 2.3 g/dL (3.4-5.0); ALBUMIN/GLOBULIN RATIO 0.3 (1.0-1.7); CALCIUM 9.9 mg/dL (8.5-10.1); CREATININE 3.3 mg/dL (0.7-1.3); GFR 19.2; MAGNESIUM 2.3 mg/dL (1.8-2.4); POTASSIUM 5.9 mmol/L (3.5-5.1); TOTAL BILIRUBIN 0.9 mg/dL (0.2-1.0); TOTAL PROTEIN 8.9 g/dL (6.4-8.2)
[2020-05-01] MEDS ORDERED: PHENYLEPHRINE in 0.9% NACL PF 1 MG/10 ML SYRINGE. IV ONE ×2 (13:00→13:15)
--- NOTE | 2020-05-01 13:00 | RAD ---
PORTABLE CHEST 1V History: Reason: BACK PAIN, HYPOTENSION. Hx MULTIPLE MYELOMA / Spl. Instructions: / History: Comparison: April 09, 2020 Findings: Linear left basilar opacity. No pleural effusion. No pneumothorax. Left-sided pacemaker, unchanged. Enlarged cardiac size. Impression: 1. Linear left basilar opacity, may represent atelectasis. 2. Increased cardiac size, may represent pericardial effusion. Electronically signed by: Yuniel Perry DO (05/01/2020 12:57 PM) [id number]
[2020-05-01] MEDS ORDERED: fentaNYL PF VIAL 100 MCG/2 ML VIAL ONE ×2 (13:01→14:09)
[2020-05-01] MEDS ORDERED: MIDAZOLAM HCL/PF 5 MG/5 ML VIAL. ONE (13:01)
[2020-05-01 13:09] VITALS: BP 78/55
[2020-05-01] MEDS ORDERED: fentaNYL PF VIAL 100 MCG/2 ML VIAL IVP ONE (13:15)
[2020-05-01] MEDS ORDERED: NOREPINEPHRINE VIAL 8 MG in IV DEXTROSE 5% 250 ML IV PRN (13:15)
[2020-05-01] MEDS ORDERED: INSULIN REGULAR 100 UNIT/ML 3ML VIAL. IV ONE (13:15)
[2020-05-01] MEDS ORDERED: CALCIUM GLUCONATE 1,000 MG/10 ML VIAL. IVP ONE (13:15)
[2020-05-01] MEDS ORDERED: MIDAZOLAM HCL/PF 5 MG/5 ML VIAL. IV ONE (13:15)
[2020-05-01] MEDS ORDERED: ROCURONIUM 50 MG/5 ML VIAL. IV ONE ×2 (13:17)
[2020-05-01] MEDS ORDERED: ETOMIDATE 20 MG/10 ML VIAL. IV ONE ×2 (13:17→14:07)
[2020-05-01] MEDS ORDERED: ROCURONIUM 100 MG/10 ML VIAL. IV ONE (13:17)
[2020-05-01] MEDS ORDERED: CALCIUM CHLORIDE 1,000 MG/10 ML DISP.SYRIN ONE (13:30)
--- NOTE | 2020-05-01 13:31 | RAD ---
PQRS Compliance Statement: One or more of the following individualized dose reduction techniques were utilized for this examination: 1. Automated exposure control 2. Adjustment of the mA and/or kV according to patient size 3. Use of iterative reconstruction technique CT ANGIO CHEST ABD PELVIS 05/01/2020 11:18 AM INDICATION: Neck pain, hypotension. COMPARISON: None available TECHNIQUE: Multiple axial CT images of the chest, abdomen and pelvis were obtained after the intravenous administration of 90 mL Omnipaque 350. Coronal and sagittal reformats are provided. FINDINGS: Thyroid gland is normal in appearance. There is a right paratracheal lymph node measuring 12 mm (series 6, image 25). Heart size is within normal limits. Moderate to large sized hemopericardium. Thoracic aorta is normal in course and caliber. No aortic dissection is identified. Minor coronary artery vascular calcifications are present. Trace right pleural effusion. No pulmonary vascular congestion or pneumothorax. No focal airspace consolidation. There is reflux within the right hepatic vein. Cholelithiasis. No suspicious hepatic mass. Spleen appears surgically absent. There is moderate atrophy of the pancreatic parenchyma. Small duodenal diverticulum measuring 2.2 x 1.6 cm. Abdominal aorta is normal in course and caliber. No pathologically enlarged lymph nodes are identified in abdomen and pelvis. Trace free fluid identified within the dependent pelvis. No free intraperitoneal air. Small large bowel is normal in caliber. No bowel obstruction or inflammation. Kidneys enhance symmetrically. No suspicious renal mass. No hydronephrosis. Urinary bladder is within normal limits given degree of distention. Prostate and seminal vesicles appear normal. Moderate colonic diverticulosis without evidence for diverticulitis. Appendix is not definitively visualized. No pericecal inflammatory changes are identified. Moderate distention of the stomach with air-fluid level. There is diffuse osteopenia. Spinal augmentation changes are identified at L2 and L4. Minimal superior plate compression deformity at L3, age indeterminate without significant height loss. IMPRESSION: 1. Moderate to large volume hemopericardium. 2. Trace right pleural effusion. 3. Contrast reflux into the right hepatic vein and renal vein suggestive of right heart failure. 4. Small duodenal diverticulum measuring 2.2 x 1.16. 5. Splenectomy changes. Moderate atrophy of the pancreas. 6. Moderate diverticulosis without adjacent inflammation. 7. Small volume free fluid within the dependent pelvis. 8. Superior plate compression deformity involving L3 without significant height loss. L2 and L4 treated compression deformities with spinal augmentation. FOR INTERNAL CODING PURPOSES Critical result: Findings discussed with Dr. LACKEY at 05/01/2020 1:20 PM. RESULT CODE: (C) Electronically signed by: Yohana Stoner MD (05/01/2020 1:27 PM) [id number]
[2020-05-01] MEDS ORDERED: CEFEPIME HCL IV Push 2 GM VIAL. IVP ONE (13:45)
[2020-05-01] MEDS ORDERED: ROCURONIUM 50 MG/5 ML VIAL. ONE (14:07)
[2020-05-01 14:46] LABS: % BANDS 23 % (0-9); % LYMPHS 13 % (24-48); % METAS 2 % (0-0); % MONOS 2 % (0-10); % SEGS 60 % (35-66); PLT ESTIMATE ADEQUATE (ADEQUATE); ROULEAUX PRESENT
--- NOTE | 2020-05-01 22:59 | PDOC ---
Provider Note Date of Service: DATE: 05/01/20 TIME: 22:[address] Garduno is well known to our cardiology service. Received a call from ER regarding critical presentation of the patient. Case discussed with ER physician. Upon my arrival, patient was in extremis, he was grunting with limited mentation and incoherent responses. His skin was cool and severely mottled, overall consistent with cardiogenic and/or septic shock. It appears based on history from his that he rapidly declined over the last 24 hours. Vitals were severely abnormal with HR in the 120-140's in afib and BP of 60/40 despite 2 L IVF resuscitation. He was given phenylephrine to help with BP and after brief discussion (given emergent setting) with the patient's , a cardioversion was attempted in an effort to improve cardiac flow and stabilize his BP. Patient was known to have severe CMP in the setting of prior [place] and unfortunately could not maintain SR. Due to mentation, severe hypotension and lack of stable airway, I spoke with the patient's and ER physician and all felt that intubation would be the next best step. Unfortunately, after trying to stabilize an airway, patient had rapid decline and despite resuscitative efforts. Family was understanding of the critical nature of his presentation. Justifications for Admission Other Justification intractable back pain ADELINE ELLSWORTH MD May 01, 2020 22:59
--- NOTE | 2020-05-02 08:15 | CARD ---
MR#: [id number] Date of Study: 05/01/2020 Ordering Physician: ADELINE ACEVEDO, Referring Physician: ADELINE ACEVEDO, Tech: Bethany Vega APPROVED REPORT EXAM: Two-dimensional and M-mode echocardiogram with Doppler and color Doppler. Other Information Quality : AverageHR: 120bpm INDICATION Pericardial Effusion Surgery/Intervention ICD/Pacemaker: 2D DIMENSIONS Left Atrium(2D)3.6 (1.6-4.0cm)IVSd1.1 (0.7-1.1cm) Aortic Root(2D)3.5 (2.0-3.7cm)LVDd5.4 (3.9-5.9cm) LVOT Diameter2.1 (1.8-2.4cm)PWd1.0 (0.7-1.1cm) LVDs3.7 (2.5-4.0cm)FS (%) 31.6 % SV84.2 mlLVEF(%)59.1 (>50%) LEFT VENTRICLE The left ventricle is normal size. There is normal left ventricular wall thickness. The systolic func tion is moderate to severely impaired. EF 30-35% Moderate to severe diffuse global hypokinesis. RIGHT VENTRICLE The right ventricle is small in caliber There is normal right ventricular wall thickness. The right v entricular systolic function is normal. There is a pacemaker lead in the right ventricle. TRICUSPID VALVE The tricuspid valve is not well visualized. Doppler and color-flow analysis was not performed. PULMONIC VALVE The pulmonic valve is not well visualized. Doppler and color-flow analysis was not performed. GREAT VESSELS The aortic root is normal in size. IVC is not well visualized. PERICARDIAL EFFUSION There is a moderate to large sized pericardial effusion, likely hemorrhagic with fibrious exudates pr esent. No clear evidence of RV diastolic collapse to suggest tamponade physiology. Critical Notification Critical Value: No <Conclusion> The systolic function is moderate to severely impaired. EF 30-35% Moderate to severe diffuse global hypokinesis. There is a pacemaker lead in the right ventricle. There is a moderate to large sized pericardial effusion, likely hemorrhagic with fibrious exudates pr esent. No clear evidence of RV diastolic collapse to suggest tamponade physiology. Signed by : Adeline Acevedo, Electronically Approved : 05/02/2020 08:15:03
== END 2020-05-01 16:15 ==
LOC: ER 11:07
DX: I46.9 Cardiac arrest, cause unspecified (principal); I48.20 Chronic atrial fibrillation, unspecified; N17.9 Acute kidney failure, unspecified; J96.90 Respiratory failure, unspecified, unspecified whether with hypoxia or hypercapnia; M54.5 Low back pain; I95.9 Hypotension, unspecified; I31.3 Pericardial effusion (noninflammatory); E11.9 Type 2 diabetes mellitus without complications; I11.9 Hypertensive heart disease without heart failure; Z90.89 Acquired absence of other organs; Z95.0 Presence of cardiac pacemaker; Z98.890 Other specified postprocedural states; Z88.8 Allergy status to other drugs, medicaments and biological substances
CPT/HCPCS: 31500; 36415; 71045; 71275; 74174; 80053; 83690; 83735; 83880; 84484; 85007; 85025; 85610; 85730; 86850; 86900; 86901; 87040; 92950; 93005; 93308; 96361; 96374; 96375; 99291; J1815; J2250; J2370; J3010; J3490; J7030; Q9967